=== PATIENT | male | born 1960 | race Caucasian/White ===

== ENCOUNTER 2020-02-11 10:36 | Emergency (ER) | payer OTHER, SELFPAY ==
[2020-02-11 10:47] VITALS: BP 133/82; PULSE 111; RESP 18; TEMP 37.3; O2SAT 99
--- NOTE | 2020-02-11 11:00 | PC.NURSE ---
report called to [facility] by Gabriela CAMPBELL Appropriate transfer paperwork signed and prperty sheet completed
--- NOTE | 2020-02-11 11:02 | ED.MALEGU ---
HPI - Male Genitourinary General Chief complaint: Urogenital-Male Stated complaint: pos uti Source: patient Mode of arrival: ambulatory Limitations: no limitations History of Present Illness HPI Narrative: 59-year-old male presents to urgent care with complaints of dysuria, hematuria, urinary frequency, chills and fevers up to 102.6 since midnight today. Patient has been taking [id number] ibuprofen with minimal relief. Patient reports that he had perforated bowel and had colon surgery completed on January 06 at [facility]. Patient denies cough, shortness of breath, wheezing, chest pain, headache, dizziness or blurred vision Onset (ago): hour(s) (11) Duration: constant Severity: moderate Exacerbating factors: urination Related Data Home Medications Medication Instructions Recorded Confirmed amitriptyline 25 mg DAILY 02/11/20 02/11/20 atorvastatin 40 mg DAILY 02/11/20 02/11/20 metformin 500 mg BID 02/11/20 02/11/20 omeprazole 40 mg DAILY 02/11/20 02/11/20 pregabalin 150 mg DAILY 02/11/20 02/11/20 Allergies Allergy/AdvReac Type Severity Reaction Status Date / Time atropine AdvReac Unknown UNKNOWN- Verified 11/17/18 11:02 A TEENAGER belladonna alkaloids AdvReac Unknown UNKNOWN- Verified 11/17/18 11:02 A TEENAGER Review of Systems Review of Systems: All systems reviewed & are unremarkable except as noted in HPI and below Constitutional: Constitutional: Reports chills, Denies fatigue, Reports fever(s) and Denies weakness Cardiovascular: Cardiovascular: Denies chest pain, Denies rapid heart rate and Denies radiating jaw, neck or arm pain Respiratory: Respiratory: Denies cough, Denies dyspnea and Denies wheezing Gastrointestinal: Gastrointestinal: Denies abdominal pain, Denies diarrhea, Denies nausea and Denies vomiting Genitourinary: Genitourinary: Reports as per HPI, Reports hematuria, Denies oliguria, Denies genital lesions, Reports dysuria, Denies penile discharge, Reports urinary frequency and Denies urinary incontinence Musculoskeletal: Musculoskeletal: Denies back pain and Denies muscle cramps Neurologic: Denies dizziness and Denies syncope [facility] Family History Family History Mother Family history of lung cancer Father Family history of primary malignant neoplasm of liver Other Hypertension Social History Social History Smoking status: Former smoker Smoking end date: 06/28/12 Alcohol intake: current Gender identity (if verbalized by the patient): Male Exam Const: General: alert and ill appearing; No diaphoretic Orientation/consciousness: patient oriented x3 Neck: Neck: normal visual inspection Resp: Effort & Inspection: normal respiratory effort, not labored and not tachypneic Auscultation: clear to auscultation bilaterally and no wheezes Cardio: Rate: not bradycardic and tachycardic Rhythm: regular rhythm Heart sounds: no murmurs GI: GI Palp: Yes Soft to palpation Auscultation: normal bowel sounds Other: colostomy bag in place to LLQ : General: Yes bladder normal to palpation and Yes no CVA tenderness Back/Spine/Pelvis: Back: no CVA tenderness Skin: Rashes: no rashes Wounds: no wounds Neuro: General: patient oriented x3 and moves all extremities Psych: Appearance: grossly normal Mental Status: mental status grossly normal Affect: normal affect Attitude: cooperative Thought content: Yes Normal thought content present Course Vital Signs Vital signs: Vital Signs Temperature 37.3 C 02/11/20 10:47 Pulse Rate 111 H 02/11/20 10:47 Respiratory Rate 18 02/11/20 10:47 Blood Pressure 133/82 02/11/20 10:47 Pulse Oximetry 99 02/11/20 10:47 Temperature 37.3 C 02/11/20 10:47 Pulse Rate 111 H 02/11/20 10:47 Respiratory Rate 18 02/11/20 10:47 Blood Pressure 133/82 02/11/20 10:47 Pulse Oximetry 99
== END 2020-02-11 11:12 | disposition short-term general hospital (02) ==
PROVIDERS: Emergency Provider Nurse Practitioner Family
DX: N30.01 Acute cystitis with hematuria (principal); R00.0 Tachycardia, unspecified; Z87.891 Personal history of nicotine dependence
CPT/HCPCS: 81003; 87077; 87086; 87088; 87186; 99213; G0463

== ENCOUNTER 2024-11-01 15:16 | Emergency (ER) | payer OTHER, SELFPAY ==
--- NOTE | ~2024-11-01 | XR_ITS ---
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 Joint spaces are preserved and alignment is maintained. Air within the superficial soft tissues along the palmar surface of the left third digit. Age-appropriate mineralization. IMPRESSION: Air within the soft tissues, without acute fracture. Reviewed, dictated and finalized at location A.
--- OUTSIDE RECORDS SUMMARY | 2024-11-01 15:22 | XMS_ITS | Encounter Summary ---
Author Organization [facility] Address [address] [place] [address] Care Team Providers Care Faculty Administrator Name Role Phone Tamara Delacruz MD Unavailable [phone] Alejandrina Rabago DO Primary Care Provider [phone] Dell Zhang DO Primary Care Provid er Lei Blount DO Primary Care Provider [phone] Encounter Details Date Type Department Care Team (Late st Contact Info) Description 12/30/2021 [facility], [address] [address] [place] Preston [place] Social History Tobacco Use Types Packs/Day Years Used Date Smoking Tobacco: Former Cigarettes 0.5 39 0 11/16/1974 - 11/16/2013 Smokeless Tobacco: Never Alcohol Use Standard Drinks/Week Comments No 0 (1 standard drink = 0.6 oz pur e alcohol) Humiliation, Afraid, Rape, and Kick questionnair e Answer Date Recorded Within the last year, have y ou been afraid of your partner or ex-partner? No 02/11/2020 Within the last year, have y ou been humiliated or emotionally abused in other ways by your partner or ex-partner? No Within the last year, have y ou been kicked, hit, slapped, or otherwise physically hurt by your partner or ex-partner? No 02/11/2020 Within the last year, have y ou been raped or forced to have any kind of sexual activity by your partner or ex-partner? No 02/11/2020 Social Connection and Isolat ion Panel [NHANES] Answer Date Recorded In a typical week, how many times do you talk on the phone with family, friends, or neighbors? More than three times a week 02/11/2020 How often do you get togethe r with friends or relatives? More than three times a week 02/11/2020 How often do you attend chur ch or mormon services? More than 4 times per year 02/11/2020 Do you belong to any clubs o r organizations such as christianity groups, unions, fraternal or athletic groups, or school groups? Yes 02/11/2020 How often do you attend meet ings of the clubs or organizations you belong to? More than 4 times per year 02/11/2020 Are you , , di vorced, , never , or living with a partner? 02/11/2020 Overall Financial Resource Strain (CARDIA) Answe r Date Recorded How hard is it for you to pa y for the very basics like food, housing, medical care, and heating? Not hard at all 02/11/2020 PHQ-2 Answer Date Recorded PHQ-2 Score - If the patient scores above 3, please move on to questions 3-9 0 01/07/2021 [facility] - Occupational Stress Questionnaire Answer Date Recorded Do you feel stress - tense, restless, nervous, or anxious, or unable to sleep at night because your mind is troubled all the time - these days? Not at all 02/11/2020 Exercise Vital Sign Answer Date Recorde d On average, how many days pe r week do you engage in moderate to strenuous exercise (like a brisk walk)? 0 days 02/11/2020 On average, how many minutes do you engage in exercise at this level? 0 min 02/11/2020 Hunger Vital Sign Answer Date Recorded Within the past 12 months, y ou worried that your food would run out before you got the money to buy more. Never true 02/11/20 20 Within the past 12 months, t he food you bought just didn't last and you didn't have money to get more. Never true 02/11/2020 PRAPARE - Transportation Answer Date Re corded In the past 12 months, has l ack of transportation kept you from medical appointments or from getting medications? No 01/26 In the past 12 months, has l ack of transportation kept you from meetings, work, or from getting things needed for daily living? 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 No / Unsure 01/01/2022 9:03 AM CDT documented as of this encounter Functional Status * RETIRED Are you deaf or do you have serious difficulty hearing Answer Date of Assessment Author Status No 09/02/2020 5:09 PM SENIOR CIVIL ENGINEER Activ e * RETIRED Are you blind or do you have serious difficulty seeing, even when wearing glasses? Answer Date of Assessment Author Status No 09/02/2020 5:09 PM SENIOR CIVIL ENGINEER Activ e * Do you have serious difficulty walking or climbing stairs? Answer Date of Assessment Author Status No 09/02/2020 5:09 PM Jen Rubi RN Active * Do you have difficulty dressing or bathing? Answer Date of Assessment Author Status No 09/02/2020 5:09 PM Jen Rubi RN Active * Because of a physical, mental, or emotional condition, do you have difficulty doing errands alone such as visiting a doctor's office or shopping? Answer Date of Assessment Author Status No 09/02/2020 5:09 PM Jen Rubi RN Active documented as of this encounter Mental Status * Because of a physical, mental, or emotional condition, do you have serious difficulty concentrating, remembering, or making decisions? Answer Entry Date Author Status No 09/02/2020 5:09 PM SENIOR CIVIL ENGINEER Pacheco, Jen K , RN Active documented in this encounter Plan of Treatment Upcoming Encounters Date Type Department Care Team (Late st Contact Info) Description 01/18/2025 10:00 AM CDT Office Visit [facility] [address] [facility] [address], [address] [place] [address] MalenafideMarkoMarjorie Del, BUTCHER HELPER [address] [place] [address] documented as of this encounter Goals Goal Patient Goal Type Associated Problems Recent Progress Patient-Stated? Author Health - patient able to perform ADLs independently General Leonor Trujillo, RN documented as of this encounter Procedures Procedure Name Priority Date/Time Associated Diagnosis Comments HEMOGLOBIN, GLYCOSYLATED Routine 10/28/2023 LIPID PANEL Routine 06/01/2023 CBC, MANUAL DIFF Routine 06/01/2023 CBC, MANUAL DIFF Routine 06/01/2023 MAGNESIUM Routine 06/01/2023 COMPREHENSIVE METABOLIC PANEL Routine 04/21/2023 LIPID PANEL Routine 04/23/2021 COMPREHENSIVE METABOLIC PANEL Routine 12/22/2020 CBC, MANUAL DIFF Routine 12/22/2020 documented in this encounter Results * HEMOGLOBIN, GLYCOSYLATED (10/28/2023) HGB A1C 6.8 % us Default History Genericprovider LABORATORY Final Result * LIPID PANEL (06/01/2023) CHOLESTEROL 155 TRIGLYCERIDES 152 HDL 32 LDL (CALCULATED) 109 us Default History Genericprovider LABORATORY Final Result * CBC, MANUAL DIFF (06/01/2023) WBC 3.8 HGB 16.2 HCT 48 PLT 180 us Default History Genericprovider LABORATORY Final Result * MAGNESIUM (06/01/2023) Pathologist [facility] MAGNESIUM 1.9 Default History Genericprovider LABORATORY Final Result * CBC, MANUAL DIFF (06/01/2023) Pathologist [facility] WBC 3.8 HGB 16.2 HCT 48 PLT 180 Default History Genericprovider LABORATORY Final Result * COMPREHENSIVE METABOLIC PANEL (04/21/2023) Pathologist [facility] SODIUM S/P/B 142 GLUCOSE 109 mg/dL AST 24 BUN 8 CREATININE S/P/B 0.80 0.7 - 1.3 CALCIUM S/P/B 9.2 POTASSIUM S/P/B 4.1 CHLORIDE S/P/B 107 ALT 55 GFR ESTIMATE 99 Default History Genericprovider LABORATORY Final Result * LIPID PANEL (04/23/2021) Pathologist [facility] CHOLESTEROL 159 HDL 36 TRIGLYCERIDES 140 LDL (CALCULATED) 109 04/23/2021 [facility] LABORATORY Final Result * COMPREHENSIVE METABOLIC PANEL (12/22/2020) Pathologist [facility] SODIUM S/P/B Comment:error,deleted Default History Genericprovider LABORATORY Edited Result - Final * CBC, MANUAL DIFF (12/22/2020) Pathologist [facility] WBC Comment:error,deleted us Default History Genericprovider LABORATORY Edited Result - Final documented in this encounter Visit Diagnoses Not on filedocumented in this encounter Additional Health Concerns Infection Onset Date Last Indicated Resolved Time COVID-19 Rule Out 08/23/2022 08/23/2022 08/23/2022 3:07 PM SENIOR CIVIL ENGINEER Assessment Noted Time PHQ-9 Depression Total Score: 0 01/08/20 21 8:51 AM CDT documented as of this encounter Care Teams Faculty Administrator Relationship Specialty Start Date End Date GemAlejandrina Narciso DO [address] [id number] PCP - General INTERNAL MEDICINE 10/18/19 06/27/22 Dell Zhang, DO 3 [facility] [address] [place], [place] [id number] PCP - General INTERNAL MEDICINE 06/28/22 12/25/22 Lei Blount DO 3 [facility] [address] [place] [phone] PCP - General INTERNAL MEDICINE 12/26/22 Tamara Delacruz MD Three [facility]. [address] [place], [place] [address] [facility] CARDIOVASCULAR DISEASE 11/27/15 documented as of this encounter
--- OUTSIDE RECORDS SUMMARY | 2024-11-01 15:22 | XMS_ITS | Clinical Summary ---
Author Organization [facility] Address [address] [place] [address] Care Team Providers Care Flatlock Sewing Machine Operator Name Role Phone Tamara Delacruz MD Unavailable [phone] Lei Blount DO Primary Care Provider [phone] Allergies Active Allergy Reactions Criticality Noted Date Comments Atropine Nausea and Vomiting 02/16/2016 Belladonna Nausea and Vomiting 02/16/2016 Medications amitriptyline 10 MG tabletIndicatio ns:Sleep Take 10 mg by mouth nightly at bedtime. Indications: Sleep 6 Active Lutein 20 MG CapIndications: Eye health Take 1 capsule by mouth nightly at bedtime. Indications: Eye health 6 Active pregabalin (LYRICA) 150 MG capsuleIndicati ons:Worsening of Restless Leg Syndrome (Inactive) Take 150 mg by mouth 3 (three) times daily. Indications: Worsening of Restless Leg Syndrome 6 Active vitamin D3, cholecalciferol , 25 MCG (1000 UT) capsuleIndicati ons:Vitamin D deficiency Take 1,000 Units by mouth daily. Indications: Vitamin D deficiency 6 Active Melatonin 10 MG CapIndications: Sleep Take 10 mg by mouth nightly at bedtime. Indications: Sleep 0 Active multi vitamin/mineral s (THERA-M ENHANCED) tabletIndicatio ns:Nutritional Support Take 1 tablet by mouth daily. Indications: Nutritional Support 0 Active omeprazole 40 MG capsule Take 40 mg by mouth daily. Active Cranberry, Vacc oxycoccus, (CRANBERRY EXTRACT) 200 MG Cap Take 500 mg by mouth daily. Active aspirin EC 81 MG tablet Take 1 tablet (81 mg total) by mouth daily. 90 tablet 1 0 Active traMADol 50 MG tablet Take 50 mg by mouth every 6 (six) hours as needed for Pain. Active lidocaine 5 % Place 1 patch onto the skin as needed. 1 Active Lancets (FREESTYLE) lancets 1 Active FREESTYLE LITE test strip 1 Active acetaminophen 325 MG tabletIndicatio ns:Incisional hernia Take 2 tablets (650 mg total) by mouth every 4 (four) hours as needed for Pain. For Mild Pain or Fever 1 Active atorvastatin 40 MG tablet Take 1 tablet by mouth daily. 2 Active metFORMIN 1000 MG tablet Take 1 tablet by mouth 2 (two) times a day. 2 Active tiZANidine HCl 4 MG Cap Take 1 tablet by mouth as needed. Active ferrous sulfate EC 325 (65 Fe) MG tablet Take 1 tablet (325 mg total) by mouth daily. 30 tablet 3 2 Active fluticasone propionate (FLONASE) 50 MCG/ACT nasal spray 1 spray by Nasal route daily. 11 mL 3 Active Active Problems Problem Noted Date Diagnosed Date Lower urinary tract symptoms (LUTS) 02/10/2022 Precordial pain 01/01/2022 S/P colostomy takedown 09/07/2020 Pancreatitis, acute ([facility]) 05/17/2020 Pancreatitis ([facility]) 05/16/2020 Fever 03/12/2020 Sepsis ([facility]) 02/11/2020 Acute diverticulitis 01/03/2020 Diverticulitis 01/03/2020 Knee pain, right 03/21/2015 Swelling of lower extremity 03/21/2015 GERD (gastroesophageal reflux disease) 0 Nonrheumatic mitral (valve) insufficiency Essential hypertension Hyperlipidemia, mixed Resolved Problems Problem Noted Date Diagnosed Date Resolved Date History of diverticulitis 09/02/[address] ([facility]) 09/02/2020 09/07/2020 Encounter for preventive health examination 04/09/2014 12/09/2020 Immunizations Immunization Administration Dates Next Due Fluzone 6 Months+ Quad (0.5 mL Prefilled Syringe ) 03/18/2020 MODERNA COVID-19 (12+) MRNA, LNP-S, PF, 100 MCG/ 0.5 ML DOSE 09/23/2020,08/27/2020 Family History Medical History Relation Comments Diabetes Brother Cancer Father liver cancer Cirrhosis of the liver Father Hyperlipidemia Father Hypertension Father Liver Disease Father Liver cancer Father CABG Maternal Grandfather Heart Attack Maternal Grandfather LA Maternal Grandmother Cause of de ath Cancer Mother lung, lymph node cancer Cardiomyopathy Mother Coronary artery disease Mother Heart Disease Mother Ischemic heart disease Mother Lung Cancer Mother Emphysema Paternal Grandfather Diabetes Sister Relation Status Comments Brother Alive Father (Age 72) of liver cancer Maternal Grandfather (Age 59) Maternal Grandmother (Age 81) Mother (Age 57) of heart disease and cancer of lymph nodes, lung Paternal Grandfather (Age 83) Paternal Grandmother (Age 82) Sister Alive Son 1 Alive Son 2 Alive Social History Tobacco Use Types Packs/Day Years Used Date Smoking Tobacco: Former Cigarettes 0.5 39 0 11/16/1974 - 11/16/2013 Smokeless Tobacco: Never Tobacco Cessation:Counseling Given: Not Answered Alcohol Use Standard Drinks/Week Comments Yes 0 (1 standard drink = 0.6 oz pur e alcohol) rarely Humiliation, Afraid, Rape, and Kick questionnair e [...] often do you attend chur ch or sabianist services? 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 Not on file Not on file Last Filed Vital Signs Vital Sign Reading Time Taken Comments Blood Pressure 128/72 01/13/2024 11:07 AM CDT Pulse 75 01/13/2024 10:37 AM CDT Temperature 37.2 C (98.9 F) 08/23/2022 1:08 PM TWIST PACKER Respiratory Rate 18 08/23/2022 4:10 PM TWIST PACKER Oxygen Saturation 98% 01/13/2024 10:37 AM CDT Inhaled Oxygen Concentration - - Weight 88 kg (194 lb) 01/13/2024 10:37 AM CDT Height 172.7 cm (5' 8 ) 01/13/2024 10:37 AM CDT Body Mass Index 29.5 01/13/2024 10:37 AM CDT Plan of Treatment Upcoming Encounters Date Type Department Care Team (Late st Contact Info) Description 01/18/2025 10:00 AM CDT [facility], [address] [place] [address] Marjorie Bird APRN Three [facility]. [address] [place], [place] [id number] Health Maintenance Due Date Last Done Comments Kidney Health Evaluation 1960 Annual Physical 1963 Diabetes: Retinopathy Eye Exam 1978 Hepatitis C 1978 Pneumococcal Vaccine: 50+ Years (2 of 2 - PCV) 01/29/2022 01/29/2021 COVID-19 Vaccine ( season) 2024 05/13/2021, 09/23/2020, 08/27/2020 Hemoglobin A1C 04/29/2024 10/28/2023, 12/09/2016 Lipid Panel 06/01/2024 06/01/2023, 03/29, 05/16/2020, Additional history exists Colorectal Cancer Screening Colonoscopy (10 Years) 07/19/2030 07/19/2020 DTaP, Tdap and Td Vaccines (3 - Td or Tdap) 01/29/2031 01/29/2021, 11/26/2005, 01/07/1995, Additional history exists Meningococcal Vaccine Aged Out 04/22/1998 No marcos ya eligible based on patient's age to complete this topic Zoster Vaccines Completed 05/13/2021, 01/29/2021 RSV Immunization or 60+ Years Completed 06/08/2023 Meningococcal B Vaccine Aged Out No l onger eligible based on patient's age to complete this topic RSV Immunizations Under 20 Months Aged Out No longer eligible based on patient's age to complete this topic Goals Goal Patient Goal Type Associated Problems Recent Progress Patient-Stated? Author Health - patient able to perform ADLs independently General No Leonor West RN Medical Devices Implanted Type Area Weatherization Crew Leader Device Identifier Shelf Expiration Date Model / Serial / Lot Mesh Ventralight St Echo [place] 4.5 - [id number] Implanted:Qty: 1 on 03/28/2021 by Andrew Johnson MD at [facility] Mesh Left: Abdomen [employer] - [employer] [id number] 09/22/2022 [id number] / / [id number] Hardware=Cervi zita Description:Titanium plate a nd screws Urolift - [id number] Implanted:Qty: 4 on 11/28/2020 by Alex Cartwright MD at [facility] N/A: Prostate [employer] [id number] 09/16/2022 [id number] / / [id number] Procedures Procedure Name Priority Date/Time Associated Diagnosis Comments HEMOGLOBIN, GLYCOSYLATED Routine 10/28/2023 LIPID PANEL Routine 06/01/2023 from Last 3 Months or Most Recently Relevant to Health Maintenance Results * HEMOGLOBIN, GLYCOSYLATED (10/28/2023) HGB A1C 6.8 % us Default History Genericprovider LABORATORY Final Result * LIPID PANEL (06/01/2023) CHOLESTEROL 155 TRIGLYCERIDES 152 HDL 32 LDL (CALCULATED) 109 us Default History Genericprovider LABORATORY Final Result from Last 3 Months or Most Recently Relevant to Health Maintenance Insurance Advance Directives Documents on File Type Date Recorded Patient Bioinformatics Computer Scientist Expl anation Advance Directives and Living Will 09/03/2020 2:35 PM 09/02/2020 POA FOR [facility] * Full Code (Latest Code Status on File) Date Activated Date Inactivated Comments 09/02/2020 5:07 PM 09/07/2020 4:19 PM * Full Code Date Activated Date Inactivated Comments 05/16/2020 5:00 PM 05/19/2020 4:17 PM * Full Code Date Activated Date Inactivated Comments 03/21/2020 10:00 AM 04/26/2020 6:38 PM * Full Code Date Activated Date Inactivated Comments 03/14/2020 7:06 PM 03/18/2020 5:03 PM * Full Code Date Activated Date Inactivated Comments 03/12/2020 7:49 PM 03/14/2020 7:06 PM Care Teams Flatlock Sewing Machine Operator Relationship Specialty Start Date End Date Lei Blount DO 3 [facility] [address] [place] [phone] PCP - General INTERNAL MEDICINE 12/26/22 Tamara Delacruz MD Three [facility]. [address] [place] [address] Corning Bacon Slicer CARDIOVASCULAR DISEASE 11/27/15
--- OUTSIDE RECORDS SUMMARY | 2024-11-01 15:22 | XMS_ITS | Patient Health Record ---
Author Organization [facility] Address [address] [place], [place] [id number] Care Team Providers Care Angle Dozer Operator Name Role Phone Medical Group, [facility] Prima Care Provider Unavailable RUDOLPH CAMERON Unavailable [phone] Allergies Allergen (clinical drug ingredient) Drug/Non Drug Allergy documented on EMR Reaction Allergy Type Onset Date Status atropine Atropine Unknown Drug Allergy Active belladonna alkaloids Belladonna Unknown Drug Allergy Active Reason For Referral Reason [facility] ([place] Pat[place] t) Diagnosis 1 Other nail disorders (L60.8) Diagnosis 2 Type 2 diabetes cortney itus with unspecified complications (E11.8) Referred Organization [facility] Referred Provider RUDOLPH CAMERON Referred Address [address], [id number], Referred Provider Specialty Podiatry Referral Priority Routine Reason [facility] (Establishe d Patient) Diagnosis 1 Other nail disorders (L60.8) Diagnosis 2 Type 2 diabetes cortney itus with unspecified complications (E11.8) Referred Organization [facility] Referred Provider RUDOLPH CAMERON Referred Address [address],[place], [id number], Referred Provider Specialty Podiatry Referral Priority Routine Medications Medication SIG (Take, Route, Fr equency, Duration) Notes Start Date End Date Status metFORMIN HCl Active Melatonin Active Lyrica Active Lutein Active Lidoderm Active Lisinopril Active Ferrous Sulfate Acti ve Duloxicaine Active Vitamin D3 Active Vitamin B-12 Active Omeprazole Active Centrum Silver Activ e Baclofen Active Atorvastatin Calcium Active Aspirin Active Encounters Encounter Location Date Provider Diagnosis [facility] [address] [place], [place] [id number] 05/16/2024 RUDOLPH MANNYRAMÓN Contusion of left great toe without damage to nail, initial encounter S90.112A and Pain in left toe(s) M79.675 Assessments Encounter Date Diagnosis (ICD Code) Assessment Notes Treatment Notes Treatment Clinical Notes Section Notes 05/16/2024 Pain in left toe(s) (ICD-10 - M79.675) 05/16/2024 Contusion of left great toe without damage to nail, initial encounter (ICD-10 - S90.112A) 05/16/2024 Other Advised him that the hematoma would take about a year to grow out. I told him to be absolutely sure we would need to remove the nail. He opted to not pursue that course of treatment. Plan Of Treatment No Information Insurance Providers Payer Name Payer Address Payer Phone Subscriber Number Group Number Insured Name Patient Relationship to Insured Coverage Start Date Coverage End Date [facility] [address] [place] [phone] [id number] Luis Yee Self - patient is the insured Medical (General) History Medical History History ICD Code acid reflux Kidney disease neuropathy anemia GERD Leg/Feet cramps Bladder infections Sleep apnea Back Trouble Diabetic restless leg syndrome
--- OUTSIDE RECORDS SUMMARY | 2024-11-01 15:22 | XMS_ITS | Clinical Summary ---
Author Organization [facility] Address [address], [facility] [address] [place] [address] Phone Care Team Providers Care Recreation Activities Coordinator Name Role Phone Provider, Unknown Primary Care Provider Unavaila ble Allergies Active Allergy Reactions Criticality Noted Date Comments Atropine Unknown 08/25/2018 Belladonna Unknown 08/25/2018 Medications amitriptyline (ELAVIL) 25 MG Tablet 07/19/2018 Active aspirin EC 81 MG Tablet Delayed Response 07/19/2018 Active LYRICA 150 MG Capsule 06/13/2018 Active raNITIdine (ZANTAC) 150 MG Tablet 07/19/2018 Active Multiple Vitamins-Mineral s (CENTRUM SILVER PO) Take by mouth. Active Delta-3 Fatty Acids (FISH OIL PO) Take by mouth. Active LUTEIN PO Take by mouth. Active Niacin, Antihyperlipidem ic, (NIASPAN PO) Take by mouth. Active Cyanocobalamin (VITAMIN B12 PO) Take by mouth. Active Cholecalciferol (VITAMIN D3) 1000 UNIT Tablet Take by mouth. 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 Gender Identity Not on file Sexual Orientation Not on file Last Filed Vital Signs Vital Sign Reading Time Taken Comments Blood Pressure 110/70 08/25/2018 1:31 PM CLOTHES SHAKER Pulse 92 08/25/2018 1:31 PM CLOTHES SHAKER Temperature - - Respiratory Rate - - Oxygen Saturation 97% 08/25/2018 1:31 PM CLOTHES SHAKER Inhaled Oxygen Concentration - - Weight 84.5 kg (186 lb 3.2 oz) 08/25/2018 1:31 P M CLOTHES SHAKER Height 172.7 cm (5' 8 ) 08/25/2018 1:31 PM CLOTHES SHAKER Body Mass Index 28.31 08/25/2018 1:31 PM CLOTHES SHAKER Plan of Treatment Health Maintenance Due Date Last Done Comments Hepatitis C Virus (HCV) Screening 1960 TdaP Immunization 1960 Cologuard 2010 Immunochemical Fecal Occult Blood 2010 Pneumococcal Immunization (5 0+ years) (1 of 1 - PCV) 2010 Zoster Immunization (1 of 2) 2010 Colonoscopy 11/17/2021 11/17/2018 Colorectal Cancer Screening 11/17/2021 Influenza Immunization (#1) 2024 SARS-COV-2 Immunization ( - 2023- season) 2024 Respiratory Syncytial Virus (RSV) Immunization (Adult) (1 - 1-dose 75+ series) 2035 11/17/2018 Hepatitis B Immunization Aged Out No longer eligible based on patient's age to complete this topic Meningococcal Immunization (ACWY) Aged Out No longer eligible based on patient's age to complete this topic Rotavirus Immunization Aged Out No lo nger eligible based on patient's age to complete this topic Procedures Procedure Name Priority Date/Time Associated Diagnosis Comments COLONOSCOPY Routine 11/17/2018 from Last 3 Months or Most Recently Relevant to Health Maintenance Results * COLONOSCOPY (11/17/2018) Crow Huang DO PROCEDURE/MINOR SURGICAL ORDERA BLES Final Result from Last 3 Months or Most Recently Relevant to Health Maintenance Insurance [facility] Care Teams Recreation Activities Coordinator Relationship Specialty Start Date End Date Provider, Unknown UNKNOWN PCP - General 07/05/18
--- OUTSIDE RECORDS SUMMARY | 2024-11-01 15:22 | XMS_ITS | Data Portability ---
Author Organization [facility] Address [address] [facility] [address] [place] [address] Care Team Providers Care Adjuster Electrical Contacts Name Role Phone Unavailable Referring Provider Unavailable Assessment No assessment recorded. Plan of Treatment Reminders Order Date Submit Date Provider Last Modified By Organization Details Last Modified Time Details Appointments None record ed. Lab None record ed. Referral None record ed. Procedures None record ed. Surgeries None record ed. Imaging None record ed. Medication Orders None record ed. Patient TargetsNo targets recorded. Patient InstructionsNo instructions recorded. Reason for Referral None Reported. Procedures Surgical History Date Name Laterality Status Provider Name and Address Organization Details Recorded Time 01/19/2021 Sleep Study completed Crow Shaun [facility] 01/21/20 21 11:10:31 Imaging Results None recorded. Procedure Notes None recorded. Medical Equipment None Reported. Medications Name Sig Start Date Stop Date Status Note LastModified by Organization Details LastModified Time atorvastatin 40 mg tablet active Not Available Not Available No t Available metformin 500 mg tablet active Not Available Not Available No t Available tizanidine 2 mg tablet active Not Available Not Available Not Available oxybutynin chloride ER 10 mg tablet,extended release 24 hr active Not Available Not Availabl e Not Available hydrocodone 5 mg-acetaminophe n 325 mg tablet TK 1 T PO Q 6 H PRN P active Not Available Not Available No t Available FreeStyle Lancets 28 gauge active Not Available Not Available Not Available metronidazole 500 mg tablet active Not Available Not Availabl e Not Available omeprazole 40 mg capsule,delayed release active Not Available Not Available Not Available aspirin 81 mg tablet,delayed release active Not Available Not Available Not Available tramadol 50 mg tablet active Not Available Not Available Not Available amitriptyline 25 mg tablet active Not Available Not Available Not Available tamsulosin 0.4 mg capsule active Not Available Not Available N ot Available amitriptyline 10 mg tablet active Not Available Not Available Not Available benzonatate 100 mg capsule active Not Available Not Available N ot Available lidocaine 5 % topical patch active Not Available Not Availabl e Not Available neomycin 500 mg tablet active Not Available Not Available Not Available cefdinir 300 mg capsule TK 1 C PO BID TAT active Not Available Not Available No t Available amoxicillin 875 mg-potassium clavulanate 125 mg tablet TK 1 T PO BID active Not Available Not Available No t Available amoxicillin 500 mg-potassium clavulanate 125 mg tablet TK 1 T PO TID TAT active Not Available Not Available No t Available oxycodone 5 mg tablet TAKE 1 TABLET BY MOUTH EVERY 4 HOURS NEEDED active Not Available Not Available No t Available Vitamin D3 25 mcg (1,000 unit) tablet active Not Available Not Available Not Available pregabalin 150 mg capsule active Not Available Not Available N ot Available FreeStyle Lite Strips active Not Available Not Available Not Available FreeStyle [place] Lite kit active Not Available Not Available Not Available Vitals Date Recorded Body height Body mass index (BMI) Body weight Provider Name and Address Organization Details Last Updated DateTime 01/19/2021 172.72 cm 24.9 kg/m2 98118.15 g Crow Dunn [place] [facility] 01/20/2021 10:41:01 Social History None recorded. Functional Status None recorded. Mental Status None recorded. Family History Nothing Reported. Medical History No medical history recorded. Past Encounters Encounter ID Performer Location Encounter Start Date Encounter Closed Date Diagnosis/Indication Diagnosis SNOMED-CT Code Diagnosis ICD10 Code Diagnosis Note [id number] [facility], [facility] [phone] [place] [address] 01/19/2021 21:15:14 01/20/2021 10:40:27 Obstructive sleep apnea of adult 6325350528 103 G47.33 Health Concerns Section Related Observation LastModified by Organization Detai ls LastModified Time None Recorded Concern Status LastModified by Organization Details LastModified Time None Recorded Advance Directives Directive None Recorded Payers Insurance Date Sequence Insurance Name Policy Number Policy Pacheco Covered Member ID Pacheco Member ID Guarantor Name 01/23/2021 1 [facility] [place] () [place] [id number] [place]
--- OUTSIDE RECORDS SUMMARY | 2024-11-01 15:23 | XMS_ITS ---
Author Organization [facility] Address [address] [place], [place] [id number] Care Team Providers Care Field Service Tech Name Role Phone Medical [facility], [facility] Fifth Prima ry Care Provider Unavailable RUDOLPH HILL Unavailable [phone] Allergies Allergen (clinical drug ingredient) Drug/Non Drug Allergy documented on EMR Reaction Allergy Type Onset Date Status atropine Atropine Unknown Drug Allergy Active belladonna alkaloids Belladonna Unknown Drug Allergy Active REASON FOR VISIT Black lesion left toenail Medications Medication SIG (Take, Route, Fr equency, Duration) Notes Start Date End Date Status metFORMIN HCl Active Melatonin Active Lyrica Active Lutein Active Lidoderm Active Atorvastatin Calcium Active Aspirin Active Vitamin D3 Active Vitamin B-12 Active Omeprazole Active Lisinopril Active Ferrous Sulfate Acti ve Duloxicaine Active Centrum Silver Activ e Baclofen Active Encounters Encounter Location Date Provider Diagnosis [facility] [address] [place], [place] [id number] 05/16/2024 RUDOLPH HILL Contusion of left great toe without damage to nail, initial encounter S90.112A and Pain in left toe(s) M79.675 Assessments Encounter Date Diagnosis (ICD Code) Assessment Notes Treatment Notes Treatment Clinical Notes Section Notes 05/16/2024 Contusion of left great toe without damage to nail, initial encounter (ICD-10 - S90.112A) 05/16/2024 Pain in left toe(s) (ICD-10 - M79.675) 05/16/2024 Other Advised him that the hematoma would take about a year to grow out. I told him to be absolutely sure we would need to remove the nail. He opted to not pursue that course of treatment. Plan Of Treatment Treatment Notes Assessment Notes Other Advised him that the hematoma would take about a year to grow out. I told him to be absolutely sure we would need to remove the nail. He opted to not pursue that course of treatment. Progress Notes * Luis ODONNELL FDOB: 0 (64 yo M)Acc No.[id number]:05/16/2024 Progress Notes Patient: Luis HERRON Provider: Abram Hill DPM :1960 A ge:64 Y S ex:Male Date:05/16/2024 Address:[facility] [address] [id number] Pcp:[facility] Subjective: * Chief Complaints: * B lack lesion left toenail * HPI: H PI: New Complaint P atient presents for a new patient consultation., Patient complains of an issue to black spot on big toenail., Duration of problem is 3 months. Started as a small blood spot. Is painful off and on., Patient denies any injury., MA: carmela. * Medical History: * Surgical History: * Hospitalization/Major Diagno stic Procedure: * Medications: T akingVitamin D3 Vitamin B-12 Omeprazole metFORMIN HCl Melatonin Lyrica Lutein Lidoderm Lisinopril Ferrous Sulfate Duloxicaine Centrum Silver Baclofen Atorvastatin Calcium Aspirin Medication List reviewed and reconciled with the patientTaking Vitamin D3 Taking Vitamin B-12 Taking Omeprazole Taking metFORMIN HCl Taking Melatonin Taking Lyrica Taking Lutein Taking Lidoderm Taking Lisinopril Taking Ferrous Sulfate Taking Duloxicaine Taking Centrum Silver Taking Baclofen Taking Atorvastatin Calcium Taking Aspirin Medication List reviewed and reconciled with the patient * Allergies: A tropineBelladonna Objective: * Vitals: * Examination: C onstitutional: Constitutional T he patient is awake, alert, well developed, well groomed and well nourished. . D ermatologic: Skin findings: S kin is warm, dry, supple with no breaks in the skin. . Nail pathology: N ails 1-5 bilateral are normal in appearance and thickness. No discoloration. left digit 1 with subungual hematoma . Ulcer: T here is no evidence of ulceration noted at this time . Hyperkeratotic Skin Lesion T here is no evidence of hyperkeratosis . M usculoskeletal: Muscle Strength M uscle strength is 5/5 in regards to dorsiflexion, plantarflexion, inversion, and eversion in bilateral lower extremities. . Foot Structure T he foot structure is noted to be normal bilaterally . Pain on palpation T here is no pain on palpation . Gait T here is normal gait noted . N eurologic: Muscle power: 5 /5 bilaterally . Gross sensation G ross sensation is intact to light touch. . V ascular: Dorsalis pedis pulse: 2 /4 bilateral . Posterior tibial pulse: 2 /4 bilaterally . Capillary refill: l ess than 3 seconds bilaterally . Temperature gradient: w ithin normal limits . ? Assessment: * Assessment: 1. C ontusion of left great toe without damage to nail, initial encounter - S90.112A (Primary)? 2. P ain in left toe(s) - M79.675 Plan: * Treatment: * Procedure Codes: * Billing Information: * Visit Code: 64169 Office Visit, New Pt., Level 3. * Procedure Codes: * Sign off status: Completed true * Provider: Abram Hill DPM Date: 07/16/2023 Generated for Leroy mascorro/Jose Raul/Talitting on: 0 11/01/2024 03:23 PM CDT History and Physical Notes * HPI (History of Present Illness) Category Sub-Category Detail Notes Category Not es HPI New Complaint Patient presents for a new patient consultation., Patient complains of an issue to black spot on big toenail., Duration of problem is 3 months. Started as a small blood spot. Is painful off and on., Patient denies any injury., MA: mf Examination Category Sub-Category Detail Notes Category Not es Constitutional Constitutional The patient is a wake, alert, well developed, well groomed and well nourished. Dermatologic Skin findings: Skin is warm, dr y, supple with no breaks in the skin. Nail pathology: Nails 1-5 bilateral are normal in appearance and thickness. No discoloration. left digit 1 with subungual hematoma Ulcer: There is no evidence of ulceration noted at this time Hyperkeratotic Skin Lesion There is no e vidence of hyperkeratosis Musculoskeletal Muscle Strength Muscle strength is 5/5 in regards to dorsiflexion, plantarflexion, inversion, and eversion in bilateral lower extremities. Pain on palpation There is no pain on palpation Foot Structure The foot structure i s noted to be normal bilaterally Gait There is normal gait noted Neurologic Muscle power: 5/5 bilaterally Gross sensation Gross sensation is i ntact to light touch. Vascular Dorsalis pedis pulse: 2/4 bilateral Posterior tibial pulse: 2/4 bilaterally Capillary refill: less than 3 seconds bilaterally Temperature gradient: within normal limi ts
--- OUTSIDE RECORDS SUMMARY | 2024-11-01 15:23 | XMS_ITS | Referral Summary ---
Author Organization [facility] Address [address] [place] [address] Care Team Providers Care Senior Database Administrator Name Role Phone Unknown, Notinfile Primary Care Provider Unavail able Allergies Active Allergy Reactions Criticality Noted Date Comments Atropine Unknown 10/03/2018 Belladonna Alkal.-Simethicone Unknown 2018 Medications amitriptyline (ELAVIL) 25 mg tablet 07/19/2018 Active CHOLECALCIFEROL 1,000 unit tablet 07/19/2018 Active LYRICA 150 mg capsule 10/04/2018 Active multivitamin tabletIndicatio ns:Vitamin Deficiency Prevention Take 1 tablet by mouth Active polyethylene glycol (MIRALAX) 17 gram packetIndicatio ns:constipation Take 17 g by mouth every other day Active oxyCODONE-aceta minophen (PERCOCET) 5-325 mg per tablet TAKE 1 TO 2 TABLETS BY MOUTH EVERY 6 HOURS NEEDED FOR PAIN 03/31/2021 Active omeprazole (PriLOSEC) 40 mg capsule 02/11/2021 Active metFORMIN (GLUCOPHAGE) 500 mg tablet 03/17/2021 Activ e freestyle 28 gauge lancets 04/11/2021 Activ e lidocaine (LIDODERM) 5 % 02/21/2021 Acti ve atorvastatin (LIPITOR) 40 mg tablet 03/17/2021 Active aspirin 81 mg enteric coated tablet 03/17/2021 Active Active Problems No known active problems Social History Tobacco Use Types Packs/Day Years Used Date Smoking Tobacco: Former Cigarettes Q uit: 2013 Smokeless Tobacco: Never Alcohol Use Standard Drinks/Week Comments Yes 0 (1 standard drink = 0.6 oz pur e alcohol) rarely Personal Safety Answer Date Recorded Getting School Help Needed Not on file 09/10 Sex and Gender Information Value Date Recorded Sex Assigned at Not on file 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 Gender Identity Not on file Sexual Orientation Not on file Last Filed Vital Signs Vital Sign Reading Time Taken Comments Blood Pressure 117/83 10/07/2018 11:35 AM CDT Pulse 83 10/07/2018 11:35 AM CDT Temperature 36.4 C (97.6 F) 10/07/2018 9:36 AM CDT Respiratory Rate 15 10/07/2018 11:35 AM CDT Oxygen Saturation 99% 10/07/2018 11:35 AM CDT Inhaled Oxygen Concentration - - Weight 73.5 kg (162 lb) 04/15/2021 12:38 PM CDT Height 172.7 cm (5' 8 ) 04/15/2021 12:38 PM CDT Body Mass Index 24.63 04/15/2021 12:38 PM CDT Plan of Treatment Not on file Procedures Procedure Name Priority Date/Time Associated Diagnosis Comments DIABETES EYE EXAM Routine 09/28/2024 from Last 3 Months Results * DIABETES EYE EXAM (09/28/2024) SCRIBED DIABETIC DILATED EYE EXAM Normal Historical Provider HEALTH MAINTENANCE Final Result from Last 3 Months Insurance [facility] CLAIMS [facility] Advance Directives For more information, please contact: [phone] * Full Code (Latest Code Status on File) Date Activated Date Inactivated Comments 10/07/2018 9:22 AM 10/07/2018 4:01 PM Care Teams Senior Database Administrator Relationship Specialty Start Date End Date Unknown, Notinfile PCP - General 04/15/21
--- OUTSIDE RECORDS SUMMARY | 2024-11-01 15:23 | XMS_ITS | Clinical Summary ---
Author Organization [facility] Address [address] [place] [address] Care Team Providers Care Portable Grinding Machine Operator Name Role Phone Unknown, Notinfile Primary Care [...] Active Active Problems No known active problems Surgical History Surgery Date Site/Laterality Comments AK VASECTOMY UNI/BI SPX W/PO STOP SEMEN EXAMS Surgery Vas Deferens Vasectomy - (Added by TW Conv) UMBILICAL HERNIA REPAIR x2 CERVICAL DISCECTOMY c4,5 c5,6, CHOLECYSTECTOMY COLONOSCOPY Medical History Medical History Date Comments GERD (gastroesophageal reflux disease) Hyperlipidemia Chronic constipation Diverticulosis Colon polyp Pancreatitis Family History Medical History Relation Name Comments Cancer Other Cancer - (Added by TW Conv) Relation Name Status Comments Other Social History Tobacco Use Types Packs/Day Years [...] on file 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 Gender Identity Not on file Sexual Orientation Not on file Obstetrics History Last Filed Vital Signs Vital Sign Reading [...] (09/28/2024) SCRIBED DIABETIC DILATED EYE EXAM Normal us Historical Provider HEALTH MAINTENANCE Final Result from Last 3 Months Insurance [facility] CLAIMS [facility] Advance Directives For more information, please contact: [phone] * Full Code (Latest Code Status on File) Date Activated Date Inactivated Comments 10/07/2018 9:22 AM 10/07/2018 4:01 PM Care Teams Portable Grinding Machine Operator Relationship Specialty Start Date End Date Unknown, Benfcynthia PCP - General 04/15/21
--- OUTSIDE RECORDS SUMMARY | 2024-11-01 15:23 | XMS_ITS | Encounter Summary ---
Author Organization [facility] Address [address] [place] [address] Care Team Providers Care Beer Coil Cleaner Name Role Phone Tamara Delacruz MD Unavailable [phone] Ute Donaldson ANP- Unavailable [phone] Goldie Hartley MD Primary Care Provider Unavailable Louisa Allison MD Primary Care Provider + [phone] Heaven Slaughter MD Primary Care Provider [phone] Alejandirna Rabago DO Primary Care Provider [phone] Dell Zhang DO Primary Care Provid er Lei Blount DO Primary Care Provider [phone] Encounter Details Date Type Department Care Team (Late st Contact Info) Description 03/04/2016 Abstract [facility] [address] [place] [phone] Scanned, Documents Social History Tobacco Use Types Packs/Day Years Used Date Smoking Tobacco: Former Cigarettes Q uit: 11/16/2013 Alcohol Use Standard Drinks/Week Comments No 0 (1 standard drink = 0.6 oz pur e alcohol) Sex and Gender Information Value Date Recorded Sex Assigned at Male 01/03/2020 1:33 AM CDT Legal Sex Male 1:36 AM CDT Gender Identity Male 01/03/2020 1:33 AM CDT Sexual Orientation Straight 01/03/2020 1: 33 AM CDT 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 [place], [place] [id number] documented as of this encounter Visit Diagnoses Not on filedocumented in this encounter Additional Health Concerns Infection Onset Date Last Indicated Resolved Time COVID-19 Rule Out 05/16/2020 05/16/2020 05/17/2020 11:59 AM CHILD CARE LEAD TEACHER COVID-19 Confirmed 05/16/2020 05/16/2020 12:34 AM CHILD CARE LEAD TEACHER COVID-19 Rule Out 08/30/2020 08/30/2020 08/30/2020 10:15 AM CHILD CARE LEAD TEACHER COVID-19 Rule Out 11/26/2020 11/26/2020 11/27/2020 7:35 AM CDT COVID-19 Rule Out 08/23/2022 08/23/2022 08/23/2022 3:07 PM CHILD CARE LEAD TEACHER documented as of this encounter Care Teams Beer Coil Cleaner Relationship Specialty Start Date End Date Goldie Hartley MD PCP - General 12/12/15 02/08/17 Louisa Allison MD PCP - General 02/09/17 07/20/18 Heaven Slaughter MD PCP - General INTERNAL MEDICINE 07/21/18 10/17/19 Alejandrina Rabago DO [address] [address] PCP - General INTERNAL MEDICINE 10/18/19 06/27/22 Dell Zhang, DO 3 [facility] [address] [place] [address] PCP - General INTERNAL MEDICINE 06/28/22 12/25/22 Lei Blount DO 3 [facility] [address] [place] [id number] PCP - General INTERNAL MEDICINE 12/26/22 Tamara Delacruz MD Three [facility]. [facility] [address] [place] [address] Anderson Infant Toddler Lead Teacher CARDIOVASCULAR DISEASE 11/27/15 Ute Donaldson [facility]- 3 [facility], [facility] [address] [place], [place] [id number] Nurse Practitioner NURSE PRACTITIONER 02/27/16 02/21/17 documented as of this encounter
--- OUTSIDE RECORDS SUMMARY | 2024-11-01 15:23 | XMS_ITS | Encounter Summary ---
Author Organization [facility] Address [address] [place] [address] Care Team Providers Care Gsa Coordinator Name Role Phone Tamara Delacruz MD Unavailable [phone] Louisa Allison MD Primary Care Provider [phone] Heaven Slaughter MD Primary Care Provider [phone] Alejandrina Rabago DO Primary Care Provider [phone] Dell Zhang DO Primary Care Provid er Lei Blount DO Primary Care Provider + [phone] Encounter Details Date Type Department Care Team (Late st Contact Info) Description 03/09/2017 Abstract [facility] [address] [id number] Jefferson Preston MA Social History Tobacco Use [...] 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 [place], [place] [phone] documented as of this encounter Procedures Procedure Name Priority Date/Time Associated Diagnosis Comments LIPID PANEL Routine 12/11/2016 COMPREHENSIVE METABOLIC PANEL Routine 12/09/2016 LIPID PANEL Routine 12/09/2016 HEMOGLOBIN, GLYCOSYLATED Routine 12/09/2016 VITAMIN D, 25 OH Routine 12/09/2016 CBC (OUTSIDE LAB) Routine 09/02/2016 COMPREHENSIVE METABOLIC PANEL Routine 09/02/2016 documented in this encounter Results * LIPID PANEL (12/11/2016) CHOLESTEROL 179 HDL 33 TRIGLYCERIDES 147 LDL (CALCULATED) 127 12/11/2016 us Doc [facility] Final Result * VITAMIN D, 25 OH (12/09/2016) VITAMIN D 25 HYDROXY S/P/B 47.7 12/09/2016 us Doc [facility] Final Result * (ABNORMAL) COMPREHENSIVE METABOLIC PANEL (12/09/2016) SODIUM S/P/B 141 POTASSIUM S/P/B 4.5 CO2 22 CHLORIDE S/P/B 109 GLUCOSE 115 mg/dL CALCIUM S/P/B 8.9 BUN 15 CREATININE S/P/B 0.89 0.7 - 1.3 EGFR AFR. AMER. 110 EGFR NON-AFR. AMER. 96(A) <=90 ALKALINE PHOSPHATASE S/P/B 97 ALT 32 AST 21 BILIRUBIN TOTAL S/P/B 0.4 ALBUMIN S/P/B 3.4(A) 3.5 - 5.0 TOTAL PROTEIN S/P/B 6.2 12/09/2016 us Doc [facility] Final Result * LIPID PANEL (12/09/2016) CHOLESTEROL 167 HDL 29 TRIGLYCERIDES 147 LDL (CALCULATED) 116 12/09/2016 us Doc [facility] Final Result * HEMOGLOBIN, GLYCOSYLATED (12/09/2016) Pathologist [facility] HGB A1C 6.1 12/09/2016 us Doc [facility] Final Result * COMPREHENSIVE METABOLIC PANEL (09/02/2016) SODIUM S/P/B 140 POTASSIUM S/P/B 3.9 CO2 25 CHLORIDE S/P/B 106 GLUCOSE 120 mg/dL CALCIUM S/P/B 8.6 BUN 11 CREATININE S/P/B 0.94 0.7 - 1.3 EGFR NON-AFR. AMER. >60 <=90 ALKALINE PHOSPHATASE S/P/B 113 ALT 68 AST 39 BILIRUBIN TOTAL S/P/B 0.3 ALBUMIN S/P/B 3.9 3.5 - 5.0 TOTAL PROTEIN S/P/B 6.7 09/02/2016 us Doc [facility] Final Result * CBC (OUTSIDE LAB) (09/02/2016) WBC 4.6 HGB 14.6 HCT 43.8 PLT 202 09/02/2016 us Doc [facility] Abstract LAB-OUTSIDE/ABSTRACTED Final Result documented in this encounter Visit Diagnoses Not on filedocumented in this encounter Additional Health Concerns Infection Onset Date Last Indicated Resolved Time COVID-19 Rule Out 05/16/2020 05/16/2020 05/17/2020 11:59 AM PEDORTHIST COVID-19 Confirmed 05/16/2020 05/16/2020 12:34 AM PEDORTHIST COVID-19 Rule Out 08/30/2020 08/30/2020 08/30/2020 10:15 AM PEDORTHIST COVID-19 Rule Out 11/26/2020 11/26/2020 11/27/2020 7:35 AM CDT COVID-19 Rule Out 08/23/2022 08/23/2022 08/23/2022 3:07 PM PEDORTHIST documented as of this encounter Care Teams Gsa Coordinator Relationship Specialty Start Date End Date Louisa Allison MD [facility] [address] [place] [address] PCP - General 02/09/17 07/20/18 Heaven Slaughter MD [facility] [address] [place] [address] PCP - General INTERNAL MEDICINE 07/21/18 10/17/19 Alejandrina Rabago DO [address] [address] PCP - General INTERNAL MEDICINE 10/18/19 06/27/22 Dell Zhang DO [address] [place] [address] [place] [address] [place], [place] [address] PCP - General INTERNAL MEDICINE 06/28/22 12/25/22 Lei Blount DO 3 [facility] [place] [address] [place] [phone] PCP - General INTERNAL MEDICINE 12/26/22 Tamara Delacruz MD Three [facility]. [place] [address] [place] [address] [place] Dust Control Engineer CARDIOVASCULAR DISEASE 11/27/15 documented as of this encounter
--- OUTSIDE RECORDS SUMMARY | 2024-11-01 15:24 | XMS_ITS | Encounter Summary ---
Author Organization [facility] Address [facility] [place] [address] Care Team Providers Care Drug Coordinator Name Role Phone Tamara Delacruz MD Unavailable [phone] Alejandrina Rabago DO Primary Care Provider Dell Zhang DO Primary Care Provid er Lei Blount DO Primary Care Provider [phone] Encounter Details Date Type Department Care Team (Late st Contact Info) Description 11/19/2020 Prep for Procedure [facility] Pre-Admission Testing [address] [place] [address] Alex Cartwright MD Social History Tobacco Use Types Packs/Day Years [...] often do you attend chur ch or islam services? 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 No / Unsure 11/21/2020 3:37 PM CDT documented as of this encounter Functional Status * RETIRED Are you deaf or do you have serious difficulty hearing Answer Date of Assessment Author Status No 09/02/2020 5:09 PM CASH REGISTER SERVICER Activ e * RETIRED Are you blind or do you have serious difficulty seeing, even when wearing glasses? Answer Date of Assessment Author Status No 09/02/2020 5:09 PM CASH REGISTER SERVICER Activ e * Do you have serious [...] Date Author Status No 09/02/2020 5:09 PM CASH REGISTER SERVICER Pacheco, Jen K , RN Active documented in this encounter Plan of Treatment Upcoming Encounters Date Type Department Care Team (Late st Contact Info) Description 01/18/2025 10:00 AM CDT Office Visit [facility] THREE [facility], [place] [address] [place] [address] Marjorie Bird, CONTRACTS SPECIALIST Three [facility] [address] [place], [place] [address] documented as of this encounter Goals Goal Patient Goal Type Associated Problems Recent Progress Patient-Stated? Author Health - patient able to perform ADLs independently General Leonor Trujillo RN documented as of this encounter Visit Diagnoses Diagnosis Pre-op exam- Primary Preoperative examination, unspecified documented in this encounter Additional Health Concerns Infection Onset Date Last Indicated Resolved Time COVID-19 Rule Out 11/26/2020 11/26/2020 11/27/2020 7:35 AM CDT COVID-19 Rule Out 08/23/2022 08/23/2022 08/23/2022 3:07 PM CASH REGISTER SERVICER documented as of this encounter Care Teams Drug Coordinator Relationship Specialty Start Date End Date Alejandrina Rabago DO [address] Medical [place], [place] [address] PCP - General INTERNAL MEDICINE 10/18/19 06/27/22 Dell Zhang, 3 [facility] [address] [place] [address] PCP - General INTERNAL MEDICINE 06/28/22 12/25/22 Lei Blount, DO 3 [facility] [address] [place] [phone] PCP - General INTERNAL MEDICINE 12/26/22 Tamara Delacruz MD [facility]. [facility] [address] [place] [address] [place] Loss Prevention Manager CARDIOVASCULAR DISEASE 11/27/15 documented as of this encounter
--- OUTSIDE RECORDS SUMMARY | 2024-11-01 15:24 | XMS_ITS | Encounter Summary ---
Author Organization [facility] Address [address] [place] [address] Care Team Providers Care Laboratory Asst Name Role Phone Tamara Delacruz MD Unavailable [phone] Alejandrina Rabago DO Primary Care Provider [phone] Dell Zhang DO Primary Care Provid er Lie Blount DO Primary Care Provider [phone] Encounter Details Date Type Department Care Team (Late st Contact Info) Description 08/29/2020 Prep for Procedure [facility] Pre-Admission Testing [address] [place] [address] Halley Orr MD [facility] [address] [place] [address] Social History Tobacco Use Types Packs/Day Years [...] often do you attend chur ch or cheondoism services? More than 4 times per year 02/11/2020 Do you belong to any clubs o r organizations such as rastafarian groups, unions, fraternal or athletic groups, or [...] and heating? 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 No / Unsure 08/30/2020 8:43 AM ANESTHESIOLOGIST ATTENDING documented as of this encounter Functional Status * RETIRED Are you deaf or do you have serious difficulty hearing Answer Date of Assessment Author Status No 05/16/2020 8:55 PM ANESTHESIOLOGIST ATTENDING Activ e * RETIRED Are you blind or do you have serious difficulty seeing, even when wearing glasses? Answer Date of Assessment Author Status No 05/16/2020 8:55 PM ANESTHESIOLOGIST ATTENDING Activ e * Do you have serious difficulty walking or climbing stairs? Answer Date of Assessment Author Status No 05/16/2020 8:55 PM ANESTHESIOLOGIST ATTENDING Earnest Allen se, RN Active * Do you have difficulty dressing or bathing? Answer Date of Assessment Author Status No 05/16/2020 8:55 PM Earnest Gill se, RN Active * Because of a physical, mental, or emotional condition, do you have difficulty doing errands alone such as visiting a doctor's office or shopping? Answer Date of Assessment Author Status No 05/16/2020 8:55 PM Earnest Gill se, RN Active documented as of this encounter Mental Status * Because of a physical, mental, or emotional condition, do you have serious difficulty concentrating, remembering, or making decisions? Answer Entry Date Author Status No 05/16/2020 8:55 PM Earnest Gill se J, RN Active documented in this encounter Plan of Treatment Upcoming Encounters Date Type Department Care Team (Late st Contact Info) Description 01/18/2025 10:00 AM CDT Office Visit [facility], [place] [address] [place] [address] Marjorie Bird APRN Three [facility] [address] [place] [address] documented as of this encounter Visit Diagnoses Diagnosis Pre-op exam- Primary Preoperative examination, unspecified documented in this encounter Additional Health Concerns Infection Onset Date Last Indicated Resolved Time COVID-19 Rule Out 08/30/2020 08/30/2020 08/30/2020 10:15 AM ANESTHESIOLOGIST ATTENDING COVID-19 Rule Out 11/26/2020 11/26/2020 11/27/2020 7:35 AM CDT COVID-19 Rule Out 08/23/2022 08/23/2022 08/23/2022 3:07 PM ANESTHESIOLOGIST ATTENDING documented as of this encounter Care Teams Laboratory Asst Relationship Specialty Start Date End Date Alejandrina Rabago DO [address] Medical [place], [place] [address] PCP - General INTERNAL MEDICINE 10/18/19 06/27/22 Dell Zhang, 3 [facility] [address] [place] [address] PCP - General INTERNAL MEDICINE 06/28/22 12/25/22 Lei Blount, DO 3 [facility] [address] [place] [phone] PCP - General INTERNAL MEDICINE 12/26/22 Tamara Delacruz MD Three [facility]. [facility] [address] [place] [address] [place] Food Sanitarian CARDIOVASCULAR DISEASE 11/27/15 documented as of this encounter
--- OUTSIDE RECORDS SUMMARY | 2024-11-01 15:24 | XMS_ITS | Continuity of Care Document ---
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 It does not include entries that were removed or entered in error. Problem Status Onset Date Problem Type Date of Resolution Comments Source Headache Active 09/09/19 25 Diagnosis - 5th [facility] Blurred vision Active 09/09/19 25 Diagnosis [facility]th [facility] Dizziness Active 09/07/19 25 Diagnosis [facility]th [facility] ACUTE PANCREATITIS DUE TO GALLSTONES Inactive 08/07/19 12 Condition DoD PANCREATITIS Inactive 04/24/20 11 Condition DoD Allergic rhinitis Active Condition 54 [facility] Astigmatism Active Condition [facility] Cervical radiculopathy Active Condition [facility] Type 2 diabetes mellitus with unspecified complications Active Condition [facility] Cyst of kidney Active Condition -3 7 [facility] Degenerative disc disease Active Condition [facility] Degenerative disorder of macula Active Condition [facility] Diplopia Active Condition [facility] Diverticulitis Active Condition 3 7 [facility] Encounter for therapeutic drug level monitoring Active Condition [facility] Edema, unspecified Active Condition [facility] Emphysema of lung Active Condition 54 [facility] Enlarged prostate Active Condition 54 [facility] Essential (primary) hypertension Active Condition [facility] GERD - Gastro-esophageal reflux disease Active Condition [facility] H/O: colostomy Active Condition -3 7 [facility] Heart murmur Active Condition [facility] History of asbestos exposure Active Condition [facility] History of kidney stone Active Condition [facility] Personal history of COVID-19 [facility] Hyperlipidemia, unspecified Active Condition [facility] Hypermetropia Active Condition [facility] Insomnia Active Condition [facility] Iron deficiency anemia, unspecified Active Condition [facility] 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 Active Condition [facility] Low back pain, unspecified Active Condition [facility] Lumbar radiculopathy Active Condition 0 [facility] Mitral valve regurgitation Active Condition [facility] Nerve root disorder Active Condition [facility] Neuropathy Active Condition [facility] Nicotine dependence in remission Active Condition [facility] Nodule of lung Active Condition 7 [facility] Onychomycosis Active Condition [facility] Overweight Active Condition DoD Pain in right hip joint Active Condition [facility] Presbyopia Active Condition [facility] Prolapsed cervical intervertebral disc1 Active Condition Outside Source Comment: s/p ACDF for cervical HNP [facility] Right shoulder pain Active Condition [facility] Sleep apnea Active Condition [facility] Spinal stenosis in cervical region Active Condition [facility] Steatosis of liver Active Condition [facility] Tinea corporis Active Condition 3 7 [facility]th [facility] Vitamin D deficiency, unspecified Active Condition [facility] Type 2 diabetes mellitus with unspecified complications Active Condition DoD PREDIABETES (IMPAIRED GLUCOSE TOLERANCE) Active Condition DoD FIBROMYALGIA Active Condition DoD RHINOSINUSITIS Inactive Condition DoD cough Active Condition DoD FATIGUE Active Condition DoD VIRAL SYNDROME Inactive Condition DoD DERMATOPHYTOSIS TINEA CORPORIS Active Condition DoD SPINAL STENOSIS CERVICAL Active Condition DoD Preventive Medicine Estab Patient Checkup Adult 40-64 Inactive Condition DoD joint pain, localized in the right shoulder Active Condition DoD CHEST PAIN Active Condition DoD TENDONITIS ROTATOR CUFF LEFT Active Condition DoD joint pain, localized in the left shoulder Active Condition DoD Outpatient Physician Consultation Active Condition DoD NORMAL ROUTINE HISTORY AND PHYSICAL ADULT (18-65) Inactive Condition DoD VITAMIN D DEFICIENCY Active Condition D oD DERMATOPHYTOSIS NAILS ONYCHOMYCOSIS Active Condition DoD Other Physical Therapy Active Condition DoD MUSCLE SPASM Inactive Condition DoD ESSENTIAL HYPERTRIGLYCERIDEMIA Active Condition DoD Aftercare Following Surgery Of Digestive System Inactive Condition DoD NICOTINE DEPENDENCE Active Condition Do D BRONCHITIS Inactive Condition DoD CONDITIONS INFLUENCING HEALTH STATUS Active Condition DoD Inquiry And Counseling: Medication Admin And Compliance Active Condition DoD visit for: follow-up exam Inactive Condition DoD Edema Active Condition DoD CERVICAL RADICULOPATHY Active Condition DoD ESSENTIAL HYPERTENSION Active Condition DoD SINUSITIS ACUTE MAXILLARY Inactive Condition DoD pain in the leg (below the knee) Active Condition DoD neck pain Active Condition DoD Physical Examination Active Condition D oD PRESBYOPIA Active Condition DoD ASTIGMATISM Active Condition DoD REFRACTIVE ERROR - HYPERMETROPIA Active Condition DoD MACULAR DEGENERATION - RIGHT EYE Active Condition DoD seeing double (diplopia) Active Condition DoD NICOTINE DEPENDENCE - IN REMISSION Active Condition DoD LUMBAR RADICULOPATHY Active Condition D oD SACROILIAC REGION SPRAIN Inactive Condition DoD RADICULOPATHY Active Condition DoD DYSLIPIDEMIA Inactive Condition DoD Patient Education - Dietary Inactive Condition DoD X-Ray Inactive Condition DoD IMPAIRED FASTING GLUCOSE Active Condition DoD HYPERTENSION (SYSTEMIC) Active Condition DoD lump in / on the skin Inactive Condition DoD LUMBAGO Active Condition DoD PROTEINURIA Inactive Condition DoD tobacco use Active Condition DoD Right Carotid Bruit Inactive Condition D oD Back Muscle Spasm Inactive Condition DoD eye pain Inactive Condition DoD SINUSITIS ACUTE Inactive Condition DoD OSTEOARTHRITIS Inactive Condition DoD ESOPHAGITIS CHRONIC REFLUX Inactive Condition DoD visit for: daycare exam Inactive Condition DoD BACK STRAIN LUMBAR Inactive Condition C ontinue Naprosyn, apply heat and gentle stretching, discussed proper body mechanics DoD ESOPHAGEAL REFLUX Active Condition Di scussed diet DoD ARTHRALGIAS IN MULTIPLE SITES Active Condition DoD NORMAL ROUTINE HISTORY AND PHYSICAL Active Condition Cleared for scouting trip but no lifting greater than 40 pounds or competative sports. DoD visit for: administrative purpose Inactive Condition Do D PHARYNGITIS STREPTOCOCCUS, GROUP A: BETA HEMOLYTIC Inactive Condition DoD CERVICALGIA Active Condition DoD visit for: issue repeat prescription for medication Inactive Condition DoD HERNIATED INTERVERTEBRAL DISC CERVICAL Active Condition s/p ACDF for cervical HNP DoD Patient Education - Medication Inactive Condition DoD SPRAIN Inactive Condition left trap DoD HYPERLIPIDEMIA Active Condition Discu ssed diet and exercise DoD UPPER RESPIRATORY INFECTION Inactive Condition pt to take medication as Rx with plenty of fluids, to wash hands regularly, and to follow-up if not getting better in 10 days. DoD Laboratory Studies Inactive Condition Do D visit for: camp physical Inactive Condition DoD visit for: issue repeat prescription Inactive Condition Refill placed for Naproxen, pt takes for back pain. Follow-up appt on Mar 04. [facility] current smoker Inactive Condition given civilian script for Nicotrol Inhalers DoD CELLULITIS OF THE FINGERS Inactive Condition DoD CELLULITIS OF THE LEFT RING FINGER Inactive Condition DoD visit for: screening exam respiratory disorders Inactive Condition DoD ASSESSMENT OF PATIENT CONDITION WORK STATUS Inactive Condition Sent p t to [employer] for program enrollment. PFTs and chest xray ordered. DoD SUPERFICIAL INJURY - ABRASION OF [place]NEA Inactive Condition meds as below, rtc if eye pain, visual changes or discharge occurs. DoD Medications Combined list of outpatient medications from Department of Defense and Veterans Affairs facilities.Medications provided include 1) outpatient medications from the last 15 months, and 2) patient-reported medications. Medication Details Route Status Patient Instructions Prescription Expires Prescription Number Last Dispense Date Ordering Provider Order Date Order Qty Source Alcohol Antiseptic (Alcohol Swabs Eq.) Pads 70% Topical For external use. Active 11/02/2024 [id number] 4 [address] [place] [address] Shaka [facility] ([facility] ASPIRIN EC (U/D) 81 MG ORAL TBEC Take with food/mil k.Swallo w whole. 05/10/2024 [id number] 3 [address] [place] [address] Shaka [facility] Diclofenac Sodium 0.01mg/mg, Gel/Jelly, Topical Avoid exposure to sun.For external use.Do not take if . Active 11/02/2024 [id number] 4 [address] [place] [address] Shaka [facility]) ferrous sulf (U/D) 65MG (325MG) ORAL TAB May discolor urine/fe kathrin.Chec k with your doctor before becoming .Do not chew or crush. 09/27/2024 [id number] 4 [address] [place] [address]) FLONASE-OTC (BRAND) 50 MCG ANNITA SPSN [9.9] Take or use exactly as directed .For the nose. 05/10/2024 [id number] 3 [address] [place] [address]) GLUCOPHAGE (BRAND) 500 MG ORAL TAB Do not drink alcohol. Take with food/mil k.Take or use exactly as directed .Obtain advice for OTCs.Bertha ck with your doctor before becoming . Active 11/02/2024 [id number] 4 [address] [place] [address]) GLUCOPHAGE (BRAND) 500 MG ORAL TAB Do not drink alcohol. Take with food/mil k.Take or use exactly as directed .Obtain advice for OTCs.Bertha ck with your doctor before becoming . 05/10/2024 [id number] 3 [address] [place] [address]) Omeprazole (Prilosec Eq.) Capsule Conventiona l 40 mg Oral Take or use exactly as directed .Obtain advice for OTCs.Swa llow whole. 05/10/2024 [id number] 3 [address] [place] [address]) PREGABALIN (U/D) 150 MG ORAL CAP Do not drink alcohol. May cause drowsine ss/dizzi ness.May impair driving. Check with your doctor before becoming . 05/01/2024 [id number] 4 [address] [place] [address]) PREGABALIN (U/D) 150 MG ORAL CAP Do not drink alcohol. May cause drowsine ss/dizzi ness.May impair driving. Check with your doctor before becoming . 11/07/2023 [id number] 3 [address] [place] [address]) Allergies, Adverse Reactions, Alerts Combined list of allergies from Department of Defense and Veterans Affairs facilities. It does not include entries that were removed or entered in error. Substance Category Reaction Severity Reaction type Status Date Reported Comments Source ATROPINE Drug allergy (disorder) Unknown active 9 [place] [address] atropine Drug allergy Unknown Unknown Active Reaction( s): Unknown<b r/>was 16 y/o at time of reaction - cannot remember reaction 0055C-375t h [facility] BELLADONNA Drug allergy (disorder) Unknown active 9 [place] [address] BELLADONNA ALKALOIDS Drug allergy (disorder) active [address] [place] [address] Shaka SUN ([facility]) belladonna alkaloids Drug allergy Unknown Mild Active was 16 y/o at time of reaction - cannot remember reaction [id number]-375t h [facility] Immunizations Combined list of available immunizations from the Department of Defense and Veterans Affairs facilities. 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 complet ed RSV vaccine, preF A-preF B, recombina nt 06/08/23 Given 0055C-3 [facility] influenza virus vaccine, inactivated 2022 ETHSUMEETJPOCKLIN GTMARTY Wang jadiel, right (delt oid) [id number] [employer], A [employer] complet ed influenza virus vaccine, inactivat ed 06/08/23 Given 0055C-3 [facility] [place] COVID Vaccine Moderna 2020 zShirleyef t Arm [id number] complet ed COVID Vaccine Moderna 05/13/21 Given Ambulat ory Pharmac y zoster vaccine, inactivated 2020 zzRig ht Arm [id number] GlaxoSmithK[employer] ne complet ed zoster vaccine, inactivat ed 05/13/21 Given Ambulat ory Pharmac y influenza, injectable, quadrivalent- pf 2020 zzRig ht Arm [id number] 150 GlaxoSmithKli ne complet ed influenza , injectabl e, quadrival ent-pf 05/13/21 Given Ambulat ory Pharmac y Influenza, injectable, quadrivalent, preservative free 10 2020 Unknown, Provider [id number] 150 [facility] ([facility]B) complet ed Influenza , injectabl e, quadrival ent, preservat sara free DoD zoster vaccine recombinant 1 2020 Unknown, Provider [id number] [facility] ([facility]) complet ed zoster vaccine recombina nt DoD SARS-COV-2 (COVID-19) vaccine, mRNA, spike protein, LNP, preservative free, 100 mcg or 50 mcg dose 3 2020 Unknown, Provider [id number] 207 Moderna [employer] (MOD) complet ed SARS-COV- 2 (COVID-19 ) vaccine, mRNA, spike protein, LNP, preservat sara free, 100 mcg or 50 mcg dose DoD zoster vaccine, inactivated 2020 zzLef t Arm [id number] [employer] mi complet ed zoster vaccine, inactivat ed 01/29/21 Given Ambulat ory Pharmac y pneumococcal polysaccharid e, 23 valent 2020 zzLef t Arm [id number] [employer] complet ed pneumococ zita polysacch aride, 23 valent 01/29/21 Given Ambulat ory Pharmac y tetanus-dipht h toxoids (Td) adult/adol 2020 zzRig ht Arm [id number] 09 sanofi pasteur complet ed tetanus-d iphth toxoids (Td) adult/ado l 01/29/21 Given Ambulat ory Pharmac y tetanus and diphtheria toxoids, adsorbed, preservative free, for adult use (2 Lf of tetanus toxoid and 2 Lf of diphtheria toxoid) 4 2020 Unknown, Provider [id number] Sanofi Pasteur ([facility]) complet ed tetanus and diphtheri a toxoids, adsorbed, preservat sara free, for adult use (2 Lf of tetanus toxoid and 2 Lf of diphtheri a toxoid) DoD pneumococcal polysaccharid e vaccine, 23 valent 1 2020 Unknown, Provider [id number] Merck (MSD) complet ed pneumococ zita polysacch aride vaccine, 23 valent DoD zoster vaccine recombinant 1 2020 Unknown, Provider [id number] 187 [facility] ([place]) complet ed zoster vaccine recombina nt DoD COVID Vaccine Moderna 2020 zzLef t Arm [id number] complet ed COVID Vaccine Moderna 09/23/20 Given Ambulat ory Pharmac y SARS-COV-2 (COVID-19) vaccine, mRNA, spike protein, LNP, preservative free, 100 mcg or 50 mcg dose 2 2020 Unknown, Provider [id number] 207 Moderna [employer] (MOD) complet ed SARS-COV- 2 (COVID-19 ) vaccine, mRNA, spike protein, LNP, preservat sara free, 100 mcg or 50 mcg dose DoD COVID Vaccine Moderna 2020 zzLef t Arm [id number] complet ed COVID Vaccine Moderna 08/26/20 Given Ambulat ory Pharmac y SARS-COV-2 (COVID-19) vaccine, mRNA, spike protein, LNP, preservative free, 100 mcg or 50 mcg dose 1 2020 Unknown, Provider [id number] 207 Moderna [employer] (MOD) complet ed SARS-COV- 2 (COVID-19 ) vaccine, mRNA, spike protein, LNP, preservat sara free, 100 mcg or 50 mcg dose DoD influenza, injectable, quadrivalent- pf 2015 zzLef t Arm [id number] 150 GlaxoSmithKli ne complet ed influenza , injectabl e, quadrival ent-pf 04/22/16 Given Ambulat ory Pharmac y Influenza, injectable, quadrivalent, preservative free 1 2015 Unknown, Provider [id number] 150 [employer] ([place]) complet ed Influenza , injectabl e, quadrival ent, preservat sara free DoD influenza, injectable, quadrivalent- pf 2014 zzLef t Arm [id number] 150 GlaxoSmithKli ne complet ed influenza , injectabl e, quadrival ent-pf 04/22/15 Given Ambulat ory Pharmac y Influenza, injectable, quadrivalent, preservative free 2014 Unknown, Provider [id number] 150 [employer] ([place]) complet ed Influenza , injectabl e, quadrival ent, preservat sara free DoD influenza, seasonal, injectable [facility] [id number] sanofi pasteur complet ed influenza , seasonal, injectabl e 07/25/13 Given Ambulat ory Pharmac y Influenza, seasonal, injectable 10 2013 Unknown, Provider [id number] 141 Sanofi Pasteur ([facility]) complet ed Influenza , seasonal, injectabl e DoD influenza, seasonal, injectable 2011 [facility] Arm [id number] sanofi pasteur complet ed influenza , seasonal, injectabl e 03/28/12 Given Ambulat ory Pharmac y Influenza, seasonal, injectable 9 2011 Unknown, Provider [id number] 141 Sanofi Pasteur ([facility]) complet ed Influenza , seasonal, injectabl e DoD influenza virus vaccine,split 2009 [facility] [id number] 15 [employer] [facility] complet ed influenza virus vaccine,s plit 05/15/10 Given Ambulat ory Pharmac y influenza virus vaccine, split virus (incl. purified surface antigen)-reti red CODE 1 2009 Unknown, Provider [id number] CS [employer] (CS) complet ed influenza virus vaccine, split virus (incl. purified surface antigen)- retired CODE DoD influenza virus vaccine,split 2006 [facility] Arm [id number] 15 GlaxoSmithKli ne complet ed influenza virus vaccine,s plit 05/27/07 Given Ambulat ory Pharmac y tuberculin purified protein derivative [facility] [id number] 96 sanofi pasteur complet ed Patient Tolerance : Negative Ambulat ory Pharmac y influenza virus vaccine, split virus (incl. purified surface antigen)-reti red CODE 1 2006 Unknown, Provider [id number] 15 [facility] (SKB) complet ed influenza virus vaccine, split virus (incl. purified surface antigen)- retired CODE [facility] tuberculin skin test; purified protein derivative solution, intradermal 1 2006 Unknown, Provider [id number] 96 Sanofi Pasteur ([facility]) complet ed tuberculi n skin test; purified protein derivativ e solution, intraderm al DoD tetanus, diphtheria, acellular pertu is 2005 [facility] Arm [id number] 115 sanofi pasteur complet ed tetanus, diphtheri a, acellular pertussis 11/26/05 Given Ambulat ory Pharmac y tetanus toxoid, reduced diphtheria toxoid, and acellular pertu is vaccine, adsorbed 1 2005 Unknown, Provider [id number] 115 Sanofi Pasteur ([facility]) complet ed tetanus toxoid, reduced diphtheri a toxoid, and acellular pertussis vaccine, adsorbed DoD tuberculin purified protein derivative 2004 [id number] sanofi pasteur complet ed tuberculi n purified protein derivativ e 07/02/04 Given Ambulat ory Pharmac y influenza virus vaccine, whole virus 2002 zzLef t Arm [id number] 16 [employer] complet ed influenza virus vaccine, whole virus 04/20/03 Given Ambulat ory Pharmac y influenza virus vaccine, whole virus 1 2002 Unknown, Provider [id number] 16 [employer] (PWJ) complet ed influenza virus vaccine, whole virus DoD hepatitis B adult vaccine 2001 zzLef t Arm [id number] [employer] complet ed hepatitis B adult vaccine 08/16/01 Given Ambulat ory Pharmac y hepatitis B vaccine, adult dosage 3 2001 Unknown, Provider [id number] Merck (MSD) complet ed hepatitis B vaccine, adult dosage DoD influenza virus vaccine, whole virus 2000 zzLef t Arm [id number] 16 sanofi pasteur complet ed influenza virus vaccine, whole virus 04/18/01 Given Ambulat ory Pharmac y influenza virus vaccine, whole virus 5 2000 Unknown, Provider [id number] 16 Sanofi Pasteur ([facility]) complet ed influenza virus vaccine, whole virus DoD typhoid vaccine, inactivated [facility] [id number] sanofi pasteur complet ed typhoid vaccine, inactivat ed 09/06/00 Given Ambulat ory Pharmac y typhoid vaccine, parenteral, other than acetone-kille d, dried 2 2000 Unknown, Provider [id number] 41 Sanofi Pasteur ([facility]) complet ed typhoid vaccine, parentera l, other than acetone-k illed, dried DoD [facility] vaccine, [facility] virus [facility] [id number] sanofi pasteur complet ed influenza virus vaccine, whole virus 06/29/00 Given Ambulat ory Pharmac y anthrax vaccine 2000 zzLef t Arm [id number] 24 [employer] complet ed anthrax vaccine 06/29/00 Given Ambulat ory Pharmac y tuberculin purified protein derivative 2000 zzLef t Arm [id number] 96 Unknown complet ed Patient Tolerance : Negative Ambulat ory Pharmac y influenza virus vaccine, whole virus 4 2000 Unknown, Provider [id number] Sanofi Pasteur ([facility]) complet ed influenza virus vaccine, whole virus DoD anthrax vaccine 3 2000 Unknown, Provider [id number] [facility] complet ed anthrax vaccine DoD tuberculin skin test; purified protein derivative solution, intradermal 5 2000 Unknown, Provider [id number] Other (OT) complet ed tuberculi n skin test; purified protein derivativ e solution, intraderm al DoD anthrax vaccine 1999 zzLef t Arm 24 [employer] complet ed anthrax vaccine 02/17/00 Given Ambulat ory Pharmac y anthrax vaccine 2 1999 Unknown, Provider 24 [facility] complet ed anthrax vaccine DoD anthrax vaccine 1999 zzLef t Arm [id number] [employer] complet ed anthrax vaccine 01/13/00 Given Ambulat ory Pharmac y anthrax vaccine 1 1999 Unknown, Provider [id number] [facility] complet ed anthrax vaccine DoD tuberculin purified protein derivative 1999 [id number] [employer] complet ed Patient Tolerance : Negative Ambulat ory Pharmac y tuberculin skin test; purified protein derivative solution, intradermal 4 1999 Unknown, Provider [id number] [employer] (CON) complet ed tuberculi n skin test; purified protein derivativ e solution, intraderm al DoD influenza virus vaccine, whole virus 1998 [id number] [employer] complet ed influenza virus vaccine, whole virus 05/02/99 Given Ambulat ory Pharmac y influenza virus vaccine, whole virus 3 1998 Unknown, Provider [id number] 16 [employer] (CON) complet ed influenza virus vaccine, whole virus DoD tuberculin purified protein derivative 1998 [id number] [employer] complet ed Patient Tolerance : Negative Ambulat ory Pharmac y tuberculin skin test; purified protein derivative solution, intradermal 3 1998 Unknown, Provider [id number] [employer] (CON) complet ed tuberculi n skin test; purified protein derivativ e solution, intraderm al DoD typhoid vaccine, inactivated 1998 [id number] [facility] complet ed typhoid vaccine, inactivat ed 10/21/98 Given Ambulat ory Pharmac y tuberculin purified protein derivative 1998 [id number] 96 [facility] complet ed tuberculi n purified protein derivativ e 10/21/98 Given Ambulat ory Pharmac y hepatitis B adult vaccine 1998 [id number] [employer] complet ed hepatitis B adult vaccine 10/21/98 Given Ambulat ory Pharmac y typhoid vaccine, parenteral, other than acetone-kille d, dried 1 1998 Unknown, [facility] [id number] vaccine, parentera l, other than acetone-k illed, dried DoD hepatitis B vaccine, adult dosage 2 1998 Unknown, [id number] complet ed hepatitis B vaccine, adult dosage DoD hepatitis B adult vaccine 1997 [id number] [employer] complet ed hepatitis B adult vaccine 04/22/98 Given Ambulat ory Pharmac y influenza virus vaccine, whole virus 1997 16 complet ed influenza virus vaccine, whole virus 04/22/98 Given Ambulat ory Pharmac y meningococcal polysaccharid e (MPSV4) [id number] [facility] complet ed meningoco ccal polysacch aride (MPSV4) 04/22/98 Given Ambulat ory Pharmac y influenza virus vaccine, whole virus 2 1997 Unknown, Provider 16 () complet ed influenza virus vaccine, whole virus DoD meningococcal polysaccharid e vaccine (MPSV4) 1 1997 Unknown, [id number] meningoco ccal polysacch aride vaccine (MPSV4) DoD hepatitis B vaccine, adult dosage 1 1997 Unknown, Provider [id number] [employer] (SKB) complet ed hepatitis B vaccine, adult dosage DoD tuberculin purified protein derivative 1997 96 complet ed Patient Tolerance : Negative Ambulat ory Pharmac y tuberculin skin test; purified protein derivative solution, intradermal 1 1997 Unknown, Provider 96 () complet ed tuberculi n skin test; purified protein derivativ e solution, intraderm al DoD influenza virus vaccine, whole virus 1996 16 complet ed influenza virus vaccine, whole virus 04/25/97 Given Ambulat ory Pharmac y influenza virus vaccine, whole virus 1 1996 Unknown, Provider 16 () complet ed influenza virus vaccine, whole virus DoD hepatitis A adult vaccine 1996 52 complet ed hepatitis A adult vaccine 07/21/96 Given Ambulat ory Pharmac y hepatitis A vaccine, adult dosage 2 1996 Unknown, Provider 52 () complet ed hepatitis A vaccine, adult dosage DoD typhoid, parenteral, AKD 1995 [id number] [employer] complet ed typhoid, parentera l, AKD 01/07/96 Given Ambulat ory Pharmac y hepatitis A adult vaccine 1995 52 complet ed hepatitis A adult vaccine 01/07/96 Given Ambulat ory Pharmac y hepatitis A vaccine, adult dosage 1 1995 Unknown, Provider 52 () complet ed hepatitis A vaccine, adult dosage DoD typhoid vaccine, parenteral, acetone-kille d, dried ([place] ) 1 1995 Unknown, Provider [id number] [employer] (SKB) complet ed typhoid vaccine, parentera l, acetone-k illed, dried ([place] ) [facility] tetanus-dipht h toxoids (Td) adult/adol 1994 09 complet ed tetanus-d iphth toxoids (Td) adult/ado l 01/07/95 Given Ambulat ory Pharmac y tetanus and diphtheria toxoids, adsorbed, preservative free, for adult use (2 Lf of tetanus toxoid and 2 Lf of diphtheria toxoid) 2 1994 Unknown, Provider 09 () complet ed tetanus and diphtheri a toxoids, adsorbed, preservat sara free, for adult use (2 Lf of tetanus toxoid and 2 Lf of diphtheri a toxoid) [facility] tetanus-dipht h toxoids (Td) adult/adol 1994 09 complet ed tetanus-d iphth toxoids (Td) adult/ado l 12/26/94 Given Ambulat ory Pharmac y tetanus and diphtheria toxoids, adsorbed, preservative free, for adult use (2 Lf of tetanus toxoid and 2 Lf of diphtheria toxoid) 1 1994 Unknown, Provider 09 () complet ed tetanus and diphtheri a toxoids, adsorbed, preservat sara free, for adult use (2 Lf of tetanus toxoid and 2 Lf of diphtheri a toxoid) DoD yellow fever vaccine [id number] [facility] complet ed yellow fever vaccine 06/26/94 Given Ambulat ory Pharmac y yellow fever vaccine 2 1993 Unknown, Provider [id number] [employer] (CON) complet ed yellow fever vaccine DoD yellow fever vaccine 1993 37 complet ed yellow fever vaccine 05/28/94 Given Ambulat ory Pharmac y yellow fever vaccine 1 1993 Unknown, Provider 37 () complet ed yellow fever vaccine DoD poliovirus vaccine, live, oral 1982 02 complet ed polioviru s vaccine, live, oral 10/06/82 Given Ambulat ory Pharmac y trivalent poliovirus vaccine, live, oral 1 1982 Unknown, Provider 02 () complet ed trivalent polioviru s vaccine, live, oral DoD Results Combined list of recent chemistry, hematology and other laboratory results from [facility], ranging from 15 months to all on record, depending upon the facility. Order Name Results Value Reference Range Date Interpretation Specimen Comments Source Chemistry Cholesterol Total 142 mg/dL 09/06 N Interpretiv e Data: According to the [place] [employer] : AGES 0-19: Desirable: < 170 mg/dL Borderline High: 170-199 mg/dL High Blood Cholesterol : >/= 200 mg/dL ADULTS: Desirable < 200 mg/dL Borderline High: 200-239 mg/dL High Blood Cholesterol : >/= 240 mg/dL -3 [facility] Chemistry Chol/HDL 4 mg/dL 09/065A-3 [facility] Chemistry LDL 99 mg/dL 100 - 130 09/06 L Interpretiv e Data: AGES 0-19: Desirable: < 110 mg/dL Borderline High: 110-129 mg/dL High: >/= 130 mg/dL ADULTS: Desirable: <100 mg/dL Near/above optimal: 100-130 mg/dL Borderline High: 131-159 mg/dL High: 160-189 mg/dL Very High: 190 mg/dL [address] [place] [address] Chemistry HDL Cholesterol 36 mg/dL 40 - 59 09/06 L Interpretiv e Data: HDL (HIGH DENSITY LIPOPROTEIN ): ADULTS: Low: < 40 mg/dL High: >/= 60 mg/dL AGES 0 -19: Low: < 40 mg/dL Borderline Low: 40 - 45 mg/dL Acceptable: > 45 mg/dL [address] [place] [address] Chemistry LDL/HDL 3 09/[address] [place] [address] Chemistry Triglycerid es 137 mg/dL 7 - 149 09/06 N Interpretiv e Data: AGES 0-9: Desirable: < 75 mg/dL Borderline High: 75-99 mg/dL High: >/= 100 mg/dL AGES 10-19: Desirable: < 90 mg/dL Borderline High: 90-129 mg/dL High: >/= 130 mg/dL ADULTS: Desirable: < 150 mg/dL Borderline High: 150-199 mg/dL High: >/= 240 mg/dL Very High: >/= 500 mg/dL [address] [place] [address] Chemistry AGAP 9.00 0.00 - 15.00 09/06 N -[address] [place] [address] Chemistry Alk Phos 82 U/L 40 - 150 09/[address] [place] [address] Chemistry Albumin 3.80 g/dL 3.50 - 5.20 09/06 N -[address] [place] [address] Chemistry ALT 105 U/L 5 - 55 09/06 H -[address] [place] [address] Chemistry AST 48 U/L 5 - 34 09/06 H -[address] [place] [address] Chemistry Bilirubin Total 0.5 mg/dL 0.2 - 1.2 09/06 N -[address] [place] [address] Chemistry BUN 9 mg/dL 8 - 26 09/06 N -[address] [place] [address] Chemistry BUN/Creat Ratio 13 mg/dL 12 - 20 09/06 N -[address] [place] [address] Chemistry Chloride 109 mmol/L 98 - 107 09/06 H [address] [place] [address] Chemistry Calcium 9.3 mg/dL 8.4 - 10.2 09/06 N 0055A-[address] [place] [address] Chemistry Creatinine Level 0.70 mg/dL 0.72 - 1.25 09/06 L 0055A-[address] [place] [address] Chemistry CO2 23 mmol/L 22 - 29 09/06 N 0055A-[address] [place] [address] Chemistry Glucose Lvl 148 mg/dL 74 - 99 09/06 H 0055A-[address] [place] [address] Chemistry Sodium 141 mmol/L 136 - 145 09/06 N 0055A-[address] [place] [address] Chemistry Potassium Lvl 3.9 mmol/L 3.5 - 5.1 09/06 N 0055A-[address] [place] [address] Chemistry Protein Total 6.9 g/dL 6.4 - 8.3 09/06 N 0055A-[address] [place] [address] Hematolog y Platelets 207.0 x10^3/mc L 150.0 - 450.0103 09/06 N 0055A-[address] [place] [address] Hematolog y MPV 10.3 fL 7.4 - 10.4 09/06 N 0055A-[address] [place] [address] Hematolog y RBC 5.2 x10^6/mc L 4.0 - 5.6106 09/06 N 0055A-[address] [place] [address] Hematolog y Hematocrit 47 % 40 - 49 09/06 N 0055A-[address] [place] [address] Hematolog y WBC 4.4 x10^3/mc L 4.0 - 11.0103 09/06 N 0055A-[address] [place] [address] Hematolog y Hemoglobin 16.1 g/dL 13.0 - 16.3 09/06 N 0055A-[address] [place] [address] Hematolog y RDW 12.4 % 11.0 - 14.9 09/06 N 0055A-[address] [place] [address] Hematolog y MCV 90 fL 80 - 97 09/06 N 0055A-[address] [place] [address] Hematolog y MCH 31 pg 28 - 33 09/06 N 0055A-[address] [place] [address] Hematolog y MCHC 34.1 g/dL 33.0 - 36.5 09/06 N 5A-[address] [place] [address] Chemistry Hemoglobin A1c 6.4 % 4.0 - 5.6 09/06 H Interpretiv e Data: Normal: 4.0 - 5.6% Increased Risk: 5.7 - 6.4% Diabetic Range: 6.5% For patients without diabetes, the normal range for the hemoglobin A1c test is between 4% and 5.6%. Hemoglobin A1c levels between 5.7% and 6.4% indicate increased risk of diabetes, and levels of 6.5% or higher indicate diabetes. Because studies have repeatedly shown that out-of-cont rol diabetes results in complicatio ns from the disease, the goal for people with diabetes is a hemoglobin A1c less than 7%. The higher the hemoglobin A1c, the higher the risks of developing complicatio ns related to diabetes. If confirmatio n is needed, consider recalling the patient and ordering Hemoglobin Electrophor esis. -[address] [place] [address] Chemistry eAvg Glucose 137 mg/dL 09/06-[address] [place] [address] Chemistry eGFR CKD EPI 103 mL/min/1 .73_m2 09/06 Interpretiv e Data: Estimated Glomerular Filtration Rate (eGFR) calculated using the 2020 Chronic Kidney Disease-Epi demiology (CKD-EPI) Collaborati on creatinine equation; units of measure are mL/min/1.73 m2. Results are only valid for adults (>=18 years) whose serum creatinine is in steady state. eGFR calculation s are not valid for patients with acute kidney injury and for patients on dialysis. Creatinine- based estimates of kidney function may also be inaccurate in patients with reduced creatinine generation due to decreased muscle mass (e.g., malnutritio n, severe hypoalbumin emia, sarcopenia, chronic neuromuscul ar disease, amputations , severe heart failure or liver disease) and in patients with increased creatinine generation due to increased muscle mass (e.g., muscle builders, anabolic steroids) or increased dietary intake. CKD is diagnosed based on abnormaliti es of kidney structure or function, present for >3 months, with implication s for health and disease. CKD is classified and staged based on cause, eGFR and albuminuria (quantified as urine albumin to creatinine ratio). An eGFR >60 mL/min/1.73 m2 in the absence of increased urine albumin excretion or structural abnormaliti es does not CKD. eGFR provides only an estimate of measured GFR within +/- 30% for most patients. As mentioned, nutritional status and muscle mass, among many factors, may lead to inaccuracy in the estimate. Consider ordering the creatinine- cystatin C panel if better accuracy is needed for clinical decision-devendra saeed. eGFR (mL/min/1.7 3 m2) CKD stage Interpretat ion Normal 60-89 Mild decrease 45-59 Mild to moderate decrease 30-44 Moderate to severe decrease 15-29 Severe decrease <15 Kidney failure 0055A-[address] [place] [address]- [facility] Eosinophil % Auto 1 % 0 - 5 09/06 N 0055A-[address] [place], [place] [address]GRP[facility] Lymph Absolute 1.6 x10^3/mc L 1.2 - 4.0103 09/06 N 0055A-[address] [place] [address]- [facility] Lymphocyte % Auto 35.7 % 20.0 - 40.0 09/06 N 0055A-[address] [place] [address] Hematolog y Monocyte % Auto 10 % 1 - 12 09/06 N 0055A-[address] [place] [address] [facility] Sully Absolute 0.5 x10^3/mc L 0.2 - 0.8103 09/06 N 0055A-[address] [place], [place] [address]GRP- [facility] Neutrophil % Auto 52.7 % 46.0 - 77.0 09/06 N 0055A-[address] [place] [address]- [facility] Neutro Absolute 2.3 x10^3/mc L 2.0 - 7.0103 09/06 N 0055A-[address] [place], [place] [address]GRP- [facility] Baso Absolute 0.0 x10^3/mc L 0.0 - 0.1103 09/06 N 0055A-[address] [facility] Eos Absolute 0.0 x10^3/mc L 0.0 - 0.7103 09/06 N 0055A-[address] [place] [address]- [facility] Basophil % Auto 0.4 % 0.0 - 2.5 09/06 N 0055A-[address] [place] [address] Chemistry eGFR CKD EPI 99 mL/min/1 .73_m2 04/26 Interpretiv e Data: Estimated Glomerular Filtration Rate (eGFR) calculated using the 2020 Chronic Kidney Disease-Epi demiology (CKD-EPI) Collaborati on creatinine equation; units of measure are mL/min/1.73 m2. Results are only valid for adults (>=18 years) whose serum creatinine is in steady state. eGFR calculation s are not valid for patients with acute kidney injury and for patients on dialysis. Creatinine- based estimates of kidney function may also be inaccurate in patients with reduced creatinine generation due to decreased muscle mass (e.g., malnutritio n, severe hypoalbumin emia, sarcopenia, chronic neuromuscul ar disease, amputations , severe heart failure or liver disease) and in patients with increased creatinine generation due to increased muscle mass (e.g., muscle builders, anabolic steroids) or increased dietary intake. CKD is diagnosed based on abnormaliti es of kidney structure or function, present for >3 months, with implication s for health and disease. CKD is classified and staged based on cause, eGFR and albuminuria (quantified as urine albumin to creatinine ratio). An eGFR >60 mL/min/1.73 m2 in the absence of increased urine albumin excretion or structural abnormaliti es does not CKD. eGFR provides only an estimate of measured GFR within +/- 30% for most patients. As mentioned, nutritional status and muscle mass, among many factors, may lead to inaccuracy in the estimate. Consider ordering the creatinine- cystatin C panel if better accuracy is needed for clinical decision-devendra saeed. eGFR (mL/min/1.7 3 m2) CKD stage Interpretat ion Normal 60-89 Mild decrease 45-59 Mild to moderate decrease 30-44 Moderate to severe decrease 15-29 Severe decrease <15 Kidney failure 0055A-3 [facility] PLT Estimate Not Performe d ( 4 9:05 AM) 150.0 - 450.0 04/26 N 0055A-3 [facility] PLT Morph Adequate ( 4 9:05 AM) 04/26 N 0055A-3 [facility] RBC Morph Normochr omic 10 ( 4 9:05 AM) 04/26 N Result Comment: Normocytic 0055A-3 [facility] Neutrophil % Auto 84.6 % 46.0 - 77.0 04/26 H Result Comment: Automated differentia l verified by slide screen. -[address] [place] [address] Hematolog y Neutro Absolute 6.0 x10^3/mc L 2.0 - 7.0103 04/26 N 0055A-[address] [place] [address] Hematolog y Monocyte % Auto 5 % 1 - 12 04/26 N 0055A-[address] [place] [address] Hematolog y Sully Absolute 0.4 x10^3/mc L 0.2 - 0.8103 04/26 N 0055A-[address] [place] [address] Hematolog y Lymph Absolute 0.7 x10^3/mc L 1.2 - 4.0103 04/26 L 5A-[address] [place] [address] Hematolog y Lymphocyte % Auto 9.8 % 20.0 - 40.0 04/26 L 5A-[address] [place] [address] Hematolog y Eosinophil % Auto 0 % 0 - 5 04/26 N 5A-[address] [place] [address] Hematolog y Eos Absolute 0.0 x10^3/mc L 0.0 - 0.7103 04/26 N 0055A-[address] [place] [address] Hematolog y Basophil % Auto 0.1 % 0.0 - 2.5 04/26 N 5A-[address] [place] [address] Hematolog y Baso Absolute 0.0 x10^3/mc L 0.0 - 0.1103 04/26 N 0055A-[address] [place] [address] Chemistry Transferrin Sat 25 % 14 - 50 04/26 N [id number] [facility] Chemistry UIBC, 170.0 ug/dL 112.0 - 347.0 04/26 N [id number] Chemistry Iron 56 ug/dL 59 - 158 04/26 L Interpretiv e Data: METHODOLOGY : Testing performed by colorimetri c assay. [id number] Chemistry TIBC 226 ug/dL 250 - 400 04/26 L [id number] Hematolog y MCV 88 fL 80 - 97 04/26 N 0055A-[address] [place] [address] Hematolog y MCHC 34.5 g/dL 33.0 - 36.5 04/26 N 0055A-[address] [place] [address] Hematolog y MCH 30 pg 28 - 33 04/26 N 0055A-[address] [place] [address]- [facility] WBC 7.2 x10^3/mc L 4.0 - 11.0103 04/26 N 0055A-[address] [place] [address] Hematolog y RDW 12.3 % 11.0 - 14.9 04/26 N 0055A-[address] [place] [address] Hematolog y RBC 5.3 x10^6/mc L 4.0 - 5.6106 04/26 N 0055A-[address] [place] [address] Hematolog y Platelets 237.0 x10^3/mc L 150.0 - 450.0103 04/26 N 0055A-[address] [place] [address] Hematolog y MPV 10.0 fL 7.4 - 10.4 04/26 N 005-[address] [place] [address] Hematolog y Hemoglobin 16.2 g/dL 13.0 - 16.3 04/26 N 0055A-[address] [place] [address] Hematolog y Hematocrit 47 % 40 - 49 04/26 N 0055A-[address] [place] [address] Hematolog y Differentia l? Auto+Mor ph *ABN* ( 4 9:05 AM) 04/26 A -[address] [place] [address] Chemistry eAvg Glucose 128 mg/dL 04/26 005-[address] [place] [address] Chemistry Hemoglobin A1c 6.1 % 4.0 - 5.6 04/26 H Interpretiv e Data: Normal: 4.0 - 5.6% Increased Risk: 5.7 - 6.4% Diabetic Range: 6.5% For patients without diabetes, the normal range for the hemoglobin A1c test is between 4% and 5.6%. Hemoglobin A1c levels between 5.7% and 6.4% indicate increased risk of diabetes, and levels of 6.5% or higher indicate diabetes. Because studies have repeatedly shown that out-of-cont rol diabetes results in complicatio ns from the disease, the goal for people with diabetes is a hemoglobin A1c less than 7%. The higher the hemoglobin A1c, the higher the risks of developing complicatio ns related to diabetes. If confirmatio n is needed, consider recalling the patient and ordering Hemoglobin Electrophor esis. [address] [place] [address] [facility] Chol/HDL 5 mg/dL 04/[address] [place] [address] [facility] Cholesterol Total 200 mg/dL 04/26 N Interpretiv e Data: According to the [place] [employer] : AGES 0-19: Desirable: < 170 mg/dL Borderline High: 170-199 mg/dL High Blood Cholesterol : >/= 200 mg/dL ADULTS: Desirable < 200 mg/dL Borderline High: 200-239 mg/dL High Blood Cholesterol : >/= 240 mg/dL [address] [place] [address] [facility] LDL 168 mg/dL 100 - 130 04/26 H Interpretiv e Data: AGES 0-19: Desirable: < 110 mg/dL Borderline High: 110-129 mg/dL High: >/= 130 mg/dL ADULTS: Desirable: <100 mg/dL Near/above optimal: 100-130 mg/dL Borderline High: 131-159 mg/dL High: 160-189 mg/dL Very High: 190 mg/dL [address] [place], [place] [address] Chemistry HDL Cholesterol 39 mg/dL 40 - 59 04/26 L Interpretiv e Data: HDL (HIGH DENSITY LIPOPROTEIN ): ADULTS: Low: < 40 mg/dL High: >/= 60 mg/dL AGES 0 -19: Low: < 40 mg/dL Borderline Low: 40 - 45 mg/dL Acceptable: > 45 mg/dL [address] [place] [address] [facility] LDL/HDL 4 04/[address] [place] [address] [facility] Triglycerid es 110 mg/dL 7 - 149 04/26 N Interpretiv e Data: AGES 0-9: Desirable: < 75 mg/dL Borderline High: 75-99 mg/dL High: >/= 100 mg/dL AGES 10-19: Desirable: < 90 mg/dL Borderline High: 90-129 mg/dL High: >/= 130 mg/dL ADULTS: Desirable: < 150 mg/dL Borderline High: 150-199 mg/dL High: >/= 240 mg/dL Very High: >/= 500 mg/dL - [address] [place] [address] Chemistry Magnesium Lvl 2.0 mg/dL 1.6 - 2.6 04/26 N -[address] [place] [address] Hematolog y Reticulocyt e % 1.54 % 0.50 - 1.81 04/26 N -[address] [place] [address] Hematolog y Retic, Abs 0.082 x10^6/mc L 0.026 - 0.204416 04/26 N -[address] [place] [address] Hematolog y Retic Hemoglobin Equivalent 31.3 pg 28.2 - 36.6 04/26 N - [address] [place] [address] Chemistry Vit B12 Lvl.LC 706 pg/mL 232 - 1245 04/26 Result Comment: Performed At: [address] [id number] Mei Leigh PhD Ph:[phone] [place] [address] Chemistry Ur Creat 122 mg/dL 04/26-[address] [place] [address] Chemistry Ur Microalb/Ur Creat Ratio 5 mg/gCr 04/26 N - [address] [place] [address] Chemistry Ur Microalbumi n 6 mg/L 04/26 N Interpretiv e Data: To minimize intra-indiv idual variation, analysis of three random urine samples collected over the course of a week has also been recommended . [address] [place] [address] Chemistry Ferritin Lvl 33.50 ng/mL 30.00 - 400.00 04/26 N Interpretiv e Data: METHODOLOGY : Testing performed by electrochem iluminescen t immunoassay (ECLIA). [id number] [facility] Chemistry PSA Total 0.62 ng/mL 0.05 - 5.40 04/26 N Interpretiv e Data: This assay shows no biotin interferenc e in samples with biotin concentrati ons up to 1200 ng/mL. [id number] [facility] Chemistry Potassium Lvl 4.0 mmol/L 3.5 - 5.1 04/26 N 0055A-[address] [place] [address] Chemistry Glucose Lvl 115 mg/dL 74 - 99 04/26 H 5A-[address] [place] [address] Chemistry Sodium 140 mmol/L 136 - 145 04/26 N 0055A-[address] [place] [address] Chemistry Protein Total 6.7 g/dL 6.4 - 8.3 04/26 N 0055A-[address] [place] [address] Chemistry BUN 11 mg/dL 8 - 26 04/26 N 5A-[address] [place] [address] Chemistry Bilirubin Total 0.6 mg/dL 0.2 - 1.2 04/26 N 5A-[address] [place] [address] Chemistry BUN/Creat Ratio 14 mg/dL 12 - 20 04/26 N -[address] [place] [address] Chemistry Chloride 110 mmol/L 98 - 107 04/26 H -[address] [place] [address] Chemistry Calcium 9.4 mg/dL 8.4 - 10.2 04/26 N -[address] [place] [address] Chemistry CO2 19 mmol/L 22 - 29 04/26 L 5A-[address] [place] [address] Chemistry Creatinine Level 0.80 mg/dL 0.72 - 1.25 04/26 N -[address] [place] [address] Chemistry AGAP 11.00 0.00 - 15.00 04/26 N 5A-[address] [place] [address] Chemistry Albumin 3.60 g/dL 3.50 - 5.20 04/26 N -[address] [place] [address] Chemistry ALT 72 U/L 5 - 55 04/26 H -[address] [place] [address] Chemistry Alk Phos 89 U/L 40 - 150 04/26 N 5A-[address] [place] [address] Chemistry AST 21 U/L 5 - 34 04/26 N 5A-[address] [place] [address] Chemistry Vitamin D 25 OH 28.1 ng/mL 30.0 - 100.0 04/26 L Interpretiv e Data: Classificat ion of Vitamin D Status: Deficient: <20 ng/mL Insufficien t: 20-29 ng/mL Sufficient: 30-100 ng/mL Possible Toxicity: >100 ng/mL This assay is for the quantitativ e determinati on of total 25 (OH) vitamin D. It is intended as an aid in the determinati on of vitamin D sufficiency . Results should always be interpreted in conjunction with the patient's medical history, clinical presentatio n, and other findings. Testing performed by [facility] [place]. [id number] Urinalysi s UA WBC TNP 11/02- [address] [place] [address] Urinalysi s UA Spec [place] 1.015 1.001 - 1.035 11/02 N -[address] [place] [address] Urinalysi s UA Urobilinoge n 1.0 E.U./dL 0.2 - 1.0.. 11/02 N -[address] [place] [address]- [facility] UA Clarity Clear *NA* (11/03/23 8:47 AM) 11/02-[address] [place] [address] Urinalysi s UA Glucose 500 mg/dL 11/02 A -[address] [place] [address]- [facility]A Leuk Esterase Negative (11/03/23 8:47 AM) 11/02 N 5A-[address] [place] [address] Urinalysi s UA Color Yellow *NA* (11/03/23 8:47 AM) 11/025A-[address] [place] [address] Urinalysi s UA Ketones Negative mg/dL 11/02 N 0055A-[address] [place] [address] Urinalysi s UA pH 6.0 *NA* (11/03/23 8:47 AM) 5 - 8 11/025A-[address] [place] [address]- [facility]A Nitrite Negative (11/03/23 8:47 AM) 11/02 N 0055A-[address] [place] [address] Urinalysi s UA RBC TNP 11/025A-[address] [place] [address] Urinalysi s UA Blood Negative (11/03/23 8:47 AM) 11/02 N 0055A-[address] [place] [address] Urinalysi s UA Protein Negative mg/dL 11/02 N 0055A- [address] [place] [address] Urinalysi s UA Bili Negative (11/03/23 8:47 AM) 11/02 N - [address] [place] [address] Chemistry eAvg Glucose 148 mg/dL 10/[address] [place] [address] Chemistry Hemoglobin A1c 6.8 % 4.0 - 5.6 10/27 H Interpretiv e Data: Normal: 4.0 - 5.6% Increased Risk: 5.7 - 6.4% Diabetic Range: 6.5% For patients without diabetes, the normal range for the hemoglobin A1c test is between 4% and 5.6%. Hemoglobin A1c levels between 5.7% and 6.4% indicate increased risk of diabetes, and levels of 6.5% or higher indicate diabetes. Because studies have repeatedly shown that out-of-cont rol diabetes results in complicatio ns from the disease, the goal for people with diabetes is a hemoglobin A1c less than 7%. The higher the hemoglobin A1c, the higher the risks of developing complicatio ns related to diabetes. If confirmatio n is needed, consider recalling the patient and ordering Hemoglobin Electrophor esis. [address] [place] [address] Chemistry UIBC LC 178 ug/dL 06/[address] [place] [address] Chemistry TIBC LC 337 ug/dL 06/[address] [place] [address] Chemistry Iron Sat LC 47 % 06/01 Result Comment: Performed At: [address] [id number] Mei Leigh PhD Ph:[phone] 00 - [address] [place] [address] Chemistry Iron Lvl.LC 159 ug/dL 06/[address] [place] [address] Chemistry PSA Total 0.30 ng/mL 0.05 - 5.40 06/01 N Interpretiv e Data: This assay shows no biotin interferenc e in samples with biotin concentrati ons up to 1200 ng/mL. [id number] 9th [facility] land Hematolog y RBC 5.3 x10^6/mc L 4.0 - 5.6106 06/01 N 0055A-[address] [facility]- [place] Hematolog y Retic Hemoglobin Equivalent 33.0 pg 28.2 - 36.6 06/01 N 0055A-[address] [facility]- [place] Hematolog y Reticulocyt e % 1.88 % 0.50 - 1.81 06/01 H 0055A-[address] [facility]- [place] Hematolog y Retic, Abs 0.099 x10^6/mc L 0.026 - 0.003555 06/01 H 0055A-[address] [facility] [place] Hematolog y Hematocrit 48 % 40 - 49 06/01 N 0055A-[address] [facility] [place] Hematolog y Differentia l? Auto (06/01/23 8:52 AM) 06/01 N 0055A-[address] [facility]- [place] Hematolog y MCH 31 pg 28 - 33 06/01 N 0055A-[address] [facility] [place] Hematolog y Hemoglobin 16.2 g/dL 13.0 - 16.3 06/01 N 0055A-[address] [facility]- [place] Hematolog y MCHC 33.8 g/dL 33.0 - 36.5 06/01 N 0055A-[address] [facility]- [place] Hematolog y MPV 10.4 fL 7.4 - 10.4 06/01 N 0055A-[address] [facility]- [place] Hematolog y MCV 90 fL 80 - 97 06/01 N 0055A-[address] [facility] [place] Hematolog y Platelets 180.0 x10^3/mc L 150.0 - 450.0103 06/01 N 0055A-[address] [facility] [place] Hematolog y RBC 5.3 x10^6/mc L 4.0 - 5.6106 06/01 N 0055A-3 [facility] [place] Hematolog y WBC 3.8 x10^3/mc L 4.0 - 11.0103 06/01 L 0055A-[address] [facility]- [place] Hematolog y RDW 12.3 % 11.0 - 14.9 06/01 N 0055A-[address] [facility] [place] Chemistry Ferritin Lvl 49.90 ng/mL 30.00 - 400.00 06/01 N Interpretiv e Data: METHODOLOGY : Testing performed by electrochem iluminescen t immunoassay (ECLIA). 5600A-U [email or web address] Chemistry Magnesium Lvl 1.9 mg/dL 1.6 - 2.6 06/[address] [place] [address] Chemistry Triglycerid es 152 mg/dL 7 - 149 06/01 H Interpretiv e Data: AGES 0-9: Desirable: < 75 mg/dL Borderline High: 75-99 mg/dL High: >/= 100 mg/dL AGES 10-19: Desirable: < 90 mg/dL Borderline High: 90-129 mg/dL High: >/= 130 mg/dL ADULTS: Desirable: < 150 mg/dL Borderline High: 150-199 mg/dL High: >/= 240 mg/dL Very High: >/= 500 mg/dL [address] [place] [address] Chemistry LDL/HDL 3 06/[address] [place] [address] Chemistry Chol/HDL 5 mg/dL 06/[address] [place] [address] Chemistry Cholesterol Total 155 mg/dL 06/01 N Interpretiv e Data: According to the [place] [employer] : AGES 0-19: Desirable: < 170 mg/dL Borderline High: 170-199 mg/dL High Blood Cholesterol : >/= 200 mg/dL ADULTS: Desirable < 200 mg/dL Borderline High: 200-239 mg/dL High Blood Cholesterol : >/= 240 mg/dL [address] [place] [address] Chemistry HDL Cholesterol 32 mg/dL 40 - 59 06/01 L Interpretiv e Data: HDL (HIGH DENSITY LIPOPROTEIN ): ADULTS: Low: < 40 mg/dL High: >/= 60 mg/dL AGES 0 -19: Low: < 40 mg/dL Borderline Low: 40 - 45 mg/dL Acceptable: > 45 mg/dL [address] [place] [address] Chemistry LDL 109 mg/dL 100 - 130 06/01 N Interpretiv e Data: AGES 0-19: Desirable: < 110 mg/dL Borderline High: 110-129 mg/dL High: >/= 130 mg/dL ADULTS: Desirable: <100 mg/dL Near/above optimal: 100-130 mg/dL Borderline High: 131-159 mg/dL High: 160-189 mg/dL Very High: 190 mg/dL -[address] [place] [address] Chemistry Vit B12 Lvl.LC 573 pg/mL 06/01 Result Comment: Performed At: [address] [id number] Mei Leigh PhD Ph:[phone] 00 -[address] [place] [address]- [facility] Lymphocyte % Auto 37.3 % 20.0 - 40.0 06/01 N 005-[address] [facility] [place] [facility] Eosinophil % Auto 1 % 0 - 5 06/01 N -[address] [facility] [place] [facility] Eos Absolute 0.0 x10^3/mc L 0.0 - 0.7103 06/01 N -[address] [facility] [place] [facility] Basophil % Auto 0.8 % 0.0 - 2.5 06/01 N -[address] [place] [address]- [facility] Baso Absolute 0.0 x10^3/mc L 0.0 - 0.1103 06/01 N -[address] [place] [address]- [facility] Neutrophil % Auto 49.2 % 46.0 - 77.0 06/01 N -[address] [facility] [place] Hematolog y Neutro Absolute 1.9 x10^3/mc L 2.0 - 7.0103 06/01 L 5A-[address] [place] [address]- [facility] Monocyte % Auto 11 % 1 - 12 06/01 N 005-[address] [place] [address] Hematolog y Sully Absolute 0.4 x10^3/mc L 0.2 - 0.8103 06/01 N 0055A-[address] [place] [address] Hematolog y Lymph Absolute 1.4 x10^3/mc L 1.2 - 4.0103 06/01 N 005-[address] [place] [address] Chemistry Hemoglobin A1c 6.1 % 4.0 - 5.6 04/21 H Interpretiv e Data: Normal: 4.0 - 5.6% Increased Risk: 5.7 - 6.4% Diabetic Range: 6.5% For patients without diabetes, the normal range for the hemoglobin A1c test is between 4% and 5.6%. Hemoglobin A1c levels between 5.7% and 6.4% indicate increased risk of diabetes, and levels of 6.5% or higher indicate diabetes. Because studies have repeatedly shown that out-of-cont rol diabetes results in complicatio ns from the disease, the goal for people with diabetes is a hemoglobin A1c less than 7%. The higher the hemoglobin A1c, the higher the risks of developing complicatio ns related to diabetes. If confirmatio n is needed, consider recalling the patient and ordering Hemoglobin Electrophor esis. -[address] [place] [address] Chemistry eAvg Glucose 128 mg/dL 04/[address] [place] [address] Chemistry Albumin 3.90 g/dL 3.50 - 5.20 04/21 N 0055A-[address] [place] [address] Chemistry Alk Phos 75 U/L 40 - 150 04/21 N 0055A-[address] [place] [address] Chemistry ALT 55 U/L 5 - 55 04/21 N 0055A-[address] [place] [address] Chemistry Sodium 142 mmol/L 136 - 145 04/21 N 0055A-[address] [place] [address] Chemistry Protein Total 6.8 g/dL 6.4 - 8.3 04/21 N 0055A-[address] [place] [address] Chemistry AST 24 U/L 5 - 34 04/21 N 0055A-[address] [place] [address] Chemistry Bilirubin Total 0.5 mg/dL 0.2 - 1.2 04/21 N 0055A-[address] [place] [address] Chemistry BUN 8 mg/dL 8 - 26 04/21 N 0055A-[address] [place] [address] Chemistry Chloride 107 mmol/L 98 - 107 04/21 N 0055A-[address] [place] [address] Chemistry BUN/Creat Ratio 10 mg/dL 12 - 20 04/21 L 0055A-[address] [place] [address] Chemistry Calcium 9.2 mg/dL 8.4 - 10.2 04/21 N 0055A-[address] [place] [address] Chemistry Potassium Lvl 4.1 mmol/L 3.5 - 5.1 04/21 N 0055A-[address] [place] [address] Chemistry CO2 27 mmol/L 22 - 29 04/[address] [place] [address] Chemistry AGAP 8.00 0.00 - 15.00 04/[address] [place] [address] Chemistry Creatinine Level 0.80 mg/dL 0.72 - 1.25 04/[address] [place] [address] Chemistry Glucose Lvl 109 mg/dL 74 - 99 04/[address] [place] [address] Chemistry Ur Microalb/Ur Creat Ratio 5 mg/gCr 04/[address] [place] [address] Chemistry Ur Creat 105 mg/dL 04/[address] [place] [address] Chemistry Ur Microalbumi n 5 mg/L 04/21 N Interpretiv e Data: To minimize intra-indiv idual variation, analysis of three random urine samples collected over the course of a week has also been recommended . [address] [place] [address] Chemistry Vitamin D 25 OH 48.0 ng/mL 30.0 - 100.0 04/21 N Interpretiv e Data: Classificat ion of Vitamin D Status: Deficient: <20 ng/mL Insufficien t: 20-29 ng/mL Sufficient: 30-100 ng/mL Possible Toxicity: >100 ng/mL This assay is for the quantitativ e determinati on of total 25 (OH) vitamin D. It is intended as an aid in the determinati on of vitamin D sufficiency . Results should always be interpreted in conjunction with the patient's medical history, clinical presentatio n, and other findings. Testing performed by [employer] huy ce. 5600A-U [facility] [email or web address] Chemistry eGFR CKD EPI 99 mL/min/1 .73_m2 04/21 Interpretiv e Data: Estimated Glomerular Filtration Rate (eGFR) calculated using the 2020 Chronic Kidney Disease-Epi demiology (CKD-EPI) Collaborati on creatinine equation; units of measure are mL/min/1.73 m2. Results are only valid for adults (>=18 years) whose serum creatinine is in steady state. eGFR calculation s are not valid for patients with acute kidney injury and for patients on dialysis. Creatinine- based estimates of kidney function may also be inaccurate in patients with reduced creatinine generation due to decreased muscle mass (e.g., malnutritio n, severe hypoalbumin emia, sarcopenia, chronic neuromuscul ar disease, amputations , severe heart failure or liver disease) and in patients with increased creatinine generation due to increased muscle mass (e.g., muscle builders, anabolic steroids) or increased dietary intake. CKD is diagnosed based on abnormaliti es of kidney structure or function, present for >3 months, with implication s for health and disease. CKD is classified and staged based on cause, eGFR and albuminuria (quantified as urine albumin to creatinine ratio). An eGFR >60 mL/min/1.73 m2 in the absence of increased urine albumin excretion or structural abnormaliti es does not CKD. eGFR provides only an estimate of measured GFR within +/- 30% for most patients. As mentioned, nutritional status and muscle mass, among many factors, may lead to inaccuracy in the estimate. Consider ordering the creatinine- cystatin C panel if better accuracy is needed for clinical decision-devendra saeed. eGFR (mL/min/1.7 3 m2) CKD stage Interpretat ion Normal 60-89 Mild decrease 45-59 Mild to moderate decrease 30-44 Moderate to severe decrease 15-29 Severe decrease <15 Kidney failure 0055A-3 [facility] [place] Vital Signs Combined list of inpatient and outpatient Vital Signs from Department of Defense and Veterans Affairs, ranging from 12 months to all on record, depending upon the facility. Vital Sign Value Date Comments Source Mean Arterial Pressure, Calc 92 mm[Hg] 06/07/2023 14:23:00 [facility] Peripheral Pulse Rate 76 bpm 06/07/2023 14:23:00 [facility] Systolic Blood Pressure 121 mm[Hg] 06/07/2023 14:23:00 [facility] Diastolic Blood Pressure 77 mm[Hg] 06/07/2023 14:23:00 [facility] BP Site Left arm 06/07/2023 14:23:00 0055C -[facility] Temperature Oral 36.8 Ariana 06/07/2023 14:23:00 [facility] Blood Pressure Manual Automatic 06/07/2023 14:23:00 [facility] Respiratory Rate 16 br/min 06/07/2023 14:23:00 [facility] Systolic Blood Pressure 123 mm[Hg] 09/06/2024 16:36:00 [facility] Diastolic Blood Pressure 78 mm[Hg] 09/06/2024 16:36:00 [facility] Mean Arterial Pressure, Calc 93 mm[Hg] 09/06/2024 16:36:00 [facility] Blood Pressure Manual Automatic 09/06/2024 16:36:00 [facility] Peripheral Pulse Rate 71 bpm 09/06/2024 16:36:00 [facility] Respiratory Rate 17 br/min 09/06/2024 16:36:00 [facility] BP Site Left arm 09/06/2024 16:36:00 0055C -[facility] Temperature Oral 37.0 Ariana 09/06/2024 16:36:00 [facility] Peripheral Pulse Rate 92 bpm 11/15/2023 12:53:00 [facility] Mean Arterial Pressure, Calc 98 mm[Hg] 11/15/2023 12:53:00 [facility] Systolic Blood Pressure 137 mm[Hg] 11/15/2023 12:53:00 [facility] Diastolic Blood Pressure 78 mm[Hg] 11/15/2023 12:53:00 [facility] Temperature Oral 37.3 Ariana 06/09/2024 20:39:00 3606S-Yz-M[facility] Peripheral Pulse Rate 84 bpm 06/09/2024 20:39:00 4894O-Ke-S-[facility] Mean Arterial Pressure, Calc 94 mm[Hg] 06/09/2024 20:39:00 6576N-Pj-N-3 [facility] Systolic Blood Pressure 133 mm[Hg] 06/09/2024 20:39:00 5857I-Gr-G-[facility] Diastolic Blood Pressure 75 mm[Hg] 06/09/2024 20:39:00 3349P-Gr-W-[facility] Respiratory Rate 18 br/min 06/09/2024 20:39:00 8589D-Np-P-[facility] Mean Arterial Pressure, Calc 89 mm[Hg] 03/22/2024 14:09:00 [facility] Systolic Blood Pressure 121 mm[Hg] 03/22/2024 14:09:00 [facility] Diastolic Blood Pressure 73 mm[Hg] 03/22/2024 14:09:00 [facility] Peripheral Pulse Rate 81 bpm 03/22/2024 14:09:00 [facility] Systolic Blood Pressure 105 mm[Hg] 05/12/2023 15:05:00 [facility] Diastolic Blood Pressure 61 mm[Hg] 05/12/2023 15:05:00 [facility] Mean Arterial Pressure, Calc 76 mm[Hg] 05/12/2023 15:05:00 00[facility] Peripheral Pulse Rate 69 bpm 05/12/2023 15:05:00 [facility] Respiratory Rate 16 br/min 05/12/2023 15:05:00 00[facility] BP Site Left arm 05/12/2023 15:05:00 0055C -[facility] Blood Pressure Manual Automatic 05/12/2023 15:05:00 0055C[facility] BP Site Left arm 11/03/2023 13:42:00 0055C -[facility] Blood Pressure Manual Automatic 11/03/2023 13:42:00 00[facility] Mean Arterial Pressure, Calc 89 mm[Hg] 11/03/2023 13:42:00 00[facility] Peripheral Pulse Rate 73 bpm 11/03/2023 13:42:00 00[facility] Respiratory Rate 16 br/min 11/03/2023 13:42:00 00[facility] Systolic Blood Pressure 122 mm[Hg] 11/03/2023 13:42:00 00[facility] Diastolic Blood Pressure 73 mm[Hg] 11/03/2023 13:42:00 00[facility] Blood Pressure Manual Automatic 05/04/2024 21:55:00 00[facility] BP Site Left arm 05/04/2024 21:55:00 0055C -[facility] Systolic Blood Pressure 173 mm[Hg] 05/04/2024 21:55:00 00[facility] Diastolic Blood Pressure 69 mm[Hg] 05/04/2024 21:55:00 00[facility] Temperature Oral 37.1 Ariana 05/04/2024 21:55:00 00[facility] Respiratory Rate 14 br/min 05/04/2024 21:55:00 00[facility] Peripheral Pulse Rate 77 bpm 05/04/2024 21:55:00 00[facility] Mean Arterial Pressure, Calc 104 mm[Hg] 05/04/2024 21:55:00 00[facility] Encounters Combined list of: 1) Encounters from Department of Veterans Affairs facilities going backup to the last 18 months, not all [place] inpatient encounters are included; 2) Encounters from the Department of Defense facilities going backup to 280 months. Location Location Details Encounter Type Encounter Number Reason For Visit Attending Provider ADM Date DC Date Status Disposition Source [address] [place] [address] [facility]) DIRECT TO [facility] FROM OTHER THAN ER OR [facility] [id number] 01/12 DISCHARGED HOME [address] [place] [address] [place] ([facility] [address] [place] [address] [facility] Non-GME FHI1) TELE CONSULT [id number] MED REFILL JENNIE HALL 11/[address] [place] [address] [place] [facility]F amily Practic e Non-GME FHI1) [address] [place] [address] [facility] [facility]Pul monary Functions ) OUTPATIENT [id number] ASSESSM ENT OF PATIENT CONDITI ON 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 STOREY 01/26 Released w/o Limitations [address] [place] [address] [place] [facility] ([facility])(P ulmonar y Functio ns) [address] [place] [address] [facility] Non-GME FHI1) TELE CONSULT [id number] med refill JENNIE HALL 01/[address] [place] [address])(F amily Practic e Non-GME FHI1) [address] [place] [address])([facility] Non-GME FHI1) TELE CONSULT [id number] off tcon line/pt states he needs lipid panel ordered MARISELA MANUEL 03/[address] [place] [address])(F amily Practic e Non-GME FHI1) [address] [place] [address])([facility] Non-GME FHI1) OUTPATIENT [id number] left ring finger infecte d;swoll en,ladan ened,pu s ADIA PETERS 06/18 Released w/o Limitations [address] [place] [address])(F amily Practic e Non-GME FHI1) [address] [place] [address])([facility] Non-GME FHI1) OUTPATIENT [id number] FINGER DRAINAG E--PER ADIA ROMO 06/19 Released w/o Limitations [address] [place] [address])(F amily Practic e Non-GME FHI1) [address] [place] [address])([facility] Non-GME FHI1) OUTPATIENT [id number] wants to quit smoking ADIA PETERS 07/16 Released w/o Limitations [address] [place] [address])(F amily Practic e Non-GME FHI1) [address] [place] [address])([facility] Non-GME FHI1) OUTPATIENT [id number] Civ 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 LUPE Serrano 11/26 Released w/o Limitations [address] [place] [address])(F amily Practic e Non-GME FHI1) [address] [place] [address])([facility] Non-GME FHI1) TELE CONSULT [id number] Med refill [facility] DELVIS Islas 01/[address] [place] [address])(F amily Practic e Non-GME FHI1) [address] [place] [address])([facility] criss Practice Non-GME FHI2) TELE CONSULT [id number] Provide r: THIAGO Mahajan 02/[address] [place] [address] [facility])(F amily Practic e Non-GME FHI2) [address] [place] [address])([facility] Non-GME FHI2) OUTPATIENT [id number] f/u on lab and HLP SUBHASH DOMINGO 02/18 Released w/o Limitations [address] [place] [address])(F amily Practic e Non-GME FHI2) [address] [place], [place] [address]B [facility] Non-GME FHI1) OUTPATIENT [id number] pain both shoulde rs ARNOLDO MCKEON 04/06 Released w/o Limitations [address] [place], [place] [address]B [facility]F amily Practic e Non-GME FHI1) [address] [place] [address])([facility] Non-GME FHI1) OUTPATIENT [id number] C/O Pain, Numbnes s Neck, Shoulde r and Arm lt side ADIA PETERS 07/22 Released w/o Limitations [address] [place] [address])(F amily Practic e Non-GME FHI1) [address] [place] [address] [facility])([facility] Non-GME FHI1) TELE CONSULT [id number] Med quest ns - PATRICK Dalton 07/[address] [place] [address])(F amily Practic e Non-GME FHI1) [address] [place] [address])([facility] Non-GME FHI1) TELE CONSULT [id number] med PATRICK Tinajero 07/[address] [place] [address])(F amily Practic e Non-GME FHI1) [address] [place], [place] [address]B [facility] Non-GME FHI1) OUTPATIENT [id number] neck pain, herniat ed disc in neck ADIA PETERS 08/13 Released w/o Limitations [address] [place], [place] [address]B [facility])(F amily Practic e Non-GME FHI1) [address] [place], [place] [address]B [facility]Fam criss Practice Non-GME FHI1) TELE CONSULT [id number] req rx refill #[id number] and mri results - ADELINA Hull 08/[address] [place] [address])(F amily Practic e Non-GME FHI1) [address] [place] [address])([facility] criss Practice Non-GME FHI1) TELE CONSULT [id number] meds refill- ADELINA Hull 09/[address] [place] [address])(F amily Practic e Non-GME FHI1) [address] [place], [place] [address]B [facility] criss Practice Non-GME FHI1) OUTPATIENT [id number] neck pain ROSAURA MATTHEWS 09/10 Released w/o Limitations [address] [place] [address])(F amily Practic e Non-GME FHI1) [address] [place] [address])([facility] criss Practice Non-GME FHI1) OUTPATIENT [id number] Strep test - SUBHASH DOMINGO 09/17 Released w/o Limitations [address] [place] [address])(F amily Practic e Non-GME FHI1) [address] [place] [address])([facility] criss Practice Non-GME FHI1) TELE CONSULT [id number] meds refill- DELVIS Islas 09/[address] [place] [address])(F amily Practic e Non-GME FHI1) [address] [place] [address])([facility] criss Practice Non-GME FHI1) OUTPATIENT [id number] vicodin refROSAURA Jj 09/29 Released w/o Limitations [address] [place], [place] [address]B [facility])(F amily Practic e Non-GME FHI1) [address] [place] [address])([facility] criss Practice Non-GME FHI1) TELE CONSULT [id number] PATRICK Mobley 11/[address] [place], [place] [address]B [facility])(F amily Practic e Non-GME FHI1) [address] [place] [address])([facility] criss Practice Non-GME FHI1) 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 ROSAURA MATTHEWS 12/07 Released w/o Limitations [facility])(F amily Practic e Non-GME FHI1) [address] [place] [address] [facility])([facility] Non-GME FHI1) TELE CONSULT [id number] med refill- pcm salvador CHANELL AGUILAR 03/[address] [place] [address])(F amily Practic e Non-GME FHI1) [address] [place] [address])([facility] Non-GME FHI1) OUTPATIENT [id number] F.U ON CHOLEST JEFF AND MEDS. PH:[phone] ROSAURA MATTHEWS 03/18 Released w/o Limitations [address] [place] [address] [place] REBECAKirstin [facility]F amily Practic e Non-GME FHI1) [address] [place] [address] [facility])([facility] Non-GME FHI1) OUTPATIENT [id number] ; back pain ROSAURA MATTHEWS 06/13 Released w/o Limitations [address] [place] [address] [place] REBECAKirstin [facility])(F amily Practic e Non-GME FHI1) [address] [place] [address])([facility] Non-GME FHI1) OUTPATIENT [id number] wk; physica l for [facility] A 08/01 Released w/o Limitations [address] [place] [address] [place])(F amily Practic e Non-GME FHI1) [address] [place] [address] [facility])([facility] Non-GME FHI1) OUTPATIENT [id number] lower back in nots/lo sts of pain RICHARDSON SALVADOR 11/03 Released w/o Limitations [address] [place] [address] [place])(F amily Practic e Non-GME FHI1) [address] [place] [address])([facility] criss Practice Non-GME FHI1) OUTPATIENT [id number] physica l [id number] GUILLE SANTIAGO 12/15 Released w/o Limitations [address] [place] [address])(F amily Practic e Non-GME FHI1) [address] [place] [address] [employer] [facility] criss Practice Non-GME FHI2) TELE CONSULT [id number] req labs/no ble VY HERRERA Victor M 02/[address] [place] [address] [employer] [employer] ([facility])(F amily Practic e Non-GME FHI2) [address] [place] [address] [employer] ([facility] criss Practice Non-GME FHI1) OUTPATIENT [id number] med refills , f/u chol [facility] A 03/16 Released w/o Limitations [address] [place] [address] [employer] ([facility])(F amily Practic e Non-GME FHI1) [address] [place] [address] [employer] ([facility] criss Practice Non-GME FHI1) OUTPATIENT [id number] head cold [id number] [facility] A 05/01 Released w/o Limitations [address] [place] [address] [employer] [place] [facility]F amily Practic e Non-GME FHI1) [address] [place] [address] [employer] ([facility])(Fam criss Practice Non-GME FHI1) OUTPATIENT [id number] [facility] ed eye SALVADOR, RICHARDSON E 05/29 Released w/o Limitations [address] [place] [address] [employer] ([facility])(F amily Practic e Non-GME FHI1) [address] [place] [address] [employer] [facility]Opt ometry) OUTPATIENT [id number] RT. eye possibl e FB sensati on ALEX EDGE D 05/29 Released w/o Limitations [address] [place] [address] [employer] ([facility])(O ptometr y) [address] [place] [address] [employer] [facility])([facility] tt [facility] Team 3) TELE CONSULT [id number] Salvador-B igham/n eeds rx PATRICK PAVON A 09/[address] [place] [address] [employer] [facility])(S [facility] Team 3) [address] [place] [address] [employer] [facility])([facility] Team 3) OUTPATIENT [id number] Muscle pain/sp asms [phone] [facility] A 11/09 Released w/o Limitations [address] [place] [address] [employer] [facility])(S [facility] Team 3) [address] [place] [address] [employer] [facility])([facility] Team 3) OUTPATIENT [id number] physica l BIJAN Shabazz 12/10 Released w/o Limitations [employer] [facility])([facility] Team 3) [address] [place] [address] [employer] [facility])([facility] Team 3) TELE CONSULT [id number] refill med, req labs/no ble VY HERRERA M 03/[address] [place] [address] [employer] [facility])([facility] Team 3) [address] [place] [address] [employer] [facility] Team 3) OUTPATIENT [id number] f/u meds - SALVADOR RICHARDSON E 04/12 Released w/o Limitations [address] [place] [address] [employer] [facility])([facility] Team 3) [address] [place] [address] [employer] [facility] Team 3) OUTPATIENT [id number] back spasms [id number] CLAUDIA SANTOS 06/10 Released w/o Limitations [address] [place] [address] [employer] [facility])([facility] Team 3) [facility] [employer] [facility])([facility] Team 3) OUTPATIENT [id number] Negativ e to meds and mass on upper left chest area above nipple [phone] SALVADOR, RICHARDSON E 07/26 Released w/o Limitations [address] [place] [address] [employer] ([facility])([facility] Team 3) [address] [place] [address] [employer] [facility] Team 3) TELE CONSULT [id number] Lab results SALVADOR RICHARDSON E 08/[address] [place] [address] Group [employer] [facility])([facility] Team 3) [address] [place] [address] [employer] [facility])([facility]) OUTPATIENT [id number] IMPAIRE D FASTING GLUCOSE JANNETH MADRIGAL 08/21 Released w/o Limitations [address] [place] [address] [employer] ([facility])(N utritio nal Medicin e) [address] [place] [address] [employer] [facility] Team 3) OUTPATIENT [id number] muscle pain(po ss. side effect from meds.) [phone] SALVADOR, RICHARDSON E 09/06 Released w/o Limitations [address] [place] [address] [employer] [facility])([facility] Team 3) [address] [place] [address] [employer] [facility] Team 3) TELE CONSULT [id number] Audiono sharon - Laborat ory Studies . SALVADOR, RICHARDSON E 09/[address] [place] [address] [employer] [facility])([facility] Team 3) [address] [place] [address] [employer] [facility] Team 3) TELE CONSULT [id number] Audiono sharon - Laborat ory review SALVADOR, RICHARDSON E 09/[address] [place] [address] [employer] [facility])([facility] Team 3) [address] [place] [address] [employer] [facility])([facility] Team 3) TELE CONSULT [id number] Discuss schedul ing MRI - PABLO Sow 10/[address] [place] [address] [employer] [facility])([facility] Team 3) [address] [place] [address] [employer] [facility])([facility] Team 3) OUTPATIENT [id number] lower back pain, neck pain SALVADOR, RICHARDSON E 10/21 Released w/o Limitations [address] [place] [address] [employer] [facility])([facility] Team 3) [address] [place] [address] [employer] [facility] Team 3) TELE CONSULT [id number] MRI results SUSANNA BLUM 11/[address] [place] [address] [employer] [facility] Team 3) [address] [place] [address] [employer] [facility] Team 3) TELE CONSULT [id number] Change in Referra l - JAVIER Johnson 11/[address] [place] [address] [employer] [facility] Team 3) [address] [place] [address] [employer] [facility] Team 3[facility] OUTPATIENT [id number] physica l [phone] SALVADOR, RICHARDSON E 12/13 Released w/o Limitations [address] [place] [address] [employer] [facility] Team 3) [address] [place] [address] [employer] [facility]Opt ometry) OUTPATIENT [id number] Eye exam [phone] JACQUES EDGE 01/07 Released w/o Limitations [employer] ([facility])(O ptometr y) [address] [place] [address] [employer] [facility] Team 3) TELE CONSULT [id number] Lab request - VY Maya 03/13 [facility] [employer] [facility])([facility] Team 3) [address] [place] [address] [employer] [facility] Team 3) OUTPATIENT [id number] complet e physica l - [id number] KATELIN EDGE 03/27 Released w/o Limitations [facility] [employer] [facility] Team 3) [address] [place] [address] [employer] [facility] Team 3) OUTPATIENT [id number] Leg and back pain KATELIN EDGE 03/31 Released w/o Limitations [address] [place] [address] Group [employer] [facility])([facility] Team 3) [address] [place] [address] [employer] [facility] Team 3) TELE CONSULT [id number] Referra l needed. PCM AMAURI Montiel 04/14 Referred for Appointment [employer] [facility])([facility] Team 3) [facility] [employer] [facility] Team 3) TELE CONSULT [id number] Jeyson /[phone] 53/need s referra l placed in system AMAURI BOATENG 04/24 Referred for Appointment [employer] [facility])([facility] Team 3) [facility] [employer] [facility] Team 3) TELE CONSULT [id number] Jeyson [id number] 3/refil l AMAURI BRISCOE 06/30 Referred for Appointment [employer] [facility] Team 3) [address] [place] [address] [employer] [facility] Team 3) OUTPATIENT [id number] cold congest ion fever [phone] CHER FRANCIS 09/03 Released w/o Limitations [employer] [facility])(S [facility] Team 3) [employer] ([facility] Team 3) OUTPATIENT [id number] F/U BP and HLP, test results CHER FRANCIS 09/17 Released w/o Limitations [employer] ([facility] Team 3) [employer] ([facility])([facility] Team 3) TELE CONSULT [id number] Med refill/ med not in pharmac y Francis cad tlt [phone] JAVIER ESPINOZA A 09/25 [employer] ([facility])(S [facility] Team 3) [employer] ([facility])([facility] Team 3) TELE CONSULT [id number] needs new script [phone] NOE KEARNS 12/09 [employer] ([facility] Team 3) [employer] ([facility])([facility] Team 3) OUTPATIENT [id number] f/u coleste rol [phone] KATELIN EDGE 12/23 Released w/o Limitations [employer] ([facility])(S [facility] Team 3) [facility] [employer] ([facility] Team 3) TELE CONSULT [id number] Naproxe n refill Jeyson cad tlt NOE KEARNS 12/30 [employer] ([facility] Team 3) [facility] [employer] ([facility])([facility] Team 3) TELE CONSULT [id number] after hours call LCAUDIA SANTOS 01/12 [employer] ([facility])(S [facility] Team 3) [employer] ([facility])([facility] Team 3) OUTPATIENT [id number] Swellin g in feet area [phone] CLAUDIA SANTOS 01/13 Released w/o Limitations [employer] ([facility])([facility] Team 3) [facility] [employer] ([facility])(War rior Op Med Cln Tm A Ad) TELE CONSULT [id number] T con for referra l for optomet ry Dr Edge ph [phone] SANTOSH CHRISTIAN LEANDRO 02/02 Referred for Appointment [facility])(W arrior Op Med Cln Tm A Ad) [address] [place] [address] [employer] [facility])([facility] Team 3) TELE CONSULT [id number] referra l samara Edge cad NOE Lyon 02/[address] [place] [address] [employer] [facility])([facility] Team 3) [address] [place] [address])(War rior Op Med Cln Tm A Ad) TELE CONSULT [id number] Optomet ry referNOE Lu 02/[address] [place] [address])(W arrior Op Med Cln Tm A Ad) [address] [place] [address])([facility] Team 3) TELE CONSULT [id number] refill on all medicat ions CAD C NOE Garcia 03/[address] [place] [address] [employer] [facility])([facility] Team 3) [address] [place] [address] [employer] [facility])([facility] Team 3) OUTPATIENT [id number] Fever [phone] MASHA PROCTOR 04/24 Released w/o Limitations [address] [place] [address] [employer] [facility])([facility] Team 3) [address] [place] [address])([facility] Team 3) OUTPATIENT [id number] f/u pancrea MASHA Leroy 04/29 Released w/o Limitations [address] [place] [address] [employer] [facility])([facility] Team 3) [address] [place] [address] [employer] [facility])(Fam criss Med Tm B Non-AD BCC) TELE CONSULT [id number] After hours service RENETTA BANEGAS 04/[address] [place] [address] [employer] [facility])(F amily Med Tm B Non-AD BCC) [address] [place] [address] [employer] [facility])([facility] Team 3) TELE CONSULT [id number] Medicat ion Refill- Jeyson /[phone] 45/NOE Graham 05/[address] [place] [address] Group [employer] [facility])(S [facility] Team 3) [address] [place] [address] [employer] [facility])(Sco tt [facility] Team 3) TELE CONSULT [id number] med renewal only 3 pills left McCarth y cad tlt NOE KEARNS 07/[address] [place] [address] [employer] [facility])(S [facility] Team 3) [address] [place] [address] [employer] [facility])(Sco tt [facility] Team 3) TELE CONSULT [id number] Tcon for to conties seeing referre d doctor Tobias [facility] ph [phone] cad dmNOE Conrad 08/[address] [place] [address] [employer] [facility])(S [facility] Team 3) [address] [place] [address] [employer] [facility])(Andreas e Managemen t) OUTPATIENT [id number] Notes Entered by: ALEX BERRIOS 04 Aug 2011 0827 ------- ------- ------- ------- -- CC-Hosp notific ation ALEX BERRIOS 08/04 [address] [place] [address] [employer] [facility]C ase Managem ent) [address] [place] [address] [employer] [facility])(War rior Op Med Cln Tm A Ad) OUTPATIENT [id number] Sinus congest ion cough and ear ache [phone] LUC JOLLEY 08/30 Released w/o Limitations [address] [place] [address] [employer] [facility])(W arrior Op Med Cln Tm A Ad) [address] [place] [address] [employer] [facility])(Fam criss Med Tm B Non-AD BCC) OUTPATIENT [id number] F/U med refill [phone] RAISA KHAN 09/07 Released w/o Limitations [address] [place] [address] [employer] [facility])(F amily Med Tm B Non-AD BCC) [address] [place] [address] [employer] [facility])(War rior Op Med Cln Tm A Ad) OUTPATIENT [id number] lower back pain [id number] LUC JOLLEY 09/27 Released w/o Limitations [address] [place] [address] [employer] [facility])(W arrior Op Med Cln Tm A Ad) [facility])(Phy sical Therapy) OUTPATIENT [id number] issue-i nstruct in use of MASHA Moreno 09/27 Released w/o Limitations [address] [place] [address])(P hysical Therapy ) [address] [place] [address])([facility] Team 3) OUTPATIENT [id number] Engrown Toenail rt,lt big toes W#[phone] JAYCE ORELLANA 10/27 Released w/o Limitations [address] [place] [address])([facility] Team 3) [address] [place] [address])([facility] Team 3) TELE CONSULT [id number] Notes Entered by: MASHA BARRIOS 07 Dec 2011 1032 ------- ------- ------- ------- -- Tcon for med refill Dr Migdalia duvall ph [phone] cad CHRISTIAN Bonilla 12/06 Referred for Appointment [address] [place] [address] [employer] [facility])([facility] Team 3) [address] [place] [address])([facility] Team 3) OUTPATIENT [id number] physica l [id number] JAYCE ORELLANA 12/14 Released w/o Limitations [address] [place] [address])([facility] Team 3) [address] [place] [address])([facility] Team 3) TELE CONSULT [id number] Notes Entered by: John GRIMM 29 Dec 2011 0659 ------- ------- ------- ------- -- Charlotte kumar problem Migdalia duvall/cad /NOE Angel 12/[address] [place] [address])([facility] Team 3) [address] [place] [address])([facility] [place] [facility]) OUTPATIENT [id number] Notes Entered by: MATILDE HOLLIS 19 Jan 2012 1603 ------- ------- ------- ------- -- Tobacco Cessati on MATILDE TAVERAS Milena 01/18 Released w/o Limitations [address] [place] [address] [employer] ([facility]) [address] [place] [address] [employer] B [facility])([facility] Team 3) TELE CONSULT [id number] Notes Entered by: WARD BARONE 25 Jan 2012 1121 ------- ------- ------- ------- -- Med refNOE Smith 01/[address] [place] [address] [employer] ([facility])([facility] Team 3) [address] [place] [address] [employer] [facility])([facility] [place] [place] [facility]) OUTPATIENT [id number] Notes Entered by: MATILDE HOLLIS 10 Feb 2012 1520 ------- ------- ------- ------- -- Tobacco Cessati on NITINMATILDE 02/09 Released w/o Limitations [address] [place] [address] [facility] [address] [place] [address] [employer] [facility])([facility] [place] [place] [facility]) OUTPATIENT [id number] Notes Entered by: MATILDE HOLLIS 11 Mar 2012 1353 ------- ------- ------- ------- -- Tobacco Cessati on NITINMATILDE 03/11 Released w/o Limitations [address] [place] [address] [employer] [facility])([facility]) [address] [place] [address] [employer] [facility])([facility] Team 3) OUTPATIENT [id number] Possibl e reactio n to med [phone] JAYCE ORELLANA 03/15 Released w/o Limitations [address] [place] [address] [employer] [facility] [facility])([facility] Team 3) [address] [place] [address] [employer] [facility])([facility] Team 3) OUTPATIENT [id number] Pain in lower back 8- 10 when walking [phone] CLAUDIA SANTOS 06/17 Released w/o Limitations [address] [place] [address] [employer] [facility])([facility] Team 3) [address] [place] [address])(War rior Op Med Cln Tm A Ad) TELE CONSULT [id number] Notes Entered by: RUMA HEARN 08 Aug 2012 1248 ------- ------- ------- ------- -- Network results - Physica l Therapy 3 CLAUDIA SANTOS 08/[address] [place] [address])(W arrior Op Med Cln Tm A Ad) [address] [place] [address])(War rior Op Med Cln Tm A Ad) OUTPATIENT [id number] left shoulde r pain [id number] SUSANNA BLUM 08/29 Released w/o Limitations [address] [place] [address])(W arrior Op Med Cln Tm A Ad) [address] [place] [address])(War rior Op Med Cln Tm A Ad) TELE CONSULT [id number] Notes Entered by: BRUNO WYATT CIA 02 Sep 2012 1419 ------- ------- ------- ------- -- Dull ache/sh mamta pain rt and left arm about 12 times this week/PATRICIA Cartwright 09/[address] [place] [address])(W arrior Op Med Cln Tm A Ad) [address] [place] [address])(War rior Op Med Cln Tm A Ad) OUTPATIENT [id number] cardiac issues [id number] SUSANNA BLUM 09/05 Released w/o Limitations [address] [place] [address])(W arrior Op Med Cln Tm A Ad) [address] [place] [address])(War rior Op Med Cln Tm A Ad) TELE CONSULT [id number] Notes Entered by: RENEE KABA 12 Sep 2012 0728 ------- ------- ------- ------- -- Med Refill- Jcarlos/ [phone] PATRICIA ANGELES 09/[address] [place] [address])(W arrior Op Med Cln Tm A Ad) [address] [place] [address])(War rior Op Med Cln Tm A Ad) TELE CONSULT [id number] Notes Entered by: LANDY CR 20 Sep 2012 0929 ------- ------- ------- ------- -- Lab request - Jcarlos - [id number] PATRICIA ANGELES 09/[address] [place] [address])(W arrior Op Med Cln Tm A Ad) [address] [place] [address])(War rior Op Med Cln Tm A Ad) OUTPATIENT [id number] f/u medicat ion renewal ; blood pressur e, [facility] jeff SUSANNA BLUM 09/21 Released w/o Limitations [address] [place] [address])(W arrior Op Med Cln Tm A Ad) [address] [place] [address])(War rior Op Med Cln Tm A Ad) TELE CONSULT [id number] Notes Entered by: RADHA DAVE 22 Sep 2012 1008 ------- ------- ------- ------- -- Network Results - CARDIOL OGY - 09/19/12 SUSANNA BLUM 09/[address] [place] [address])(W arrior Op Med Cln Tm A Ad) [address] [place] [address])(War rior Op Med Cln Tm A Ad) TELE CONSULT [id number] Notes Entered by: DIANE BLUM 05 Oct 2012 1514 ------- ------- ------- ------- -- MRI of neck PATRICIA ANGELES 10/[address] [place] [address])(W arrior Op Med Cln Tm A Ad) [address] [place] [address])(War rior Op Med Cln Tm A Ad) TELE CONSULT [id number] Notes Entered by: RADHA DAVE 11 Oct 2012 0840 ------- ------- ------- ------- -- Network Results - CARDIOL OGY 10/06/12 SUSANNA BLUM 10/[address] [place] [address] [facility])(W arrior Op Med Cln Tm A Ad) [facility])(War rior Op Med Cln Tm A Ad) OUTPATIENT [id number] F/u MRI neck SUSANNA BLUM 10/11 Released w/o Limitations [address] [place] [address] [facility])(W arrior Op Med Cln Tm A Ad) [address] [place] [address] [facility])(War rior Op Med Cln Tm A Ad) TELE CONSULT [id number] Notes Entered by: Fito GRIMM 07 Dec 2012 1418 ------- ------- ------- ------- -- Med refill/ /Dr. Blum/ // PATRICIA ANGELES 12/[address] [place] [address] [facility])(W arrior Op Med Cln Tm A Ad) [address] [place] [address] [facility])(War rior Op Med Cln Tm A Ad) TELE CONSULT [id number] Notes Entered by: CHRISTIAN ESCALERA 12 Jan 2013 1458 ------- ------- ------- ------- -- Med refill/ Dr. Blum/ [phone] KIRBY WARD 01/12 Referred for Appointment [facility])(W arrior Op Med Cln Tm A Ad) [address] [place] [address])(Fam criss Med Tm B Non-AD BCC) TELE CONSULT [id number] Notes Entered by: CHRISTIN BURROUGHS 13 Jan 2013 0825 ------- ------- ------- ------- -- Med refill WARDKIRBY MANLEY 01/13 Referred for Appointment [facility])(F amily Med Tm B Non-AD BCC) [address] [place] [address])(War rior Op Med Cln Tm A Ad) TELE CONSULT [id number] Notes Entered by: WARD BARONE 22 Feb 2013 1414 ------- ------- ------- ------- -- Rash on face Jcarlos NOE KEARNS 02/22 Referred for Appointment [address] [place] [address])(W arrior Op Med Cln Tm A Ad) [address] [place] [address])(War rior Op Med Cln Tm A Ad) OUTPATIENT [id number] Rash to underne ath chin for 36 hours SUSANNA BLUM 02/23 Released w/o Limitations [address] [place] [address])(W arrior Op Med Cln Tm A Ad) [address] [place] [address])(War rior Op Med Cln Tm A Ad) TELE CONSULT [id number] Notes Entered by: RENEE KABA 04 Apr 2013 1424 ------- ------- ------- ------- -- Med Refill- Jcarlos/ SUSANNA BLUM 04/[address] [place] [address])(W arrior Op Med Cln Tm A Ad) [address] [place] [address])(War rior Op Med Cln Tm A Ad) OUTPATIENT [id number] cough, nasal congest ion, headach e [phone] SUSANNA BLUM 04/21 Released w/o Limitations [address] [place] [address])(W arrior Op Med Cln Tm A Ad) [address] [place] [address])(War rior Op Med Cln Tm A Ad) OUTPATIENT [id number] sinus congest ion ear pain cough SUSANNA BLUM 05/22 Released w/o Limitations [address] [place] [address])(W arrior Op Med Cln Tm A Ad) [address] [place] [address])(Opt ometry) OUTPATIENT [id number] annual eye exam - [id number] KRYS LUNA 05/23 Released w/o Limitations [address] [place] [address] [facility])(O ptometr y) [address] [place] [address])(War rior Op Med Cln Tm A Ad) TELE CONSULT [id number] Notes Entered by: CHRISTIAN ESCALERA 31 May 2013 0715 ------- ------- ------- ------- -- Med refill/ blum/ AMY WORKMAN 05/[address] [place] [address])(W arrior Op Med Cln Tm A Ad) [address] [place] [address])(War rior Op Med Cln Tm A Ad) TELE CONSULT [id number] Notes Entered by: CHRISTIAN ESCALERA 09 Jun 2013 0703 ------- ------- ------- ------- -- Med refill/ blum/ LEVON HARGROVE 06/[address] [place] [address] [facility])(W arrior Op Med Cln Tm A Ad) [address] [place] [address])(War rior Op Med Cln Tm A Ad) TELE CONSULT [id number] Notes Entered by: DIANE BLUM 13 Jun 2013 1204 ------- ------- ------- ------- -- Medicat ions request SUSANNA BLUM 06/[address] [place] [address])(W arrior Op Med Cln Tm A Ad) [address] [place] [address])(War rior Op Med Cln Tm A Ad) TELE CONSULT [id number] Notes Entered by: ESTER DAIGLE 09 Oct 2013 1029 ------- ------- ------- ------- -- Order labs - Jcarlos - SANDHYA PALMER 10/[address] [place] [address] Group [facility])(W arrior Op Med Cln Tm A Ad) [address] [place] [address] [facility])(War rior Op Med Cln Tm A Ad) OUTPATIENT [id number] HTN/Hyp erlipid emia annual f/u SUSANNA BLUM 10/25 Released w/o Limitations [address] [place] [address] Group [facility])(W arrior Op Med Cln Tm A Ad) [address] [place] [address] [facility])(War rior Op Med Cln Tm A Ad) TELE CONSULT [id number] Notes Entered by: DIANE BLUM 26 Oct 2013 1148 ------- ------- ------- ------- -- BERT Resendiz 10/26 Referred for Appointment [address] [place] [address] Group [facility])(W arrior Op Med Cln Tm A Ad) [address] [place] [address] [facility])([facility] [place] [place] [facility]) OUTPATIENT [id number] NAYANA GARNER 11/07 Released w/o Limitations [address] [place] [address] [facility])([facility]) [address] [place] [address] [facility])([facility] [place] [place] [facility]) OUTPATIENT [id number] NAYANA GARNER 12/06 Released w/o Limitations [address] [place] [address] [facility])(I Pharm [facility]) [address] [place] [address])(War rior Op Med Cln Tm A Ad) TELE CONSULT [id number] Notes Entered by: JOSÉ MANUEL SADLER 12 Dec 2013 1132 ------- ------- ------- ------- -- Med refill/ questio tanisha/ Jcarlos/ BERT JOAQUIN 12/[address] [place] [address] [facility])(W arrior Op Med Cln Tm A Ad) [address] [place] [address] [facility])(War rior Op Med Cln Tm A Ad) OUTPATIENT [id number] lower left quadren t pain [phone] 6 SUSANNA BLUM 12/18 Released w/o Limitations [address] [place] [address] Group [facility])(W arrior Op Med Cln Tm A Ad) [address] [place] [address] [facility])([facility] Op Med Cln Tm A Ad) OUTPATIENT [id number] follow up [id number] SUSANNA BLUM 01/18 Released w/o Limitations [address] [place] [address] [facility])(W ar[facility] Op Med Cln Tm A Ad) [address] [place] [address] [facility])(War rior Op Med Cln Tm A Ad) TELE CONSULT [id number] Notes Entered by: ESTER DAIGLE 31 Jan 2014 0729 ------- ------- ------- ------- -- Sx: Rash on face - Blum - * AIME AKHTAR 01/[address] [place] [address] [facility])(W arrior Op Med Cln Tm A Ad) [address] [place] [address])(Fam criss Med Tm B Non-AD BCC) OUTPATIENT [id number] itchy rash on face [phone] .[phone] ENOC ESPINOZA 02/08 Released w/o Limitations [address] [place] [address])(F amily Med Tm B Non-AD BCC) [address] [place] [address] [facility])([facility] [place] [place] Pharm D [facility]) OUTPATIENT [id number] Notes Entered by: MATILDE HOLLIS 08 Feb 2014 0900 ------- ------- ------- ------- -- Tobacco Cessati on MATILDE TAVERAS 02/08 Released w/o Limitations [address] [place] [address] [facility]) [address] [place] [address] [facility])(War rior Op Med Cln Tm A Ad) OUTPATIENT [id number] protrus ion near navel; painful when pressin g on the area [phone] SUSANNA BLUM 03/16 Released w/o Limitations [address] [place] [address] [facility])([facility] Op Med Cln Tm A Ad) [address] [place] [address])(War ri[facility] Op Med Cln Tm A Ad) OUTPATIENT [id number] lump in lower right quadran t of abdomen [id number] SUSANNA BLUM 03/22 Released w/o Limitations [address] [place] [address])([facility] ar[facility] Op Med Cln Tm A Ad) [address] [place] [address])(War rior Op Med Cln Tm A Ad) OUTPATIENT [id number] Notes Entered by: LESLIE CULVER 10 Apr 2014 0737 ------- ------- ------- ------- -- walk in strep SUSANNA BLUM 04/10 Released w/o Limitations [address] [place] [address])(W arrior Op Med Cln Tm A Ad) [address] [place] [address])(War ri[facility] Op Med Cln Tm A Ad) OUTPATIENT [id number] low rt side stomach pain x6 weeks/6 18.660. [phone] SUSANNA BLUM 05/28 Released w/o Limitations [address] [place] [address])(W arrior Op Med Cln Tm A Ad) [address] [place] [address])(War rior Op Med Cln Tm A Ad) TELE CONSULT [id number] Notes Entered by: DIANE BLUM 30 May 2014 1532 ------- ------- ------- ------- -- Laborat ory abnorma SUSANNA Mesa 05/[address] [place] [address] [facility])(W arrior Op Med Cln Tm A Ad) [address] [place] [address])(Med ication Refill Clinic) TELE CONSULT [id number] Notes Entered by: WARD BARONE 25 Jun 2014 1051 ------- ------- ------- ------- -- Med refill Jcarlos CLAUDIA STEPHENS 06/[address] [place] [address])([facility]) [address] [place] [address])(War rior Op Med Cln Tm A Ad) OUTPATIENT [id number] medicat ion/lab renewal SUSANNA BLUM 07/03 Released w/o Limitations [address] [place] [address] [facility])(W arrior Op Med Cln Tm A Ad) [address] [place] [address])(War rior Op Med Cln Tm A Ad) TELE CONSULT [id number] Notes Entered by: DIANE BLUM 03 Jul 2014 1650 ------- ------- ------- ------- -- Neutrop SUSANNA Garzon 07/[address] [place] [address])(W arrior Op Med Cln Tm A Ad) [address] [place] [address])(War rior Op Med Cln Tm A Ad) TELE CONSULT [id number] Notes Entered by: KAMARI LIZ 06 Sep 2014 1120 ------- ------- ------- ------- -- Network Results -SURGER Y 4 JAMIE BERRIOS 09/[address] [place] [address])(W arrior Op Med Cln Tm A Ad) [address] [place] [address])(War rior Op Med Cln Tm A Ad) TELE CONSULT [id number] Notes Entered by: EUSEBIO CUADRA 26 Oct 2014 1515 ------- ------- ------- ------- -- Network Results -GASTRO ENTEROL OGY 4 JAMIE BERRIOS 10/[address] [place] [address])(W arrior Op Med Cln Tm A Ad) [address] [place] [address])(War rior Op Med Cln Tm A Ad) TELE CONSULT [id number] Notes Entered by: CHRISTIAN ESCALERA 07 Nov 2014 1216 ------- ------- ------- ------- -- NAL [facility]/joelle ybarra/6 [phone]. [phone] CHRISTIAN FROST 11/07 Referred for Appointment [address] [place] [address])(W arrior Op Med Cln Tm A Ad) [address] [place] [address])(War rior Op Med Cln Tm A Ad) OUTPATIENT [id number] rash in groin/ burning /660.67 56 YASH JAMIE F 11/09 Released w/o Limitations [address] [place] [address])(W arrior Op Med Cln Tm A Ad) [address] [place] [address])(War rior Op Med Cln Tm A Ad) TELE CONSULT [id number] Notes Entered by: MASHA BARRIOS 13 Nov 2014 1219 ------- ------- ------- ------- -- Network results - Urgent Care 015 JAMIE BERRIOS 11/[address] [place] [address])(W arrior Op Med Cln Tm A Ad) [address] [place] [address])(War rior Op Med Cln Tm A Ad) OUTPATIENT [id number] lab results and med renewal YASHGREGORIOJAMIE F 12/12 Released w/o Limitations [address] [place] [address])(W arrior Op Med Cln Tm A Ad) [address] [place] [address])(Med ication Refill Clinic) TELE CONSULT [id number] Notes Entered by: John GRIMM 18 Dec 2014 1149 ------- ------- ------- ------- -- Med refill/ Livermo [id number]/[phone] LETITIA FERRARO 12/[address] [place] [address])([facility]) [address] [place] [address])(War rior Op Med Cln Tm A Ad) OUTPATIENT [id number] rash on face [id number] s [phone] JAMIE BERRIOS 01/07 Released w/o Limitations [facility])(W arrior Op Med Cln Tm A Ad) [address] [place] [address] Group [facility])(War rior Op Med Cln Tm A Ad) TELE CONSULT [id number] Notes Entered by: TIMOTHY RENE 08 Jan 2015 1704 ------- ------- ------- ------- -- Laborat orHOLLIS Mancera 01/08 Referred for Appointment [facility])(W arrior Op Med Cln Tm A Ad) [address] [place] [address] [facility])(War rior Op Med Cln Tm A Ad) TELE CONSULT [id number] Notes Entered by: Rick PALOMO 14 Mar 2015 0847 ------- ------- ------- ------- -- NAL/JOELLE ERMON/6 [phone] MARIAN HOLM 03/14 Referred for Appointment [facility])(W arrior Op Med Cln Tm A Ad) [address] [place] [address])(War rior Op Med Cln Tm A Ad) TELE CONSULT [id number] Notes Entered by: ANAID CROOK 14 Mar 2015 1126 ------- ------- ------- ------- -- F/U after ER Visit / Jaime mckeon / HOLLIS MCMILLAN 03/14 Referred for Appointment [facility])(W arrior Op Med Cln Tm A Ad) [address] [place] [address])(War rior Op Med Cln Tm A Ad) TELE CONSULT [id number] Notes Entered by: Rick PALOMO 18 Mar 2015 1001 ------- ------- ------- ------- -- NAL/JOELLE ERMON/6 [phone] MARIAN HOLM Del 03/18 Referred for Appointment [address] [place] [address] [facility])(W arrior Op Med Cln Tm A Ad) [address] [place] [address] [facility])(War rior Op Med Cln Tm A Ad) OUTPATIENT [id number] follow up ER visit for at knee pain YASH JAMIE F 03/19 Released with Work/Duty Limitations [address] [place] [address] [facility])(W arrior Op Med Cln Tm A Ad) [address] [place] [address] [facility])(War rior Op Med Cln Tm A Ad) TELE CONSULT [id number] Notes Entered by: MARLIN WHEELER 20 Mar 2015 1553 ------- ------- ------- ------- -- Orthope dic ReferMARLIN Bello 03/20 Referred for Appointment [address] [place] [address])(W arrior Op Med Cln Tm A Ad) [address] [place] [address])(War rior Op Med Cln Tm A Ad) TELE CONSULT [id number] Notes Entered by: TIMOTHY RENE 22 Mar 2015 1202 ------- ------- ------- ------- -- Colonos copy consult JAMIE BERRIOS 03/[address] [place] [address] [facility])(W arrior Op Med Cln Tm A Ad) [address] [place] [address] [facility])(Min or Procedure Clinic) OUTPATIENT [id number] 3RD FLOOR SAFB PRER OP SCREENI NG PRIOR TPO COLONOS COPY MICAH POLO 04/22 Released w/o Limitations [address] [place] [address] [facility])(M inor Procedu re Clinic) [address] [place] [address] [facility])(Fam criss Med Tm B Non-AD BCC) TELE CONSULT [id number] Notes Entered by: ESTER DAIGLE 27 May 2015 1237 ------- ------- ------- ------- -- Order labs - Colanes e - [phone] -[phone] after 1600 HOLLIS MCMILLAN 05/27 Referred for Appointment [address] [place] [address] Group [facility])(F amily Med Tm B Non-AD BCC) [address] [place] [address] [facility])(Fam criss Med Tm B Non-AD BCC) TELE CONSULT [id number] Notes Entered by: DEREK IBARRA 03 Jun 2015 0948 ------- ------- ------- ------- -- NAL ER F/U/Col oanese/ MARIAN HOLM 06/03 Referred for Appointment [address] [place] [address] Group [facility])(F amily Med Tm B Non-AD BCC) [address] [place] [address] [facility])(Fam criss Med Tm B Non-AD BCC) TELE CONSULT [id number] Notes Entered by: John GRIMM 05 Jun 2015 0631 ------- ------- ------- ------- -- Sx ER FU symptom s persist /Colane se/[phone] HOLLIS MCMILLAN 06/05 Referred for Appointment [address] [place] [address] Group [facility])(F amily Med Tm B Non-AD BCC) [address] [place] [address] [facility])(Fam criss Med Tm B Non-AD BCC) OUTPATIENT [id number] back pain/sp asms KAREN WELLINGTON 06/05 Released w/o Limitations [address] [place] [address] [facility])(F amily Med Tm B Non-AD BCC) [address] [place] [address] [facility])(Fam criss Med Tm B Non-AD BCC) OUTPATIENT [id number] semi-an nual check up KAREN WELLINGTON 06/11 Released w/o Limitations [address] [place] [address] [facility])(F amily Med Tm B Non-AD BCC) [address] [place] [address] [facility])(Med ication Refill Clinic) TELE CONSULT [id number] Notes Entered by: ESTER DAIGLE 27 Jun 2015 0633 ------- ------- ------- ------- -- Rx renewal - Sondra fernández - HOLLIS MCMILLAN 06/27 Referred for Appointment [address] [place] [address] [facility])([facility]) [address] [place] [address])([facility] criss Med Tm B Non-AD BCC) OUTPATIENT [id number] Notes Entered by: RENEE DÍAZ 26 Aug 2015 0936 ------- ------- ------- ------- -- walk in throat culture KAREN WELLINGTON Released w/o Limitations [address] [place] [address])(F amily Med Tm B Non-AD BCC) [address] [place] [address])([facility] criss Med Tm B Non-AD BCC) OUTPATIENT [id number] [facility] [id number] KAREN WELLINGTON Released w/o Limitations [address] [place] [address])(F amily Med Tm B Non-AD BCC) [address] [place] [address])([facility] criss Med Tm B Non-AD BCC) TELE CONSULT [id number] Notes Entered by: FISH CARY 28 Aug 2015 0801 ------- ------- ------- ------- -- Results HOLLIS MCMILLAN 08/27 Referred for Appointment [address] [place] [address] Group [facility])(F amily Med Tm B Non-AD BCC) [address] [place] [address])(Fam criss Med Tm B Non-AD BCC) TELE CONSULT [id number] Notes Entered by: Rosita VILLEDA 12 Nov 2015 1356 ------- ------- ------- ------- -- Cardiol man Wyman l Request Inquiry / Sondra fernández / AIME AKHTAR 11/[address] [place] [address] [facility])(F amily Med Tm B Non-AD BCC) [address] [place] [address] [facility])(Min or Procedure Clinic) TELE CONSULT [id number] Notes Entered by: PATRICK ROWELL 03 Dec 2015 0934 ------- ------- ------- ------- -- Colonos copy Results /Colane /[phone] MICAH POLO 12/[address] [place] [address] [facility]M inor Procedu re Clinic) [address] [place] [address] [facility])(Fam criss Med Tm B Non-AD BCC) TELE CONSULT [id number] Notes Entered by: ESTER DAIGLE 06 Dec 2015 0935 ------- ------- ------- ------- -- Order labs - [facility] HOLLIS MCMILLAN 12/05 Referred for Appointment [address] [place] [address] [facility])(F amily Med Tm B Non-AD BCC) [address] [place] [address])(War rior Op Med Cln Tm A Ad) TELE CONSULT [id number] Notes Entered by: KAMARI LIZ 20 Dec 2015 1407 ------- ------- ------- ------- -- Network Results CARDIOL OGY 12/04/15 EULALIA KAREN WELLINGTON 12/[address] [place] [address] Group [facility])(W arrior Op Med Cln Tm A Ad) [address] [place] [address] [facility])(Fam criss Med Tm B Non-AD BCC) OUTPATIENT [id number] medicat ion review/ renewal KAREN WELLINGTON 12/25 Released w/o Limitations [address] [place] [address] [facility])(F amily Med Tm B Non-AD BCC) [address] [place] [address] [facility])(Fam criss Med Tm B Non-AD BCC) TELE CONSULT [id number] Notes Entered by: MASHA BARRIOS 07 Jan 2016 0931 ------- ------- ------- ------- -- Network results Cardiol ogy 016 TIFFANY WELLINGTON KAREN S 01/[address] [place] [address])(F amily Med Tm B Non-AD BCC) [address] [place] [address])([facility] criss Med Tm B Non-AD BCC) TELE CONSULT [id number] Notes Entered by: SARBJIT ALEJANDRO 28 Jan 2016 1438 ------- ------- ------- ------- -- Lisa [facility] Team 2: Office Message SARBJIT ALEJANDRO 01/27 Referred for Appointment [address] [place] [address])(F amily Med Tm B Non-AD BCC) [address] [place] [address])([facility] criss Med Tm B Non-AD BCC) TELE CONSULT [id number] Notes Entered by: SHIREEN NARVAEZ 14 Feb 2016 0955 ------- ------- ------- ------- -- NEW PATIENT RESULTS FOR KAREN SHRESTHA 02/[address] [place] [address])(F amily Med Tm B Non-AD BCC) [address] [place] [address])(Med ication Refill Clinic) TELE CONSULT [id number] Notes Entered by: GALI MUÑIZ 26 Mar 2016 0643 ------- ------- ------- ------- -- Med refill/ Colanes e/ /JOE Valenzuela 03/[address] [place] [address])([facility]) [address] [place] [address])([facility] criss Med Tm B Non-AD BCC) TELE CONSULT [id number] Notes Entered by: TYLER NUÑEZ 31 Mar 2016 1114 ------- ------- ------- ------- -- sondra e/refer FAUSTO Lucia 03/31 Referred for Appointment [address] [place] [address] [facility])(F amily Med Tm B Non-AD BCC) [address] [place] [address] [facility])(Fam criss Med Tm B Non-AD BCC) OUTPATIENT [id number] Lower Back Pain x 3 days [phone] 6 KAREN WELLINGTON 04/15 Released w/o Limitations [address] [place] [address] [facility])(F amily Med Tm B Non-AD BCC) [address] [place] [address] [facility])(Fam criss Med Tm B Non-AD BCC) OUTPATIENT [id number] Lower Back Pain x 4 days JYOTHI ONTIVEROS 05/25 Released w/o Limitations [address] [place] [address] [facility])(F amily Med Tm B Non-AD BCC) [address] [place] [address] [facility])(Fam criss Med Tm B Non-AD BCC) TELE CONSULT [id number] Notes Entered by: MASHA BARRIOS 27 May 2016 1013 ------- ------- ------- ------- -- Network results Optomet ry 016 KAREN GIL 05/[address] [place] [address] [facility])(F amily Med Tm B Non-AD BCC) [address] [place] [address] [facility])(Fam criss Med Tm B Non-AD BCC) TELE CONSULT [id number] Notes Entered by: MASHA BARRIOS 03 Jun 2016 1235 ------- ------- ------- ------- -- Network results Physica l Therapy 016 KRISTIN ROOT 06/[address] [place] [address] [facility])(F amily Med Tm B Non-AD BCC) [address] [place] [address] [facility])(Fam criss Med Tm B Non-AD BCC) TELE CONSULT [id number] Notes Entered by: Rosita ONTIVEROS 08 Jun 2016 1306 ------- ------- ------- ------- -- MRI result HIPOLITOHOLLIS Del 06/08 Referred for Appointment [address] [place] [address])( amily Med Tm B Non-AD BCC) [address] [place] [address])([facility] criss Med Tm B Non-AD BCC) OUTPATIENT [id number] f/u after MRI low back / JYOTHI ONTIVEROS 06/15 Released w/o Limitations [address] [place] [address])(F amily Med Tm B Non-AD BCC) [address] [place] [address])([facility] Med Tm B Non-AD BCC) TELE CONSULT [id number] Notes Entered by: BEV WILLSON 31 Jul 2016 1608 ------- ------- ------- ------- -- Network results Cardiol ogy 7 SR LORETA CARRERA 07/[address] [place] [address])(F amily Med Tm B Non-AD BCC) [address] [place] [address])([facility] criss Med Tm B Non-AD BCC) OUTPATIENT [id number] sinus congest ion, sore throat, product sara cough x3 days/66 [id number] MICAH CAMEJO 08/03 Released w/o Limitations [address] [place] [address])(F amily Med Tm B Non-AD BCC) [address] [place] [address])([facility] Med Tm B Non-AD BCC) TELE CONSULT [id number] Notes Entered by: RUMA HEARN 10 Aug 2016 1314 ------- ------- ------- ------- -- Network results Physica l Therapy 7 JYOTHI ONTIVEROS 08/[address] [place] [address] [facility]F amily Med Tm B Non-AD BCC) [address] [place] [address] [facility])(Fam criss Med Tm B Non-AD BCC) TELE CONSULT [id number] Notes Entered by: MORGAN CAT 02 Sep 2016 0631 ------- ------- ------- ------- -- Sx - R side pain/Co lanese/ 660.675 6 CIELOPOP FELDER 09/02 Referred- Emergency Department [address] [place] [address] [facility])(F amily Med Tm B Non-AD BCC) [address] [place] [address] [facility])(Med ication Refill Clinic) TELE CONSULT [id number] Notes Entered by: ANAID CROOK 20 Oct 2016 1254 ------- ------- ------- ------- -- Med Renewal / Colanes e / [phone] - sgj POP BUCK 10/20 Medication Refill Forwarded [address] [place] [address] [facility])([facility]) [address] [place] [address] [facility])(Fam criss Med Tm B Non-AD BCC) TELE CONSULT [id number] Notes Entered by: MORGAN CAT 26 Oct 2016 1302 ------- ------- ------- ------- -- Med Not in Pharmac y (requfide jacome call back today)/ Colanes prdaeep/660.6 756 POP BUCK 10/26 Other Not Elsewhere Classified [address] [place] [address] [facility])(F amily Med Tm B Non-AD BCC) [address] [place] [address] [facility])(Fam criss Med Tm B Non-AD BCC) OUTPATIENT [id number] left thigh occassi onal numbnes s on and off x 2 wks JYOTHI ONTIVEROS 11/17 Released w/o Limitations [address] [place] [address] [facility])(F amily Med Tm B Non-AD BCC) [address] [place] [address] Group [facility])([facility] criss Med Tm B Non-AD BCC) TELE CONSULT [id number] Notes Entered by: ANAID CROOK 27 Nov 2016 1024 ------- ------- ------- ------- -- Request for Lab Order - Appt 15 December / Sondra e / [phone] / [phone] - POP George 11/27 Other Not Elsewhere Classified [address] [place] [address] Group [facility])(F amily Med Tm B Non-AD BCC) [address] [place] [address] Group [facility])([facility] criss Med Tm B Non-AD BCC) OUTPATIENT [id number] Annual liver functio n katerina mascorro and perscri ption renewal s MICAH CAMEJO 12/14 Released w/o Limitations [address] [place] [address] Group [facility])(F amily Med Tm B Non-AD BCC) [address] [place] [address] [facility])([facility] criss Med Tm B Non-AD BCC) TELE CONSULT [id number] Notes Entered by: TYLER NUÑEZ 23 Feb 2017 1152 ------- ------- ------- ------- -- Referra l renewal /Appt Mar 14/DEREK Bridges 02/23 Other Not Elsewhere Classified [address] [place] [address] Group [facility])(F amily Med Tm B Non-AD BCC) [address] [place] [address] [facility])([facility] criss Med Tm B Non-AD BCC) TELE CONSULT [id number] Notes Entered by: Ja REID 03 Mar 2017 1426 ------- ------- ------- ------- -- [facility]/ Referra mckenzie/ DEREK Colbert 03/03 Other Not Elsewhere Classified [address] [place] [address] Group [facility] [facility])(F amily Med Tm B Non-AD BCC) [address] [place] [address] [place] [facility])([facility] criss Med Tm B Non-AD BCC) TELE CONSULT [id number] Notes Entered by: INÉS ARIZA 19 Mar 2017 0823 ------- ------- ------- ------- -- Network results Cardiol ogy 7 BG KAREN WELLINGTON 03/[address] [place] [address])(F amily Med Tm B Non-AD BCC) [address] [place] [address])(Fam criss Med Tm B Non-AD BCC) TELE CONSULT [id number] Notes Entered by: Ja SCHNEIDER 02 Apr 2017 0839 ------- ------- ------- ------- -- Network Results - Optomet ry 03/22/17 TSB MICAH CAMEJO 04/[address] [place] [address])(F amily Med Tm B Non-AD BCC) [address] [place] [address])(Fam criss Med Tm B Non-AD BCC) TELE CONSULT [id number] Notes Entered by: JAMES SHEPARD 14 Apr 2017 1424 ------- ------- ------- ------- -- Network Results - Optomet ry 7 TDC KAREN WELLINGTON 04/[address] [place] [address])(F amily Med Tm B Non-AD BCC) [address] [place] [address])(Fam criss Med Tm B Non-AD BCC) OUTPATIENT [id number] F/U Low Iron count per [place] fingers tick 12.7 - 11.7 [id number] KAREN WELLINGTON 05/04 Released w/o Limitations [address] [place] [address] [place] [facility])(F amily Med Tm B Non-AD BCC) [address] [place] [address])(Fam criss Med Tm B Non-AD BCC) TELE CONSULT [id number] Notes Entered by: FISH CARY 05 May 2017 1527 ------- ------- ------- ------- -- Lab results RAÚL MANE 05/[address] [place] [address] [place] [facility])(F amily Med Tm B Non-AD BCC) [address] [place] [address] [place] [facility])(War rior Op Med Cln Tm A Ad) OUTPATIENT [id number] cough, sinus congest ion, headach e, body aches, sore throat ZAHIDA ROD 06/03 Released w/o Limitations [address] [place] [address] [place] [facility])(W arrior Op Med Cln Tm A Ad) [address] [place] [address] [place] [facility])(Fam criss Med Tm B Non-AD BCC) OUTPATIENT [id number] lower back pain on and off - progres sively getting worse [id number] KAREN WELLINGTON 07/07 Released w/o Limitations [address] [place] [address])(F amily Med Tm B Non-AD BCC) [address] [place] [address])(Fam criss Med Tm B Non-AD BCC) OUTPATIENT [id number] Notes Entered by: FISH CARY 30 Jul 2017 1510 ------- ------- ------- ------- -- KAREN Burris 07/30 Released w/o Limitations [address] [place] [address])(F amily Med Tm B Non-AD BCC) [address] [place] [address])(Med ication Refill Clinic) TELE CONSULT [id number] Notes Entered by: GALI MUÑIZ 18 Aug 2017 1000 ------- ------- ------- ------- -- Med Renewal /Remigio se/660. 6756/cl RAÚL Rivera 08/[address] [place] [address] [place] [facility])([facility] [address] [place] [address])(Fam criss Med Tm B Non-AD BCC) TELE CONSULT [id number] Notes Entered by: Ja SCHNEIDER 02 Sep 2017 0807 ------- ------- ------- ------- -- Network Results General Surgery 07/29/17 KAREN EMERY 09/[address] [place] [address] Group [place] [facility])(F amily Med Tm B Non-AD BCC) [address] [place] [address] [place] [facility])(Fam criss Med Tm B Non-AD BCC) TELE CONSULT [id number] Notes Entered by: Ja SCHNEIDER 03 Sep 2017 1520 ------- ------- ------- ------- -- Network Results Optomet ry 08/09/17 KAREN EMERY 09/[address] [place] [address] [place] [facility])(F amily Med Tm B Non-AD BCC) [address] [place] [address] [place] [facility])(Fam criss Med Tm B Non-AD BCC) TELE CONSULT [id number] Notes Entered by: JULIETTE العراقي 29 Nov 2017 1013 ------- ------- ------- ------- -- Lab Test Request / Sondra fernández/ [phone] [place] [address] RAÚL MANE 11/[address] [place] [address] [place] [facility])(F amily Med Tm B Non-AD BCC) [address] [place] [address] [place] [facility])(Fam criss Med Tm B Non-AD BCC) OUTPATIENT [id number] Annual Check Up, Med Renewal s and F/U Lab results [id number] KAREN WELLINGTON 11/29 Released w/o Limitations [address] [place] [address] Group [place] [facility])(F amily Med Tm B Non-AD BCC) [address] [place] [address] [place] [facility])(Sco tt CAF OP) TELE CONSULT [id number] Notes Entered by: GRUPO JUNE RET 30 Nov 2017 1351 ------- ------- ------- ------- -- RX Bridge Appt 06 December/ jorge/ RAÚL Cooper 11/[address] [place] [address] Group [place] [facility])(S cott MTF BHOP) [address] [place] [address] [place] [facility])(War rior Op Med Cln Tm A Ad) TELE CONSULT [id number] Notes Entered by: Ja LUNA 03 Mar 2018 1551 ------- ------- ------- ------- -- Referra l Request RAÚL MANE 03/03 Referred for Appointment [address] [place] [address] [place] [facility])(W arrior Op Med Cln Tm A Ad) [address] [place] [address])([facility] tt Internal Medicine ) OUTPATIENT [id number] lower back pain x 2 CLAUDE LONGORIA 04/26 Released w/o Limitations [address] [place] [address])(S cott Interna l Medicin e Tm) [address] [place] [address])([facility] Internal Medicine ) OUTPATIENT [id number] low back pain/di scuss MRI for Pain Managem ent Referra l/256.4 853 LEISA ABDULLAHI 05/02 Released w/o Limitations [address] [place] [address])(S cott Interna l Medicin e Tm) [address] [place] [address])([facility] Internal Medicine ) TELE CONSULT [id number] 2 Notes Entered by: CLAUDIA STEPHENS 30 May 2018 1010 ------- ------- ------- ------- -- MRI report request from Nina yvon Scott at [facility] [place]: CLAUDIA STEPHENS 05/30 Referred for Appointment [address] [place] [address])(S cott Interna l Medicin e Tm) [address] [place] [address])([facility] Internal Medicine ) TELE CONSULT [id number] Notes Entered by: MORGAN CAT 31 May 2018 1454 ------- ------- ------- ------- -- Paperwo [facility]/ Sukhjinder/ RACHEL SCHWARZ 05/31 Other Not Elsewhere Classified [facility] [place] [facility])(S cott Interna l Medicin e Tm) [facility])([facility] Internal Medicine ) TELE CONSULT [id number] Notes Entered by: ANAID CROOK 10 Jun 2018 1330 ------- ------- ------- ------- -- Med [facility] / Sukhjinder / [phone] 3 - sgj RACHEL SCHWARZ 06/10 Medication Refill Forwarded [address] [place] [address] [place] [facility])(S cott Interna l Medicin e Tm) [address] [place] [address])([facility] Internal Medicine ) TELE CONSULT [id number] Notes Entered by: JULIETTE العراقي 30 Jun 2018 1244 ------- ------- ------- ------- -- STAT Jun-Sugey e Infusio n Maryra l Req-Hos F/U/ Sukhjinder/ ALONDRA-Joselin calles -ajh RACHEL SCHWARZ 06/30 Other Not Elsewhere Classified [facility] [place] [facility])(S cott Interna l Medicin e Tm) [address] [place] [address])([facility] Internal Medicine ) TELE CONSULT [id number] Notes Entered by: GALI MUÑIZ 01 Jul 2018 1155 ------- ------- ------- ------- -- Appt Req/F/U [facility]osp[facility]/Eric t/ CLAUDIA STEPHENS 07/01 Referred for Appointment [address] [place] [address])(S cott Interna l Medicin e Tm) [address] [place] [address])([facility] Internal Medicine ) TELE CONSULT [id number] Notes Entered by: MORGAN CAT 21 Jul 2018 1411 ------- ------- ------- ------- -- Sx - R side abdomin al Pain (appt refusal )/Eric peres/ RACHEL SCHWARZ 07/21 Released w/o Limitations [address] [place] [address] [facility])(S cott Interna l Medicin e Tm) [address] [place] [address])([facility] Internal Medicine ) TELE CONSULT [id number] Notes Entered by: GALI MUÑIZ 22 Jul 2018 1159 ------- ------- ------- ------- -- ER F/U/Peter ja/618 -[id number] 56/clm ROGERIO ESCALERA 07/22 Released to [facility] [address] [place] [address])(S cott Interna l Medicin e Tm) [address] [place] [address])([facility] Internal Medicine ) OUTPATIENT [id number] f/u hospita LEISA Romano 08/23 Released w/o Limitations [address] [place] [address])(S cott Interna l Medicin e Tm) [address] [place] [address])([facility] Internal Medicine ) TELE CONSULT [id number] Notes Entered by: CHRISTIAN DON 02 Sep 2018 0906 ------- ------- ------- ------- -- Garo charlton /sukhjinder / RACHEL Jose 09/02 Other Not Elsewhere Classified [address] [place] [address] [facility])(S cott Interna l Medicin e Tm) [address] [place] [address])([facility] Internal Medicine ) TELE CONSULT [id number] Notes Entered by: CHRISTIAN DON 13 Sep 2018 1415 ------- ------- ------- ------- -- Referra l request /sukhjinder / RACHEL Jose 09/13 Other Not Elsewhere Classified [address] [place] [address])(S cott Interna l Medicin e Tm) [address] [place] [address])([facility] Internal Medicine ) OUTPATIENT [id number] Low back pain [id number] LEISA ABDULLAHI 10/25 Released w/o Limitations [address] [place] [address])(S cott Interna l Medicin e Tm) [address] [place] [address])([facility] Internal Medicine ) TELE CONSULT [id number] 7 Notes Entered by: Ja SCHNEIDER 23 Nov 2018 0943 ------- ------- ------- ------- -- Network results PT 11/15/19 19 TSB LEISA ABDULLAHI 11/[address] [place] [address])(S cott Interna l Medicin e Tm) [address] [place] [address])([facility] Internal Medicine ) TELE CONSULT [id number] Notes Entered by: ESTER DAIGLE 03 Jan 2019 0742 ------- ------- ------- ------- -- Rx renewal - Sukhjinder - - [facility] RACHEL SCHWARZ 01/03 Medication Refill Forwarded [address] [place] [address])(S cott Interna l Medicin e Tm) [address] [place] [address])([facility] Internal Medicine ) TELE CONSULT [id number] Notes Entered by: JULIETTE العراقي 23 Jan 2019 0714 ------- ------- ------- ------- -- Med Renewal Request / Sukhjinder/ - ajh CLAUDIA STEPHENS 01/23 Medication Refill Forwarded [address] [place] [address])(S cott Interna l Medicin e Tm) [facility])([facility] Internal Medicine Tm) TELE CONSULT [id number] Notes Entered by: ANAID CROOK 08 Mar 2019 0742 ------- ------- ------- ------- -- STAT Referra l Request - Appt Feb / Sukhjinder / [phone] - sg YAMIL WINSTON 03/08 Referred for Appointment [address] [place] [address] [facility])(S cott Interna l Medicin e Tm) [address] [place] [address] [facility])([facility] Internal Medicine Tm) TELE CONSULT [id number] Notes Entered by: MARKUS TAVAREZ 17 Mar 2019 1157 ------- ------- ------- ------- -- Network results Optomet ry 019 CLAUDE GILLESPIE 03/[address] [place] [address] [facility])(S cott Interna l Medicin e Tm) [facility])([facility] Internal Medicine Tm) TELE CONSULT [id number] Notes Entered by: Ja SCHNEIDER 27 Mar 2019 1101 ------- ------- ------- ------- -- Network results Optomet ry 03/16/20 19 CLAUDE SIU 03/[address] [place] [address] [facility])(S cott Interna l Medicin e Tm) [address] [place] [address])([facility] Internal Medicine Tm) TELE CONSULT [id number] Notes Entered by: ANAID CROOK 12 Apr 2019 0957 ------- ------- ------- ------- -- Med Renewal / Malu gutierrez / [phone] - CHANELL Daly 04/12 Other Not Elsewhere Classified [facility])(S cott Interna l Medicin e Tm) [facility])([facility] Internal Medicine ) TELE CONSULT [id number] 8 Notes Entered by: MARKUS TAVAREZ 18 Apr 2019 1538 ------- ------- ------- ------- -- Network results Optomet ry 019 CLAUDE GILLESPIE 04/[address] [place] [address])(S cott Interna l Medicin e Tm) [address] [place] [address])([facility] Internal Medicine ) TELE CONSULT [id number] Notes Entered by: CHRISTIAN DON 15 May 2019 0947 ------- ------- ------- ------- -- labs request /juve /618- [phone] RACHEL Jose 05/15 Referred for Appointment [facility])(S cott Interna l Medicin e Tm) [address] [place] [address])([facility] Internal Medicine ) OUTPATIENT [id number] Bilat foot pain NOE KEARNS 05/16 Released w/o Limitations [address] [place] [address])(S cott Interna l Medicin e Tm) [address] [place] [address])([facility] Internal Medicine ) TELE CONSULT [id number] 0 Notes Entered by: NOE KEARNS 26 Jun 2019 0739 ------- ------- ------- ------- -- Lab results CLAUDIA STEPHENS 06/26 Referred for Appointment [facility])(S cott Interna l Medicin e Tm) [address] [place] [address])([facility] Internal Medicine ) OUTPATIENT [id number] feet pain , YANG BERG 07/04 Released w/o Limitations [address] [place] [address])(S cott Interna l Medicin e Tm) [address] [place] [address])([facility] Internal Medicine ) TELE CONSULT [id number] Notes Entered by: ANAID CROOK 10 Jul 2019 1028 ------- ------- ------- ------- -- Med Renewal / Chamber s / [id number] 3 - sgj ASHELYDESTINEY RACHEL Rosita 07/10 Medication Refill Forwarded [address] [place] [address])(S cott Interna l Medicin e Tm) [address] [place] [address])([facility] Internal Medicine ) OUTPATIENT [id number] cough,s orethro at, fever congest ion x one week YANG BERG 07/25 Released w/o Limitations [address] [place] [address] [facility])(S cott Interna l Medicin e Tm) [address] [place] [address])([facility] Internal Medicine ) TELE CONSULT [id number] Notes Entered by: Darion GODWIN 01 Aug 2019 0909 ------- ------- ------- ------- -- Network results Podiatr y 020 JEEVAND YANG BERG 08/[address] [place] [address])(S cott Interna l Medicin e Tm) [address] [place] [address])([facility] Internal Medicine ) TELE CONSULT [id number] 6 Notes Entered by: ESTER DAIGLE 06 Oct 2019 0948 ------- ------- ------- ------- -- F/U Spec - Referra l request - [facility] - - tsg JUAN LUIS WARD 10/05 Other Not Elsewhere Classified [address] [place] [address] [facility])(S cott Interna l Medicin e Tm) [address] [place] [address])([facility] Internal Medicine ) TELE CONSULT [id number] Notes Entered by: ELIDA CURTIS 20 Oct 2019 1102 ------- ------- ------- ------- -- Rx Renewal /Juve rs/618. 667.224 5 NINA WARDYVON Gutierrez 10/19 Other Not Elsewhere Classified [address] [place] [address] Group [place] [facility])(S cott Interna l Medicin e Tm) [address] [place] [address] [place] [facility])([facility] Internal Medicine ) TELE CONSULT [id number] Notes Entered by: ARANZA HINOJOSA 23 Oct 2019 1029 ------- ------- ------- ------- -- Network Results Gastroe nterolo gy 10/18/19 20 CLAUDE WALTER 10/[address] [place] [address] [facility])(S cott Interna l Medicin e Tm) [address] [place] [address])([facility] Internal Medicine ) TELE CONSULT [id number] 7 Notes Entered by: CHRISTIAN DON 29 Nov 2019 0712 ------- ------- ------- ------- -- SX-lowe r back pain/ch ambers/ [phone] YANG Almanza 11/[address] [place] [address] [place] [facility])(S cott Interna l Medicin e Tm) [address] [place] [address] [place] [facility])([facility] Internal Medicine ) TELE CONSULT [id number] 7 Notes Entered by: MORGAN CAT 12 Dec 2019 0926 ------- ------- ------- ------- -- Sx - sx persist - Back Pain/Ch ambers/ RACHEL SCHWARZ 12/11 Referred for Appointment [address] [place] [address] Group [place] [facility])(S cott Interna l Medicin e Tm) [address] [place] [address] [place] [facility])([facility] Internal Medicine ) OUTPATIENT [id number] F2F, low back pain THEA MAHMOOD NBA 12/11 Released w/o Limitations [address] [place] [address] [place] [facility])(S cott Interna l Medicin e Tm) [address] [place] [address])([facility] Internal Medicine ) TELE CONSULT [id number] 7 Notes Entered by: THEA MAHMOODLALIT 19 Dec 2019 1557 ------- ------- ------- ------- -- F/U back conklin and MRI THEA MAHMOOD BNA 12/[address] [place] [address])(S cott Interna l Medicin e Tm) [address] [place] [address])([facility] Internal Medicine ) TELE CONSULT [id number] Notes Entered by: John VALDOVINOS 03 Jan 2020 0906 ------- ------- ------- ------- -- ED to Injenny nt Admissi on YANG BERG 01/[address] [place] [address])(S cott Interna l Medicin e Tm) [address] [place] [address])([facility] Internal Medicine ) TELE CONSULT [id number] Notes Entered by: Ja SCHNEIDER 11 Jan 2020 1434 ------- ------- ------- ------- -- Network results Gastro 07/26/19 20 TSB THEA MAHMOOD NBA 01/[address] [place] [address])(S cott Interna l Medicin e Tm) [address] [place] [address])([facility] Internal Medicine ) OUTPATIENT [id number] Virtual p/o leprosy , ending with colosto my d/c 01.12.20 St e YANG BERG 01/11 Released w/o Limitations [address] [place] [address])(S cott Interna l Medicin e Tm) [address] [place] [address])([facility] Internal Medicine ) TELE CONSULT [id number] 8 Notes Entered by: ELIDA CURTIS 15 Jan 2020 0844 ------- ------- ------- ------- -- Home Care Consult /Juve rs/618. 660.675 6 RACHEL SCHWARZ 01/14 Other Not Elsewhere Classified [facility])(S cott Interna l Medicin e Tm) [address] [place] [address])([facility] Internal Medicine ) TELE CONSULT [id number] Notes Entered by: John VALDOVINOS 15 Jan 2020 1041 ------- ------- ------- ------- -- Inpatie nt chetanar YANG Saldana 01/14 [facility])(S cott Interna l Medicin e Tm) [address] [place] [address] [facility])([facility] Internal Medicine ) TELE CONSULT [id number] Notes Entered by: RACHEL SCHWARZ 16 Jan 2020 1423 ------- ------- ------- ------- -- Request s pain meds RACHEL SCHWARZ 01/15 Medication Refill Forwarded [facility])(S cott Interna l Medicin e Tm) [facility])([facility] Internal Medicine ) TELE CONSULT [id number] 6 Notes Entered by: JULIETTE العراقي 23 Jan 2020 0942 ------- ------- ------- ------- -- Med Renewal Request / Malu gutierrez/ [phone] - RACHEL Davis 01/22 Medication Refill Forwarded [address] [place] [address])(S cott Interna l Medicin e Tm) [address] [place] [address])([facility] Internal Medicine ) TELE CONSULT [id number] Notes Entered by: YAQUELIN NASH 31 Jan 2020 0849 ------- ------- ------- ------- -- Phone Call Request / Malu s/ RACHEL SCHWARZ 01/30 Other Not Elsewhere Classified [address] [place] [address])(S cott Interna l Medicin e Tm) [address] [place] [address])([facility] Internal Medicine ) TELE CONSULT [id number] Notes Entered by: Rick WINSTON 31 Jan 2020 1422 ------- ------- ------- ------- -- Referra l Request /YAMIL Stewart 01/30 Referred for Appointment [address] [place] [address])(S cott Interna l Medicin e Tm) [address] [place] [address])([facility] Internal Medicine ) TELE CONSULT [id number] Notes Entered by: John VALDOVINOS 13 Feb 2020 1127 ------- ------- ------- ------- -- [facility] [place] [address])(S cott Interna l Medicin e Tm) [address] [place] [address])([facility] Internal Medicine ) OUTPATIENT [id number] F2F; Follow up sepsis/ UTI (record s request ed) YANG BERG 02/14 Released w/o Limitations [address] [place] [address])(S cott Interna l Medicin e Tm) [address] [place] [address])([facility] Internal Medicine ) TELE CONSULT [id number] RACHEL SCHWARZ 03/11 Other Not Elsewhere Classified [address] [place] [address])(S cott Interna l Medicin e Tm) [address] [place] [address])([facility] Internal Medicine ) OUTPATIENT [id number] 5 virtual , fevers/ chills, cold-li ke Sx's, please call YANG BERG 03/11 Released w/o Limitations [address] [place] [address])(S cott Interna l Medicin e Tm) [address] [place] [address])(Conklin demic Virus) OUTPATIENT [id number] Covid test Sx's RENETTA RAMON 03/12 Released w/o Limitations [address] [place] [address])(P andemic Virus) [address] [place] [address])([facility] Internal Medicine ) TELE CONSULT [id number] 9 Notes Entered by: John VALDOVINOS 13 Mar 2020 1120 ------- ------- ------- ------- -- [facility] [place] [facility] [place] [address])(S cott Interna l Medicin e Tm) [address] [place] [address])(Car e Coordinat ion Clinic) TELE CONSULT [id number] Notes Entered by: Fito DOMINGO 14 Mar 2020 1235 ------- ------- ------- ------- -- Current ly inpatie nt at [facility], contact w/pt PATRICK DOMINGO 03/14 Other Not Elsewhere Classified [address] [place] [address])([facility] [address] [place] [address])([facility] Internal Medicine ) TELE CONSULT [id number] Notes Entered by: John VALDOVINOS 19 Mar 2020 1220 ------- ------- ------- ------- -- Inpatie nt Dischar ge [facility] Narciso 03/[address] [place] [address])(S cott Interna l Medicin e Tm) [address] [place] [address])(Car e Coordinat ion Clinic) TELE CONSULT [id number] Notes Entered by: Fito DOMINGO 20 Mar 2020 1034 ------- ------- ------- ------- -- Pt contact PATRICK DOMINGO 03/20 Other Not Elsewhere Classified [address] [place] [address])([facility] [address] [place] [address])([facility] Internal Medicine Tm) OUTPATIENT [id number] [facility] d/c 03.18.2 020 admissi on abd YANG Brown Narciso 03/20 Released w/o Limitations [address] [place] [address])(S cott Interna l Medicin e Tm) [address] [place] [address])([facility] tt Disease Managemen t) TELE CONSULT [id number] 1 Notes Entered by: ADRIANO BREAUX 22 Mar 2020 1623 ------- ------- ------- ------- -- f/u metform in use ERAN ESQUIVEL 03/22 Released to [facility] [address] [place] [address])(S cott Disease Managem ent) [address] [place] [address])([facility]) OUTPATIENT [id number] Type II Diabete s SANKET MIRZA 04/01 Released w/o Limitations [address] [place] [address])(N utritio nal Medicin e) [address] [place] [address])([facility] Internal Medicine Tm) TELE CONSULT [id number] Notes Entered by: ELIDA CURTIS 10 Apr 2020 1234 ------- ------- ------- ------- -- Garo Deras /Juve rs/618. [id number] 6 CHANELL OSEI 04/10 Other Not Elsewhere Classified [address] [place] [address])([facility] Intern[facility] l [facility] e Tm) [address] [place] [address])([facility] Internal Medicine Tm) TELE CONSULT [id number] Notes Entered by: Milena NAVARRO 17 Apr 2020 1530 ------- ------- ------- ------- -- TITA- maru malik from home health / RACHEL Reyes 04/17 Other Not Elsewhere Classified [address] [place] [address])([facility] Interna l Medicin e Tm) [address] [place] [address])([facility] Internal Medicine ) TELE CONSULT [id number] 4 Notes Entered by: ANAID CROKO 06 May 2020 0857 ------- ------- ------- ------- -- Med Renewal / Lab Order Request / Chamber s / - sgj YANG BERG 05/[address] [place] [address])([facility] Intern[facility] Tm) [address] [place] [address])([facility] Internal Medicine ) OUTPATIENT [id number] stomach issues [phone] YANG BERG 05/16 Released w/o Limitations [address] [place] [address])([facility] Tm) [address] [place] [address])([facility] Internal Medicine ) TELE CONSULT [id number] Notes Entered by: ANAID CROOK 17 May 2020 1324 ------- ------- ------- ------- -- Info of Hosp Adm - Positiv e COVID Test / Chamber s / - sgj RACHEL SCHWARZ 05/17 Other Not Elsewhere Classified [address] [place] [address])([facility]m) [address] [place] [address])([facility] Internal Medicine Tm) TELE CONSULT [id number] Notes Entered by: ELIDA CURTIS 10 Jun 202015 ------- ------- ------- ------- -- Referra l Request /Juve rs/618. [id number] 3 or RACHEL SCHWARZ 06/10 Other Not Elsewhere Classified [address] [place] [address])([facility] Tm) [address] [place] [address])([facility] Internal Medicine Tm) TELE CONSULT [id number] 9 Notes Entered by: THEA MAHMOOD 19 Jul 2020 1019 ------- ------- ------- ------- -- Anemia RACHEL SCHWARZ 07/19 Medication Refill Forwarded [address] [place] [address])([facility] Tm) [address] [place] [address])([facility] Internal Medicine ) OUTPATIENT [id number] Annual, med refills , lab results , call [phone] THEA MAHMOOD 07/25 Released w/o Limitations [address] [place] [address])([facility] Tm) [address] [place] [address])([facility] Internal Medicine ) TELE CONSULT [id number] Notes Entered by: Rosita WETZEL 22 Aug 2020741 ------- ------- ------- ------- -- Network results Cardiol ogy 020 YANG BUENO 08/[address] [place] [address])([facility] Tm) [address] [place] [address])([facility] Internal Medicine ) TELE CONSULT [id number] 3 Notes Entered by: SIMI DÍAZ 06 Sep 20201103 ------- ------- ------- ------- -- Inpatie nt admit authori bobbi rodas per [employer] portal/ YANG OG 09/[address] [place] [address])([facility]) [address] [place] [address])([facility] Internal Medicine ) TELE CONSULT [id number] Notes Entered by: MP SHULTZ 09 Sep 2020703 ------- ------- ------- ------- -- [employer] M[employer] y Daily Inpatie nt Roster- Admissi on/Disc harge YANG Saldana 09/[address] [place] [address])([facility] Tm) [address] [place] [address])([facility] Internal Medicine ) TELE CONSULT [id number] 1 Notes Entered by: CHRISTIAN DON 12 Sep 2020 0933 ------- ------- ------- ------- -- referra l request /juve rs/[id number] RACHEL Jose 09/12 Other Not Elsewhere Classified [address] [place] [address])([facility] Tm) [address] [place] [address])([facility] Internal Medicine ) TELE CONSULT [id number] 3 Notes Entered by: MORGAN CAT 09 Oct 2020 1033 ------- ------- ------- ------- -- Med Request - Feet Pain (off/on ) - Appt Refusal /Juve rs/618. [phone] 5 RACHEL SCHWARZ 10/09 Referred for Appointment [address] [place] [address])([facility]) [address] [place] [address])([facility] Internal Medicine ) OUTPATIENT [id number] Diabeti c bilat foot pain, discuss alterna te med, call THEA MAHMOOD 10/10 Released w/o Limitations [address] [place] [address])([facility]) [address] [place] [address])([facility] Internal Medicine ) TELE CONSULT [id number] Notes Entered by: CHRISTIAN DON 11 Oct 2020 1033 ------- ------- ------- ------- -- phone number change/ chamber s/488 [id number] RACHEL Jose 10/11 Other Not Elsewhere Classified [address] [place] [address])([facility]) [address] [place] [address])([facility] Internal Medicine ) OUTPATIENT [id number] F2F - lower back pain YANG BERG 11/18 Released w/o Limitations [address] [place] [address])([facility]) [address] [place] [address])([facility] Internal Medicine ) TELE CONSULT [id number] 0 Notes Entered by: MARYLU MITCHELL 19 Nov 2020 1103 ------- ------- ------- ------- -- Network results Surgery 020 - 021 YANG BRYANT 11/[address] [place] [address])([facility]) [address] [place] [address])([facility] Internal Medicine ) TELE CONSULT [id number] Notes Entered by: ESTER DAIGLE 18 Dec 2020 0953 ------- ------- ------- ------- -- Garo [place] - Malu [facility] - RACHEL Razo 12/18 Other Not Elsewhere Classified [address] [place] [address])([facility] Tm) [address] [place] [address])([facility] Internal Medicine ) TELE CONSULT [id number] 5 Notes Entered by: CHRISTIAN DON 23 Dec 2020 1042 ------- ------- ------- ------- -- refills /juve /333 [id number] RACHEL Jose 12/23 Medication Refill Forwarded [address] [place] [address])([facility]) [address] [place] [address])([facility] Internal Medicine ) TELE CONSULT [id number] Notes Entered by: CHRISTIAN DON 07 Jan 2021 0746 ------- ------- ------- ------- -- med refill/ malu s/000 [id number] RACHEL Jose 01/07 Medication Refill Forwarded [address] [place] [address])([facility]m) [address] [place] [address])([facility] Internal Medicine ) TELE CONSULT [id number] 2 Notes Entered by: ELIDA CURTIS 21 Jan 2021 0900 ------- ------- ------- ------- -- Lab Order Request and Sleep Study Follow- Up/Alison bers/61 8.660.6 756 RACHEL SCHWARZ 01/21 Other Not Elsewhere Classified [address] [place] [address])([facility] Tm) [address] [place] [address])([facility] Internal Medicine ) TELE CONSULT [id number] Notes Entered by: Ja SCHNEIDER 21 Jan 2021 0908 ------- ------- ------- ------- -- Network results Pulm 01/20/20 21 TSB TIMOTEO THEA NBA 01/[address] [place] [address])([facility]m) [address] [place] [address])([facility] Internal Medicine ) TELE CONSULT [id number] 0 Notes Entered by: Ja SCHNEIDER 21 Jan 2021 1512 ------- ------- ------- ------- -- Network results Optomet ry 01/22/20 21 TSB YANG BERG 01/[address] [place] [address])([facility] Tm) [address] [place] [address])([facility] Internal Medicine ) OUTPATIENT [id number] FTF-lef t wrist pain x 2 weeks-6 18.660. 6756 YANG BERG 01/24 Released w/o Limitations [address] [place] [address])([facility] Tm) [address] [place] [address] [facility])([facility] Internal Medicine ) OUTPATIENT [id number] side and back pain in person [phone] YANG BERG 01/29 Released w/o Limitations [address] [place] [address])([facility]in [facility] Tm) [address] [place] [address])([facility] Internal Medicine ) OUTPATIENT [id number] [place] [phone] lower right side pain going down leg and in to groin YANG BERG 01/30 Released w/o Limitations [address] [place] [address])([facility] Tm) [address] [place] [address])([facility] Internal Medicine ) TELE CONSULT [id number] 0 Notes Entered by: CHRISTIAN DON 30 Jan 2021 1123 ------- ------- ------- ------- -- MRI order/ malu [id number] RACHEL Jose 01/30 Other Not Elsewhere Classified [address] [place] [address])([facility] Tm) [address] [place] [address])([facility] Internal Medicine ) TELE CONSULT [id number] 3 Notes Entered by: DORENE POLLOCK 07 Feb 2021 1524 ------- ------- ------- ------- -- Network results Radiolo gy 021 BF YANG BERG 02/[address] [place] [address])([facility]m) [address] [place] [address])([facility] Internal Medicine ) TELE CONSULT [id number] 0 Notes Entered by: JULIETTE العراقي 11 Feb 2021 0936 ------- ------- ------- ------- -- Med Renewal Request / Malu - RACHEL Martinez 02/11 Other Not Elsewhere Classified [facility])([facility] Interna l Medicin e Tm) [address] [place] [address])([facility] Internal Medicine ) TELE CONSULT [id number] 1 Notes Entered by: MORGAN CAT 18 Feb 2021 0758 ------- ------- ------- ------- -- Med [place] /Juve /618. [id number] 6 RACHEL SCHWARZ 02/18 Medication Refill Forwarded [address] [place] [address] [facility])([facility] Intern[facility] l Medicin e Tm) [address] [place] [address])([facility] Internal Medicine ) TELE CONSULT [id number] Notes Entered by: JULIETTE العراقي 18 Feb 2021 1332 ------- ------- ------- ------- -- Pain Managem ent Referra l Request / Malu / - [facility] CHANELL OSEI 02/18 Other Not Elsewhere Classified [address] [place] [address] [facility])([facility] Intern[facility] l Medicin e Tm) [address] [place] [address])([facility] Internal Medicine ) TELE CONSULT [id number] 5 Notes Entered by: Rosita WETZEL 27 Feb 2021 1402 ------- ------- ------- ------- -- Network results Pulmona ry/Slee p Medicin e 021 THEA LAMB 02/[address] [place] [address])([facility] Tm) [address] [place] [address])([facility] Internal Medicine ) TELE CONSULT [id number] 3 Notes Entered by: DORENE POLLOCK 04 Mar 2021 0908 ------- ------- ------- ------- -- Network results Anes/Pa in Managem ent 021 BF YANG BERG 03/[address] [place] [address])([facility]) [address] [place] [address])([facility] Internal Medicine ) TELE CONSULT [id number] Notes Entered by: DANAE STILES 12 Mar 2021 1049 ------- ------- ------- ------- -- Rx Refill/ Malu s/ RACHEL SCHWARZ 03/12 Other Not Elsewhere Classified [address] [place] [address])([facility] Tm) [address] [place] [address])([facility] Internal Medicine ) TELE CONSULT [id number] 7 Notes Entered by: Ja SCHNEIDER 31 Mar 2021 1440 ------- ------- ------- ------- -- Network results Surgery 02/28/21- 09/02/20 B YANG BERG 03/[address] [place] [address])([facility]m) [address] [place] [address])([facility] Internal Medicine ) TELE CONSULT [id number] 3 Notes Entered by: JULIETTE العراقي 09 Apr 2021 1557 ------- ------- ------- ------- -- SX- Diarrhe a-Heada bertha-Con gestion / Malu s/ - ajh RACHEL SCHWARZ 04/09 Referred for Appointment [address] [place] [address])([facility] Tm) [address] [place] [address])([facility] Virus) OUTPATIENT [id number] symtoma tic PAOLO NAVARRETE 04/10 Released w/o Limitations [address] [place] [address])(P andemic Virus) [address] [place] [address])([facility] Internal Medicine ) OUTPATIENT [id number] HC - Diarrhe a persist -[facility]ac [facility] W[facility] 04/14 Released w/o Limitations [address] [place] [address])([facility] Medic[facility] Tm) [address] [place] [address])([facility] Internal Medicine ) TELE CONSULT [id number] Notes Entered by: ESTER DAIGLE 16 Apr 2021 0807 ------- ------- ------- ------- -- Sx; Sx persist - Appt [facility] - tsg* RACHEL SCHWARZ 04/16 Referred for Appointment [address] [place] [address])([facility] Medic[facility] e ) [address] [place] [address])([facility] Internal Medicine ) TELE CONSULT [id number] Notes Entered by: AIDEN PARRA 17 Apr 2021 0811 ------- ------- ------- ------- -- Network results Physica l Therapy 021 YANG MOON 04/[address] [place] [address])([facility] Tm) [address] [place] [address])([facility] Internal Medicine ) TELE CONSULT [id number] Notes Entered by: GRUPO JUNE RET 21 Apr 2021 1313 ------- ------- ------- ------- -- No Lab Order in Lab yet/Jenise roberts/6 [id number]. 6756*CHANELL Conley 04/21 Other Not Elsewhere Classified [address] [place] [address])([facility] Intern[facility] Medic[facility] Tm) [address] [place] [address])([facility] Internal Medicine ) OUTPATIENT [id number] Virtual [id number] annual and lab YANG BERG 04/25 Released w/o Limitations [address] [place] [address])([facility] Intern[facility] Medicin e Tm) [address] [place] [address])([facility] Internal Medicine ) TELE CONSULT [id number] 7 Notes Entered by: DORENE POLLOCK 05 Jun 2021 1409 ------- ------- ------- ------- -- Network results Orthope dics 021 BF YANG BERG 06/[address] [place] [address])([facility] Intern[facility] Medic[facility] Tm) [address] [place] [address])([facility] Internal Medicine ) OUTPATIENT [id number] VIRTUAL - Sinus Congest ion, Cough, Headach e, (COVID Neg), YANG BERG 08/26 Released w/o Limitations [address] [place] [address])([facility] Intern[facility] Medicin [facility] Tm) [address] [place] [address])([facility] Internal Medicine ) TELE CONSULT [id number] 6 Notes Entered by: CHRISTIAN DON 16 Sep 2021 0856 ------- ------- ------- ------- -- med renewal s/lorena ers/[phone] RACHEL Jose 09/16 Advice Assessment [address] [place] [address])([facility] Tm) [address] [place] [address])([facility] Internal Medicine ) TELE CONSULT [id number] 9 Notes Entered by: MARLIN MILLER 14 Oct 2021 1438 ------- ------- ------- ------- -- Network results Optomet ry 022 LSJ YANG BERG 10/[address] [place] [address])([facility] Intern[facility] Medicin [facility] Tm) [address] [place] [address])([facility]) OUTPATIENT [id number] VIRTUAL 6 MONTH DM F/U REHAN WELDON Linda 10/27 Released w/o Limitations [address] [place] [address] [facility]) [address] [place] [address])([facility] Internal Medicine ) TELE CONSULT [id number] 9 Notes Entered by: MICHAEL NICHOLE,ANIT A 27 Oct 2021 1534 ------- ------- ------- ------- -- SX-Abdo austin Pain increas ing / [facility] s/ RACHEL SCHWARZ 10/27 Referred- Emergency Department [address] [place] [address] [facility])([facility] Intern[facility] Medic[facility] Tm) [address] [place] [address])([facility] Internal Medicine ) TELE CONSULT [id number] 7 Notes Entered by: MICHAEL NICHOLE,ANIT A 27 Oct 2021 1540 ------- ------- ------- ------- -- med Renewal Request / [facility] s/ [phone] RACHEL SCHWARZ 10/27 Medication Refill Forwarded [address] [place] [address] [facility])([facility] Intern[facility] Medicin [facility] Tm) [address] [place] [address])([facility] Internal Medicine ) TELE CONSULT [id number] 5 Notes Entered by: ELIDA CURTIS 28 Oct 2021 1101 ------- ------- ------- ------- -- Referra l Request -Surger y/LORENA ERS/618 .[phone] 56 RACHEL SCHWARZ 10/28 Other Not Elsewhere Classified [address] [place] [address])([facility] Tm) [address] [place] [address])([facility] Internal Medicine ) TELE CONSULT [id number] Notes Entered by: FELECIA CHEEK 29 Oct 2021 1358 ------- ------- ------- ------- -- Please review provide rick results /HAIMS- ER YANG BERG 10/[address] [place] [address])([facility] Tm) [address] [place] [address])([facility] Internal Medicine ) OUTPATIENT [id number] FTF-Er Follow up for Abdomin al pain-Re ferral Request -618.66 0.6756 YANG BERG 10/30 Released w/o Limitations [address] [place] [address])([facility] Tm) [address] [place] [address])([facility] Internal Medicine ) TELE CONSULT [id number] 5 Notes Entered by: FELECIA CHEEK 06 Jan 2022 1256 ------- ------- ------- ------- -- Provide r results /HAIMS- referra l request appt Jan 16 ANDRIA WREN 01/06 Referred for Appointment [address] [place] [address])([facility] Tm) [address] [place] [address])([facility] [place] [place] [facility]) OUTPATIENT [id number] F2F 3 MONTH DM F/U REHAN WELDON 02/18 Released w/o Limitations [address] [place] [address])([facility] Pharm [facility]) [address] [place] [address])([facility] Internal Medicine ) TELE CONSULT [id number] Notes Entered by: Milena NAVARRO 18 Feb 2022 1430 ------- ------- ------- ------- -- retro referra l [facility] SARBJIT Horton 02/18 Released to Self [facility] [address] [place] [address])([facility] Tm) [address] [place] [address])([facility] Internal Medicine ) TELE CONSULT [id number] 5 Notes Entered by: ENOC JACKSON 21 Apr 2022 1500 ------- ------- ------- ------- -- Network results Surgery 022 ALLYSON SAUNDERS 04/[address] [place] [address] [facility])([facility] Medic[facility] Tm) [address] [place] [address])([facility] Internal Medicine ) TELE CONSULT [id number] 5 Notes Entered by: ESTER DAIGLE 04 May 2022 0729 ------- ------- ------- ------- -- Rx renewal - Jose Alejandro - - [facility] JOSEPH GONZALEZ 05/04 Medication Refill Forwarded [address] [place] [address] [facility])([facility] Medic[facility] Tm) [address] [place] [address])([facility] Internal Medicine ) TELE CONSULT [id number] Notes Entered by: Darion GODWIN 04 May 2022 1345 ------- ------- ------- ------- -- Network results Urology 022 ALLYSON FOSTER 05/[address] [place] [address] [facility])([facility] Medic[facility] Tm) [address] [place] [address])([facility] Internal Medicine ) TELE CONSULT [id number] Notes Entered by: MORGAN CAT 13 May 2022 0838 ------- ------- ------- ------- -- Referra l Request (appt Apr)/Manuel martinez/618 .[phone] 56 SARBJIT ALEJANDRO 05/13 Released to Self Care [address] [place] [address] [facility])([facility] Intern[facility] Medicin [facility] Tm) [address] [place] [address])([facility] Internal Medicine ) TELE CONSULT [id number] Notes Entered by: JULIETTE العراقي 25 May 2022 1304 ------- ------- ------- ------- -- Med Bridge Request / Jose Alejandro/ RAYMOND BLOUNT 05/[address] [place] [address])([facility] Intern[facility] Medicin e Tm) [address] [place] [address])([facility] [place] [place] [facility]) OUTPATIENT [id number] F2F 3 MONTH DM F/U REHAN WELDON 05/27 Released w/o Limitations [address] [place] [address] [facility])([facility] Pharm [facility]) [address] [place] [address] [facility])([facility] Internal Medicine ) OUTPATIENT [id number] annual exam RAYMOND BLOUNT 05/27 Released w/o Limitations [address] [place] [address])([facility] Intern[facility] Medicin [facility] Tm) [address] [place] [address])([facility] Internal Medicine ) TELE CONSULT [id number] Notes Entered by: Darion GODWIN 28 May 2022 1204 ------- ------- ------- ------- -- Network results OPTOMET RY 022 JEEVAND RAYMOND BLOUNT 05/[address] [place] [address])([facility] Intern[facility] Tm) [address] [place] [address])([facility] Internal Medicine ) OUTPATIENT [id number] back pain,61 8.660.6 756 f2f appt RAYMOND BLOUNT 07/28 Released w/o Limitations [address] [place] [address])([facility] Intern[facility] Medicin e Tm) [address] [place] [address])([facility] Internal Medicine Tm) TELE CONSULT [id number] 9 Notes Entered by: Rosita WETZEL 22 Sep 2022 1319 ------- ------- ------- ------- -- Network results Anes/Pa in Managem ent 023 ALD RAYMOND BLOUNT 09/[address] [place] [address])([facility] Intern[facility] Medicin [facility] Tm) [address] [place] [address] [facility])([facility] Internal Medicine ) TELE CONSULT [id number] Notes Entered by: KARMA ENG 09 Nov 2022 0925 ------- ------- ------- ------- -- Sx- Back Pain/ JOSE ALEJANDRO / HOLLIS MCMILLAN 11/09 Other Not Elsewhere Classified [address] [place] [address] [facility])([facility] Tm) [address] [place] [address] [facility])([facility] [place] [place] [facility]) OUTPATIENT [id number] F2F 6 MONTH DM F/U REHAN WELDON 11/10 Released w/o Limitations [address] [place] [address] [facility])([facility] Pharm [facility]) [address] [place] [address] [facility])([facility] Internal Medicine ) TELE CONSULT [id number] 6 Notes Entered by: RAIMUNDO WELDON 11 Nov 2022 0940 ------- ------- ------- ------- -- Elevate d iron, low ferriti CHANELL Tai 11/11 Other Not Elsewhere Classified [address] [place] [address] [facility] Intern[facility] l Medicin e Tm) [address] [place] [address] [facility])([facility] Internal Medicine ) OUTPATIENT [id number] ACTION FOR IRON DEFICIE RAYMOND ORTIZ 11/19 Released w/o Limitations [address] [place] [address] [facility]S cott Interna l Medicin e Tm) 5C-375 [facility] Between Visit [id number] 08/23 Discharge Disposition: Home or Self Care [id number] [facility] 5C-[facility] Clinic [id number] Dizzine ss and giddine ss RAYMOND ESQUIVEL 09/06 Discharge Disposition: Home or Self Care 0055C-3 [facility] Outpatient [id number] RAYMOND CKRUSE 09/06 Discharge Disposition: Home or Self Care - [facility] 5A- [facility] Outpatient [id number] Headach e, unspeci fied,Ot her visual disturb ances RAYMOND CKRUSE 09/08 Discharge Disposition: Home or Self Care - [facility]- [place] - th MED[facility] jefe Between Visit [id number] 09/15 Discharge Disposition: Home or Self Care - [address] [place] [address] Procedures Combined list of: 1) Procedures from [facility] facilities going back up to thelast 18 months, not all [place] non-surgical procedures are included; 2) All procedures 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 Procedure Procedure Type Code Date Perfomer Comments Sourc e UroLift 021 [id number] [facility] MED[facility]-S [facility] Colostomy reversal 021 [id number] [facility] Hernia repair 021 [id number]-[id number] [place] [address]-[facility] Surgery of perforated colon/placed colostomy 020 [id number] [facility] ERCP with stone extraction 020 [id number] [facility] Hernia repair 017 [id number] [facility] Hernia repair 013 [id number]-[id number] [place] [address]-S [facility] Cholecystectomy; Cholecystectomy; 42041 011 [id number]-37 [facility] Anterior cervical discectomy 007 [id number] [facility] Vasectomy 996 [id number]-[address] [place] [address]-S [facility] SELF-CARE EDUCATION PROVIDED TO PATIENT (HF) 023 [facility] MEDICATION THERAPY MGT SERVICE(S) PROVIDED,A PHARMACIST,INDIV,FA CE-TO-FACE W PATIENT,WITH ASSESS & INTERVENE IF PROVIDED;EA ADDITION 15 MINUTES (LIST SEPARATELY IN ADDITION TO CODE FOR PRIM SERVICE) 023 [facility] TELE ASSESS & MGT SRV PROV QUAL NONPHYS HLTH CARE PRO TO EST PAT,PARENT,GUARD NOT ORIG REL ASSESS & MGT SRV PROV W/IN PREV 7 DAYS NOR LEAD ASSESS & MGT SRV/PX W/IN NXT 24H/SOON APT; 11-20 MIN MED DIS DoD SELF-CARE EDUCATION PROVIDED TO PATIENT (HF) DoD MEDICATION THERAPY MGT SERVICE(S) PROVIDED,A PHARMACIST,HUMA,FA CE-TO-FACE W PATIENT,WITH ASSESS & INTERVENE IF PROVIDED;EA ADDITION 15 MINUTES (LIST SEPARATELY IN ADDITION TO CODE FOR PRIM SERVICE) DoD TELE ASSESS & MGT SRV PROV QUAL NONPHYS HLTH CARE PRO TO EST PAT,PARENT,GUARD NOT ORIG REL ASSESS & MGT SRV PROV W/IN PREV 7 DAYS NOR LEAD ASSESS & MGT SRV/PX W/IN NXT 24H/SOON APT; 11-20 MIN MED DIS DoD TELE ASSESS & MGT SRV PROV QUAL NONPHYS HLTH CARE PRO TO EST PAT,PARENT,GUARD NOT ORIG REL ASSESS & MGT SRV PROV W/IN PREV 7 DAYS NOR LEAD ASSESS & MGT SRV/PX W/IN NXT 24 HR/SOON APT;5-10 MIN MED DIS DoD TELE ASSESS & MGT SRV PROV QUAL NONPHYS HLTH CARE PRO TO EST PAT,PARENT,GUARD NOT ORIG REL ASSESS & MGT SRV PROV W/IN PREV 7 DAYS NOR LEAD ASSESS & MGT SRV/PX W/IN NXT 24H/SOON APT; 11-20 MIN MED DIS DoD TELE ASSESS & MGT SRV PROV QUAL NONPHYS HLTH CARE PRO TO EST PAT,PARENT,GUARD NOT ORIG REL ASSESS & MGT SRV PROV W/IN PREV 7 DAYS NOR LEAD ASSESS & MGT SRV/PX W/IN NXT 24 HR/SOON APT;5-10 MIN MED DIS DoD MEDICATION THERAPY MGT SERVICE(S) PROVIDED,A PHARMACIST,HUMA,FA CE-TO-FACE W PATIENT,WITH ASSESS & INTERVENE IF PROVIDED;EA ADDITION 15 MINUTES (LIST SEPARATELY IN ADDITION TO CODE FOR PRIM SERVICE) DoD TELE ASSESS & MGT SRV PROV QUAL NONPHYS HLTH CARE PRO TO EST PAT,PARENT,GUARD NOT ORIG REL ASSESS & MGT SRV PROV W/IN PREV 7 DAYS NOR LEAD ASSESS & MGT SRV/PX W/IN NXT 24H/SOON APT; 11-20 MIN MED DIS DoD WAIVER SERVICES; NOT OTHERWISE SPECIFIED (NOS) DoD WAIVER SERVICES; NOT OTHERWISE SPECIFIED (NOS) DoD WAIVER SERVICES; NOT OTHERWISE SPECIFIED (NOS) DoD WAIVER SERVICES; NOT OTHERWISE SPECIFIED (NOS) DoD WAIVER SERVICES; NOT OTHERWISE SPECIFIED (NOS) DoD WAIVER SERVICES; NOT OTHERWISE SPECIFIED (NOS) DoD MEDICAL NUTRITION THERAPY; INITIAL ASSESSMENT AND INTERVENTION, INDIVIDUAL, [id number] WITH THE PATIENT, EACH 15 MINUTES DoD WAIVER SERVICES; NOT OTHERWISE SPECIFIED (NOS) [facility] DISEASE MANAGEMENT PROGRAM; INITIAL ASSESSMENT AND INITIATION OF THE PROGRAM [facility] CASE MANAGEMENT, EACH 15 MINUTES [facility] CASE MANAGEMENT, EACH 15 MINUTES [facility] FUNDUS PHOTOGRAPHY WITH INTERPRETATION AND REPORT DoD TELE ASSESS & MGT SRV PROV QUAL NONPHYS HLTH CARE PRO TO EST PAT,PARENT,GUARD NOT ORIG REL ASSESS & MGT SRV PROV W/IN PREV 7 DAYS NOR LEAD ASSESS & MGT SRV/PX W/IN NXT 24 HR/SOON APT;5-10 MIN MED DIS 018 DoD TELE ASSESS & MGT SRV PROV QUAL NONPHYS HLTH CARE PRO TO EST PAT,PARENT,GUARD NOT ORIG REL ASSESS & MGT SRV PROV W/IN PREV 7 DAYS NOR LEAD ASSESS & MGT SRV/PX W/IN NXT 24 HR/SOON APT;5-10 MIN MED DIS 018 DoD TELE ASSESS & MGT SRV PROV QUAL NONPHYS HLTH CARE PRO TO EST PAT,PARENT,GUARD NOT ORIG REL ASSESS & MGT SRV PROV W/IN PREV 7 DAYS NOR LEAD ASSESS & MGT SRV/PX W/IN NXT 24 HR/SOON APT;5-10 MIN MED DIS 018 DoD TELE ASSESS & MGT SRV PROV QUAL NONPHYS HLTH CARE PRO TO EST PAT,PARENT,GUARD NOT ORIG REL ASSESS & MGT SRV PROV W/IN PREV 7 DAYS NOR LEAD ASSESS & MGT SRV/PX W/IN NXT 24 HR/SOON APT;5-10 MIN MED DIS 018 DoD TELE ASSESS & MGT SRV PROV QUAL NONPHYS HLTH CARE PRO TO EST PAT,PARENT,GUARD NOT ORIG REL ASSESS & MGT SRV PROV W/IN PREV 7 DAYS NOR LEAD ASSESS & MGT SRV/PX W/IN NXT 24 HR/SOON APT;5-10 MIN MED DIS 018 DoD ONLINE ASSESS &MANAG SERV PROVIDE,A QUAL NONPHYS HCP TO AN ESTABLISHED PAT/GUARDIAN,NOT ORIGINAT FRM RELAT ASSESS &MANAG SERV PROVIDE W/IN THE PREV 7 DAYS,USE THE INTERNET/SIMILAR [employer] 018 DoD TELE ASSESS & MGT SRV PROV QUAL NONPHYS HLTH CARE PRO TO EST PAT,PARENT,GUARD NOT ORIG REL ASSESS & MGT SRV PROV W/IN PREV 7 DAYS NOR LEAD ASSESS & MGT SRV/PX W/IN NXT 24 HR/SOON APT;5-10 MIN MED DIS 017 DoD TELE ASSESS & MGT SRV PROV QUAL NONPHYS HLTH CARE PRO TO EST PAT,PARENT,GUARD NOT ORIG REL ASSESS & MGT SRV PROV W/IN PREV 7 DAYS NOR LEAD ASSESS & MGT SRV/PX W/IN NXT 24 HR/SOON APT;5-10 MIN MED DIS 017 DoD TELE ASSESS & MGT SRV PROV QUAL NONPHYS HLTH CARE PRO TO EST PAT,PARENT,GUARD NOT ORIG REL ASSESS & MGT SRV PROV W/IN PREV 7 DAYS NOR LEAD ASSESS & MGT SRV/PX W/IN NXT 24 HR/SOON APT;5-10 MIN MED DIS 017 DoD TELE ASSESS & MGT SRV PROV QUAL NONPHYS HLTH CARE PRO TO EST PAT,PARENT,GUARD NOT ORIG REL ASSESS & MGT SRV PROV W/IN PREV 7 DAYS NOR LEAD ASSESS & MGT SRV/PX W/IN NXT 24 HR/SOON APT;5-10 MIN MED DIS 017 DoD TELE ASSESS & MGT SRV PROV QUAL NONPHYS HLTH CARE PRO TO EST PAT,PARENT,GUARD NOT ORIG REL ASSESS & MGT SRV PROV W/IN PREV 7 DAYS NOR LEAD ASSESS & MGT SRV/PX W/IN NXT 24 HR/SOON APT;5-10 MIN MED DIS 017 DoD TELE ASSESS & MGT SRV PROV QUAL NONPHYS HLTH CARE PRO TO EST PAT,PARENT,GUARD NOT ORIG REL ASSESS & MGT SRV PROV W/IN PREV 7 DAYS NOR LEAD ASSESS & MGT SRV/PX W/IN NXT 24 HR/SOON APT;5-10 MIN MED DIS 016 DoD INJECTION, KETOROLAC TROMETHAMINE, PER 15 MG 016 DoD TELE ASSESS & MGT SRV PROV QUAL NONPHYS HLTH CARE PRO TO EST PAT,PARENT,GUARD NOT ORIG REL ASSESS & MGT SRV PROV W/IN PREV 7 DAYS NOR LEAD ASSESS & MGT SRV/PX W/IN NXT 24 HR/SOON APT;5-10 MIN MED DIS 016 DoD TELE ASSESS & MGT SRV PROV QUAL NONPHYS HLTH CARE PRO TO EST PAT,PARENT,GUARD NOT ORIG REL ASSESS & MGT SRV PROV W/IN PREV 7 DAYS NOR LEAD ASSESS & MGT SRV/PX W/IN NXT 24 HR/SOON APT;5-10 MIN MED DIS 016 DoD ONLINE ASSESS &MANAG SERV PROVIDE,A QUAL NONPHYS HCP TO AN ESTABLISHED PAT/GUARDIAN,NOT ORIGINAT FRM RELAT ASSESS &MANAG SERV PROVIDE W/IN THE PREV 7 DAYS,USE THE INTERNET/SIMILAR [employer] 016 DoD TELE ASSESS & MGT SRV PROV QUAL NONPHYS HLTH CARE PRO TO EST PAT,PARENT,GUARD NOT ORIG REL ASSESS & MGT SRV PROV W/IN PREV 7 DAYS NOR LEAD ASSESS & MGT SRV/PX W/IN NXT 24 HR/SOON APT;5-10 MIN MED DIS 016 DoD TELE ASSESS & MGT SRV PROV QUAL NONPHYS HLTH CARE PRO TO EST PAT,PARENT,GUARD NOT ORIG REL ASSESS & MGT SRV PROV W/IN PREV 7 DAYS NOR LEAD ASSESS & MGT SRV/PX W/IN NXT 24 HR/SOON APT;5-10 MIN MED DIS 016 DoD TELE ASSESS & MGT SRV PROV QUAL NONPHYS HLTH CARE PRO TO EST PAT,PARENT,GUARD NOT ORIG REL ASSESS & MGT SRV PROV W/IN PREV 7 DAYS NOR LEAD ASSESS & MGT SRV/PX W/IN NXT 24 HR/SOON APT;5-10 MIN MED DIS 015 DoD TELE ASSESS & MGT SRV PROV QUAL NONPHYS HLTH CARE PRO TO EST PAT,PARENT,GUARD NOT ORIG REL ASSESS & MGT SRV PROV W/IN PREV 7 DAYS NOR LEAD ASSESS & MGT SRV/PX W/IN NXT 24 HR/SOON APT;5-10 MIN MED DIS 015 DoD TELE ASSESS & MGT SRV PROV QUAL NONPHYS HLTH CARE PRO TO EST PAT,PARENT,GUARD NOT ORIG REL ASSESS & MGT SRV PROV W/IN PREV 7 DAYS NOR LEAD ASSESS & MGT SRV/PX W/IN NXT 24 HR/SOON APT;5-10 MIN MED DIS 015 DoD TELE ASSESS & MGT SRV PROV QUAL NONPHYS HLTH CARE PRO TO EST PAT,PARENT,GUARD NOT ORIG REL ASSESS & MGT SRV PROV W/IN PREV 7 DAYS NOR LEAD ASSESS & MGT SRV/PX W/IN NXT 24 HR/SOON APT;5-10 MIN MED DIS 015 DoD TELE ASSESS & MGT SRV PROV QUAL NONPHYS HLTH CARE PRO TO EST PAT,PARENT,GUARD NOT ORIG REL ASSESS & MGT SRV PROV W/IN PREV 7 DAYS NOR LEAD ASSESS & MGT SRV/PX W/IN NXT 24 HR/SOON APT;5-10 MIN MED DIS 015 DoD TELE ASSESS & MGT SRV PROV QUAL NONPHYS HLTH CARE PRO TO EST PAT,PARENT,GUARD NOT ORIG REL ASSESS & MGT SRV PROV W/IN PREV 7 DAYS NOR LEAD ASSESS & MGT SRV/PX W/IN NXT 24 HR/SOON APT;5-10 MIN MED DIS 015 DoD TELE ASSESS & MGT SRV PROV QUAL NONPHYS HLTH CARE PRO TO EST PAT,PARENT,GUARD NOT ORIG REL ASSESS & MGT SRV PROV W/IN PREV 7 DAYS NOR LEAD ASSESS & MGT SRV/PX W/IN NXT 24 HR/SOON APT;5-10 MIN MED DIS 015 DoD TELE ASSESS & MGT SRV PROV QUAL NONPHYS HLTH CARE PRO TO EST PAT,PARENT,GUARD NOT ORIG REL ASSESS & MGT SRV PROV W/IN PREV 7 DAYS NOR LEAD ASSESS & MGT SRV/PX W/IN NXT 24 HR/SOON APT;5-10 MIN MED DIS [facility] INFECTIOUS AGENT ANTIGEN DETECTION BY IMMUNOASSAY WITH DIRECT OPTICAL (IE, VISUAL) OBSERVATION; STREPTOCOCCUS, GROUP A [facility] MEDICATION THERAPY MANAGEMENT SERVICE(S) PROVIDED BY A PHARMACIST, INDIVIDUAL, [id number] WITH PATIENT, WITH ASSESSMENT AND INTERVENTION IF PROVIDED; INITIAL 15 MINUTES, ESTABLISHED PATIENT DoD TELE ASSESS & MGT SRV PROV QUAL NONPHYS HLTH CARE PRO TO EST PAT,PARENT,GUARD NOT ORIG REL ASSESS & MGT SRV PROV W/IN PREV 7 DAYS NOR LEAD ASSESS & MGT SRV/PX W/IN NXT 24 HR/SOON APT;5-10 MIN MED DIS DoD TELE ASSESS & MGT SRV PROV QUAL NONPHYS HLTH CARE PRO TO EST PAT,PARENT,GUARD NOT ORIG REL ASSESS & MGT SRV PROV W/IN PREV 7 DAYS NOR LEAD ASSESS & MGT SRV/PX W/IN NXT 24H/SOON APT; 11-20 MIN MED DIS [facility] MEDICATION THERAPY MANAGEMENT SERVICE(S) PROVIDED BY A PHARMACIST, INDIVIDUAL, [id number] WITH PATIENT, WITH ASSESSMENT AND INTERVENTION IF PROVIDED; INITIAL 15 MINUTES, ESTABLISHED PATIENT [facility] MEDICATION THERAPY MGT SERVICE(S) PROVIDED,A PHARMACIST,HUMA,FA CE-TO-FACE W PATIENT,WITH ASSESS & INTERVENE IF PROVIDED;EA ADDITION 15 MINUTES (LIST SEPARATELY IN ADDITION TO CODE FOR PRIM SERVICE) DoD TELE ASSESS & MGT SRV PROV QUAL NONPHYS HLTH CARE PRO TO EST PAT,PARENT,GUARD NOT ORIG REL ASSESS & MGT SRV PROV W/IN PREV 7 DAYS NOR LEAD ASSESS & MGT SRV/PX W/IN NXT 24H/SOON APT; 21-30 MIN MED DIS DoD TELE ASSESS & MGT SRV PROV QUAL NONPHYS HLTH CARE PRO TO EST PAT,PARENT,GUARD NOT ORIG REL ASSESS & MGT SRV PROV W/IN PREV 7 DAYS NOR LEAD ASSESS & MGT SRV/PX W/IN NXT 24 HR/SOON APT;5-10 MIN MED DIS [facility] OPHTHALMOLOGICAL SERVICES: MEDICAL EXAMINATION AND EVALUATION WITH INITIATION OF DIAGNOSTIC AND TREATMENT PROGRAM; COMPREHENSIVE, NEW PATIENT, 1 OR MORE VISITS [facility] VITAL CAPACITY, TOTAL (SEPARATE PROCEDURE) DoD TELE ASSESS & MGT SRV PROV QUAL NONPHYS HLTH CARE PRO TO EST PAT,PARENT,GUARD NOT ORIG REL ASSESS & MGT SRV PROV W/IN PREV 7 DAYS NOR LEAD ASSESS & MGT SRV/PX W/IN NXT 24 HR/SOON APT;5-10 MIN MED DIS DoD TELE ASSESS & MGT SRV PROV QUAL NONPHYS HLTH CARE PRO TO EST PAT,PARENT,GUARD NOT ORIG REL ASSESS & MGT SRV PROV W/IN PREV 7 DAYS NOR LEAD ASSESS & MGT SRV/PX W/IN NXT 24 HR/SOON APT;5-10 MIN MED DIS DoD TELE ASSESS & MGT SRV PROV QUAL NONPHYS HLTH CARE PRO TO EST PAT,PARENT,GUARD NOT ORIG REL ASSESS & MGT SRV PROV W/IN PREV 7 DAYS NOR LEAD ASSESS & MGT SRV/PX W/IN NXT 24 HR/SOON APT;5-10 MIN MED DIS [facility] ARTHROCENTESIS, ASPIRATION AND/OR INJECTION, MAJOR JOINT OR BURSA (EG, SHOULDER, HIP, KNEE, SUBACROMIAL BURSA); WITHOUT ULTRASOUND GUIDANCE [facility] MEDICATION THERAPY MANAGEMENT SERVICE(S) PROVIDED BY A PHARMACIST, INDIVIDUAL, [id number] WITH PATIENT, WITH ASSESSMENT AND INTERVENTION IF PROVIDED; INITIAL 15 MINUTES, ESTABLISHED PATIENT [facility] MEDICATION THERAPY MANAGEMENT SERVICE(S) PROVIDED BY A PHARMACIST, INDIVIDUAL, [id number] WITH PATIENT, WITH ASSESSMENT AND INTERVENTION IF PROVIDED; INITIAL 15 MINUTES, ESTABLISHED PATIENT [facility] TELE ASSESS & MGT SRV PROV QUAL NONPHYS HLTH CARE PRO TO EST PAT,PARENT,GUARD NOT ORIG REL ASSESS & MGT SRV PROV W/IN PREV 7 DAYS NOR LEAD ASSESS & MGT SRV/PX W/IN NXT 24 HR/SOON APT;5-10 MIN MED DIS [facility] SMOKING CESSATION CLASSES, NON-PHYSICIAN PROVIDER, PER SESSION 07/24/2 012 DoD TELE ASSESS & MGT SRV PROV QUAL NONPHYS HLTH CARE PRO TO EST PAT,PARENT,GUARD NOT ORIG REL ASSESS & MGT SRV PROV W/IN PREV 7 DAYS NOR LEAD ASSESS & MGT SRV/PX W/IN NXT 24 HR/SOON APT;5-10 MIN MED DIS 012 DoD CANE, INCLUDES CANES OF ALL MATERIALS, ADJUSTABLE OR FIXED, WITH TIP DoD CASE MANAGEMENT, EACH 15 MINUTES 012 DoD TELE ASSESS & MGT SRV PROV QUAL NONPHYS HLTH CARE PRO TO EST PAT,PARENT,GUARD NOT ORIG REL ASSESS & MGT SRV PROV W/IN PREV 7 DAYS NOR LEAD ASSESS & MGT SRV/PX W/IN NXT 24 HR/SOON APT;5-10 MIN MED DIS 012 DoD TELE ASSESS & MGT SRV PROV QUAL NONPHYS HLTH CARE PRO TO EST PAT,PARENT,GUARD NOT ORIG REL ASSESS & MGT SRV PROV W/IN PREV 7 DAYS NOR LEAD ASSESS & MGT SRV/PX W/IN NXT 24 HR/SOON APT;5-10 MIN MED DIS 012 DoD TELE ASSESS & MGT SRV PROV QUAL NONPHYS HLTH CARE PRO TO EST PAT,PARENT,GUARD NOT ORIG REL ASSESS & MGT SRV PROV W/IN PREV 7 DAYS NOR LEAD ASSESS & MGT SRV/PX W/IN NXT 24 HR/SOON APT;5-10 MIN MED DIS 011 DoD TELE ASSESS & MGT SRV PROV QUAL NONPHYS HLTH CARE PRO TO EST PAT,PARENT,GUARD NOT ORIG REL ASSESS & MGT SRV PROV W/IN PREV 7 DAYS NOR LEAD ASSESS & MGT SRV/PX W/IN NXT 24 HR/SOON APT;5-10 MIN MED DIS 011 DoD TELE ASSESS & MGT SRV PROV QUAL NONPHYS HLTH CARE PRO TO EST PAT,PARENT,GUARD NOT ORIG REL ASSESS & MGT SRV PROV W/IN PREV 7 DAYS NOR LEAD ASSESS & MGT SRV/PX W/IN NXT 24 HR/SOON APT;5-10 MIN MED DIS 011 DoD TELE ASSESS & MGT SRV PROV QUAL NONPHYS HLTH CARE PRO TO EST PAT,PARENT,GUARD NOT ORIG REL ASSESS & MGT SRV PROV W/IN PREV 7 DAYS NOR LEAD ASSESS & MGT SRV/PX W/IN NXT 24 HR/SOON APT;5-10 MIN MED DIS 011 DoD TELE ASSESS & MGT SRV PROV QUAL NONPHYS HLTH CARE PRO TO EST PAT,PARENT,GUARD NOT ORIG REL ASSESS & MGT SRV PROV W/IN PREV 7 DAYS NOR LEAD ASSESS & MGT SRV/PX W/IN NXT 24 HR/SOON APT;5-10 MIN MED DIS 011 DoD VITAL CAPACITY, TOTAL (SEPARATE PROCEDURE) 011 DoD TELE ASSESS & MGT SRV PROV QUAL NONPHYS HLTH CARE PRO TO EST PAT,PARENT,GUARD NOT ORIG REL ASSESS & MGT SRV PROV W/IN PREV 7 DAYS NOR LEAD ASSESS & MGT SRV/PX W/IN NXT 24 HR/SOON APT;5-10 MIN MED DIS 011 DoD SCANNING COMPUTERIZED OPHTHALMIC DIAGNOSTIC IMAGING, POSTERIOR SEGMENT, (EG, SCANNING LASER) WITH INTERPRETATION AND REPORT, UNILATERAL 010 [facility] MEDICAL NUTRITION THERAPY; INITIAL ASSESSMENT AND INTERVENTION, INDIVIDUAL, [id number] WITH THE PATIENT, EACH 15 MINUTES 010 [facility] OPHTHALMOLOGICAL SERVICES: MEDICAL EXAMINATION AND EVALUATION WITH INITIATION OF DIAGNOSTIC AND TREATMENT PROGRAM; INTERMEDIATE, NEW PATIENT 008 [facility] UNLISTED THERAPEUTIC, PROPHYLACTIC OR DIAGNOSTIC INTRAVENOUS OR INTRA-ARTERIAL INJECTION OR INFUSION 008 [facility] INFECTIOUS AGENT ANTIGEN DETECTION BY IMMUNOASSAY WITH DIRECT OPTICAL (IE, VISUAL) OBSERVATION; STREPTOCOCCUS, GROUP A 007 DoD THERAPEUTIC, PROPHYLACTIC OR DIAGNOSTIC INJECTION (SPECIFY SUBSTANCE OR DRUG); SUBCUTANEOUS OR INTRAMUSCULAR 005 [facility] BRONCHODILATION RESPONSIVENESS, [place] [id number], PRE- AND POST-BRONCHODILATOR ADMINISTRATION 005 DoD CARDIOVASCULAR STRESS TEST USING TREADMILL 004 DoD INFECTIOUS AGENT ANTIGEN DETECTION BY IMMUNOASSAY WITH DIRECT OPTICAL (IE, VISUAL) OBSERVATION; STREPTOCOCCUS, GROUP A 004 [facility] BRONCHODILATION RESPONSIVENESS, [place] [id number], PRE- AND POST-BRONCHODILATOR ADMINISTRATION 003 DoD BRONCHODILATION RESPONSIVENESS, [place] [address], PRE- AND POST-BRONCHODILATOR ADMINISTRATION 002 DoD CARDIOVASCULAR STRESS TEST USING TREADMILL 001 DoD Injection, ketorolac tromethamine, per 15 mg 008 RICHARDSON SALVADOR [facility] Rapid Antigen Identification Streptococcus Group A Beta Hemolytic Rapid Antigen Identification Streptococcus Group A Beta Hemolytic [id number] Supervised Injection Intramuscular Supervised Injection Intramuscular 89047 006 ADIA PETERS [facility] Injection, ceftriaxone sodium, per 250 mg 006 ADIA PETERS Spirometry Spirometry 55081 005 AMEE STOREY Pulmonary Function Tests Flow Volume Loop Pulmonary Function Tests Flow Volume Loop 62512 005 AMEE STOREY Spirometry Post-bronchodilator Spirometry Post-bronchodilator 68476 005 AMEE STOREY Fundus Photography Fundus Photography [id number] 05/29 019 CLAUDIA STEPHENS Non-Physician Phone Call To Patient/Provider Brief (5-10min) Non-Physician Phone Call To Patient/Provider Brief (5-10min) [id number] CLAUDIA STEPHENS Non-Physician Phone Call To Patient/Provider Brief (5-10min) Non-Physician Phone Call To Patient/Provider Brief (5-10min) [id number] [phone] RAÚL MANE Non-Physician Phone Call To Patient/Provider Brief (5-10min) Non-Physician Phone Call To Patient/Provider Brief (5-10min) [id number] [phone] RAÚL MANE Non-Physician Phone Call To Patient/Provider Brief (5-10min) Non-Physician Phone Call To Patient/Provider Brief (5-10min) [phone] RAÚL MANE Non-Physician Phone Call To Patient/Provider Brief (5-10min) Non-Physician Phone Call To Patient/Provider Brief (5-10min) [phone] RAÚL MANE Internet Med Svc Qual Nonphys Healthcare Prof Estab Patient Internet Med Svc Qual Nonphys Healthcare Prof Estab Patient [phone] KAREN WELLINGTON [facility] Non-Physician Phone Call To Patient/Provider Brief (5-10min) Non-Physician Phone Call To Patient/Provider Brief (5-10min) [phone] RAÚL MANE [facility] Non-Physician Phone Call To Patient/Provider Brief (5-10min) Non-Physician Phone Call To Patient/Provider Brief (5-10min) [phone] DEREK OCONNELL [facility] Non-Physician Phone Call To Patient/Provider Brief (5-10min) Non-Physician Phone Call To Patient/Provider Brief (5-10min) [phone] POP BUCK [facility] Non-Physician Phone Call To Patient/Provider Brief (5-10min) Non-Physician Phone Call To Patient/Provider Brief (5-10min) [phone] POP BUCK [facility] Non-Physician Phone Call To Patient/Provider Brief (5-10min) Non-Physician Phone Call To Patient/Provider Brief (5-10min) [phone] POP BUCK [facility] Non-Physician Phone Call To Patient/Provider Brief (5-10min) Non-Physician Phone Call To Patient/Provider Brief (5-10min) [phone] POP BUCK [facility] Non-Physician Phone Call To Patient/Provider Brief (5-10min) Non-Physician Phone Call To Patient/Provider Brief (5-10min) [phone] HOLLIS MCMILLAN [facility] Injection, ketorolac tromethamine, per 15 mg 016 KAREN WELLINGTON [facility] Non-Physician Phone Call To Patient/Provider Brief (5-10min) Non-Physician Phone Call To Patient/Provider Brief (5-10min) [phone] FAUSTO JORDAN [facility] Non-Physician Phone Call To Patient/Provider Brief (5-10min) Non-Physician Phone Call To Patient/Provider Brief (5-10min) [phone] JOE CORTES [facility] Internet Med Svc Qual Nonphys Healthcare Prof Estab Patient Internet Med Svc Qual Nonphys Healthcare Prof Estab Patient [phone] SARBJIT ALEJANDRO [facility] Non-Physician Phone Call To Patient/Provider Brief (5-10min) Non-Physician Phone Call To Patient/Provider Brief (5-10min) [phone] HOLLIS MCMILLAN Non-Physician Phone Call To Patient/Provider Brief (5-10min) Non-Physician Phone Call To Patient/Provider Brief (5-10min) [phone] HOLLIS MCMILLAN Non-Physician Phone Call To Patient/Provider Brief (5-10min) Non-Physician Phone Call To Patient/Provider Brief (5-10min) [phone] KAREN WELLINGTON DoD Non-Physician Phone Call To Patient/Provider Brief (5-10min) Non-Physician Phone Call To Patient/Provider Brief (5-10min) [phone] HOLLIS MCMILLAN Non-Physician Phone Call To Patient/Provider Brief (5-10min) Non-Physician Phone Call To Patient/Provider Brief (5-10min) [phone] MARIAN HOLM Non-Physician Phone Call To Patient/Provider Brief (5-10min) Non-Physician Phone Call To Patient/Provider Brief (5-10min) [phone] HOLLIS MCMILLAN Non-Physician Phone Call To Patient/Provider Brief (5-10min) Non-Physician Phone Call To Patient/Provider Brief (5-10min) [phone] MARIAN HOLM Non-Physician Phone Call To Patient/Provider Brief (5-10min) Non-Physician Phone Call To Patient/Provider Brief (5-10min) [phone] HOLLIS MCMILLAN Non-Physician Phone Call To Patient/Provider Brief (5-10min) Non-Physician Phone Call To Patient/Provider Brief (5-10min) [phone] MARIAN HOLM Non-Physician Phone Call To Patient/Provider Brief (5-10min) Non-Physician Phone Call To Patient/Provider Brief (5-10min) [phone] HOLLIS MCMILLAN Non-Physician Phone Call To Patient/Provider Brief (5-10min) Non-Physician Phone Call To Patient/Provider Brief (5-10min) [phone] CLAUDIA STEPHENS [facility] Streptococcus Direct Screen Streptococcus Direct Screen [id number] SUSANNA BLUM [facility] Med Management By Pharmacist Initial 15 Min Estab Patient Med Management By Pharmacist Initial 15 Min Estab Patient [phone] MATILDE TAVERAS [facility] Non-Physician Phone Call To Patient/Provider Brief (5-10min) Non-Physician Phone Call To Patient/Provider Brief (5-10min) [id number] AIME AKHTAR [facility] Non-Physician Phone Call To Pt/Provider Intermed (11-20 min) Non-Physician Phone Call To Pt/Provider Intermed (11-20 min) [id number] BERT JOAQUIN [facility] Med Management By Pharmacist Initial 15 Min Estab Patient Med Management By Pharmacist Initial 15 Min Estab Patient [id number] NAYANA GARNER [facility] Medication Management By Pharmacist Each Additional 15 Min Medication Management By Pharmacist Each Additional 15 Min [phone] NAYANA GARNER Med Management By Pharmacist Initial 15 Min New Patient Med Management By Pharmacist Initial 15 Min New Patient [phone] NAYANA GARNER [facility] Non-Physician Phone Call To Pt/Provider Lengthy (21-30 min) Non-Physician Phone Call To Pt/Provider Lengthy (21-30 min) [phone] LEVON HARGROVE [facility] Non-Physician Phone Call To Patient/Provider Brief (5-10min) Non-Physician Phone Call To Patient/Provider Brief (5-10min) [id number] AMY WORKMAN [facility] Ophthalmological New Patient Start Comprehensive Care Ophthalmological New Patient Start Comprehensive Care [id number] KRYS LUNA [facility] Determination Of Refractive State Determination Of Refractive State [id number] KRYS LUNA [facility] Pulmonary Function VC (% Predicted Normal) Pulmonary Function VC (% Predicted Normal) [id number] SUSANNA BLUM [facility] Non-Physician Phone Call To Patient/Provider Brief (5-10min) Non-Physician Phone Call To Patient/Provider Brief (5-10min) [id number] NOE KEARNS Non-Physician Phone Call To Patient/Provider Brief (5-10min) Non-Physician Phone Call To Patient/Provider Brief (5-10min) [id number] KIRBY WARD Non-Physician Phone Call To Patient/Provider Brief (5-10min) Non-Physician Phone Call To Patient/Provider Brief (5-10min) [id number] KIRBY WARD Arthrocentesis Injection Of Shoulder Joint Arthrocentesis Injection Of Shoulder Joint 013 SUSANNA BLUM Med Management By Pharmacist Initial 15 Min Estab Patient Med Management By Pharmacist Initial 15 Min Estab Patient [id number] MATILDE TAVERAS Med Management By Pharmacist Initial 15 Min Estab Patient Med Management By Pharmacist Initial 15 Min Estab Patient [id number] MATILDE TAVERAS Non-Physician Phone Call To Patient/Provider Brief (5-10min) Non-Physician Phone Call To Patient/Provider Brief (5-10min) [id number] NOE KEARNS Smoking ce ation cla es, non-physician provider, per se ion 012 MATILDE TAVERAS Medication Management By Pharmacist Each Additional 15 Min Medication Management By Pharmacist Each Additional 15 Min [id number] MATILDE TAVERAS Med Management By Pharmacist Initial 15 Min New Patient Med Management By Pharmacist Initial 15 Min New Patient [id number] MATILDE TAVERAS Non-Physician Phone Call To Patient/Provider Brief (5-10min) Non-Physician Phone Call To Patient/Provider Brief (5-10min) [id number] NOE KEARNS Cane, includes canes of all materials, adjustable or fixed, with tip 012 MASHA WHALEN [facility] Physical Therapy Gait Training Physical Therapy Gait Training [id number] MASHA WHALEN [facility] Non-Physician Phone Call To Patient/Provider Brief (5-10min) Non-Physician Phone Call To Patient/Provider Brief (5-10min) [id number] NOE KEARNS Non-Physician Phone Call To Patient/Provider Brief (5-10min) Non-Physician Phone Call To Patient/Provider Brief (5-10min) [id number] NOE KEARNS Case Management, each 15 minutes 012 ALEX BERRIOS [facility] Non-Physician Phone Call To Patient/Provider Brief (5-10min) Non-Physician Phone Call To Patient/Provider Brief (5-10min) [id number] NOE KEARNS Non-Physician Phone Call To Patient/Provider Brief (5-10min) Non-Physician Phone Call To Patient/Provider Brief (5-10min) [id number] NOE KEARNS Non-Physician Phone Call To Patient/Provider Brief (5-10min) Non-Physician Phone Call To Patient/Provider Brief (5-10min) [id number] NOE KEARNS Non-Physician Phone Call To Patient/Provider Brief (5-10min) Non-Physician Phone Call To Patient/Provider Brief (5-10min) [id number] NOE KEARNS Non-Physician Phone Call To Patient/Provider Brief (5-10min) Non-Physician Phone Call To Patient/Provider Brief (5-10min) [id number] NOE KEARNS Non-Physician Phone Call To Patient/Provider Brief (5-10min) Non-Physician Phone Call To Patient/Provider Brief (5-10min) [id number] CHRISTIAN FROST [facility] Pulmonary Function Tests Peak Expiratory Flow Pulmonary Function Tests Peak Expiratory Flow [id number] PATRICIA CHESTER Created by entry in Vitals Module [facility] Non-Physician Phone Call To Patient/Provider Brief (5-10min) Non-Physician Phone Call To Patient/Provider Brief (5-10min) [phone] NOE KEARNS Determination Of Refractive State Determination Of Refractive State [id number] JACQUES EDGE [facility] Scanning Computerized Ophthalmic Diagnostic Imaging 010 JACQUES EDGE Ophthalmological Prior Patient Start Comprehensive Care Ophthalmological Prior Patient Start Comprehensive Care [id number] JACQUES EDGE [facility] Medical Nutrition Therapy Initial A e ment, Intervention Medical Nutrition Therapy Initial Assessment, Intervention [id number] JENNIFERMARYAM Cabrera JANNETH [facility] Ophthalmological New Patient Start Intermediate Level Care Ophthalmological New Patient Start Intermediate Level Care [id number] ALEX EDGE [facility] Supervised Injection Supervised Injection [id number] RICHARDSON SALVADOR [facility] Case Management, each 15 minutes PATRICK DOMINGO [facility] Fingerstick Blood Glucose Random Fingerstick Blood Glucose Random [id number] ERAN ESQUIVEL Patient presented to the DME clinic with Freestyle glucometer and supplies. Verified full name and date of Reviewed reasons why glucose is monitored, hypoglycemia and hyperglycemia signs and symptoms and management, ER protocols, glucometer functions(set up and set alarms X3 to check BS, glucometer strips storage, logging blood sugars, and keeping a dietary log. Verbalized how to take and log BS with Freestyle Glucometer. Patient returned demonstration both verbal and hands on with out any errors. Patient reports he is confident he will be able to check his blood sugars as recommended. Patient will check BS three times a day before meals for 1 week then twice a day for week and f/u with DM either via phone or SM with BS data. Patient scheduled appt with nutritional medicine 01 Apr 2020 and Diabetes education 10 Apr 2020 @ 1330. Patient advised to f/u with PCM as recommended. Patient v/u and is comfortable with the plan of care. 60 mins spent face to face. [facility] Disease management program; initial a e ment and initiation of the program ERAN ESQUIVEL [facility] Medical Nutrition Therapy Initial A e ment, Intervention Medical Nutrition Therapy Initial Assessment, Intervention [id number] SANKET MIRZA [facility] Waiver services; not otherwise specified (NOS) YANG BERG [facility] Med Management By Pharmacist Initial 15 Min New Patient Med Management By Pharmacist Initial 15 Min New Patient [id number] REHAN WELDON [facility] Medication Management By Pharmacist Each Additional 15 Min Medication Management By Pharmacist Each Additional 15 Min [id number] REHAN WELDON [facility] Non-Physician Phone Call To Pt/Provider Intermed (11-20 min) Non-Physician Phone Call To Pt/Provider Intermed (11-20 min) [id number] ANDRIA WREN [facility] Med Management By Pharmacist Initial 15 Min Estab Patient Med Management By Pharmacist Initial 15 Min Estab Patient [id number] REHAN WELDON [facility] Non-Physician Phone Call To Patient/Provider Brief (5-10min) Non-Physician Phone Call To Patient/Provider Brief (5-10min) [id number] SARBJIT ALEJANDRO [facility] Social History Combined list of available smoking, tobacco, and other social history from Department of Defense and Veterans Affairs facilities. Social History Type Response Date Comment [facility] e Tobacco Former-cigarette user Cigarette use:. 0.5 Average PACKS per day: (10 cigarettes = 0.5 packs). Never-other tobacco user (not cigarettes) Other Tobacco use:. Quit 10/2013 (started smoking in 1994, mostly 1/ ppd, there were times in between those years where he stopped
smoking for years) Ambulatory Pharmacy Sexual Orientation Ambula tory Pharmacy Gender identity Ambulator y Pharmacy Sex Representation Male (finding) Un known Organization This section is an empty social history section. [facility] Assessment and Plan Combined list of future care activities from Department of Defense and Veterans Affairs facilities (e.g., assessment and plan notes, appointments, orders, and referrals). Additional future care activities may be listed in the Plan of Care section. Result Assessment and Plan Date Source Assessment and Plan Extracted from:Title : 0055 [facility] dizziness and blurred vision Author: RAYMOND BLOUNT, Date: 09/06/24 Dizziness Patient presenting with only 2 episodes of dizziness and blurred vision. One episode associated with PENDLETON. Denies any other focal neurological deficits. No chest pains, SOB, MAYEN, or other acute concerns. Exam today is unremarkable and patient is asymptomatic. EKG obtained demonstrating NSR without interval change or ST changes concerning for arrhythmia or ischemia. Etiology of symptoms not especially clear. At this time, will assess CT Head w/wo contrast to further investigate as well as basic lab work. Patient encouraged to return to clinic, present to [facility] or ER for persistent worsening or development of other concerning symptoms. Patient cites understanding and agrees with plan of care. A total of 40 minutes was spent on this visit reviewing previous notes, counseling the patient on the listed diagnoses, reviewing/ordering tests, adjusting medications, and documenting the findings in this note. UPDATE 09/13: Called patient to discuss results. Name and verified. Patient continues to be asymptomatic. No further episodes. Results unrevealing for any acute pathology. Advised patient to reach out to established epic analyst for any evaluation they may pursue for blurry vision, patient cites he has appointment. Also reiterated that with recurrence of any symptoms, would advise prompt presentation to the emergency room. Patient cites understanding and agrees. Orders: ferrous sulfate (iron sulfate)(ferrous sulfate 325 mg (65 mg elemental iron) oral delayed release tablet), 1 tab(s), Oral, every other day, # 45 tab(s), 3 total refill(s), Maintenance, Pharmacy: [email or web address] #[id number] [External Rx] pregabalin(Lyrica 150 mg oral capsule), 1 cap(s), Oral, TID, # 270 cap(s), 3 total refill(s), Maintenance, Pharmacy: [email or web address] #[id number] [External Rx] Alphonse Blount DO [facility] , [facility] Internal Medicine, [place] Extracted from:Title: [facility] [place]- sinusitis Author: RADHA FRANCO MD Date: 06/09/24 1. A cute bacterial sinusitis [age]y/o M with bacterial sinusitis. TTP sinuses, longer than 10 days. Plan: - Augmentin BID x 7 days - call Wednesday morning, if not improved - advise nettypot rinse - f/u prn Orders: amoxicillin-clavulanate(Augmentin 875 mg-125 mg oral tablet), amoxicillin 1 tab(s), Oral, every 12 hr, X 7 days, # 14 tab(s), 0 total refill(s), Acute, 06/16/2024, 1 tab(s) Oral every 12 hr,x7 days, Pharmacy: [email or web address] #[id number], Respiratory, sinusitis [External Rx] Capt Tori Mclain), [facility] Technical Adjuster PGY-[address] [place] [address] [facility] [place] Addendum by HEIDI SHANKAR DO on June 13, 2024 11:57:53 [employer]CHER STRIPPER I certify that I was present for case discussion in the Family Medicine preceptor room at the time of this encounter. I have reviewed the note and agree with the findings, assessment, and plan except as I have documented below. Follow up as listed. All labs/imaging/consults to be followed by the ordering provider. DO Bowen Menjivar [facility] [place] [facility]-Obstetrics Physician [id number] UBALDO Gentile Extracted from:Title: 0055[facility] Clinic - Annual/elevated LFTs/chronic back pain Author: EDU LEIGH MD Date: 05/04/24 1. A nnual wellness exam Reviewed most recent labs, imaging, history, and prev med. ROS and physical exam unremarkable. Discussed diet and exercise recommendations (Low carb diet, Mediterranean diet, whole food plant based as options). 150 min/wk vigorous exercise per ACC/AHA. Preventative Medicine: # General Wellness. -Colon CA Screenin 06/2020, repeat in 5 years -Lung CA: M eets criteria. Last CT chest: d one in october -Prostate Cancer: 0.62 -Osteoporosis Screening: N ot indicated -AAA Screening: D UE AT 65 Y/O -Diabetes Screening: Patient is K nown diabetic (discussed in assessment/plan) -Lipid Screening: O n statin -ASCVD: Recheck labs in 6 months when back on statin -Hepatitis C (lifetime): 28 Jul 2011 1133 # Vaccinations: Tetanus (Td/Tdap) - 01/29/2021 Influenza Vaccine - 06/08/2023, advised to obtain new vaccine Zoster Vaccine - 1st dose 01/29/2021, 2nd dose 05/13/2021 Pneumococcal Vaccine - PPSV23: 01/29/2021 PCV20: DUE AT 65 Y/O COVID-19 Vaccine - Moderna 1st dose 08/26/2020, 2nd dose 09/23/2020; Moderna booster 05/13/2021; 08/07/2023, advised to obtain updated vaccine RSV Vaccine - 06/08/2023 2. T ype 2 diabetes mellitus with unspecified complications Last hgba1c H gb A1c Last 6 Months Event Name Event Result Date/Time Hemoglobin A1c 6.1 % H igh 04/26/24 09:05:00 eAvg Glucose 128 mg/dL 04/26/24 09:05:00 G oal A1c < 7.0%. At goal. - Continue metformin 500 mg twice daily with meals. - Repeat hgba1c q6 months - Repeat microalbumin annually; A CR < 30 (Apr 2024) - Encourage dietary and exercise compliance - Annual eye evaluation: Advised to schedule annually - Annual foot exam: Venous stasis changes present venous changes. Normal cap refill and pulses. Left big toe with black lesion. - Statin therapy: Yes Ordered: metFORMIN(metFORMIN 500 mg oral tablet), 1 tab(s), Oral, BID w/Meals, # 180 tab(s), 3 total refill(s), Maintenance, 1 tab(s) Oral BID w/Meals, Pharmacy: [facility] [Not filled] CBC w/ Diff Comprehensive Metabolic Panel Hemoglobin A1c Lipid Panel Referral Request 2.0 - [facility] 3. E ssential (primary) hypertension F/b cardiology Dr Sims every year. He had a treadmill stress test in Jan 2022 and it was normal. He had a carotid Doppler in Jan 2022 that showed a little plaque build up. - Continue Lipitor 40 mg daily. - On aspirin 81 mg daily f or primary cardiac p revention. Cardiology wants him to continue it. He is low risk for bleeding. Denies any sx of bleeding (except for noted below) o r excessive bruising at this time. Ordered: lisinopril(lisinopril 2.5 mg oral tablet), 1 tab(s), Oral, Daily, # 90 tab(s), 3 total refill(s), Maintenance, 1 tab(s) Oral Daily, Pharmacy: [facility] [Not filled] 4. H yperlipidemia, unspecified LDL 168. Primary prevention. Elevated level due to being off of the medication and poor diet. - Restart statin - Work on diet/exercise - Recheck lipid panel in 6 months Ordered: atorvastatin(atorvastatin 40 mg oral tablet), 1 tab(s), Oral, Daily, # 90 tab(s), 3 total refill(s), Maintenance, 1 tab(s) Oral Daily, Pharmacy: [facility] [Not filled] 5. E levated liver enzymes level ALT 72. ALT 21. Fatty infiltrate of the liver and pancreas seen on CT in October. Ferritin WNL. Hepatitis panel normal in 2011. Likely underlying MASLD. FIB4 0.67; advanced fibrosis excluded. - Check RUQUS for further eval - Repeat LFTs/CBC with next lab draw to calculate FIB4 Ordered: CBC w/ Diff Comprehensive Metabolic Panel Hemoglobin A1c Lipid Panel US Abdomen Right Upper Quadrant 6. T oenail abnormality He reports that the lateral side of his left big toe started to turn black about 3-4 months ago. There was no trauma and it seems to be getting bigger. On exam, it has the appearance of a bruise, but the lack of resolution and increase in size is unexpected. - Refer to podiatry for further eval - May need derm evaluation Ordered: Referral Request 2.0 - [facility] 7. I leroy deficiency Resolved. He was taking the iron supplement every 3rd day. - Requests to continue so that he can continue to give blood. 8. L ow back pain, unspecified Chronic low back pain. Follows with pain management and PT. Last L4-L5 epidural steroid injection was in March. Due to worsening pain and development of new bilateral thigh numbness, they obtained an updated MRI, which showed no significant change since 2019. His back pain is complicated by bilateral neuropathic foot pain. At the last appt, we discussed several different treatment options including trying a higher dose of tramadol, increasing amitriptyline for treatment of neuropathic pain, increasing Lyrica at night, and switching to duloxetine for chronic pain/neuropathic pain control. Duloxetine was started and amitriptyline was stopped. A higher dose of tramadol was also tried. He reports that the duloxetine has worked very well and he no longer needs the tramadol. - C ontinue d uloxetine 60mg daily - Continue Lyrica 150mg TID; can consider increasing PM dose in the future though he is close to the max dose - Continue intermittent baclofen 10mg daily - Continue with PT and pain management - Follow-up in April for diabetes and pain f/u Orders: baclofen(baclofen 10 mg oral tablet), 1 tab(s), Oral, TID, PRN pain (moderate), Do not take with alcohol or other sedating medications., # 30 tab(s), 0 total refill(s), Maintenance, 1 tab(s) Oral TID,PRN:pain (moderate),Instr:Do not take with alcohol or other sedating medications., Pharma... DULoxetine(DULoxetine 60 mg oral delayed release capsule), 1 cap(s), Oral, Daily, do not crush or chew, # 90 cap(s), 3 total refill(s), Maintenance, 1 cap(s) Oral Daily,Instr:do not crush or chew, Pharmacy: [facility] [Not filled] omeprazole(omeprazole 40 mg oral delayed release capsule), 1 cap(s), Oral, Daily, # 90 cap(s), 3 total refill(s), Maintenance, 1 cap(s) Oral Daily, Pharmacy: [facility] [Not filled] Patient encouraged to return to clinic, present to UCC or ER for persistent worsening or development of other concerning symptoms. Patient cites understanding and agrees with plan of care. A total of 50 minutes was spent on this visit reviewing previous notes, counseling the patient on the listed diagnoses, reviewing/ordering tests, adjusting medications, and documenting the findings in this note. Edu Leigh MD Capt, [facility], [facility] Internal Medicine Staff Physician Extracted from:Title: 0055C IM Clinic - Acute on chronic low back pain/neuropathy Author: EDU LEIGH MD Date: 03/22/24 1. L ow back pain Acute on chronic low back pain. Follows with pain management and PT. He has a L 4-L5 epidural steroid injection scheduled for March. Due to worsening pain and development of new bilateral thigh numbness, they obtained an updated MRI, which showed no significant change since 2019. Current pain medications do not seem to be effective. His back pain is complicated by bilateral neuropathic foot pain. We discussed several different treatment options including trying a higher dose of tramadol, increasing amitriptyline for treatment of neuropathic pain, increasing Lyrica at night, and switching to duloxetine for chronic pain/neuropathic pain control. - Trial higher dose of tramadol, 100mg BID PRN, two week supply given; if he needs continued opioid therapy, will need to consider a pain contract - Given lack of benefit with amitriptyline, will switch to duloxetine -- Start taking amitriptyline 10mg every other day for 1 week then stop -- Start duloxetine 30mg daily for 1 week, then increase to two capsules (60mg) daily - Continue Lyrica 150mg TID; can consider increasing PM dose in the future though he is close to the max dose - Continue intermittent baclofen 10mg daily - Continue with PT and pain management - Follow-up in April for diabetes and pain f/u 2. D egenerative disc disease 3. N europathy Patient encouraged to return to clinic, present to UCC or ER for persistent worsening or development of other concerning symptoms. Patient cites understanding and agrees with plan of care. A total of 45 minutes was spent on this visit reviewing previous notes, counseling the patient on the listed diagnoses, reviewing/ordering tests, adjusting medications, and documenting the findings in this note. Edu Leigh MD Capt, [facility], [facility] Internal Medicine Staff Physician Extracted from:Title: 0055 IM[facility] f/u Imaging results Author: RAYMOND BLOUNT DO Date: 11/15/23 1. A bnormal imaging Patient is a 63 year old male presenting today to discuss imaging findings on CT, which demonstrated micronodules (12 mo f/u recommended), fatty infiltration of pancreas a nd emphysema findings (Patient with history of smoking). No complaints or symptoms. Exam largely unremarkable. Answered all questions. No further action at this time. Plan for 12 mo follow up. 2. A nxiety Patient notes anxiety on ROS, no SI/HI. Denies any desire to pursue BHOP or Rx for treatment at this time. Patient encouraged to return to clinic, present to UCC or ER for persistent worsening or development of other concerning symptoms. Patient cites understanding and agrees with plan of care. A total of 40 minutes was spent on this visit reviewing previous notes, counseling the patient on the listed diagnoses, reviewing/ordering tests, adjusting medications, and documenting the findings in this note. 3. N ight sweats Patient does note 3-4 weeks of intermittent/occasional night sweats and inquires about etiology. Discussed range of possibilities to include weather, infection, malignancy, etc. Patient without any other localizing symptoms. Screenings UTD Advised to monitor and if symptoms persist over next 2-3 months, will plan for further evaluation. Patient cites understanding and would like to pursue that plan. 4. E ssential (primary) hypertension Patient s blood pressure has been w ell-controlled w ith current medications and within patient s goal of: < 130/80mmHg. Patient d oes c heck blood pressures at home. Previous measures with good control, cites control at home. M ost recent renal panel demonstrates intact/stable renal function. Will CCM. Alphonse Blount DO, Raciel Moss, , [facility] Internal Medicine, [facility] Extracted from:Title: [id number] F2F 6 MONTH DM F/U Author: REHAN WELDON, PharmD Date: 11/03/23 1. E ncounter for therapeutic drug level monitoring Patient presenting to PharmD Clinic for medication therapy management and disease state management. Advised to contact with any questions or concerns. Pt v/u. Total time with patient - 40 min Rehan Weldon, PharmD Clinical Pharmacist [facility] [place] Ordered: CBC w/ Diff Comprehensive Metabolic Panel Ferritin Hemoglobin A1c Iron Studies Lipid Panel Magnesium Level Microalbumin Panel, Urine Prostate Specific Antigen Retic Count Urinalysis with Microscopic and Culture if Indicated Vitamin B12 [id number] Vitamin D 25 Hydroxy Level 2. T ype 2 diabetes mellitus with unspecified complications A1c at goal of less than 7% at 6.8%. Previous A1c in Mar 2023 was 6.1%, M 2022 was 5.8%,?and Apr 2022 was 5.8%. Monitoring fasting BG every morning and rarely after dinner. No log/meter brought in today - instructed to bring to all appts. States AM running 120-140, highest recently was 167. PM running 110-118.?Denies any sugars below 70. Average BG for A1c of 6.8% = 148. SCr stable at 0.8, no extensive proteinuria, and liver enzymes WNL in Mar 2023. Educated about complications from uncontrolled DM/HTN/HLD. Educated about BG goals and when to monitor. Fasting and post prandial. Discussed diet/lifestyle modifications. Denies any n egative changes. Sometimes he is taking metformin after dinner, so he takes it with a snack like crackers. I nstructed to change snack prior to bedtime to protein only - not sugars/carbs. Has had a nnual diabetic eye exam. H as had a nnual diabetic foot exam with PCM team. Suffers from neuropathy - should check feet daily. States compliant with medications. Up to date on all other p reventative health screenings. Denies sx of hyperglycemia or hypoglycemia at this time. Tolerating medication. Discussed therapy options. Continue metformin 500 mg twice daily with meals. Follow-up in 6 months or sooner with any sugars below 70 or consistently above 150. Ordered: isopropyl alcohol topical(isopropyl alcohol 70% topical pad), See Instructions, Use as directed to check blood sugar daily, # 100 EA, 3 total refill(s), Maintenance, Supply, Use as directed to check blood sugar daily, Pharmacy: [facility] [Not filled] metFORMIN(metFORMIN 500 mg oral tablet), 1 tab(s), Oral, BID w/Meals, # 180 tab(s), 1 total refill(s), Maintenance, 1 tab(s) Oral BID w/Meals, Pharmacy: [facility] [Not filled] 3. E ssential (primary) hypertension BP at goal at 1 in clinic today. Educated about BP goal of less than 130/80. Monitoring 1-2x/week. No log/meter brought in today - instructed to bring to all appts. States running 120s/70s to low 80s. F/b cardiology Dr Sims every year. He had a treadmill stress test in Jan 2022 and it was normal. He had a carotid doppler in Jan 2022 that showed a little plaque build up. Denies CP/SOB/MAYEN/PENDLETON/BV/dizziness at this time. Sometimes u nsteady upon standing and gets tripped up on his feet. Educated to rise/bend slowly. Educated about possible orthostatic hypotension. C hecked in clinic today. Upon standing was 135/77. Suggested monitoring at home. Tolerating medication. Renal function intact. On appropriate NIKOLE-I in setting of DM. Continue lisinopril 2.5 mg daily. Monitor BP at least weekly, more often if running too low/too high. Educated how to properly monitor. Keep a log. Bring BP meter to clinic for comparison. Contact PharmD if BP is consistently above goal or running too low (<100/50s). Ordered: lisinopril(lisinopril 2.5 mg oral tablet), 1 tab(s), Oral, Daily, # 90 tab(s), 1 total refill(s), Maintenance, 1 tab(s) Oral Daily, Pharmacy: [facility] [Not filled] 4. H yperlipidemia, unspecified Repeat lipid panel in 2022 showed HDL below 40 and LDL at 109. All other values WNL. Estimated 10-year ASCVD risk is 23.1%. On appropriate high intensity statin. Tolerating medication. Denies myalgias. For now, continue Lipitor 40 mg daily. Will repeat fasting lipid panel in 6 months. If LDL still above 100, will discuss increasing to max dose. On aspirin 81 mg daily f or primary cardiac p revention. Cardiology wants him to continue it. He is low risk for bleeding. Denies any sx of bleeding (except for noted below) o r excessive bruising at this time. Ordered: atorvastatin(atorvastatin 40 mg oral tablet), 1 tab(s), Oral, Daily, # 90 tab(s), 1 total refill(s), Maintenance, 1 tab(s) Oral Daily, Pharmacy: [facility] [Not filled] 5. D ysuria This past Wednesday he had slight pink tinge to urine. In the mornings, sometimes having some burning upon urination. Drinking lots of water throughout the day, so increase in urination but this has been stable. Denies feeling the need to urinate despite having an empty bladder. H as had a UTI and kidney pain in the past. Denies any severe pain when he had the pink tinge. Denies flank pain, fever/chills, nausea, or vomiting. Instructed to go to lab for urinalysis. Will contact with results. 6. N icotine dependence in remission Quit smoking in 2013. [place] Ordered. Instructed to schedule with radiology. Ordered: CT Low Dose Lung Screening 7. G ERD - Gastro-esophageal reflux disease Sx controlled on medication. Medication refilled. Ordered: omeprazole(omeprazole 40 mg oral delayed release capsule), 1 cap(s), Oral, Daily, # 90 cap(s), 1 total refill(s), Maintenance, 1 cap(s) Oral Daily, Pharmacy: [facility] [Not filled] 8. P ain in right hip joint Using medication as needed - refilled. Instructed to contact PCM if pain worsens. Ordered: diclofenac topical(Voltaren 1% topical gel), See instructions, PRN pain, Apply 2 grams (upper extremities) or 4 grams (lower extremities) to affected area topically four times daily as needed for pain. Max total body dose of 32 grams per day, # 100 g, 3 total refill(s), Maintenance, Apply 2 gram... 9. L brenna term (current) use of oral hypoglycemic drugs Scheduled Date/Time MAY 03, 2024 at 08:00 Appointment Type PHARM FTR Location [id number] Reason for visit F2F 6 MONTH DM F/U [phone] Extracted from:Title: 0055 [facility] Annual/Low Back Pain Author: RAYMOND BLOUNT, DO Date: 06/07/23 1. E fely for general adult medical examination without abnormal findings Patient is a [age] w ith history of D MII, HTN and Low back pain p resenting today for annual exam. Discussed most recent labwork, medications and prev med as documented. Patient currently feels well, denies any acute complaints. Does note o ccasional flares of low back pain and lateral thigh numbness. (Discussed below). Otherwise, ROS unremarkable. Physical exam is unremarkable. Patient is due for the following Preventative Medicine services, for which, patient has been ordered or referred as noted: - Immunizations (Flu, COVID, RSV) - Diabetes-Specific Services (Ophthalmology) Otherwise, patient's screenings and vaccinations are UTD as documented. Patient with elevated ASCVD Risk 2/2 DMII. Based on ACC/AHA guidelines, would recommend that patient C ontinue [id number] intensity statin. P atient may follow up in 6-12 months for continued PCM care. A total of 40 minutes was spent on this visit reviewing previous notes, counseling the patient on the listed diagnoses, reviewing/ordering tests, adjusting medications, and documenting the findings in this note. 2. D egenerative disc disease 3. L ow back pain, unspecified History of DJD and occasional flares of LBP. Currently without pain or complaints. Exam unremarkable today. Requests refill of PRN baclofen and tramadol. Discussed risks and benefits of medications and refilled. Offered PT in addition, patient cites that he does not need it, has exercises and stretches at home. Also utilizing Lidoderm as needed. Patient encouraged to return to clinic, present to UCC or ER for persistent worsening or development of other concerning symptoms. Patient cites understanding and agrees with plan of care. 4. M eralgia paresthetica Notes months of bilateral lateral thigh numbness. Denies any progression, changes to symptoms or acute concerns. Notes onset after most recent Lumbar steroid injection. Etiology may be 2/2 injection complication vs belt tightness. Discussed recommended PT and wearing looser fitting belt. Cites understanding and agrees. 5. E ssential (primary) hypertension Patient s blood pressure has been w ell-controlled w ith current medications and within patient s goal of: < 130/80mmHg. Patient d oes c heck blood pressures at home. Previous measures with good control, cites control at home. M ost recent renal panel demonstrates intact/stable renal function. Will CCM. 6. L brenna term (current) use of oral hypoglycemic drugs 7. T ype 2 diabetes mellitus with unspecified complications Last A1c of 6.1, A t goal. Well controlled on current medications; patient is up-to-date on preventative medicine services (foot exam performed today, with minimal s igns of neuropathy). Appropriately on RAAS Inhibition. G oal A1c is: < 7.0% . To assist with glycemic control and cardiovascular risk, patient should exercise at least 150 min/week. P atient counseled extensively on reducing processed sugar and carbohydrates, to include information regarding healthy choices, opting for complex carbohydrates over simple carbohydrates. Patient will be due for A1c i n 6-12 M onths. Due to increased ASCVD risk, t o continue A SA 81 mg. Will CCM at this time. Patient encouraged to return to clinic, present to UCC or ER for d evelopment of other concerning symptoms. Patient cites understanding and agrees with plan of care. 8. H yperlipidemia, unspecified ASCVD as above, Patient to continue statin. Orders: baclofen(baclofen 10 mg oral tablet), 1 tab(s), Oral, TID, PRN muscle spasm, # 30 tab(s), 0 total refill(s), Maintenance, 1 tab(s) Oral TID,PRN:muscle spasm, Pharmacy: [facility] [Not filled] ferrous sulfate (iron sulfate)(ferrous sulfate 325 mg (65 mg elemental iron) oral tablet), 1 tab(s), Oral, every other day, # 30 tab(s), 0 total refill(s), Maintenance, 1 tab(s) Oral every other day, Pharmacy: [facility] [Not filled] RSV vaccine preF3, recombinant(RSV vaccine preF3, recombinant (Arexvy) preservative-free intramuscular injection), 0.5 mL, IntraMuscular, Injection, Vaccine, First Dose: 06/07/2023 08:43:00 [employer], 06/07/2023 08:43:00 [employer] traMADol(traMADol 50 mg oral tablet), 1 tab(s), Oral, Daily, PRN pain (severe), # 30 tab(s), 0 total refill(s), Acute, 06/07/2024, 1 tab(s) Oral Daily,PRN:pain (severe), Pharmacy: [facility] [Not filled] Alphonse Blount DO, MEd [facility], [facility] Internal Medicine, [place] Extracted from:Title: [id number] F2F 6 MONTH DM F/U Author: REHAN WELDON, PharmD Date: 05/13/23 1. E ncounter for therapeutic drug level monitoring Saw patient in clinic on 05/11/2023. A1c at goal of less than 7% at 6.1%. Previous A1c in October 2022 was 5.8%, N ov 2021 was 5.8%, and Jan 2022 was 5.7%. Monitoring fasting BG every morning. No log/meter brought in today - instructed to bring to all appts. States running around 120s, did have one high at 176. Denies any sugars below 70. Average BG for A1c of 6.1% = 128. SCr stable at 0.8, no extensive proteinuria, and liver enzymes WNL at this time. Educated about complications from uncontrolled DM/HTN/HLD. Educated about BG goals and when to monitor. Fasting and post prandial. Discussed diet/lifestyle modifications. Instructed to change snack prior to bedtime to protein only - not sugars/carbs. Due for a nnual diabetic eye exam (Apr 2022) - will place referral. D ue soon for a nnual diabetic foot exam with PCM team (May 2022) - scheduled. Suffers from neuropathy, worse at night especially with burning. F/b main mgt. States compliant with medications. Referred to A&I/community f or influenza and COVID. Up to date on preventative health screenings. Denies sx of hyperglycemia or hypoglycemia at this time. Tolerating medication. Discussed therapy options. Continue metformin 500 mg twice daily with meals. Follow-up in 6 months or sooner with any sugars below 70 or consistently above 150. Due for annual - scheduled for him. Advised to contact with any questions or concerns. Pt v/u. Total time with patient - 40 min Rehan Weldon, PharmD Clinical Pharmacist [facility] [place] Ordered: CBC w/ Diff Ferritin Hemoglobin A1c Iron and TIBC [id number] Lipid Panel Magnesium Level Prostate Specific Antigen Retic Count Vitamin B12 [id number] 2. T ype 2 diabetes mellitus with unspecified complications Ordered: Referral Request 2.0 3. E ssential (primary) hypertension BP at goal at 1 in clinic today. Educated about BP goal of less than 130/80. Monitoring 1x/week. No log/meter brought in today - instructed to bring to all appts. States SBP never above 130. DBP running 72-76 usually, rare up to 82. F/b cardiology Dr Sims every year. He had a treadmill stress test in Jan 2022 and it was normal. He had a carotid doppler in Jan 2022 that showed a little plaque build up. Denies CP/SOB/MAYEN/PENDLETON/BV/dizziness at this time. Sometimes experiences orthostatic hypotension if he gets up too quickly. Educated to rise/bend slowly. Tolerating medication. Renal function intact. On appropriate NIKOLE-I in setting of DM. Continue lisinopril 2.5 mg daily. Monitor BP at least weekly, more often if running too low/too high. Educated how to properly monitor. Keep a log. Bring BP meter to clinic for comparison. Contact PharmD if BP is consistently above goal or running too low (<100/50s). 4. H yperlipidemia, unspecified Repeat fasting lipid panel in October 2022 showed all values WNL, but HDL below 40. Estimated 10-year ASCVD risk is 17.4%. On appropriate high intensity statin. On aspirin for primary prevention therapy. Cardiology wants him to continue it. He is low risk for bleeding. Denies any sx of bleeding or excessive bruising at this time. Tolerating medications. Denies myalgias. Continue aspirin 81 mg daily and Lipitor 40 mg daily. 5. V itamin D deficiency, unspecified Vitamin D level WNL at 48 at this time. Continue vitamin D3 1,000 units daily. 6. I leroy deficiency anemia, unspecified Previously in October 2022, repeat CBC showed no anemia, but ferritin level was low and iron level was high. Discussed with PCM at that time. PCM changed ferrous sulfate from 325 mg daily to 325 mg every other day. Patient was suppose to repeat blood work, but it wasn't completed. Instructed to complete fasting labs prior to annual appt with PCM. Of note, is on PPI. May need to add OTC vitamin C 500 mg with iron supplement to aid in absorption. 7. E eduardo, unspecified Sometimes having bilateral edema from shins down. PCM assessed at last annual appt and pulses were good. Discussed reaching out to PCM and/or cardiology if this worsens to ensure no cardiac/pulmonary issues. Discussed may be referred to vascular surgeon/specialist to ensure no PVD etc. Suggested wearing compression socks. Instructed to discuss at upcoming annual appt. 8. L brenna term (current) use of oral hypoglycemic drugs Raymond Blount DO Scheduled Date/Time JUN 07, 2023 at 08:00 Appointment Type IM FTR Location [facility] [place] Reason for visit F2F ANNUAL APPT + DIABETIC FOOT EXAM [phone] Future Scheduled TestsLaboratoryCreatinine Level 06/13/24 11/01/2024 [id number] [facility] Assessment and Plan Extracted from:Title : 0055 [facility] dizziness and blurred vision Author: RAYMOND BLOUNT DO Date: 09/06/24 Dizziness Patient presenting with only 2 episodes of dizziness and blurred vision. One episode associated with PENDLETON. Denies any other focal neurological deficits. No chest pains, SOB, MAYEN, or other acute concerns. Exam today is unremarkable and patient is asymptomatic. EKG obtained demonstrating NSR without interval change or ST changes concerning for arrhythmia or ischemia. Etiology of symptoms not especially clear. At this time, will assess CT Head w/wo contrast to further investigate as well as basic lab work. Patient encouraged to return to clinic, present to [facility] or ER for persistent worsening or development of other concerning symptoms. Patient cites understanding and agrees with plan of care. A total of 40 minutes was spent on this visit reviewing previous notes, counseling the patient on the listed diagnoses, reviewing/ordering tests, adjusting medications, and documenting the findings in this note. UPDATE 09/13: Called patient to discuss results. Name and verified. Patient continues to be asymptomatic. No further episodes. Results unrevealing for any acute pathology. Advised patient to reach out to established epic analyst for any evaluation they may pursue for blurry vision, patient cites he has appointment. Also reiterated that with recurrence of any symptoms, would advise prompt presentation to the emergency room. Patient cites understanding and agrees. Orders: ferrous sulfate (iron sulfate)(ferrous sulfate 325 mg (65 mg elemental iron) oral delayed release tablet), 1 tab(s), Oral, every other day, # 45 tab(s), 3 total refill(s), Maintenance, Pharmacy: [facility] #[id number] [External Rx] pregabalin(Lyrica 150 mg oral capsule), 1 cap(s), Oral, TID, # 270 cap(s), 3 total refill(s), Maintenance, Pharmacy: [facility] #[id number] [External Rx] Alphonse Blount DO, MEd Capt, [facility] Internal Medicine, [place] Extracted from:Title: [facility] [place]- sinusitis Author: RADHA FRANCO MD Date: 06/09/24 1. A cute bacterial sinusitis [age]y/o M with bacterial sinusitis. TTP sinuses, longer than 10 days. Plan: - Augmentin BID x 7 days - call Wednesday morning, if not improved - advise nettypot rinse - f/u prn Orders: amoxicillin-clavulanate(Augmentin 875 mg-125 mg oral tablet), amoxicillin 1 tab(s), Oral, every 12 hr, X 7 days, # 14 tab(s), 0 total refill(s), Acute, 06/16/2024, 1 tab(s) Oral every 12 hr,x7 days, Pharmacy: [email or web address] #[id number], Respiratory, sinusitis [External Rx] Capt Rayne (), [facility] Technical Adjuster PGY-[address] [place] [address] Operations [facility] UBALDO Gentile Addendum by HEIDI SHANKAR DO on June 13, 2024 11:57:53 [employer] I certify that I was present for case discussion in the Family Medicine preceptor room at the time of this encounter. I have reviewed the note and agree with the findings, assessment, and plan except as I have documented below. Follow up as listed. All labs/imaging/consults to be followed by the ordering provider. DO Bowen Menjivar [facility] Family Medicine-Obstetrics Physician [id number] UBALDO Gentile Extracted from:Title: 0055C Clinic - Annual/elevated LFTs/chronic back pain Author: EDU LEIGH MD Date: 05/04/24 1. A nnual wellness exam Reviewed most recent labs, imaging, history, and prev med. ROS and physical exam unremarkable. Discussed diet and exercise recommendations (Low carb diet, Mediterranean diet, whole food plant based as options). 150 min/wk vigorous exercise per ACC/AHA. Preventative Medicine: # General Wellness. -Colon CA Screenin 06/2020, repeat in 5 years -Lung CA: M eets criteria. Last CT chest: d one in october -Prostate Cancer: 0.62 -Osteoporosis Screening: N ot indicated -AAA Screening: D UE AT 65 Y/O -Diabetes Screening: Patient is K nown diabetic (discussed in assessment/plan) -Lipid Screening: O n statin -ASCVD: Recheck labs in 6 months when back on statin -Hepatitis C (lifetime): 28 Jul 2011 1133 # Vaccinations: Tetanus (Td/Tdap) - 01/29/2021 Influenza Vaccine - 06/08/2023, advised to obtain new vaccine Zoster Vaccine - 1st dose 01/29/2021, 2nd dose 05/13/2021 Pneumococcal Vaccine - PPSV23: 01/29/2021 PCV20: DUE AT 65 Y/O COVID-19 Vaccine - Moderna 1st dose 08/26/2020, 2nd dose 09/23/2020; Moderna booster 05/13/2021; 08/07/2023, advised to obtain updated vaccine RSV Vaccine - 06/08/2023 2. T ype 2 diabetes mellitus with unspecified complications Last hgba1c H gb A1c Last 6 Months Event Name Event Result Date/Time Hemoglobin A1c 6.1 % H igh 04/26/24 09:05:00 eAvg Glucose 128 mg/dL 04/26/24 09:05:00 G oal A1c < 7.0%. At goal. - Continue metformin 500 mg twice daily with meals. - Repeat hgba1c q6 months - Repeat microalbumin annually; A CR < 30 (Apr 2024) - Encourage dietary and exercise compliance - Annual eye evaluation: Advised to schedule annually - Annual foot exam: Venous stasis changes present venous changes. Normal cap refill and pulses. Left big toe with black lesion. - Statin therapy: Yes Ordered: metFORMIN(metFORMIN 500 mg oral tablet), 1 tab(s), Oral, BID w/Meals, # 180 tab(s), 3 total refill(s), Maintenance, 1 tab(s) Oral BID w/Meals, Pharmacy: [facility] [Not filled] CBC w/ Diff Comprehensive Metabolic Panel Hemoglobin A1c Lipid Panel Referral Request 2.0 - DoD 3. E ssential (primary) hypertension F/b cardiology Dr Sims every year. He had a treadmill stress test in Jan 2022 and it was normal. He had a carotid Doppler in Jan 2022 that showed a little plaque build up. - Continue Lipitor 40 mg daily. - On aspirin 81 mg daily f or primary cardiac p revention. Cardiology wants him to continue it. He is low risk for bleeding. Denies any sx of bleeding (except for noted below) o r excessive bruising at this time. Ordered: lisinopril(lisinopril 2.5 mg oral tablet), 1 tab(s), Oral, Daily, # 90 tab(s), 3 total refill(s), Maintenance, 1 tab(s) Oral Daily, Pharmacy: [facility] [Not filled] 4. H yperlipidemia, unspecified LDL 168. Primary prevention. Elevated level due to being off of the medication and poor diet. - Restart statin - Work on diet/exercise - Recheck lipid panel in 6 months Ordered: atorvastatin(atorvastatin 40 mg oral tablet), 1 tab(s), Oral, Daily, # 90 tab(s), 3 total refill(s), Maintenance, 1 tab(s) Oral Daily, Pharmacy: [facility] [Not filled] 5. E levated liver enzymes level ALT 72. ALT 21. Fatty infiltrate of the liver and pancreas seen on CT in October. Ferritin WNL. Hepatitis panel normal in 2011. Likely underlying MASLD. FIB4 0.67; advanced fibrosis excluded. - Check RUQUS for further eval - Repeat LFTs/CBC with next lab draw to calculate FIB4 Ordered: CBC w/ Diff Comprehensive Metabolic Panel Hemoglobin A1c Lipid Panel US Abdomen Right Upper Quadrant 6. T oenail abnormality He reports that the lateral side of his left big toe started to turn black about 3-4 months ago. There was no trauma and it seems to be getting bigger. On exam, it has the appearance of a bruise, but the lack of resolution and increase in size is unexpected. - Refer to podiatry for further eval - May need derm evaluation Ordered: Referral Request 2.0 - DoD 7. I leroy deficiency Resolved. He was taking the iron supplement every 3rd day. - Requests to continue so that he can continue to give blood. 8. L ow back pain, unspecified Chronic low back pain. Follows with pain management and PT. Last L4-L5 epidural steroid injection was in March. Due to worsening pain and development of new bilateral thigh numbness, they obtained an updated MRI, which showed no significant change since 2019. His back pain is complicated by bilateral neuropathic foot pain. At the last appt, we discussed several different treatment options including trying a higher dose of tramadol, increasing amitriptyline for treatment of neuropathic pain, increasing Lyrica at night, and switching to duloxetine for chronic pain/neuropathic pain control. Duloxetine was started and amitriptyline was stopped. A higher dose of tramadol was also tried. He reports that the duloxetine has worked very well and he no longer needs the tramadol. - C ontinue d uloxetine 60mg daily - Continue Lyrica 150mg TID; can consider increasing PM dose in the future though he is close to the max dose - Continue intermittent baclofen 10mg daily - Continue with PT and pain management - Follow-up in April for diabetes and pain f/u Orders: baclofen(baclofen 10 mg oral tablet), 1 tab(s), Oral, TID, PRN pain (moderate), Do not take with alcohol or other sedating medications., # 30 tab(s), 0 total refill(s), Maintenance, 1 tab(s) Oral TID,PRN:pain (moderate),Instr:Do not take with alcohol or other sedating medications., Pharma... DULoxetine(DULoxetine 60 mg oral delayed release capsule), 1 cap(s), Oral, Daily, do not crush or chew, # 90 cap(s), 3 total refill(s), Maintenance, 1 cap(s) Oral Daily,Instr:do not crush or chew, Pharmacy: [facility] [Not filled] omeprazole(omeprazole 40 mg oral delayed release capsule), 1 cap(s), Oral, Daily, # 90 cap(s), 3 total refill(s), Maintenance, 1 cap(s) Oral Daily, Pharmacy: [facility] [Not filled] Patient encouraged to return to clinic, present to UCC or ER for persistent worsening or development of other concerning symptoms. Patient cites understanding and agrees with plan of care. A total of 50 minutes was spent on this visit reviewing previous notes, counseling the patient on the listed diagnoses, reviewing/ordering tests, adjusting medications, and documenting the findings in this note. MD Isa Powell, [address], [facility] Internal Medicine Staff Physician Extracted from:Title: 0055C Clinic - Acute on chronic low back pain/neuropathy Author: EDU LEIGH MD Date: 03/22/24 1. L ow back pain Acute on chronic low back pain. Follows with pain management and PT. He has a L 4-L5 epidural steroid injection scheduled for March. Due to worsening pain and development of new bilateral thigh numbness, they obtained an updated MRI, which showed no significant change since 2019. Current pain medications do not seem to be effective. His back pain is complicated by bilateral neuropathic foot pain. We discussed several different treatment options including trying a higher dose of tramadol, increasing amitriptyline for treatment of neuropathic pain, increasing Lyrica at night, and switching to duloxetine for chronic pain/neuropathic pain control. - Trial higher dose of tramadol, 100mg BID PRN, two week supply given; if he needs continued opioid therapy, will need to consider a pain contract - Given lack of benefit with amitriptyline, will switch to duloxetine -- Start taking amitriptyline 10mg every other day for 1 week then stop -- Start duloxetine 30mg daily for 1 week, then increase to two capsules (60mg) daily - Continue Lyrica 150mg TID; can consider increasing PM dose in the future though he is close to the max dose - Continue intermittent baclofen 10mg daily - Continue with PT and pain management - Follow-up in April for diabetes and pain f/u 2. D egenerative disc disease 3. N europathy Patient encouraged to return to clinic, present to [facility] or ER for persistent worsening or development of other concerning symptoms. Patient cites understanding and agrees with plan of care. A total of 45 minutes was spent on this visit reviewing previous notes, counseling the patient on the listed diagnoses, reviewing/ordering tests, adjusting medications, and documenting the findings in this note. MD Isa Powell, [address] [facility], [facility] Internal Medicine Staff Physician Extracted from:Title: 0055 [facility] f/u Imaging results Author: RAYMOND BLOUNT DO Date: 11/15/23 1. A bnormal imaging Patient is a 63 year old male presenting today to discuss imaging findings on CT, which demonstrated micronodules (12 mo f/u recommended), fatty infiltration of pancreas a nd emphysema findings (Patient with history of smoking). No complaints or symptoms. Exam largely unremarkable. Answered all questions. No further action at this time. Plan for 12 mo follow up. 2. A nxiety Patient notes anxiety on ROS, no SI/HI. Denies any desire to pursue BHOP or Rx for treatment at this time. Patient encouraged to return to clinic, present to UCC or ER for persistent worsening or development of other concerning symptoms. Patient cites understanding and agrees with plan of care. A total of 40 minutes was spent on this visit reviewing previous notes, counseling the patient on the listed diagnoses, reviewing/ordering tests, adjusting medications, and documenting the findings in this note. 3. N ight sweats Patient does note 3-4 weeks of intermittent/occasional night sweats and inquires about etiology. Discussed range of possibilities to include weather, infection, malignancy, etc. Patient without any other localizing symptoms. Screenings UTD Advised to monitor and if symptoms persist over next 2-3 months, will plan for further evaluation. Patient cites understanding and would like to pursue that plan. 4. E ssential (primary) hypertension Patient s blood pressure has been w ell-controlled w ith current medications and within patient s goal of: < 130/80mmHg. Patient d oes c heck blood pressures at home. Previous measures with good control, cites control at home. M ost recent renal panel demonstrates intact/stable renal function. Will CCM. Alphonse Blount DO, Raciel Moss, , [facility] Internal Medicine, [place] Extracted from:Title: [id number] F2F 6 MONTH DM F/U Author: REHAN WELDON, Cinthia Date: 11/03/23 1. E ncounter for therapeutic drug level monitoring Patient presenting to PharmD Clinic for medication therapy management and disease state management. Advised to contact with any questions or concerns. Pt v/u. Total time with patient - 40 min Rehan Weldon, Cinthia Clinical Pharmacist [address] [place] [address] [employer] [place] Ordered: CBC w/ Diff Comprehensive Metabolic Panel Ferritin Hemoglobin A1c Iron Studies Lipid Panel Magnesium Level Microalbumin Panel, Urine Prostate Specific Antigen Retic Count Urinalysis with Microscopic and Culture if Indicated Vitamin B12 [id number] Vitamin D 25 Hydroxy Level 2. T ype 2 diabetes mellitus with unspecified complications A1c at goal of less than 7% at 6.8%. Previous A1c in Mar 2023 was 6.1%, M 2022 was 5.8%,?and Apr 2022 was 5.8%. Monitoring fasting BG every morning and rarely after dinner. No log/meter brought in today - instructed to bring to all appts. States AM running 120-140, highest recently was 167. PM running 110-118.?Denies any sugars below 70. Average BG for A1c of 6.8% = 148. SCr stable at 0.8, no extensive proteinuria, and liver enzymes WNL in Mar 2023. Educated about complications from uncontrolled DM/HTN/HLD. Educated about BG goals and when to monitor. Fasting and post prandial. Discussed diet/lifestyle modifications. Denies any n egative changes. Sometimes he is taking metformin after dinner, so he takes it with a snack like crackers. I nstructed to change snack prior to bedtime to protein only - not sugars/carbs. Has had a nnual diabetic eye exam. H as had a nnual diabetic foot exam with PCM team. Suffers from neuropathy - should check feet daily. States compliant with medications. Up to date on all other p reventative health screenings. Denies sx of hyperglycemia or hypoglycemia at this time. Tolerating medication. Discussed therapy options. Continue metformin 500 mg twice daily with meals. Follow-up in 6 months or sooner with any sugars below 70 or consistently above 150. Ordered: isopropyl alcohol topical(isopropyl alcohol 70% topical pad), See Instructions, Use as directed to check blood sugar daily, # 100 EA, 3 total refill(s), Maintenance, Supply, Use as directed to check blood sugar daily, Pharmacy: [facility] [Not filled] metFORMIN(metFORMIN 500 mg oral tablet), 1 tab(s), Oral, BID w/Meals, # 180 tab(s), 1 total refill(s), Maintenance, 1 tab(s) Oral BID w/Meals, Pharmacy: [facility] [Not filled] 3. E ssential (primary) hypertension BP at goal at 1 22/73 in clinic today. Educated about BP goal of less than 130/80. Monitoring 1-2x/week. No log/meter brought in today - instructed to bring to all appts. States running 120s/70s to low 80s. F/b cardiology Dr Sims every year. He had a treadmill stress test in Jan 2022 and it was normal. He had a carotid doppler in Jan 2022 that showed a little plaque build up. Denies CP/SOB/MAYEN/PENDLETON/BV/dizziness at this time. Sometimes u nsteady upon standing and gets tripped up on his feet. Educated to rise/bend slowly. Educated about possible orthostatic hypotension. C hecked in clinic today. Upon standing was 135/77. Suggested monitoring at home. Tolerating medication. Renal function intact. On appropriate NIKOLE-I in setting of DM. Continue lisinopril 2.5 mg daily. Monitor BP at least weekly, more often if running too low/too high. Educated how to properly monitor. Keep a log. Bring BP meter to clinic for comparison. Contact PharmD if BP is consistently above goal or running too low (<100/50s). Ordered: lisinopril(lisinopril 2.5 mg oral tablet), 1 tab(s), Oral, Daily, # 90 tab(s), 1 total refill(s), Maintenance, 1 tab(s) Oral Daily, Pharmacy: [facility] [Not filled] 4. H yperlipidemia, unspecified Repeat lipid panel in 2022 showed HDL below 40 and LDL at 109. All other values WNL. Estimated 10-year ASCVD risk is 23.1%. On appropriate high intensity statin. Tolerating medication. Denies myalgias. For now, continue Lipitor 40 mg daily. Will repeat fasting lipid panel in 6 months. If LDL still above 100, will discuss increasing to max dose. On aspirin 81 mg daily f or primary cardiac p revention. Cardiology wants him to continue it. He is low risk for bleeding. Denies any sx of bleeding (except for noted below) o r excessive bruising at this time. Ordered: atorvastatin(atorvastatin 40 mg oral tablet), 1 tab(s), Oral, Daily, # 90 tab(s), 1 total refill(s), Maintenance, 1 tab(s) Oral Daily, Pharmacy: [facility] [Not filled] 5. D ysuria This past Wednesday he had slight pink tinge to urine. In the mornings, sometimes having some burning upon urination. Drinking lots of water throughout the day, so increase in urination but this has been stable. Denies feeling the need to urinate despite having an empty bladder. H as had a UTI and kidney pain in the past. Denies any severe pain when he had the pink tinge. Denies flank pain, fever/chills, nausea, or vomiting. Instructed to go to lab for urinalysis. Will contact with results. 6. N icotine dependence in remission Quit smoking in 2013. [place] Ordered. Instructed to schedule with radiology. Ordered: CT Low Dose Lung Screening 7. G ERD - Gastro-esophageal reflux disease Sx controlled on medication. Medication refilled. Ordered: omeprazole(omeprazole 40 mg oral delayed release capsule), 1 cap(s), Oral, Daily, # 90 cap(s), 1 total refill(s), Maintenance, 1 cap(s) Oral Daily, Pharmacy: [facility] [Not filled] 8. P ain in right hip joint Using medication as needed - refilled. Instructed to contact PCM if pain worsens. Ordered: diclofenac topical(Voltaren 1% topical gel), See instructions, PRN pain, Apply 2 grams (upper extremities) or 4 grams (lower extremities) to affected area topically four times daily as needed for pain. Max total body dose of 32 grams per day, # 100 g, 3 total refill(s), Maintenance, Apply 2 gram... 9. L brenna term (current) use of oral hypoglycemic drugs Scheduled Date/Time MAY 03, 2024 at 08:00 Appointment Type PHARM FTR Location [id number] Reason for visit F2F 6 MONTH DM F/U [phone] Extracted from:Title: 0055 [facility] Annual/Low Back Pain Author: RAYMOND BLOUNT DO Date: 06/07/23 1. E ncounter for general adult medical examination without abnormal findings Patient is a [age] YearsMale w ith history of D MII, HTN and Low back pain p resenting today for annual exam. Discussed most recent labwork, medications and prev med as documented. Patient currently feels well, denies any acute complaints. Does note o ccasional flares of low back pain and lateral thigh numbness. (Discussed below). Otherwise, ROS unremarkable. Physical exam is unremarkable. Patient is due for the following Preventative Medicine services, for which, patient has been ordered or referred as noted: - Immunizations (Flu, COVID, RSV) - Diabetes-Specific Services (Ophthalmology) Otherwise, patient's screenings and vaccinations are UTD as documented. Patient with elevated ASCVD Risk 2/2 DMII. Based on ACC/AHA guidelines, would recommend that patient C ontinue [id number]-fs-[id number] intensity statin. P atient may follow up in 6-12 months for continued PCM care. A total of 40 minutes was spent on this visit reviewing previous notes, counseling the patient on the listed diagnoses, reviewing/ordering tests, adjusting medications, and documenting the findings in this note. 2. D egenerative disc disease 3. L ow back pain, unspecified History of DJD and occasional flares of LBP. Currently without pain or complaints. Exam unremarkable today. Requests refill of PRN baclofen and tramadol. Discussed risks and benefits of medications and refilled. Offered PT in addition, patient cites that he does not need it, has exercises and stretches at home. Also utilizing Lidoderm as needed. Patient encouraged to return to clinic, present to UCC or ER for persistent worsening or development of other concerning symptoms. Patient cites understanding and agrees with plan of care. 4. M eralgia paresthetica Notes months of bilateral lateral thigh numbness. Denies any progression, changes to symptoms or acute concerns. Notes onset after most recent Lumbar steroid injection. Etiology may be 2/2 injection complication vs belt tightness. Discussed recommended PT and wearing looser fitting belt. Cites understanding and agrees. 5. E ssential (primary) hypertension Patient s blood pressure has been w ell-controlled w ith current medications and within patient s goal of: < 130/80mmHg. Patient d oes c heck blood pressures at home. Previous measures with good control, cites control at home. M ost recent renal panel demonstrates intact/stable renal function. Will CCM. 6. L brenna term (current) use of oral hypoglycemic drugs 7. T ype 2 diabetes mellitus with unspecified complications Last A1c of 6.1, A t goal. Well controlled on current medications; patient is up-to-date on preventative medicine services (foot exam performed today, with minimal s igns of neuropathy). Appropriately on RAAS Inhibition. G oal A1c is: < 7.0% . To assist with glycemic control and cardiovascular risk, patient should exercise at least 150 min/week. P atient counseled extensively on reducing processed sugar and carbohydrates, to include information regarding healthy choices, opting for complex carbohydrates over simple carbohydrates. Patient will be due for A1c i n 6-12 M onths. Due to increased ASCVD risk, t o continue A SA 81 mg. Will CCM at this time. Patient encouraged to return to clinic, present to C or ER for d evelopment of other concerning symptoms. Patient cites understanding and agrees with plan of care. 8. H yperlipidemia, unspecified ASCVD as above, Patient to continue statin. Orders: baclofen(baclofen 10 mg oral tablet), 1 tab(s), Oral, TID, PRN muscle spasm, # 30 tab(s), 0 total refill(s), Maintenance, 1 tab(s) Oral TID,PRN:muscle spasm, Pharmacy: [facility] [Not filled] ferrous sulfate (iron sulfate)(ferrous sulfate 325 mg (65 mg elemental iron) oral tablet), 1 tab(s), Oral, every other day, # 30 tab(s), 0 total refill(s), Maintenance, 1 tab(s) Oral every other day, Pharmacy: [facility] [Not filled] RSV vaccine preF3, recombinant(RSV vaccine preF3, recombinant (Arexvy) preservative-free intramuscular injection), 0.5 mL, IntraMuscular, Injection, Vaccine, First Dose: 06/07/2023 08:43:00 [employer], 06/07/2023 08:43:00 [employer] traMADol(traMADol 50 mg oral tablet), 1 tab(s), Oral, Daily, PRN pain (severe), # 30 tab(s), 0 total refill(s), Acute, 06/07/2024, 1 tab(s) Oral Daily,PRN:pain (severe), Pharmacy: [facility] [Not filled] Alphonse Blount DO, MEd , , [facility] Internal Medicine, [place] Extracted from:Title: [id number] F2F 6 MONTH DM F/U Author: REHAN WELDON, PharmD Date: 05/13/23 1. E ncounter for therapeutic drug level monitoring Saw patient in clinic on 05/11/2023. A1c at goal of less than 7% at 6.1%. Previous A1c in October 2022 was 5.8%, N ov 2021 was 5.8%, and Jan 2022 was 5.7%. Monitoring fasting BG every morning. No log/meter brought in today - instructed to bring to all appts. States running around 120s, did have one high at 176. Denies any sugars below 70. Average BG for A1c of 6.1% = 128. SCr stable at 0.8, no extensive proteinuria, and liver enzymes WNL at this time. Educated about complications from uncontrolled DM/HTN/HLD. Educated about BG goals and when to monitor. Fasting and post prandial. Discussed diet/lifestyle modifications. Instructed to change snack prior to bedtime to protein only - not sugars/carbs. Due for a nnual diabetic eye exam (Apr 2022) - will place referral. D ue soon for a nnual diabetic foot exam with PCM team (May 2022) - scheduled. Suffers from neuropathy, worse at night especially with burning. F/b main mgt. States compliant with medications. Referred to A&I/community f or influenza and COVID. Up to date on preventative health screenings. Denies sx of hyperglycemia or hypoglycemia at this time. Tolerating medication. Discussed therapy options. Continue metformin 500 mg twice daily with meals. Follow-up in 6 months or sooner with any sugars below 70 or consistently above 150. Due for annual - scheduled for him. Advised to contact with any questions or concerns. Pt v/u. Total time with patient - 40 min Rehan Weldon, PharmD Clinical Pharmacist [employer] [place] Ordered: CBC w/ Diff Ferritin Hemoglobin A1c Iron and TIBC [id number] Lipid Panel Magnesium Level Prostate Specific Antigen Retic Count Vitamin B12 [id number] 2. T ype 2 diabetes mellitus with unspecified complications Ordered: Referral Request 2.0 3. E ssential (primary) hypertension BP at goal at 1 in clinic today. Educated about BP goal of less than 130/80. Monitoring 1x/week. No log/meter brought in today - instructed to bring to all appts. States SBP never above 130. DBP running 72-76 usually, rare up to 82. F/b cardiology Dr Sims every year. He had a treadmill stress test in Jan 2022 and it was normal. He had a carotid doppler in Jan 2022 that showed a little plaque build up. Denies CP/SOB/MAYEN/PENDLETON/BV/dizziness at this time. Sometimes experiences orthostatic hypotension if he gets up too quickly. Educated to rise/bend slowly. Tolerating medication. Renal function intact. On appropriate NIKOLE-I in setting of DM. Continue lisinopril 2.5 mg daily. Monitor BP at least weekly, more often if running too low/too high. Educated how to properly monitor. Keep a log. Bring BP meter to clinic for comparison. Contact PharmD if BP is consistently above goal or running too low (<100/50s). 4. H yperlipidemia, unspecified Repeat fasting lipid panel in October 2022 showed all values WNL, but HDL below 40. Estimated 10-year ASCVD risk is 17.4%. On appropriate high intensity statin. On aspirin for primary prevention therapy. Cardiology wants him to continue it. He is low risk for bleeding. Denies any sx of bleeding or excessive bruising at this time. Tolerating medications. Denies myalgias. Continue aspirin 81 mg daily and Lipitor 40 mg daily. 5. V itamin D deficiency, unspecified Vitamin D level WNL at 48 at this time. Continue vitamin D3 1,000 units daily. 6. I leroy deficiency anemia, unspecified Previously in October 2022, repeat CBC showed no anemia, but ferritin level was low and iron level was high. Discussed with PCM at that time. PCM changed ferrous sulfate from 325 mg daily to 325 mg every other day. Patient was suppose to repeat blood work, but it wasn't completed. Instructed to complete fasting labs prior to annual appt with PCM. Of note, is on PPI. May need to add OTC vitamin C 500 mg with iron supplement to aid in absorption. 7. E eduardo, unspecified Sometimes having bilateral edema from shins down. PCM assessed at last annual appt and pulses were good. Discussed reaching out to PCM and/or cardiology if this worsens to ensure no cardiac/pulmonary issues. Discussed may be referred to vascular surgeon/specialist to ensure no PVD etc. Suggested wearing compression socks. Instructed to discuss at upcoming annual appt. 8. L brenna term (current) use of oral hypoglycemic drugs Raymond Blount DO Scheduled Date/Time JUN 07, 2023 at 08:00 Appointment Type IM FTR Location 0055C--CL Reason for visit F2F ANNUAL APPT + DIABETIC FOOT EXAM [phone] Future Scheduled TestsLaboratoryCreatinine Level 06/13/24 11/01/2024 [id number] Assessment and Plan Extracted from:Title : 0055 IMCL dizziness and blurred vision Author: RAYMOND BLOUNT, Date: 09/06/24 Dizziness Patient presenting with only 2 episodes of dizziness and blurred vision. One episode associated with PENDLETON. Denies any other focal neurological deficits. No chest pains, SOB, MAYEN, or other acute concerns. Exam today is unremarkable and patient is asymptomatic. EKG obtained demonstrating NSR without interval change or ST changes concerning for arrhythmia or ischemia. Etiology of symptoms not especially clear. At this time, will assess CT Head w/wo contrast to further investigate as well as basic lab work. Patient encouraged to return to clinic, present to [facility] or ER for persistent worsening or development of other concerning symptoms. Patient cites understanding and agrees with plan of care. A total of 40 minutes was spent on this visit reviewing previous notes, counseling the patient on the listed diagnoses, reviewing/ordering tests, adjusting medications, and documenting the findings in this note. UPDATE 09/13: Called patient to discuss results. Name and verified. Patient continues to be asymptomatic. No further episodes. Results unrevealing for any acute pathology. Advised patient to reach out to established epic analyst for any evaluation they may pursue for blurry vision, patient cites he has appointment. Also reiterated that with recurrence of any symptoms, would advise prompt presentation to the emergency room. Patient cites understanding and agrees. Orders: ferrous sulfate (iron sulfate)(ferrous sulfate 325 mg (65 mg elemental iron) oral delayed release tablet), 1 tab(s), Oral, every other day, # 45 tab(s), 3 total refill(s), Maintenance, Pharmacy: [facility] #[id number] [External Rx] pregabalin(Lyrica 150 mg oral capsule), 1 cap(s), Oral, TID, # 270 cap(s), 3 total refill(s), Maintenance, Pharmacy: [email or web address] #[id number] [External Rx] Alphonse Blount DO, MEd Capt, [facility] Internal Medicine, [place] Extracted from:Title: [facility] [place]- sinusitis Author: RADHA FRANCO MD Date: 06/09/24 1. A cute bacterial sinusitis [age]y/o M with bacterial sinusitis. TTP sinuses, longer than 10 days. Plan: - Augmentin BID x 7 days - call Wednesday morning, if not improved - advise nettypot rinse - f/u prn Orders: amoxicillin-clavulanate(Augmentin 875 mg-125 mg oral tablet), amoxicillin 1 tab(s), Oral, every 12 hr, X 7 days, # 14 tab(s), 0 total refill(s), Acute, 06/16/2024, 1 tab(s) Oral every 12 hr,x7 days, Pharmacy: [email or web address] #[id number], Respiratory, sinusitis [External Rx] Capt Rayne (), [facility] Technical Adjuster PGY-2 [id number] [place], [place] Addendum by HEIDI SHANKAR DO on June 13, 2024 11:57:53 [employer] I certify that I was present for case discussion in the Family Medicine preceptor room at the time of this encounter. I have reviewed the note and agree with the findings, assessment, and plan except as I have documented below. Follow up as listed. All labs/imaging/consults to be followed by the ordering provider. DO Bowen Menjivar [facility] Family Medicine-Obstetrics Physician Charlie Pedroza [id number] [place], [place] Extracted from:Title: 0055C IM Clinic - Annual/elevated LFTs/chronic back pain Author: EDU LEIGH MD Date: 05/04/24 1. A nnual wellness exam Reviewed most recent labs, imaging, history, and prev med. ROS and physical exam unremarkable. Discussed diet and exercise recommendations (Low carb diet, Mediterranean diet, whole food plant based as options). 150 min/wk vigorous exercise per ACC/AHA. Preventative Medicine: # General Wellness. -Colon CA Screenin 06/2020, repeat in 5 years -Lung CA: M eets criteria. Last CT chest: d one in october -Prostate Cancer: 0.62 -Osteoporosis Screening: N ot indicated -AAA Screening: D UE AT 65 Y/O -Diabetes Screening: Patient is K nown diabetic (discussed in assessment/plan) -Lipid Screening: O n statin -ASCVD: Recheck labs in 6 months when back on statin -Hepatitis C (lifetime): 28 Jul 2011 1133 # Vaccinations: Tetanus (Td/Tdap) - 01/29/2021 Influenza Vaccine - 06/08/2023, advised to obtain new vaccine Zoster Vaccine - 1st dose 01/29/2021, 2nd dose 05/13/2021 Pneumococcal Vaccine - PPSV23: 01/29/2021 PCV20: DUE AT 65 Y/O COVID-19 Vaccine - Moderna 1st dose 08/26/2020, 2nd dose 09/23/2020; Moderna booster 05/13/2021; 08/07/2023, advised to obtain updated vaccine RSV Vaccine - 06/08/2023 2. T ype 2 diabetes mellitus with unspecified complications Last hgba1c H gb A1c Last 6 Months Event Name Event Result Date/Time Hemoglobin A1c 6.1 % H igh 04/26/24 09:05:00 eAvg Glucose 128 mg/dL 04/26/24 09:05:00 G oal A1c < 7.0%. At goal. - Continue metformin 500 mg twice daily with meals. - Repeat hgba1c q6 months - Repeat microalbumin annually; A CR < 30 (Apr 2024) - Encourage dietary and exercise compliance - Annual eye evaluation: Advised to schedule annually - Annual foot exam: Venous stasis changes present venous changes. Normal cap refill and pulses. Left big toe with black lesion. - Statin therapy: Yes Ordered: metFORMIN(metFORMIN 500 mg oral tablet), 1 tab(s), Oral, BID w/Meals, # 180 tab(s), 3 total refill(s), Maintenance, 1 tab(s) Oral BID w/Meals, Pharmacy: [facility] [Not filled] CBC w/ Diff Comprehensive Metabolic Panel Hemoglobin A1c Lipid Panel Referral Request 2.0 - [facility] 3. E ssential (primary) hypertension F/b cardiology Dr Sims every year. He had a treadmill stress test in Jan 2022 and it was normal. He had a carotid Doppler in Jan 2022 that showed a little plaque build up. - Continue Lipitor 40 mg daily. - On aspirin 81 mg daily f or primary cardiac p revention. Cardiology wants him to continue it. He is low risk for bleeding. Denies any sx of bleeding (except for noted below) o r excessive bruising at this time. Ordered: lisinopril(lisinopril 2.5 mg oral tablet), 1 tab(s), Oral, Daily, # 90 tab(s), 3 total refill(s), Maintenance, 1 tab(s) Oral Daily, Pharmacy: [facility] [Not filled] 4. H yperlipidemia, unspecified LDL 168. Primary prevention. Elevated level due to being off of the medication and poor diet. - Restart statin - Work on diet/exercise - Recheck lipid panel in 6 months Ordered: atorvastatin(atorvastatin 40 mg oral tablet), 1 tab(s), Oral, Daily, # 90 tab(s), 3 total refill(s), Maintenance, 1 tab(s) Oral Daily, Pharmacy: [facility] [Not filled] 5. E levated liver enzymes level ALT 72. ALT 21. Fatty infiltrate of the liver and pancreas seen on CT in October. Ferritin WNL. Hepatitis panel normal in 2011. Likely underlying MASLD. FIB4 0.67; advanced fibrosis excluded. - Check RUQUS for further eval - Repeat LFTs/CBC with next lab draw to calculate FIB4 Ordered: CBC w/ Diff Comprehensive Metabolic Panel Hemoglobin A1c Lipid Panel US Abdomen Right Upper Quadrant 6. T oenail abnormality He reports that the lateral side of his left big toe started to turn black about 3-4 months ago. There was no trauma and it seems to be getting bigger. On exam, it has the appearance of a bruise, but the lack of resolution and increase in size is unexpected. - Refer to podiatry for further eval - May need derm evaluation Ordered: Referral Request 2.0 - DoD 7. I leroy deficiency Resolved. He was taking the iron supplement every 3rd day. - Requests to continue so that he can continue to give blood. 8. L ow back pain, unspecified Chronic low back pain. Follows with pain management and PT. Last L4-L5 epidural steroid injection was in March. Due to worsening pain and development of new bilateral thigh numbness, they obtained an updated MRI, which showed no significant change since 2019. His back pain is complicated by bilateral neuropathic foot pain. At the last appt, we discussed several different treatment options including trying a higher dose of tramadol, increasing amitriptyline for treatment of neuropathic pain, increasing Lyrica at night, and switching to duloxetine for chronic pain/neuropathic pain control. Duloxetine was started and amitriptyline was stopped. A higher dose of tramadol was also tried. He reports that the duloxetine has worked very well and he no longer needs the tramadol. - C ontinue d uloxetine 60mg daily - Continue Lyrica 150mg TID; can consider increasing PM dose in the future though he is close to the max dose - Continue intermittent baclofen 10mg daily - Continue with PT and pain management - Follow-up in April for diabetes and pain f/u Orders: baclofen(baclofen 10 mg oral tablet), 1 tab(s), Oral, TID, PRN pain (moderate), Do not take with alcohol or other sedating medications., # 30 tab(s), 0 total refill(s), Maintenance, 1 tab(s) Oral TID,PRN:pain (moderate),Instr:Do not take with alcohol or other sedating medications., Pharma... DULoxetine(DULoxetine 60 mg oral delayed release capsule), 1 cap(s), Oral, Daily, do not crush or chew, # 90 cap(s), 3 total refill(s), Maintenance, 1 cap(s) Oral Daily,Instr:do not crush or chew, Pharmacy: [facility] [Not filled] omeprazole(omeprazole 40 mg oral delayed release capsule), 1 cap(s), Oral, Daily, # 90 cap(s), 3 total refill(s), Maintenance, 1 cap(s) Oral Daily, Pharmacy: [facility] [Not filled] Patient encouraged to return to clinic, present to UCC or ER for persistent worsening or development of other concerning symptoms. Patient cites understanding and agrees with plan of care. A total of 50 minutes was spent on this visit reviewing previous notes, counseling the patient on the listed diagnoses, reviewing/ordering tests, adjusting medications, and documenting the findings in this note. Edu Leigh MD Capt, [address], [facility] Internal Medicine Staff Physician Extracted from:Title: 0055C Clinic - Acute on chronic low back pain/neuropathy Author: EDU LEIGH MD Date: 03/22/24 1. L ow back pain Acute on chronic low back pain. Follows with pain management and PT. He has a L 4-L5 epidural steroid injection scheduled for March. Due to worsening pain and development of new bilateral thigh numbness, they obtained an updated MRI, which showed no significant change since 2019. Current pain medications do not seem to be effective. His back pain is complicated by bilateral neuropathic foot pain. We discussed several different treatment options including trying a higher dose of tramadol, increasing amitriptyline for treatment of neuropathic pain, increasing Lyrica at night, and switching to duloxetine for chronic pain/neuropathic pain control. - Trial higher dose of tramadol, 100mg BID PRN, two week supply given; if he needs continued opioid therapy, will need to consider a pain contract - Given lack of benefit with amitriptyline, will switch to duloxetine -- Start taking amitriptyline 10mg every other day for 1 week then stop -- Start duloxetine 30mg daily for 1 week, then increase to two capsules (60mg) daily - Continue Lyrica 150mg TID; can consider increasing PM dose in the future though he is close to the max dose - Continue intermittent baclofen 10mg daily - Continue with PT and pain management - Follow-up in April for diabetes and pain f/u 2. D egenerative disc disease 3. N europathy Patient encouraged to return to clinic, present to UC or ER for persistent worsening or development of other concerning symptoms. Patient cites understanding and agrees with plan of care. A total of 45 minutes was spent on this visit reviewing previous notes, counseling the patient on the listed diagnoses, reviewing/ordering tests, adjusting medications, and documenting the findings in this note. Edu Leigh MD Capt, [address], [facility] Internal Medicine Staff Physician Extracted from:Title: 0055 IMCL f/u Imaging results Author: RAYMOND BLOUNT DO Date: 11/15/23 1. A bnormal imaging Patient is a 63 year old male presenting today to discuss imaging findings on CT, which demonstrated micronodules (12 mo f/u recommended), fatty infiltration of pancreas a nd emphysema findings (Patient with history of smoking). No complaints or symptoms. Exam largely unremarkable. Answered all questions. No further action at this time. Plan for 12 mo follow up. 2. A nxiety Patient notes anxiety on ROS, no SI/HI. Denies any desire to pursue BHOP or Rx for treatment at this time. Patient encouraged to return to clinic, present to UCC or ER for persistent worsening or development of other concerning symptoms. Patient cites understanding and agrees with plan of care. A total of 40 minutes was spent on this visit reviewing previous notes, counseling the patient on the listed diagnoses, reviewing/ordering tests, adjusting medications, and documenting the findings in this note. 3. N ight sweats Patient does note 3-4 weeks of intermittent/occasional night sweats and inquires about etiology. Discussed range of possibilities to include weather, infection, malignancy, etc. Patient without any other localizing symptoms. Screenings UTD Advised to monitor and if symptoms persist over next 2-3 months, will plan for further evaluation. Patient cites understanding and would like to pursue that plan. 4. E ssential (primary) hypertension Patient s blood pressure has been w ell-controlled w ith current medications and within patient s goal of: < 130/80mmHg. Patient d oes c heck blood pressures at home. Previous measures with good control, cites control at home. M ost recent renal panel demonstrates intact/stable renal function. Will CCM. Alphonse Blount DO, MEd [facility], , [facility] Internal Medicine, [place] Extracted from:Title: [id number] F2F 6 MONTH DM F/U Author: REHAN WELDON, Cinthia Date: 11/03/23 1. E ncounter for therapeutic drug level monitoring Patient presenting to [facility] for medication therapy management and disease state management. Advised to contact with any questions or concerns. Pt v/u. Total time with patient - 40 min Rehan Weldon, Cinthia Clinical Pharmacist [facility] [place] [place] Ordered: CBC w/ Diff Comprehensive Metabolic Panel Ferritin Hemoglobin A1c Iron Studies Lipid Panel Magnesium Level Microalbumin Panel, Urine Prostate Specific Antigen Retic Count Urinalysis with Microscopic and Culture if Indicated Vitamin B12 [id number] Vitamin D 25 Hydroxy Level 2. T ype 2 diabetes mellitus with unspecified complications A1c at goal of less than 7% at 6.8%. Previous A1c in Mar 2023 was 6.1%, M ay 2022 was 5.8%,?and Apr 2022 was 5.8%. Monitoring fasting BG every morning and rarely after dinner. No log/meter brought in today - instructed to bring to all appts. States AM running 120-140, highest recently was 167. PM running 110-118.?Denies any sugars below 70. Average BG for A1c of 6.8% = 148. SCr stable at 0.8, no extensive proteinuria, and liver enzymes WNL in Mar 2023. Educated about complications from uncontrolled DM/HTN/HLD. Educated about BG goals and when to monitor. Fasting and post prandial. Discussed diet/lifestyle modifications. Denies any n egative changes. Sometimes he is taking metformin after dinner, so he takes it with a snack like crackers. I nstructed to change snack prior to bedtime to protein only - not sugars/carbs. Has had a nnual diabetic eye exam. H as had a nnual diabetic foot exam with PCM team. Suffers from neuropathy - should check feet daily. States compliant with medications. Up to date on all other p reventative health screenings. Denies sx of hyperglycemia or hypoglycemia at this time. Tolerating medication. Discussed therapy options. Continue metformin 500 mg twice daily with meals. Follow-up in 6 months or sooner with any sugars below 70 or consistently above 150. Ordered: isopropyl alcohol topical(isopropyl alcohol 70% topical pad), See Instructions, Use as directed to check blood sugar daily, # 100 EA, 3 total refill(s), Maintenance, Supply, Use as directed to check blood sugar daily, Pharmacy: [facility] [Not filled] metFORMIN(metFORMIN 500 mg oral tablet), 1 tab(s), Oral, BID w/Meals, # 180 tab(s), 1 total refill(s), Maintenance, 1 tab(s) Oral BID w/Meals, Pharmacy: [facility] [Not filled] 3. E ssential (primary) hypertension BP at goal at 1 in clinic today. Educated about BP goal of less than 130/80. Monitoring 1-2x/week. No log/meter brought in today - instructed to bring to all appts. States running 120s/70s to low 80s. F/b cardiology Dr Sims every year. He had a treadmill stress test in Jan 2022 and it was normal. He had a carotid doppler in Jan 2022 that showed a little plaque build up. Denies CP/SOB/MAYEN/PENDLETON/BV/dizziness at this time. Sometimes u nsteady upon standing and gets tripped up on his feet. Educated to rise/bend slowly. Educated about possible orthostatic hypotension. C hecked in clinic today. Upon standing was 135/77. Suggested monitoring at home. Tolerating medication. Renal function intact. On appropriate NIKOLE-I in setting of DM. Continue lisinopril 2.5 mg daily. Monitor BP at least weekly, more often if running too low/too high. Educated how to properly monitor. Keep a log. Bring BP meter to clinic for comparison. Contact PharmD if BP is consistently above goal or running too low (<100/50s). Ordered: lisinopril(lisinopril 2.5 mg oral tablet), 1 tab(s), Oral, Daily, # 90 tab(s), 1 total refill(s), Maintenance, 1 tab(s) Oral Daily, Pharmacy: [facility] [Not filled] 4. H yperlipidemia, unspecified Repeat lipid panel in 2022 showed HDL below 40 and LDL at 109. All other values WNL. Estimated 10-year ASCVD risk is 23.1%. On appropriate high intensity statin. Tolerating medication. Denies myalgias. For now, continue Lipitor 40 mg daily. Will repeat fasting lipid panel in 6 months. If LDL still above 100, will discuss increasing to max dose. On aspirin 81 mg daily f or primary cardiac p revention. Cardiology wants him to continue it. He is low risk for bleeding. Denies any sx of bleeding (except for noted below) o r excessive bruising at this time. Ordered: atorvastatin(atorvastatin 40 mg oral tablet), 1 tab(s), Oral, Daily, # 90 tab(s), 1 total refill(s), Maintenance, 1 tab(s) Oral Daily, Pharmacy: [facility] [Not filled] 5. D ysuria This past Wednesday he had slight pink tinge to urine. In the mornings, sometimes having some burning upon urination. Drinking lots of water throughout the day, so increase in urination but this has been stable. Denies feeling the need to urinate despite having an empty bladder. H as had a UTI and kidney pain in the past. Denies any severe pain when he had the pink tinge. Denies flank pain, fever/chills, nausea, or vomiting. Instructed to go to lab for urinalysis. Will contact with results. 6. N icotine dependence in remission Quit smoking in 2013. [place] Or[place]. Instructed to schedule with radiology. Ordered: CT Low Dose Lung Screening 7. G ERD - Gastro-esophageal reflux disease Sx controlled on medication. Medication refilled. Ordered: omeprazole(omeprazole 40 mg oral delayed release capsule), 1 cap(s), Oral, Daily, # 90 cap(s), 1 total refill(s), Maintenance, 1 cap(s) Oral Daily, Pharmacy: [facility] [Not filled] 8. P ain in right hip joint Using medication as needed - refilled. Instructed to contact PCM if pain worsens. Ordered: diclofenac topical(Voltaren 1% topical gel), See instructions, PRN pain, Apply 2 grams (upper extremities) or 4 grams (lower extremities) to affected area topically four times daily as needed for pain. Max total body dose of 32 grams per day, # 100 g, 3 total refill(s), Maintenance, Apply 2 gram... 9. L brenna term (current) use of oral hypoglycemic drugs Scheduled Date/Time MAY 03, 2024 at 08:00 Appointment Type PHARM FTR Location [id number] Reason for visit F2F 6 MONTH DM F/U [phone] Extracted from:Title: 0055 [facility] Annual/Low Back Pain Author: RAYMOND BLOUNT, DO Date: 06/07/23 1. E ncounter for general adult medical examination without abnormal findings Patient is a [age] YearsMale w ith history of D MII, HTN and Low back pain p resenting today for annual exam. Discussed most recent labwork, medications and prev med as documented. Patient currently feels well, denies any acute complaints. Does note o ccasional flares of low back pain and lateral thigh numbness. (Discussed below). Otherwise, ROS unremarkable. Physical exam is unremarkable. Patient is due for the following Preventative Medicine services, for which, patient has been ordered or referred as noted: - Immunizations (Flu, COVID, RSV) - Diabetes-Specific Services (Ophthalmology) Otherwise, patient's screenings and vaccinations are UTD as documented. Patient with elevated ASCVD Risk 2/2 DMII. Based on ACC/AHA guidelines, would recommend that patient C ontinue [id number] intensity statin. P karin may follow up in 6-12 months for continued PCM care. A total of 40 minutes was spent on this visit reviewing previous notes, counseling the patient on the listed diagnoses, reviewing/ordering tests, adjusting medications, and documenting the findings in this note. 2. D egenerative disc disease 3. L ow back pain, unspecified History of DJD and occasional flares of LBP. Currently without pain or complaints. Exam unremarkable today. Requests refill of PRN baclofen and tramadol. Discussed risks and benefits of medications and refilled. Offered PT in addition, patient cites that he does not need it, has exercises and stretches at home. Also utilizing Lidoderm as needed. Patient encouraged to return to clinic, present to UCC or ER for persistent worsening or development of other concerning symptoms. Patient cites understanding and agrees with plan of care. 4. M eralgia paresthetica Notes months of bilateral lateral thigh numbness. Denies any progression, changes to symptoms or acute concerns. Notes onset after most recent Lumbar steroid injection. Etiology may be 2/2 injection complication vs belt tightness. Discussed recommended PT and wearing looser fitting belt. Cites understanding and agrees. 5. E ssential (primary) hypertension Patient s blood pressure has been w ell-controlled w ith current medications and within patient s goal of: < 130/80mmHg. Patient d oes c heck blood pressures at home. Previous measures with good control, cites control at home. M ost recent renal panel demonstrates intact/stable renal function. Will CCM. 6. L brenna term (current) use of oral hypoglycemic drugs 7. T ype 2 diabetes mellitus with unspecified complications Last A1c of 6.1, A t goal. Well controlled on current medications; patient is up-to-date on preventative medicine services (foot exam performed today, with minimal s igns of neuropathy). Appropriately on RAAS Inhibition. G oal A1c is: < 7.0% . To assist with glycemic control and cardiovascular risk, patient should exercise at least 150 min/week. P atient counseled extensively on reducing processed sugar and carbohydrates, to include information regarding healthy choices, opting for complex carbohydrates over simple carbohydrates. Patient will be due for A1c i n 6-12 M onths. Due to increased ASCVD risk, t o continue A SA 81 mg. Will CCM at this time. Patient encouraged to return to clinic, present to UCC or ER for d evelopment of other concerning symptoms. Patient cites understanding and agrees with plan of care. 8. H yperlipidemia, unspecified ASCVD as above, Patient to continue statin. Orders: baclofen(baclofen 10 mg oral tablet), 1 tab(s), Oral, TID, PRN muscle spasm, # 30 tab(s), 0 total refill(s), Maintenance, 1 tab(s) Oral TID,PRN:muscle spasm, Pharmacy: [facility] [Not filled] ferrous sulfate (iron sulfate)(ferrous sulfate 325 mg (65 mg elemental iron) oral tablet), 1 tab(s), Oral, every other day, # 30 tab(s), 0 total refill(s), Maintenance, 1 tab(s) Oral every other day, Pharmacy: [facility] [Not filled] RSV vaccine preF3, recombinant(RSV vaccine preF3, recombinant (Arexvy) preservative-free intramuscular injection), 0.5 mL, IntraMuscular, Injection, Vaccine, First Dose: 06/07/2023 08:43:00 [employer], 06/07/2023 08:43:00 [employer] traMADol(traMADol 50 mg oral tablet), 1 tab(s), Oral, Daily, PRN pain (severe), # 30 tab(s), 0 total refill(s), Acute, 06/07/2024, 1 tab(s) Oral Daily,PRN:pain (severe), Pharmacy: [facility] [Not filled] Alphonse Blount DO, MEd [facility], , [facility] Internal Medicine, [place] Extracted from:Title: [id number] F2F 6 MONTH DM F/U Author: REHAN WELDON, PharmD Date: 05/13/23 Mikayla geiger for therapeutic drug level monitoring Saw patient in clinic on 05/11/2023. A1c at goal of less than 7% at 6.1%. Previous A1c in October 2022 was 5.8%, N ov 2021 was 5.8%, and Jan 2022 was 5.7%. Monitoring fasting BG every morning. No log/meter brought in today - instructed to bring to all appts. States running around 120s, did have one high at 176. Denies any sugars below 70. Average BG for A1c of 6.1% = 128. SCr stable at 0.8, no extensive proteinuria, and liver enzymes WNL at this time. Educated about complications from uncontrolled DM/HTN/HLD. Educated about BG goals and when to monitor. Fasting and post prandial. Discussed diet/lifestyle modifications. Instructed to change snack prior to bedtime to protein only - not sugars/carbs. Due for a nnual diabetic eye exam (Apr 2022) - will place referral. D ue soon for a nnual diabetic foot exam with PCM team (May 2022) - scheduled. Suffers from neuropathy, worse at night especially with burning. F/b main mgt. States compliant with medications. Referred to A&I/community f or influenza and COVID. Up to date on preventative health screenings. Denies sx of hyperglycemia or hypoglycemia at this time. Tolerating medication. Discussed therapy options. Continue metformin 500 mg twice daily with meals. Follow-up in 6 months or sooner with any sugars below 70 or consistently above 150. Due for annual - scheduled for him. Advised to contact with any questions or concerns. Pt v/u. Total time with patient - 40 min Rehan Weldon, PharmD Clinical Pharmacist [facility] [place] Ordered: CBC w/ Diff Ferritin Hemoglobin A1c Iron and TIBC [id number] Lipid Panel Magnesium Level Prostate Specific Antigen Retic Count Vitamin B12 [id number] 2. T ype 2 diabetes mellitus with unspecified complications Ordered: Referral Request 2.0 3. E ssential (primary) hypertension BP at goal at 1 in clinic today. Educated about BP goal of less than 130/80. Monitoring 1x/week. No log/meter brought in today - instructed to bring to all appts. States SBP never above 130. DBP running 72-76 usually, rare up to 82. F/b cardiology Dr Sims every year. He had a treadmill stress test in Jan 2022 and it was normal. He had a carotid doppler in Jan 2022 that showed a little plaque build up. Denies CP/SOB/MAYEN/PENDLETON/BV/dizziness at this time. Sometimes experiences orthostatic hypotension if he gets up too quickly. Educated to rise/bend slowly. Tolerating medication. Renal function intact. On appropriate NIKOLE-I in setting of DM. Continue lisinopril 2.5 mg daily. Monitor BP at least weekly, more often if running too low/too high. Educated how to properly monitor. Keep a log. Bring BP meter to clinic for comparison. Contact PharmD if BP is consistently above goal or running too low (<100/50s). 4. H yperlipidemia, unspecified Repeat fasting lipid panel in October 2022 showed all values WNL, but HDL below 40. Estimated 10-year ASCVD risk is 17.4%. On appropriate high intensity statin. On aspirin for primary prevention therapy. Cardiology wants him to continue it. He is low risk for bleeding. Denies any sx of bleeding or excessive bruising at this time. Tolerating medications. Denies myalgias. Continue aspirin 81 mg daily and Lipitor 40 mg daily. 5. V itamin D deficiency, unspecified Vitamin D level WNL at 48 at this time. Continue vitamin D3 1,000 units daily. 6. I leroy deficiency anemia, unspecified Previously in October 2022, repeat CBC showed no anemia, but ferritin level was low and iron level was high. Discussed with PCM at that time. PCM changed ferrous sulfate from 325 mg daily to 325 mg every other day. Patient was suppose to repeat blood work, but it wasn't completed. Instructed to complete fasting labs prior to annual appt with PCM. Of note, is on PPI. May need to add OTC vitamin C 500 mg with iron supplement to aid in absorption. 7. E eduardo, unspecified Sometimes having bilateral edema from shins down. PCM assessed at last annual appt and pulses were good. Discussed reaching out to PCM and/or cardiology if this worsens to ensure no cardiac/pulmonary issues. Discussed may be referred to vascular surgeon/specialist to ensure no PVD etc. Suggested wearing compression socks. Instructed to discuss at upcoming annual appt. 8. L brenna term (current) use of oral hypoglycemic drugs Raymond Blount DO Scheduled Date/Time JUN 07, 2023 at 08:00 Appointment Type FTR Location 0055C-- Reason for visit F2F ANNUAL APPT + DIABETIC FOOT EXAM [phone] Future Scheduled TestsLaboratoryCreatinine Level 06/13/24 11/01/2024 Unknown Organization Functional Status Combined list of recent functional and cognitive assessments recorded at [facility] [employer] [facility] Functional [place] Measurement (FIM) Scale: 1 = Total Assistance (Subject = 0% +), 2 = Maximal Assistance (Subject = 25% +), 3 = Moderate Assistance (Subject = 50% +), 4 = Minimal Assistance (Subject = 75% +), 5 = Supervision, 6 = Modified [place] (Device), 7 = Complete [place] (Timely, Safely). Assessment Date/Time Source Assessment Type Assessment Skill Assessment Score Assessment Details No data available for this section
--- OUTSIDE RECORDS SUMMARY | 2024-11-01 15:24 | XMS_ITS | Encounter Summary ---
Author Organization [facility] Address [facility] [place] [address] Care Team Providers Care Risk And Insurance Manager Name Role Phone Tamara Delacruz MD Unavailable [phone] Alejandrina Rabago DO Primary Care Provider [phone] Dell Zhang DO Primary Care Provid er Lei Blount DO Primary Care Provider [phone] Encounter Details Date Type Department Care Team (Late st Contact Info) Description 07/15/2020 Prep for Procedure [facility] [place] [address] Halley Orr MD [facility] [address] [place] [address] Social History Tobacco Use Types Packs/Day [...] often do you attend chur ch or episcopal services? More than 4 times per year 02/11/2020 Do you belong to any clubs o r organizations such as restorationist groups, unions, fraternal or athletic groups, or [...] and heating? 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 No / Unsure 06/19/2020 6:48 AM SR. MEDIA MANAGER documented as of this encounter Functional Status * RETIRED Are you deaf or do you have serious difficulty hearing Answer Date of Assessment Author Status No 05/16/2020 8:55 PM SR. MEDIA MANAGER Activ e * RETIRED Are you blind or do you have serious difficulty seeing, even when wearing glasses? Answer Date of Assessment Author Status No 05/16/2020 8:55 PM SR. MEDIA MANAGER Activ e * Do you have serious difficulty walking or climbing stairs? Answer Date of Assessment Author Status No 05/16/2020 8:55 PM SR. MEDIA MANAGER Earnest Allen se, RN Active * Do [...] No 05/16/2020 8:55 PM Earnest Gill se RN Active documented in this encounter Plan of Treatment Upcoming Encounters Date Type Department Care Team (Late st Contact Info) Description 01/18/2025 10:00 AM CDT Office Visit [facility] THREE [facility], [address] [place] [address] Marjorie Bird APRN Three [facility] [address] [place] [address] documented as of this encounter Visit Diagnoses Not on filedocumented in this encounter Additional Health Concerns Infection Onset Date Last Indicated Resolved Time COVID-19 Confirmed 05/16/2020 05/16/2020 12:34 AM SR. MEDIA MANAGER COVID-19 Rule Out 08/30/2020 08/30/2020 08/30/2020 10:15 AM SR. MEDIA MANAGER COVID-19 Rule Out 11/26/2020 11/26/2020 11/27/2020 7:35 AM CDT COVID-19 Rule Out 08/23/2022 08/23/2022 08/23/2022 3:07 PM SR. MEDIA MANAGER documented as of this encounter Care Teams Risk And Insurance Manager Relationship Specialty Start Date End Date Alejandrina Rabago DO [address] [place] [address] PCP - General INTERNAL MEDICINE 10/18/19 06/27/22 Dell Zhang DO 3 [facility] [address] [place] [address] PCP - General INTERNAL MEDICINE 06/28/22 12/25/22 Lei Blount DO 3 [facility] [address] [place] [id number] PCP - General INTERNAL MEDICINE 12/26/22 Tamara Delacruz MD Three [facility]. [facility] [address] [place] [address] Blake Manager Managed Backup Services CARDIOVASCULAR DISEASE 11/27/15 documented as of this encounter
[2024-11-01 15:31] VITALS: BP 149/73; PULSE 74; RESP 16; TEMP 36.5; O2SAT 97
--- NOTE | 2024-11-01 16:16 | ED_ITS ---
HPI - Wound/Laceration General Chief Complaint: Wound/Laceration <Yeni Aviles PA-C - Last Filed: 11/03/24 09:35> Stated Complaint: Laceration left middle finger <Yeni Aviles PA-C - Last Filed: 11/03/24 09:35> Time Seen by Provider: 11/01/24 16:16 <Yeni Aviles PA-C - Last Filed: 11/03/24 09:35> Focused HPI: This is a 64 year old male that presents to the ER for a laceration to the left hand. Reports he cut is while using a powerhouse attendant trying to clean out his pool filter. Reports bleeding and pain to the area. He is not up to date on tetanus vaccination. GENERAL: Well-appearing, well-nourished, and in no acute distress. HEAD: Normocephalic, atraumatic. CHEST: No respiratory distress. HEART: Regular rate EXTREMITIES: Left third finger palmar surface with 1.5cm flap laceration into subcutaneous tissue NEURO: ?Alert and oriented x3. Patient screened in triage and initial orders placed.? ?Additional care and disposition to be based upon?diagnostic testing and treatment. 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 Normal sensation but has pain to finger. <Luma Mina MD - Last Filed: 11/01/24 20:50> Related Data Home Medications: Home Medications ?Medication ?Instructions ?Recorded ?Confirmed ?Last Taken ?Type amitriptyline 25 mg tablet 25 mg DAILY 02/11/20 02/11/20 Unknown History atorvastatin 40 mg tablet 40 mg DAILY 02/11/20 02/11/20 Unknown History metformin 500 mg tablet 500 mg BID 02/11/20 02/11/20 Unknown History omeprazole 40 mg capsule,delayed 40 mg DAILY 02/11/20 02/11/20 Unknown History release pregabalin 150 mg capsule 150 mg DAILY 02/11/20 02/11/20 Unknown History <CORNELL Paez Last Filed: 11/03/24 09:35> Allergies/Adverse Reactions: Allergies Allergy/AdvReac Type Severity Reaction Status Date / Time atropine AdvReac Unknown UNKNOWN- Verified 11/01/24 15:17 A TEENAGER belladonna alkaloids AdvReac Unknown UNKNOWN- Verified 11/01/24 15:17 A TEENAGER <Yeni Aviles PA-C - Last Filed: 11/03/24 09:35> Review of Systems Review of Systems: All systems reviewed & are unremarkable except as noted in HPI and below <Luma Mina MD - Last Filed: 11/01/24 20:50> PMFSH Family History Family History: Family History Mother Family history of lung cancer Father Family history of primary malignant neoplasm of liver Other Hypertension <Yeni Aviles PA-C - Last Filed: 11/03/24 09:35> Social History Social History: Social History Smoking status: Former smoker Smoking end date: 06/28/12 Alcohol intake: current Gender identity (if verbalized by the patient): Male <Yeni Aviles PA-C - Last Filed: 11/03/24 09:35> Exam Narrative: EXAMINATION OF ORGAN SYSTEMS/BODY AREAS: Constitutional: Vital signs per nursing GENERAL:[No acute distress, non-toxic appearing.] HEAD: Normal with no signs of head trauma. EYES: EOMI, conjunctiva normal ENT: Hearing grossly intact LUNGS: Nonlabored breathing. HEART: [Regular rate and rhythm], good cap refill to fingertips ABD: [Soft], [nontender to palpation] EXT: Normal range of motion SKIN: Superficial linear lac 0.5 cm side of L 3rd digit; slightly deeper 1cm linear lac across NEURO: [Alert and oriented x 3. No gross focal sensory or strength deficits.] PSYCH: Normal affect <Luma Mina MD - Last Filed: 11/01/24 20:50> Course Vital Signs Vital signs: Vital Signs Temperature 97.7 F 11/01/24 15:31 Pulse Rate 74 11/01/24 15:31 Respiratory Rate 16 11/01/24 15:31 Blood Pressure 149/73 H 11/01/24 15:31 Pulse Oximetry 97 11/01/24 15:31 Oxygen Delivery Room Air 11/01/24 15:31 Temperature 97.7 F 11/01/24 15:31 Pulse Rate 71 11/01/24 18:00 Respiratory Rate 18 11/01/24 18:00 Blood Pressure 146/72 H 11/01/24 18:00 Pulse Oximetry 97 11/01/24 18:00 Oxygen Delivery Room Air 11/01/24 15:31 <Yeni Aviles PA-C - Last Filed: 11/03/24 09:35> Vital Signs Temperature 97.7 F 11/01/24 15:31 Pulse Rate 74 11/01/24 15:31 Respiratory Rate 16 11/01/24 15:31 Blood Pressure 149/73 H 11/01/24 15:31 Pulse Oximetry 97 11/01/24 15:31 Oxygen Delivery Room Air 11/01/24 15:31 Temperature 97.7 F 11/01/24 15:31 Pulse Rate 71 11/01/24 18:00 Respiratory Rate 18 11/01/24 18:00 Blood Pressure 146/72 H 11/01/24 18:00 Pulse Oximetry 97 11/01/24 18:00 Oxygen Delivery Room Air 11/01/24 15:31 <Luma Mina MD - Last Filed: 11/01/24 20:50> MDM - Wound/Laceration MDM Narrative Medical decision making narrative: 64M p/w 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 Thankfully glanced off digit leaving linear lacs rather than directly into digit. Normal cap refill, pulse Ox 96% (same or higher than other digits). Normal movement; no crepitus. No significant swelling of finger. X-ray obtained without signs of air deep in the digit. I did also call hand surgery at Dr. Nemo Forrester, to discuss dishwasher preparer injury, he agrees that if this does not seem like an injection injury (no significant pain or swelling or anything foreign in the wound), can treat like laceration with close follow-up. Given the likely contamination of the wound, despite thorough irrigation here, I did not feel it would be safe to close the small flap laceration; Steri-Strips applied to approximate the wound and dressing placed. He is provided follow-up information and prescription for antibiotics with 1 dose here. Return precautions discussed. Patient agreeable to this plan <Luma Mina MD - Last Filed: 11/01/24 20:50> Imaging Data Radiologist's impression: ITS Impressions Finger X-Ray 11/01/24 19:56 IMPRESSION: Air within the soft tissues, without acute fracture. <Yeni Aviles PA-C - Last Filed: 11/03/24 09:35> Critical Care Time Critical Care Time Critical Care Time: No <Yeni Aviles PA-C - Last Filed: 11/03/24 09:35> Discharge Plan Discharge Clinical Impression: Finger injury Qualifiers: Encounter type: initial encounter Laterality: left Qualified Code(s): S69.92XA - Unspecified injury of left wrist, hand and finger(s), initial encounter <Yeni Aviles PA-C - Last Filed: 11/03/24 09:35> Patient Disposition: Home <CORNELL Paez Last Filed: 11/03/24 09:35> Condition: Stable <Yeni Aviles PA-C - Last Filed: 11/03/24 09:35> Instructions: Laceration (ED) <Yeni Aviles PA-C - Last Filed: 11/03/24 09:35> Additional Instructions: Please keep the wound clean and follow up with your doctor in the next 2-3 days to make sure it is healing well. You can always return to the ER for any further issues. <Yeni Aviles PA-C - Last Filed: 11/03/24 09:35> Patient Language: Hebrew <Yeni Aviles PA-C - Last Filed: 11/03/24 09:35> Prescriptions: New cephalexin 500 mg capsule 500 mg PO Q6H 7 Days Qty: 28 0RF No Action amitriptyline 25 mg tablet 25 mg DAILY atorvastatin 40 mg tablet 40 mg DAILY metformin 500 mg tablet 500 mg BID omeprazole 40 mg capsule,delayed release(DR/EC) 40 mg DAILY pregabalin 150 mg capsule 150 mg DAILY <Yeni Aviles PA-C - Last Filed: 11/03/24 09:35> Follow-up/Referrals: UNKNOWN,DOCTOR [Primary Care Provider] - <CORNELL Paez Last Filed: 11/03/24 09:35>
[2024-11-01 18:00] VITALS: BP 146/72; PULSE 71; RESP 18; O2SAT 97
[2024-11-01] MEDS: TETANUS,DIPHTHERIA,AC PERTUSSIS ADULT (0.5 ML) BOOSTRIX IM (19:20)
--- OUTSIDE RECORDS SUMMARY | 2024-11-01 20:03 | XMS_ITS | Clinical Summary ---
Author Organization [facility] Address [address], [facility] [address] [place] [address] Phone Care Team Providers Care Boiler Out Name Role Phone Provider, Unknown Primary Care [...] (CENTRUM SILVER PO) Take by mouth. Active [place]-3 Fatty Acids (FISH OIL PO) Take by [...] on file Legal Sex Male 9:55 AM WOOD ENGRAVER Gender Identity Not on file Sexual Orientation Not on file Last Filed Vital Signs Vital Sign Reading Time Taken Comments Blood Pressure 110/70 08/25/2018 1:31 PM WOOD ENGRAVER Pulse 92 08/25/2018 1:31 PM WOOD ENGRAVER Temperature - - Respiratory Rate - - Oxygen Saturation 97% 08/25/2018 1:31 PM WOOD ENGRAVER Inhaled Oxygen Concentration - - Weight 84.5 kg (186 lb 3.2 oz) 08/25/2018 1:31 P M WOOD ENGRAVER Height 172.7 cm (5' 8 ) 08/25/2018 1:31 PM WOOD ENGRAVER Body Mass Index 28.31 08/25/2018 1:31 PM WOOD ENGRAVER Plan of Treatment Health Maintenance Due Date [...] Most Recently Relevant to Health Maintenance Insurance [facility] Care Teams Boiler Out Relationship Specialty Start Date End Date Provider, Unknown UNKNOWN PCP - General 07/05/18
--- OUTSIDE RECORDS SUMMARY | 2024-11-01 20:03 | XMS_ITS | Clinical Summary ---
Author Organization [facility] Address [address] [place] [address] Care Team Providers Care Drop Press Hand Name Role Phone Unknown, Notinfile Primary Care [...] problems Surgical History Surgery Date Site/Laterality Comments [place] VASECTOMY UNI/BI SPX W/PO STOP SEMEN EXAMS [...] on file Legal Sex Male 7:45 AM DIAMOND SETTER Gender Identity Not on file Sexual Orientation [...] Final Result from Last 3 Months Insurance [facility] CLAIM[facility] Advance Directives For more information, please contact: [phone] * Full Code (Latest Code Status on File) Date Activated Date Inactivated Comments 10/07/2018 9:22 AM 10/07/2018 4:01 PM Care Teams Drop Press Hand Relationship Specialty Start Date End Date Unknown, Benfcynthia PCP - General 04/15/21
--- OUTSIDE RECORDS SUMMARY | 2024-11-01 20:03 | XMS_ITS | Encounter Summary ---
Author Organization [facility] Address [address] [place] [address] Care Team Providers Care Mine Motor Operator Name Role Phone Tamara Delacruz MD Unavailable [phone] Alejandrina Rabago DO Primary Care Provider [phone] Dell Zhang DO Primary Care Provid er Lei Blount DO Primary Care Provider [phone] Encounter Details Date Type Department Care Team (Late st Contact Info) Description 12/30/2021 [facility] [address] [address] Jefferson Preston [place] Social History [...] often do you attend chur ch or scientology services? 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 Answer Date of Assessment Author Status No 09/02/2020 5:09 PM MERCHANDISING INTERN Activ e * Do you have serious [...] Date Author Status No 09/02/2020 5:09 PM MERCHANDISING INTERN Pacheco, Jen K , RN Active documented in this encounter Plan of Treatment Upcoming Encounters Date Type Department Care Team (Late st Contact Info) Description 01/18/2025 10:00 AM CDT Office Visit [facility] THREE [facility] [address], [address] [place] [address] MalenafideMarkoMarjorie Del, WELDER GAS [address] [place] [address] documented as of this encounter Goals Goal [...] LABORATORY Final Result * MAGNESIUM (06/01/2023) Pathologist [facility] MAGNESIUM 1.9 Default History Genericprovider LABORATORY Final Result * CBC, MANUAL DIFF (06/01/2023) Pathologist [facility] WBC 3.8 HGB 16.2 HCT 48 PLT 180 Default History Genericprovider LABORATORY Final Result * COMPREHENSIVE METABOLIC PANEL (04/21/2023) Pathologist [facility] SODIUM S/P/B 142 GLUCOSE 109 mg/dL AST 24 BUN 8 CREATININE S/P/B 0.80 0.7 - 1.3 CALCIUM S/P/B 9.2 POTASSIUM S/P/B 4.1 CHLORIDE S/P/B 107 ALT 55 GFR ESTIMATE 99 Default History Genericprovider LABORATORY Final Result * LIPID PANEL (04/23/2021) Pathologist [facility] CHOLESTEROL 159 HDL 36 TRIGLYCERIDES 140 LDL (CALCULATED) 109 04/23/2021 Doc [facility] Abstract LABORATORY Final Result * COMPREHENSIVE METABOLIC PANEL (12/22/2020) Pathologist [facility] SODIUM S/P/B Comment:error,deleted Default History Genericprovider LABORATORY Edited Result - Final * CBC, MANUAL DIFF (12/22/2020) Pathologist [facility] WBC Comment:error,deleted us Default History Genericprovider LABORATORY Edited Result - Final documented in this encounter Visit Diagnoses Not on filedocumented in this encounter Additional Health Concerns Infection Onset Date Last Indicated Resolved Time COVID-19 Rule Out 08/23/2022 08/23/2022 08/23/2022 3:07 PM MERCHANDISING INTERN Assessment Noted Time PHQ-9 Depression Total Score: 0 01/08/20 21 8:51 AM CDT documented as of this encounter Care Teams Mine Motor Operator Relationship Specialty Start Date End Date GemAlejandrina Narciso DO [address] [address] PCP - General INTERNAL MEDICINE 10/18/19 06/27/22 Dell Zhang, DO 3 [facility] [address] [place], [place] [id number] PCP - General INTERNAL MEDICINE 06/28/22 12/25/22 Lei Blount DO 3 [facility] [address] [place] [id number] PCP - General INTERNAL MEDICINE 12/26/22 Tamara Delacruz MD Three [facility]. [address] [place], [place] [address] [place] Intellectual Property Legal Assistant CARDIOVASCULAR DISEASE 11/27/15 documented as of this encounter
--- OUTSIDE RECORDS SUMMARY | 2024-11-01 20:03 | XMS_ITS | Encounter Summary ---
Author Organization [facility] Address [address] [place] [address] Care Team Providers Care Field Marketing Manager Name Role Phone Tamara Delacruz MD Unavailable [phone] Louisa Allison MD Primary Care Provider [phone] Heaven Slaughter MD Primary Care Provider [phone] Alejandrina Rabago DO Primary Care Provider Dell Zhang DO Primary Care Provid er Lei Blount DO Primary Care Provider [phone] Encounter Details Date Type Department Care Team (Late st Contact Info) Description 03/09/2017 Abstract [facility] [address] [address] Jefferson Preston [place] Social History Tobacco Use [...] 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 [place], [place] [id number] documented as of this encounter Procedures Procedure [...] Final Result * HEMOGLOBIN, GLYCOSYLATED (12/09/2016) Pathologist [facility] HGB A1C 6.1 12/09/2016 us Doc [facility] [...] Rule Out 05/16/2020 05/16/2020 05/17/2020 11:59 AM SENIOR MERCHANDISER COVID-19 Confirmed 05/16/2020 05/16/2020 12:34 AM SENIOR MERCHANDISER COVID-19 Rule Out 08/30/2020 08/30/2020 08/30/2020 10:15 AM SENIOR MERCHANDISER COVID-19 Rule Out 11/26/2020 11/26/2020 11/27/2020 7:35 AM CDT COVID-19 Rule Out 08/23/2022 08/23/2022 08/23/2022 3:07 PM SENIOR MERCHANDISER documented as of this encounter Care Teams Field Marketing Manager Relationship Specialty Start Date End Date Louisa Allison MD [facility] [address] [place] [address] PCP - General 02/09/17 07/20/18 Heaven Slaughter MD [facility] [address] [place] [address] PCP - General INTERNAL MEDICINE 07/21/18 10/17/19 Alejandrina Rabago DO [address] [address] PCP - General INTERNAL MEDICINE 10/18/19 06/27/22 Dell Zhang DO [address] [place] [address] [address] [address] [place], [place] [address] PCP - General INTERNAL MEDICINE 06/28/22 12/25/22 Lei Blount DO 3 [facility] [address] [place] [id number] PCP - General INTERNAL MEDICINE 12/26/22 Tamara Delacruz MD Three [facility]. [address] [place] [address] Ovid Plant Breeder CARDIOVASCULAR DISEASE 11/27/15 documented as of this encounter
--- OUTSIDE RECORDS SUMMARY | 2024-11-01 20:03 | XMS_ITS | Encounter Summary ---
Author Organization [facility] Address [address] [place] [address] Care Team Providers Care Tracer Powder Blender Name Role Phone Tamara Delacruz MD Unavailable [phone] Ute Donaldson ANP- Unavailable [phone] Goldie Hartley MD Primary Care Provider Unavailable Louisa Allison MD Primary Care Provider [phone] Heaven Slaughter MD Primary Care Provider [phone] Alejandrina Rabago DO Primary Care Provider [phone] Dell Zhang DO Primary Care Provid er Lei Blount DO Primary Care Provider [phone] Encounter Details Date Type Department Care Team (Late st Contact Info) Description 03/04/2016 Abstract [facility] [address] [place] [phone] Scanned, Documents Social History Tobacco Use [...] 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 [place], [place] [phone] documented as of this encounter Visit Diagnoses Not on filedocumented in this encounter Additional Health Concerns Infection Onset Date Last Indicated Resolved Time COVID-19 Rule Out 05/16/2020 05/16/2020 05/17/2020 11:59 AM KEY PERSON COVID-19 Confirmed 05/16/2020 05/16/2020 12:34 AM KEY PERSON COVID-19 Rule Out 08/30/2020 08/30/2020 08/30/2020 10:15 AM KEY PERSON COVID-19 Rule Out 11/26/2020 11/26/2020 11/27/2020 7:35 AM CDT COVID-19 Rule Out 08/23/2022 08/23/2022 08/23/2022 3:07 PM KEY PERSON documented as of this encounter Care Teams Tracer Powder Blender Relationship Specialty Start Date End Date Goldie Hartley MD PCP - General 12/12/15 02/08/17 Louisa Allison MD PCP - General 02/09/17 07/20/18 Heaven Slaughter MD PCP - General INTERNAL MEDICINE 07/21/18 10/17/19 Alejandrina Rabago DO [address] [address] PCP - General INTERNAL MEDICINE 10/18/19 06/27/22 Dell Zhang, DO 3 [facility] [address] [place] [address] PCP - General INTERNAL MEDICINE 06/28/22 12/25/22 Lei Blount DO 3 [facility] [address] [place] [id number] PCP - General INTERNAL MEDICINE 12/26/22 Tamara Delacruz MD Three [facility]. [facility] [address] [place] [address] [place] Costume Technician CARDIOVASCULAR DISEASE 11/27/15 Ute Donaldson [facility]- 3 [facility], [facility] [address] [place], [place] [id number] Nurse Practitioner NURSE PRACTITIONER 02/27/16 02/21/17 documented as of this encounter
--- OUTSIDE RECORDS SUMMARY | 2024-11-01 20:03 | XMS_ITS | Clinical Summary ---
Author Organization [facility] Address [address] [place] [address] Care Team Providers Care Manager Of Broadcast Content Name Role Phone Tamara Delacruz MD Unavailable [phone] Lei Blount DO Primary Care Provider [phone] Allergies Active Allergy Reactions Criticality Noted Date [...] 01/01/2022 S/P colostomy takedown 09/07/2020 Pancreatitis, acute ([facility]) 05/17/2020 Pancreatitis ([facility]) 05/16/2020 Fever 03/12/2020 Sepsis ([facility]) 02/11/2020 Acute diverticulitis 01/03/2020 Diverticulitis 01/03/2020 Knee pain, right 03/21/2015 Swelling of lower extremity 03/21/2015 GERD (gastroesophageal reflux disease) 0 Nonrheumatic mitral (valve) insufficiency Essential hypertension Hyperlipidemia, mixed Resolved Problems Problem Noted Date Diagnosed Date Resolved Date History of diverticulitis 09/02/[address] ([facility]) 09/02/2020 09/07/2020 Encounter for preventive health examination [...] CABG Maternal Grandfather Heart Attack Maternal Grandfather [place] Maternal Grandmother Cause of de ath Cancer [...] often do you attend chur ch or worship services? 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 [address] [place], [place] [address] Health Maintenance Due Date Last Done Comments [...] West RN Medical Devices Implanted Type Area Composite Bond Worker Device Identifier Shelf Expiration Date Model / Serial / Lot Mesh Ventralight St Echo Sadler 4.5 - [id number] Implanted:Qty: 1 on 03/28/2021 by Andrew Johnson MD at [facility] Mesh Left: Abdomen [employer] - [employer] [id number] 09/22/2022 [id number] / / [id number] Hardware=Cervi zita Description:Titanium plate a nd screws Urolift - [id number] Implanted:Qty: 4 on 11/28/2020 by Alex Cartwright MD at [facility] N/A: Prostate [employer] [id number] 09/16/2022 [id number] / / [id number] Procedures Procedure Name Priority Date/Time Associated Diagnosis [...] Most Recently Relevant to Health Maintenance Insurance [facility] Address: [id number] [place] [address] Advance Directives Documents on File Type Date Recorded Patient Test Preparer Expl anation Advance Directives and Living Will 09/03/2020 2:35 PM 09/02/2020 POA FOR [facility] * Full Code (Latest Code [...] 7:49 PM 03/14/2020 7:06 PM Care Teams Manager Of Broadcast Content Relationship Specialty Start Date End Date Lei Blount DO [address] [facility] [address] [place] [id number] PCP - General INTERNAL MEDICINE 12/26/22 Tamara Delacruz MD [facility]. [address] [place] [address] [place] Property Coordinator CARDIOVASCULAR DISEASE 11/27/15
--- OUTSIDE RECORDS SUMMARY | 2024-11-01 20:03 | XMS_ITS | Referral Summary ---
Author Organization [facility] Address [address] [place] [address] Care Team Providers Care Form Grader Operator Name Role Phone Unknown, Notinfile Primary [...] on file Legal Sex Male 7:45 AM SYSTEMS DEVELOPMENT CONSULTANT Gender Identity Not on file Sexual Orientation [...] Final Result from Last 3 Months Insurance [facility] CLAIMS MERGED WITH [facility] Advance Directives For more information, please contact: [phone] * Full Code (Latest Code Status on File) Date Activated Date Inactivated Comments 10/07/2018 9:22 AM 10/07/2018 4:01 PM Care Teams Form Grader Operator Relationship Specialty Start Date End Date Unknown, Notinfile PCP - General 04/15/21
--- OUTSIDE RECORDS SUMMARY | 2024-11-01 20:04 | XMS_ITS | Continuity of Care Document ---
Author Name [facility] Organization [facility] Care Team Providers Care Team Cdl Driver Name Role Phone [facility] Unavailable Unavailable Problems Combined list of problems from Department of Defense and Veterans Affairs facilities. It does not include entries that were removed or entered in error. Problem Status Onset Date Problem Type Date of Resolution Comments Source Headache Active 09/09/19 25 Diagnosis 0055A-37 [facility] Blurred vision Active 09/09/19 25 Diagnosis 5A-37 [facility] Dizziness Active 09/07/19 25 Diagnosis 5C-37 [facility] ACUTE PANCREATITIS DUE TO GALLSTONES Inactive 08/07/19 12 Condition DoD PANCREATITIS Inactive 04/24/20 11 Condition DoD Type 2 diabetes mellitus with unspecified complications Active Condition DoD PREDIABETES (IMPAIRED GLUCOSE TOLERANCE) Active Condition DoD FIBROMYALGIA Active Condition DoD RHINOSINUSITIS Inactive Condition DoD cough Active Condition DoD FATIGUE Active Condition DoD VIRAL SYNDROME Inactive Condition DoD DERMATOPHYTOSIS TINEA CORPORIS Active Condition DoD Overweight Active Condition - [facility]th [facility] SPINAL STENOSIS CERVICAL Active Condition DoD Preventive [...] back pain. Follow-up appt on Mar 04. 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 PFTs and chest xray ordered. DoD SUPERFICIAL INJURY - ABRASION OF CORNEA Inactive Condition meds as below, rtc if eye pain, visual changes or discharge occurs. DoD Allergic rhinitis Active Condition 0055 C-37 [facility] Astigmatism Active Condition [facility] Cervical radiculopathy Active Condition [facility] Type 2 diabetes mellitus with unspecified complications Active Condition 5th [facility] Cyst of kidney Active Condition -3 7 [facility] Degenerative disc disease Active Condition 5th [facility] Degenerative disorder of macula Active Condition 5[facility] Diplopia Active Condition 5th [facility] Diverticulitis Active Condition 3 7 [facility]th [facility] Encounter for therapeutic drug level monitoring Active Condition 5th [facility] Edema, unspecified Active Condition 5th [facility] Emphysema of lung Active Condition 54 5th [facility] Enlarged prostate Active Condition 54 5th [facility] Essential (primary) hypertension Active Condition [facility] GERD - Gastro-esophageal reflux disease Active Condition [facility] H/O: colostomy Active Condition 3 7 [facility] Heart murmur Active Condition [facility] History of asbestos exposure Active Condition [facility] History of kidney stone Active Condition [facility] Personal history of COVID-19 Active Condition [facility] Hyperlipidemia, unspecified Active Condition [facility] Hypermetropia Active Condition [facility] Insomnia Active Condition [facility] Iron deficiency anemia, unspecified Active Condition [facility] 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 [facility] Low back pain, unspecified Active Condition [facility] Lumbar radiculopathy Active Condition 0 [facility]th [facility] Mitral valve regurgitation Active Condition [facility] Nerve root disorder Active Condition 00 [facility]th [facility] Neuropathy Active Condition 5[facility] Nicotine dependence in remission Active Condition [facility] Nodule of lung Active Condition 7 [facility] Onychomycosis Active Condition [facility] Pain in right hip joint Active Condition [facility] Presbyopia Active Condition [facility] Prolapsed cervical intervertebral disc1 Active Condition Outside Source Comment: s/p ACDF for cervical HNP [facility] Right shoulder pain Active Condition [facility] Sleep apnea Active Condition [facility] Spinal stenosis in cervical region Active Condition [facility] Steatosis of liver [facility] Tinea corporis Active Condition [facility] Vitamin D deficiency, unspecified Active Condition [facility] Medications Combined list of outpatient medications from Department of Defense and Veterans Affairs facilities.Medications provided include 1) outpatient medications from the last 15 months, and 2) patient-reported medications. Medication Details Route Status Patient Instructions Prescription Expires Prescription Number Last Dispense Date Ordering Provider Order Date Order Qty Source Alcohol Antiseptic (Alcohol Swabs Eq.) Pads 70% Topical For external use. Active 11/02/2024 [id number] 4 [address] [place] [address] Shaka [facility] ASPIRIN EC (U/D) 81 MG ORAL TBEC Take with food/mil k.Swallo w whole. 05/10/2024 [id number] 3 [address] [place] [address] Shaka [facility]) Diclofenac Sodium 0.01mg/mg, Gel/Jelly, Topical Avoid exposure to sun.For external use.Do not take if . Active 11/02/2024 [id number] 4 [address] [place] [address] Sahka [facility]) ferrous sulf (U/D) 65MG (325MG) ORAL TAB May discolor urine/fe kathrin.Chec k with your doctor before becoming .Do not chew or crush. 09/27/2024 [id number] 4 [address] [place] [address]) FLONASE-OTC (BRAND) 50 MCG ANNITA SPSN [9.9] Take or use exactly as directed .For the nose. 05/10/2024 [id number] 3 [address] [place] [address]) GLUCOPHAGE (BRAND) 500 MG ORAL TAB Do not drink alcohol. Take with food/mil k.Take or use exactly as directed .Obtain advice for OTCs.Bertha ck with your doctor before becoming . Active 11/02/2024 [id number] 4 [address] [place] [address]) GLUCOPHAGE (BRAND) 500 MG ORAL TAB Do not drink alcohol. Take with food/mil k.Take or use exactly as directed .Obtain advice for OTCs.Bertha ck with your doctor before becoming . 05/10/2024 [id number] 3 [address] [place] [address]) Omeprazole (Prilosec Eq.) Capsule Conventiona l 40 mg Oral Take or use exactly as directed .Obtain advice for OTCs.Swa llow whole. 05/10/2024 [id number] 3 [address] [place] [address]) PREGABALIN (U/D) 150 MG ORAL CAP Do not drink alcohol. May cause drowsine ss/dizzi ness.May impair driving. Check with your doctor before becoming . 05/01/2024 [id number] 4 [address] [place] [address]) PREGABALIN (U/D) 150 MG ORAL CAP Do not drink alcohol. May cause drowsine ss/dizzi ness.May impair driving. Check with your doctor before becoming . 11/07/2023 [id number] 3 [address] [place] [address]) Allergies, Adverse Reactions, Alerts Combined list of allergies from Department of Defense and Veterans Affairs facilities. It does not include entries that were removed or entered in error. Substance Category Reaction Severity Reaction type Status Date Reported Comments Source ATROPINE Drug allergy (disorder) Unknown active 9 [place] [facility] [place] [address] atropine Drug allergy Unknown Unknown Active Reaction( s): Unknown<b r/>was 16 y/o at time of reaction - cannot remember reaction 0055C-375t [facility] BELLADONNA Drug allergy (disorder) Unknown active 9 [place] [address] BELLADONNA ALKALOIDS Drug allergy (disorder) active 3 [facility] Shaka [facility]) belladonna alkaloids Drug allergy Unknown Mild Active was 16 y/o at time of reaction - cannot remember reaction 0055C-375t h [facility] Immunizations Combined list of available immunizations from the Department of Defense and Veterans Affairs facilities. Immunization Series Date Given Administered By Site Reaction Lot Number CVX Code Drug Proofer Status Comments Source RSV vaccine, preF A-preF B, recombinant 2022 ETHANJPOCKLIN GTON Shoul ajdiel, right (delt oid) [id number] [employer] complet ed RSV vaccine, preF A-preF B, recombina nt 06/08/23 Given 0055C-3 [facility] [place] influenza virus vaccine, inactivated 2022 ETHANJPOCKLIN GTON Shoul jadiel, right (delt oid) [id number] [employer], [employer] complet ed influenza virus vaccine, inactivat ed 06/08/23 Given 0055C-3 [facility] [place] COVID Vaccine Moderna 2020 zzLef t Arm [id number] complet ed COVID Vaccine Moderna 05/13/21 [...] free 10 2020 Unknown, Provider [id number] [employer] (SKKirstin) complet ed Influenza , injectabl e, quadrival ent, preservat sara free DoD zoster vaccine recombinant 1 2020 Unknown, Provider [id number] [employer] (MARCUS) complet ed zoster vaccine recombina nt DoD SARS-COV-2 (COVID-19) vaccine, mRNA, spike protein, LNP, preservative free, 100 mcg or 50 mcg dose 3 2020 Unknown, Provider [id number] 207 Moderna BioMax[employer] Inc. (MOD) complet ed SARS-COV- 2 (COVID-19 ) vaccine, mRNA, spike protein, LNP, preservat sara free, 100 mcg or 50 mcg dose DoD zoster vaccine, inactivated 2020 zzLef t Arm [id number] [facility] zoster vaccine, inactivat ed 01/29/21 Given Ambulat ory Pharmac y pneumococcal polysaccharid e, 23 valent 2020 zzLef t Arm [id number] [employer] complet ed pneumococ zita polysacch aride, 23 valent 01/29/21 Given Ambulat ory Pharmac y tetanus-dipht h toxoids (Td) adult/adol 2020 zzPaola ht Arm [id number] sanofi pasteur complet ed tetanus-d iphth toxoids (Td) adult/ado l 01/29/21 Given Ambulat ory Pharmac y tetanus and diphtheria toxoids, adsorbed, preservative free, for adult use (2 Lf of tetanus toxoid and 2 Lf of diphtheria toxoid) 4 2020 Unknown, Provider [id number] Sanofi Pasteur ([facility]) complet ed tetanus and diphtheri a toxoids, adsorbed, preservat sara free, for adult use (2 Lf of tetanus toxoid and 2 Lf of diphtheri a toxoid) DoD pneumococcal polysaccharid e vaccine, 23 valent 1 2020 Unknown, Provider [id number] Merck (MSD) complet ed pneumococ zita polysacch aride vaccine, 23 valent DoD zoster vaccine recombinant 1 2020 Unknown, Provider [id number] [place] ([place] complet ed zoster vaccine recombina nt DoD COVID Vaccine Moderna 2020 zzLef t Arm [id number] complet ed COVID Vaccine Moderna 09/23/20 Given Ambulat ory Pharmac y SARS-COV-2 (COVID-19) vaccine, mRNA, spike protein, LNP, preservative free, 100 mcg or 50 mcg dose 2 2020 Unknown, Provider [id number] 207 Moderna BioMax, Inc. (MOD) complet ed SARS-COV- 2 (COVID-19 ) vaccine, mRNA, spike protein, LNP, preservat sara free, 100 mcg or 50 mcg dose DoD COVID Vaccine Moderna 2020 zzLef t Arm [id number] complet ed COVID Vaccine Moderna 08/26/20 Given Ambulat ory Pharmac y SARS-COV-2 (COVID-19) vaccine, mRNA, spike protein, LNP, preservative free, 100 mcg or 50 mcg dose 1 2020 Unknown, Provider [id number] 207 Moderna BioMax, Inc. (MOD) complet ed SARS-COV- 2 (COVID-19 [...] sara free DoD influenza, seasonal, injectable [facility] [id number] sanofi pasteur complet ed influenza , seasonal, injectabl e 1/28/14 Given Ambulat ory Pharmac y Influenza, seasonal, injectable 10 2013 Unknown, Provider [id number] 141 Sanofi Pasteur ([facility]) complet ed Influenza , seasonal, injectabl e DoD influenza, seasonal, injectable 2011 [facility] Arm [id number] 141 sanofi pasteur complet ed influenza , seasonal, injectabl e 03/28/12 Given Ambulat ory Pharmac y Influenza, seasonal, injectable 9 2011 Unknown, Provider [id number] 141 Sanofi Pasteur ([facility]) complet ed Influenza , seasonal, injectabl e DoD influenza virus vaccine,split 2009 [facility] Arm [id number] 15 CSL Behring complet ed influenza virus vaccine,s plit 05/15/10 Given Ambulat ory Pharmac y influenza virus vaccine, split virus (incl. purified surface antigen)-reti red CODE 1 2009 Unknown, Provider [id number] 15 CS [employer]Rx [employer] (CSL) complet ed influenza virus vaccine, split virus (incl. purified surface antigen)- retired CODE DoD influenza virus vaccine,split 2006 [facility] Arm [id number] 15 GlaxoSmithKli ne complet ed influenza virus vaccine,s plit 05/27/07 Given Ambulat ory Pharmac y tuberculin purified protein derivative 2006 [facility] Arm [id number] sanofi pasteur complet ed Patient Tolerance : Negative Ambulat ory Pharmac y influenza virus vaccine, split virus (incl. purified surface antigen)-reti red CODE 1 2006 Unknown, Provider [id number] 15 [employer] (SKB) complet ed influenza virus vaccine, split virus (incl. purified surface antigen)- retired CODE [facility] tuberculin skin test; purified protein derivative solution, intradermal 1 2006 Unknown, Provider [id number] 96 Sanofi Pasteur ([facility]) complet ed tuberculi n skin test; purified protein derivativ e solution, intraderm al [facility] tetanus, diphtheria, acellular pertu is 2005 [facility] Arm [id number] sanofi pasteur complet ed tetanus, diphtheri a, acellular pertussis 11/26/05 Given Ambulat ory Pharmac y tetanus toxoid, reduced diphtheria toxoid, and acellular pertu is vaccine, adsorbed 1 2005 Unknown, Provider [id number] 115 Sanofi Pasteur ([facility]) complet ed tetanus toxoid, reduced diphtheri a toxoid, and acellular pertussis vaccine, adsorbed DoD tuberculin purified protein derivative 2004 [id number] sanofi pasteur complet ed tuberculi n purified protein derivativ e 07/02/04 Given Ambulat ory Pharmac y influenza virus vaccine, whole virus 2002 zzLef t Arm [id number] 16 Novartis Pharmaceutica ls complet ed influenza virus vaccine, whole virus 04/20/03 Given Ambulat ory Pharmac y influenza virus vaccine, whole virus 1 2002 Unknown, Provider [id number] 16 [employer] (PWJ) complet ed influenza virus vaccine, whole virus DoD hepatitis B adult vaccine 2001 zzLef t Arm [id number] Merck & Turbo-Trac USA Inc complet ed hepatitis B adult vaccine 08/16/01 Given Ambulat ory Pharmac y hepatitis B vaccine, adult dosage 3 2001 Unknown, Provider [id number] Merck (MSD) complet ed hepatitis B vaccine, adult dosage DoD influenza virus vaccine, whole virus 2000 zzLef t Arm [id number] 16 sanofi pasteur complet ed influenza virus vaccine, whole virus 04/18/01 Given Ambulat ory Pharmac y influenza virus vaccine, whole virus 5 2000 Unknown, Provider [id number] 16 Sanofi Pasteur ([facility]) complet ed influenza virus vaccine, whole virus DoD typhoid vaccine, inactivated [facility] [id number] sanofi pasteur complet ed typhoid vaccine, inactivat ed 09/06/00 Given Ambulat ory Pharmac y typhoid vaccine, parenteral, other than acetone-kille d, dried 2 2000 Unknown, Provider [id number] Sanofi Pasteur ([facility]) complet ed typhoid vaccine, parentera l, other than acetone-k illed, dried DoD influenza virus vaccine, whole virus [facility] [id number] 16 sanofi pasteur complet ed influenza virus vaccine, whole virus 06/29/00 Given Ambulat ory Pharmac y anthrax vaccine 2000 zShirleyef t Arm [id number] 24 [employer] complet ed anthrax vaccine 06/29/00 Given Ambulat ory Pharmac y tuberculin purified protein derivative 2000 zzLef t Arm [id number] 96 Unknown complet ed Patient Tolerance : Negative Ambulat ory Pharmac y influenza virus vaccine, whole virus 4 2000 Unknown, Provider [id number] Sanofi Pasteur ([facility]) complet ed influenza virus vaccine, whole virus DoD anthrax vaccine 3 2000 Unknown, Provider [id number] 24 [employer] ([facility]) complet ed anthrax vaccine DoD tuberculin skin test; purified protein derivative solution, intradermal 5 2000 Unknown, Provider [id number] Other (OT) complet ed tuberculi n skin test; purified protein derivativ e solution, intraderm al DoD anthrax vaccine 1999 zzLef t Arm 24 [employer] complet ed anthrax vaccine 02/17/00 Given Ambulat ory Pharmac y anthrax vaccine 2 1999 Unknown, Provider 24 [employer] [place] ([facility]) complet ed anthrax vaccine DoD anthrax vaccine 1999 zzLef t Arm [id number] [employer] complet ed anthrax vaccine 01/13/00 Given Ambulat ory Pharmac y anthrax vaccine 1 1999 Unknown, Provider [id number] [employer] [place] ([facility]) complet ed anthrax vaccine DoD tuberculin purified protein derivative 1999 [id number] 96 [employer] complet ed Patient Tolerance : Negative Ambulat ory Pharmac y tuberculin skin test; purified protein derivative solution, intradermal 4 1999 Unknown, Provider [id number] 96 [facility] tuberculi n skin test; purified protein derivativ e solution, intraderm al DoD influenza virus vaccine, whole virus 1998 [id number] 16 [employer] complet ed influenza virus vaccine, whole virus 05/02/99 Given Ambulat ory Pharmac y influenza virus vaccine, whole virus 3 1998 Unknown, Provider [id number] 16 [place] (CON) complet ed influenza virus vaccine, whole virus DoD tuberculin purified protein derivative 1998 [id number] 96 [facility] Patient Tolerance : Negative Ambulat ory Pharmac y tuberculin skin test; purified protein derivative solution, intradermal 3 1998 Unknown, Provider [id number] [place] (CON) complet ed tuberculi n skin test; purified protein derivativ e solution, intraderm al DoD typhoid vaccine, inactivated 1998 [id number] [facility] typhoid vaccine, inactivat ed 10/21/98 Given Ambulat ory Pharmac y tuberculin purified protein derivative 1998 [id number] 96 [facility] complet ed tuberculi n purified protein derivativ e 10/21/98 Given Ambulat ory Pharmac y hepatitis B adult vaccine 1998 [id number] 43 GlaxoSmithKli ne complet ed hepatitis B adult vaccine 10/21/98 Given Ambulat ory Pharmac y typhoid vaccine, parenteral, other than acetone-kille d, dried 1 1998 Unknown, Provider [id number] 41 [facility] ed typhoid vaccine, parentera l, other than acetone-k illed, dried DoD hepatitis B vaccine, adult dosage 2 1998 Unknown, Provider [id number] 43 [employer] ([facility]) complet ed hepatitis B vaccine, adult dosage DoD hepatitis B adult vaccine 1997 [id number] 43 GlaxoSmithKli ne complet ed hepatitis B adult vaccine 04/22/98 Given Ambulat ory Pharmac y influenza virus vaccine, whole virus 1997 16 complet ed influenza virus vaccine, whole virus 04/22/98 Given Ambulat ory Pharmac y meningococcal polysaccharid e (MPSV4) [id number] [facility] complet ed meningoco ccal polysacch aride (MPSV4) 04/22/98 Given Ambulat ory Pharmac y influenza virus vaccine, whole virus 2 1997 Unknown, Provider 16 () complet ed influenza virus vaccine, whole virus DoD meningococcal polysaccharid e vaccine (MPSV4) 1 1997 Unknown, Provider [id number] [facility] complet ed meningoco ccal polysacch aride vaccine (MPSV4) DoD hepatitis B vaccine, adult dosage 1 1997 Unknown, Provider [id number] 43 [employer] (SKKirstin) complet ed hepatitis B vaccine, adult dosage [...] DoD typhoid, parenteral, AKD 1995 [id number] GlaxoSmUIEvolutionKli ne complet ed typhoid, parentera l, AKD [...] ) 1 1995 Unknown, Provider [id number] [facility] ed typhoid vaccine, parentera l, acetone-k illed, dried ([place] ) [facility] tetanus-dipht h toxoids (Td) adult/adol 1994 [...] and 2 Lf of diphtheri a toxoid) [facility] tetanus-dipht h toxoids (Td) adult/adol 1994 [...] diphtheri a toxoid) DoD yellow fever vaccine [id number] [facility] yellow fever vaccine 06/26/94 Given Ambulat ory Pharmac y yellow fever vaccine 2 1993 Unknown, Provider [id number] complet ed yellow fever vaccine DoD [...] High Blood Cholesterol : >/= 240 mg/dL 0055A-3 [facility] Chemistry Chol/HDL 4 mg/dL 09/06 0055A-3 [facility] Chemistry LDL 99 mg/dL 100 - 130 09/06 L Interpretiv e Data: AGES 0-19: Desirable: < 110 mg/dL Borderline High: 110-129 mg/dL High: >/= 130 mg/dL ADULTS: Desirable: <100 mg/dL Near/above optimal: 100-130 mg/dL Borderline High: 131-159 mg/dL High: 160-189 mg/dL Very High: 190 mg/dL [address] [place] [address] Chemistry HDL Cholesterol 36 mg/dL 40 - 59 09/06 L Interpretiv e Data: HDL (HIGH DENSITY LIPOPROTEIN ): ADULTS: Low: < 40 mg/dL High: >/= 60 mg/dL AGES 0 -19: Low: < 40 mg/dL Borderline Low: 40 - 45 mg/dL Acceptable: > 45 mg/dL [address] [place] [address] Chemistry LDL/HDL 3 09/[address] [place] [address] Chemistry Triglycerid es 137 mg/dL 7 - 149 09/06 N Interpretiv e Data: AGES 0-9: Desirable: < 75 mg/dL Borderline High: 75-99 mg/dL High: >/= 100 mg/dL AGES 10-19: Desirable: < 90 mg/dL Borderline High: 90-129 mg/dL High: >/= 130 mg/dL ADULTS: Desirable: < 150 mg/dL Borderline High: 150-199 mg/dL High: >/= 240 mg/dL Very High: >/= 500 mg/dL [address] [place] [address] Chemistry AGAP 9.00 0.00 - 15.00 09/06 N -[address] [place] [address] Chemistry Alk Phos 82 U/L 40 - 150 09/06 N -[address] [place] [address] Chemistry Albumin 3.80 g/dL 3.50 - 5.20 09/06 N -[address] [place] [address] Chemistry ALT 105 U/L 5 - 55 09/06 H -[address] [place] [address] Chemistry AST 48 U/L 5 - 34 09/06 H -[address] [place] [address] Chemistry Bilirubin Total 0.5 mg/dL 0.2 - 1.2 09/06 N -[address] [place] [address] Chemistry BUN 9 mg/dL 8 - 26 09/06 N -[address] [place] [address] Chemistry BUN/Creat Ratio 13 mg/dL 12 - 20 09/06 N -[address] [place] [address] Chemistry Chloride 109 mmol/L 98 - 107 09/[address] [place] [address] Chemistry Calcium 9.3 mg/dL 8.4 - 10.2 09/06 N 0055A-[address] [place] [address] Chemistry Creatinine Level 0.70 mg/dL 0.72 - 1.25 09/06 L 5A-[address] [place] [address] Chemistry CO2 23 mmol/L 22 - 29 09/06 N 0055A-[address] [place] [address] Chemistry Glucose Lvl 148 mg/dL 74 - 99 09/06 H 5A-[address] [place] [address] Chemistry Sodium 141 mmol/L 136 - 145 09/06 N 0055A-[address] [place] [address] Chemistry Potassium Lvl 3.9 mmol/L 3.5 - 5.1 09/06 N 0055A-[address] [place] [address] Chemistry Protein Total 6.9 g/dL 6.4 - 8.3 09/06 N 0055A-[address] [place] [address] Hematolog y Platelets 207.0 x10^3/mc L 150.0 - 450.0103 09/06 N 0055A-[address] [place] [address] Hematolog y MPV 10.3 fL 7.4 - 10.4 09/06 N 0055A-[address] [place] [address] Hematolog y RBC 5.2 x10^6/mc L 4.0 - 5.6106 09/06 N 0055A-[address] [place] [address] Hematolog y Hematocrit 47 % 40 - 49 09/06 N 0055A-[address] [place] [place] [address] Hematolog y WBC 4.4 x10^3/mc L 4.0 - 11.0103 09/06 N 0055A-[address] [place] [address] Hematolog y Hemoglobin 16.1 g/dL 13.0 - 16.3 09/06 N 0055A-[address] [place] [address] Hematolog y RDW 12.4 % 11.0 - 14.9 09/06 N 0055A-[address] [place] [address] Hematolog y MCV 90 fL 80 - 97 09/06 N 0055A-[address] [place] [address] Hematolog y MCH 31 pg 28 - 33 09/06 N 0055A-[address] [place] [address] Hematolog y MCHC 34.1 g/dL 33.0 - 36.5 09/06 N 0055A-[address] [place] [address] Chemistry Hemoglobin A1c 6.4 % 4.0 - [...] patient and ordering Hemoglobin Electrophor esis. -[address] [place] [address] Chemistry eAvg Glucose 137 mg/dL 09/06-[address] [place] [address] Chemistry eGFR CKD EPI 103 mL/min/1 .73_m2 [...] 15-29 Severe decrease <15 Kidney failure 0055A-[address] [place] [address]- [facility] Hemat[facility] y Eosinophil % Auto 1 % 0 - 5 09/06 N 0055A-[address] [place] [address]- [place] Hematolog y Lymph Absolute 1.6 x10^3/mc L 1.2 - 4.0103 09/06 N 0055A-[address] [place] [address] Hematolog y Lymphocyte % Auto 35.7 % 20.0 - 40.0 09/06 N 0055A-[address] [place] [address] Hematolog y Monocyte % Auto 10 % 1 - 12 09/06 N 0055A-[address] [place] [address] Hematolog y Labette Absolute 0.5 x10^3/mc L 0.2 - 0.8103 09/06 N 0055A-[address] [place] [address]- [place] Hematolog y Neutrophil % Auto 52.7 % 46.0 - 77.0 09/06 N 0055A-[address] [place] [address]- [place] Hematolog y Neutro Absolute 2.3 x10^3/mc L 2.0 - 7.0103 09/06 N 0055A-[address] [place] [address]- [place] Hematolog y Baso Absolute 0.0 x10^3/mc L 0.0 - 0.1103 09/06 N 0055A-3 [facility] [place] Hematolog y Eos Absolute 0.0 x10^3/mc L 0.0 - 0.7103 09/06 N 0055A-[address] [place] [address]- [place] Hematolog y Basophil % Auto 0.4 % 0.0 - 2.5 09/06 N 0055A-[address] [place] [address] Chemistry eGFR CKD EPI 99 mL/min/1 .73_m2 [...] Automated differentia l verified by slide screen. 0055A-[address] [place] [address]- [place] Hematolog y Neutro Absolute 6.0 x10^3/mc L 2.0 - 7.0103 04/26 N 0055A-[address] [place] [address]- [place] Hematolog y Monocyte % Auto 5 % 1 - 12 04/26 N 0055A-[address] [place] [address]- [place] Hematolog y Labette Absolute 0.4 x10^3/mc L 0.2 - 0.8103 04/26 N 0055A-[address] [place] [address]- [place] Hematolog y Lymph Absolute 0.7 x10^3/mc L 1.2 - 4.0103 04/26 L 5A-[address] [place] [address]- [place] Hematolog y Lymphocyte % Auto 9.8 % 20.0 - 40.0 04/26 L 0055A-[address] [place] [address]- [place] Hematolog y Eosinophil % Auto 0 % 0 - 5 04/26 N 0055A-[address] [place] [address]- [place] Hematolog y Eos Absolute 0.0 x10^3/mc L 0.0 - 0.7103 04/26 N 0055A-[address] [place] [address]- [place] Hematolog y Basophil % Auto 0.1 % 0.0 - 2.5 04/26 N 0055A-[address] [place] [address]- [place] Hematolog y Baso Absolute 0.0 x10^3/mc L 0.0 - 0.1103 04/26 N 0055A-[address] [place] [address] Chemistry Transferrin Sat 25 % 14 - [...] fL 80 - 97 04/26 N 0055A-[address] [place] [address] Hematolog y MCHC 34.5 g/dL 33.0 - 36.5 04/26 N 0055A-[address] [place] [address] Hematolog y MCH 30 pg 28 - 33 04/26 N 0055A-[address] [place] [address] Hematolog y WBC 7.2 x10^3/mc L 4.0 - 11.0103 04/26 N 0055A-[address] [place] [address] Hematolog y RDW 12.3 % 11.0 - 14.9 04/26 N 0055A-[address] [place] [address] Hematolog y RBC 5.3 x10^6/mc L 4.0 - 5.6106 04/26 N 0055A-[address] [place] [address] Hematolog y Platelets 237.0 x10^3/mc L 150.0 - 450.0103 04/26 N 0055A-[address] [place] [address] Hematolog y MPV 10.0 fL 7.4 - 10.4 04/26 N 0055A-[address] [place] [address] Hematolog y Hemoglobin 16.2 g/dL 13.0 - 16.3 04/26 N 0055A-[address] [place] [address] Hematolog y Hematocrit 47 % 40 - 49 04/26 N 0055A-[address] [place] [address] Hematolog y Differentia l? Auto+Mor ph *ABN* ( 4 9:05 AM) 04/26 A 5A-[address] [place] [address] Chemistry eAvg Glucose 128 mg/dL 04/26 0055A-[address] [place] [address] Chemistry Hemoglobin A1c 6.1 % 4.0 - [...] the patient and ordering Hemoglobin Electrophor esis. [facility] Chemistry Chol/HDL 5 mg/dL 04/[address] [place] [address] [place] Chemistry Cholesterol Total 200 mg/dL 04/26 N Interpretiv e Data: According to the [place] [employer] : AGES 0-19: Desirable: < 170 mg/dL Borderline High: 170-199 mg/dL High Blood Cholesterol : >/= 200 mg/dL ADULTS: Desirable < 200 mg/dL Borderline High: 200-239 mg/dL High Blood Cholesterol : >/= 240 mg/dL [address] [place] [address] [facility] Chemistry LDL 168 mg/dL 100 - 130 04/26 H Interpretiv e Data: AGES 0-19: Desirable: < 110 mg/dL Borderline High: 110-129 mg/dL High: >/= 130 mg/dL ADULTS: Desirable: <100 mg/dL Near/above optimal: 100-130 mg/dL Borderline High: 131-159 mg/dL High: 160-189 mg/dL Very High: 190 mg/dL [address] [place] [address] [facility] Chemistry HDL Cholesterol 39 mg/dL 40 - 59 04/26 L Interpretiv e Data: HDL (HIGH DENSITY LIPOPROTEIN ): ADULTS: Low: < 40 mg/dL High: >/= 60 mg/dL AGES 0 -19: Low: < 40 mg/dL Borderline Low: 40 - 45 mg/dL Acceptable: > 45 mg/dL [address] [place] [address] [facility] Chemistry LDL/HDL 4 04/[address] [place] [address] [facility] Chemistry Triglycerid es 110 mg/dL 7 - 149 04/26 N Interpretiv e Data: AGES 0-9: Desirable: < 75 mg/dL Borderline High: 75-99 mg/dL High: >/= 100 mg/dL AGES 10-19: Desirable: < 90 mg/dL Borderline High: 90-129 mg/dL High: >/= 130 mg/dL ADULTS: Desirable: < 150 mg/dL Borderline High: 150-199 mg/dL High: >/= 240 mg/dL Very High: >/= 500 mg/dL -[address] [place] [address] Chemistry Magnesium Lvl 2.0 mg/dL 1.6 - 2.6 04/26 N -[address] [place] [address] Hematolog y Reticulocyt e % 1.54 % 0.50 - 1.81 04/26 N - [address] [place] [address] Hematolog y Retic, Abs 0.082 x10^6/mc L 0.026 - 0.391871 04/26 N - [address] [place] [address] Hematolog y Retic Hemoglobin Equivalent 31.3 pg 28.2 - 36.6 04/26 N - [address] [place] [address] Chemistry Vit B12 Lvl.LC 706 pg/mL 232 - 1245 04/26 Result Comment: Performed At: [address] [id number] Mei Leigh PhD Ph:[phone] 00 - [address] [place] [address] Chemistry Ur Creat 122 mg/dL 04/26-[address] [place] [address] Chemistry Ur Microalb/Ur Creat Ratio 5 mg/gCr 04/26 N - [address] [place] [address] Chemistry Ur Microalbumi n 6 mg/L 04/26 N Interpretiv e Data: To minimize intra-indiv idual variation, analysis of three random urine samples collected over the course of a week has also been recommended . [address] [place] [address] Chemistry Ferritin Lvl 33.50 ng/mL 30.00 - 400.00 04/26 N Interpretiv e Data: METHODOLOGY : Testing performed by electrochem iluminescen t immunoassay (ECLIA). 5600A-U [facility] EPILAB Chemistry PSA Total 0.62 ng/mL 0.05 - 5.40 04/26 N Interpretiv e Data: This assay shows no biotin interferenc e in samples with biotin concentrati ons up to 1200 ng/mL. [id number]-A [id number]-ASU-5 9th [facility] Chemistry Potassium Lvl 4.0 mmol/L 3.5 - 5.1 04/26 N -[address] [place] [address] Chemistry Glucose Lvl 115 mg/dL 74 - 99 04/26 H -[address] [place] [address] Chemistry Sodium 140 mmol/L 136 - 145 04/26 N 5A-[address] [place] [address] Chemistry Protein Total 6.7 g/dL 6.4 - 8.3 04/26 N 5A-[address] [place] [address] Chemistry BUN 11 mg/dL 8 - 26 04/26 N -[address] [place] [address] Chemistry Bilirubin Total 0.6 mg/dL 0.2 - 1.2 04/26 N -[address] [place] [address] Chemistry BUN/Creat Ratio 14 mg/dL 12 - 20 04/26 N -[address] [place] [address] Chemistry Chloride 110 mmol/L 98 - 107 04/[address] [place] [address] Chemistry Calcium 9.4 mg/dL 8.4 - 10.2 04/26 N -[address] [place] [address] Chemistry CO2 19 mmol/L 22 - 29 04/26 L -[address] [place] [address] Chemistry Creatinine Level 0.80 mg/dL 0.72 - 1.25 04/26 N -[address] [place] [address] Chemistry AGAP 11.00 0.00 - 15.00 04/26 N -[address] [place] [address] Chemistry Albumin 3.60 g/dL 3.50 - 5.20 04/26 N -[address] [place] [address] Chemistry ALT 72 U/L 5 - 55 04/26 H -[address] [place] [address] Chemistry Alk Phos 89 U/L 40 - 150 04/26 N 5A-[address] [place] [address] Chemistry AST 21 U/L 5 - 34 04/26 N -[address] [place] [address] Chemistry Vitamin D 25 OH 28.1 ng/mL [...] n, and other findings. Testing performed by [facility]. [id number]-U [facility] EPILAB Urinalysi s UA WBC TNP 11/02 [facility] [place] Urinalysi s UA Spec Emery 1.015 1.001 - 1.035 11/02 N - [facility] [place] Urinalysi s UA Urobilinoge n 1.0 E.U./dL 0.2 - 1.0.. 11/02 N - [facility] [place] Urinalysi s UA Clarity Clear *NA* (11/03/23 8:47 AM) 11/02- [address] [place] [address]- [place] Urinalysi s UA Glucose 500 mg/dL 11/02 A -[address] [place] [address]- [place] Urinalysi s UA Leuk Esterase Negative (11/03/23 8:47 AM) 11/02 N -[address] [place] [address]- [place] Urinalysi s UA Color Yellow *NA* (11/03/23 8:47 AM) 11/02-[address] [place] [address]- [place] Urinalysi s UA Ketones Negative mg/dL 11/02 N 5A-[address] [place] [address]- [place] Urinalysi s UA pH 6.0 *NA* (11/03/23 8:47 AM) 5 - 8 11/02-3 [facility] [place] Urinalysi s UA Nitrite Negative (11/03/23 8:47 AM) 11/02 N 5A-3 [facility] [place] Urinalysi s UA RBC TNP 11/02-3 [facility] [place] Urinalysi s UA Blood Negative (11/03/23 8:47 AM) 11/02 N 5A-3 [facility] [place] Urinalysi s UA Protein Negative mg/dL 11/02 N -[address] [place] [address] Urinalysi s UA Bili Negative (11/03/23 8:47 AM) 11/02 N - [address] [place] [address] Chemistry eAvg Glucose 148 mg/dL 10/27- [address] [place] [address] Chemistry Hemoglobin A1c 6.8 % 4.0 - [...] the patient and ordering Hemoglobin Electrophor esis. [address] [place] [address] Chemistry UIBC LC 178 ug/dL 06/[address] [place] [address] Chemistry TIBC LC 337 ug/dL 06/[address] [place] [address] Chemistry Iron Sat LC 47 % 06/01 Result Comment: Performed At: [address] [id number] Mei Leigh PhD Ph:[phone] [address] [place] [address] Iron Lvl.LC 159 ug/dL 06/01- [address] [place] [address] Chemistry PSA Total 0.30 ng/mL 0.05 - 5.40 06/01 N Interpretiv e Data: This assay shows no biotin interferenc e in samples with biotin concentrati ons up to 1200 ng/mL. [id number]-A F-ASU-5 9th [facility] land Hematolog y RBC 5.3 x10^6/mc L 4.0 - 5.6106 06/01 N 0055A-3 [facility] [place] Hematolog y Retic Hemoglobin Equivalent 33.0 pg 28.2 - 36.6 06/01 N 0055A-3 [facility] [place] Hematolog y Reticulocyt e % 1.88 % 0.50 - 1.81 06/01 H 0055A-3 [facility] [place] Hematolog y Retic, Abs 0.099 x10^6/mc L 0.026 - 0.232773 06/01 H 0055A-3 [facility] [place] Hematolog y Hematocrit 48 % 40 - 49 06/01 N 0055A-3 [facility] [place] Hematolog y Differentia l? Auto (06/01/23 8:52 AM) 06/01 N 0055A-3 [facility] [place] Hematolog y MCH 31 pg 28 - 33 06/01 N 0055A-3 [facility] [place] Hematolog y Hemoglobin 16.2 g/dL 13.0 - 16.3 06/01 N 0055A-3 [facility] [place] Hematolog y MCHC 33.8 g/dL 33.0 - 36.5 06/01 N 0055A-3 [facility] [place] Hematolog y MPV 10.4 fL 7.4 - 10.4 06/01 N 0055A-3 [facility] [place] Hematolog y MCV 90 fL 80 - 97 06/01 N 0055A-3 [facility] [place] Hematolog y Platelets 180.0 x10^3/mc L 150.0 - 450.0103 06/01 N 0055A-3 [facility] [place] Hematolog y RBC 5.3 x10^6/mc L 4.0 - 5.6106 06/01 N 0055A-3 [facility] [place] Hematolog y WBC 3.8 x10^3/mc L 4.0 - 11.0103 06/01 L 0055A-3 [facility] [place] Hematolog y RDW 12.3 % 11.0 - 14.9 06/01 N 0055A-3 [facility] [place] Chemistry Ferritin Lvl 49.90 ng/mL 30.00 - 400.00 06/01 N Interpretiv e Data: METHODOLOGY : Testing performed by electrochem iluminescen t immunoassay (ECLIA). [id number]-U [facility] [employer] Chemistry Magnesium Lvl 1.9 mg/dL 1.6 - 2.6 06/01 N - [address] [place] [address] Chemistry Triglycerid es 152 mg/dL 7 - 149 06/01 H Interpretiv e Data: AGES 0-9: Desirable: < 75 mg/dL Borderline High: 75-99 mg/dL High: >/= 100 mg/dL AGES 10-19: Desirable: < 90 mg/dL Borderline High: 90-129 mg/dL High: >/= 130 mg/dL ADULTS: Desirable: < 150 mg/dL Borderline High: 150-199 mg/dL High: >/= 240 mg/dL Very High: >/= 500 mg/dL [address] [place] [address] Chemistry LDL/HDL 3 06/01- [address] [place] [address] Chemistry Chol/HDL 5 mg/dL 06/[address] [place] [address] Chemistry Cholesterol Total 155 mg/dL 06/01 N Interpretiv e Data: According to the [place] [employer] : AGES 0-19: Desirable: < 170 mg/dL Borderline High: 170-199 mg/dL High Blood Cholesterol : >/= 200 mg/dL ADULTS: Desirable < 200 mg/dL Borderline High: 200-239 mg/dL High Blood Cholesterol : >/= 240 mg/dL [address] [place] [address] Chemistry HDL Cholesterol 32 mg/dL 40 - 59 06/01 L Interpretiv e Data: HDL (HIGH DENSITY LIPOPROTEIN ): ADULTS: Low: < 40 mg/dL High: >/= 60 mg/dL AGES 0 -19: Low: < 40 mg/dL Borderline Low: 40 - 45 mg/dL Acceptable: > 45 mg/dL [address] [place] [address] Chemistry LDL 109 mg/dL 100 - 130 06/01 N Interpretiv e Data: AGES 0-19: Desirable: < 110 mg/dL Borderline High: 110-129 mg/dL High: >/= 130 mg/dL ADULTS: Desirable: <100 mg/dL Near/above optimal: 100-130 mg/dL Borderline High: 131-159 mg/dL High: 160-189 mg/dL Very High: 190 mg/dL -[address] [place] [address] Chemistry Vit B12 Lvl.LC 573 pg/mL 06/01 Result Comment: Performed At: [address] [id number] Mei Leigh PhD Ph:[phone] 00 -3 [facility] [place] Hematolog y Lymphocyte % Auto 37.3 % 20.0 - 40.0 06/01 N 005-3 [facility] [place] Hematolog y Eosinophil % Auto 1 % 0 - 5 06/01 N 005-3 [facility] [place] Hematolog y Eos Absolute 0.0 x10^3/mc L 0.0 - 0.7103 06/01 N 005-3 [facility] [place] Hematolog y Basophil % Auto 0.8 % 0.0 - 2.5 06/01 N -[address] [place], [place] [address]GRP- [place] Hematolog y Baso Absolute 0.0 x10^3/mc L 0.0 - 0.1103 06/01 N -3 [facility] [place] Hematolog y Neutrophil % Auto 49.2 % 46.0 - 77.0 06/01 N -3 [facility] [place] Hematolog y Neutro Absolute 1.9 x10^3/mc L 2.0 - 7.0103 06/01 L 5A-[address] [place] [address] [place] Hematolog y Monocyte % Auto 11 % 1 - 12 06/01 N 005-3 [facility] Labette Absolute 0.4 x10^3/mc L 0.2 - 0.8103 06/01 N 0055A-3 [facility] [place] Hematolog y Lymph Absolute 1.4 x10^3/mc L 1.2 - 4.0103 06/01 N 0055A-[address] [place] [address] Chemistry Hemoglobin A1c 6.1 % 4.0 - [...] patient and ordering Hemoglobin Electrophor esis. -[address] [place] [address]- [place] Chemistry eAvg Glucose 128 mg/dL 04/[address] [place] [address]- [place] Chemistry Albumin 3.90 g/dL 3.50 - 5.20 04/21 N 0055A-[address] [place] [address] Chemistry Alk Phos 75 U/L 40 - 150 04/21 N 0055A-[address] [place] [address] Chemistry ALT 55 U/L 5 - 55 04/21 N 0055A-[address] [place] [address] Chemistry Sodium 142 mmol/L 136 - 145 04/21 N 0055A-[address] [place] [address]- [place] Chemistry Protein Total 6.8 g/dL 6.4 - 8.3 04/21 N 0055A-[address] [place] [address] Chemistry AST 24 U/L 5 - 34 04/21 N 0055A-[address] [place] [address]- [place] Chemistry Bilirubin Total 0.5 mg/dL 0.2 - 1.2 04/21 N 0055A-[address] [place] [address]- [place] Chemistry BUN 8 mg/dL 8 - 26 04/21 N 0055A-[address] [place] [address]- [place] Chemistry Chloride 107 mmol/L 98 - 107 04/21 N 0055A-[address] [place] [address] Chemistry BUN/Creat Ratio 10 mg/dL 12 - 20 04/21 L 0055A-[address] [place] [address]- [place] Chemistry Calcium 9.2 mg/dL 8.4 - 10.2 04/21 N 0055A-[address] [place] [address]- [place] Chemistry Potassium Lvl 4.1 mmol/L 3.5 - 5.1 04/21 N 0055A-[address] [place] [address] Chemistry CO2 27 mmol/L 22 - 29 04/[address] [place] [address] Chemistry AGAP 8.00 0.00 - 15.00 04/[address] [place] [address] Chemistry Creatinine Level 0.80 mg/dL 0.72 - 1.25 04/[address] [place] [address] Chemistry Glucose Lvl 109 mg/dL 74 - 99 04/[address] [place] [address] Chemistry Ur Microalb/Ur Creat Ratio 5 mg/gCr 04/[address] [place] [address] Chemistry Ur Creat 105 mg/dL 04/[address] [place] [address] Chemistry Ur Microalbumi n 5 mg/L 04/21 N Interpretiv e Data: To minimize intra-indiv idual variation, analysis of three random urine samples collected over the course of a week has also been recommended . [address] [place] [address] Chemistry Vitamin D 25 OH 48.0 ng/mL [...] n, and other findings. Testing performed by [employer]. 5600A-U [facility] EPILAB Chemistry eGFR CKD EPI 99 mL/min/1 .73_m2 [...] Severe decrease <15 Kidney failure 0055A-3 75th [facility] [place] Vital Signs Combined list of inpatient [...] Blood Pressure Manual Automatic 09/06/2024 16:36:00 [id number]-375th [facility] Peripheral Pulse Rate 71 bpm 09/06/2024 16:36:00 [...] [facility] Temperature Oral 37.3 Ariana 06/09/2024 20:39:00 [id number]-375Th [facility] Peripheral Pulse Rate 84 bpm 06/09/2024 20:39:00 [id number]-[id number]-G-375Th [facility] Mean Arterial Pressure, Calc 94 mm[Hg] 06/09/2024 20:39:00 [id number]-Ql-O-[id number] 75Th [facility] Systolic Blood Pressure 133 mm[Hg] 06/09/2024 20:39:00 0758P-Iz-S-375Th [facility] Diastolic Blood Pressure 75 mm[Hg] 06/09/2024 20:39:00 [id number]-Kn-[id number] [facility] Respiratory Rate 18 br/min 06/09/2024 20:39:00 6448K-Kv-[id number]-375Th [facility] Mean Arterial Pressure, Calc 89 mm[Hg] [...] to the last 18 months, not all ME inpatient encounters are included; 2) Encounters from the [employer] facilities going backup to 280 months. Location Location Details Encounter Type Encounter Number Reason For Visit Attending Provider ADM Date DC Date Status Disposition Source [address] [place] [address] [facility]) DIRECT TO [facility] FROM OTHER THAN ER OR APU [id number] 01/12 DISCHARGED HOME [address] [place] [address] Sh[facility] [address] [place] [address] Sh[facility])([facility] Non-GME FHI1) TELE CONSULT [id number] MED REFILL JENNIE HALL 11/[address] [place] [address] Sh[facility])(F amily Practic e Non-GME FHI1) [address] [place] [address] Shaka Kirstin [facility])(Pul monary Functions ) OUTPATIENT [id number] ASSESSM ENT OF PATIENT CONDITI ON WORK STATUS AMEE STOREY 01/26 Released w/o Limitations [address] [place] [address] [facility])(P ulmonar y Functio ns) [address] [place] [address] Sh[place] Kirstin [facility] Practice Non-GME FHI1) TELE CONSULT [id number] med refill JENNIE HALL Rosita 01/[address] [place] [address])(F amily Practic e Non-GME FHI1) [address] [place] [address])([facility] Non-GME FHI1) TELE CONSULT [id number] off tcon line/pt states he needs lipid panel ordered MARISELA MANUEL 03/[address] [place] [address])(F amily Practic e Non-GME FHI1) [address] [place] [address])([facility] Non-GME FHI1) OUTPATIENT [id number] left ring finger infecte d;swting en,ladan ened,pu s ADIA PETERS 06/18 Released w/o Limitations [address] [place] [address])(F amily Practic e Non-GME FHI1) [address] [place] [address])([facility] Non-GME FHI1) OUTPATIENT [id number] FINGER DRAINAG E--PER ADIA ROMO 06/19 Released w/o Limitations [address] [place] [address])(F amily Practic e Non-GME FHI1) [address] [place] [address])([facility] Non-GME FHI1) OUTPATIENT [id number] wants to quit smoking ADIA PETERS 07/16 Released w/o Limitations [address] [place] [address])(F amily Practic e Non-GME FHI1) [address] [place] [address])([facility] Non-GME FHI1) OUTPATIENT [id number] Civ 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 LUPE Serrano 11/26 Released w/o Limitations [address] [place] [address])(F amily Practic e Non-GME FHI1) [address] [place] [address])([facility] Non-GME FHI1) TELE CONSULT [id number] Med refill PCM DELVIS Islas 01/[address] [place] [address])(F amily Practic e Non-GME FHI1) [address] [place] [address])([facility] Non-GME FHI2) TELE CONSULT [id number] Provide r: THIAGO Mahajan 02/[address] [place] [address])(F amily Practic e Non-GME FHI2) [address] [place] [address])([facility] Non-GME FHI2) OUTPATIENT [id number] f/u on lab and HLP SUBHASH DOMINGO 02/18 Released w/o Limitations [address] [place] [address] Sh[place] [facility])(F amily Practic e Non-GME FHI2) [address] [place], [place] [address])([facility] Non-GME FHI1) OUTPATIENT [id number] pain both shoulde rs ARNOLDO MCKEON 04/06 Released w/o Limitations [address] [place] [address])(F amily Practic e Non-GME FHI1) [address] [place] [address])([facility] Non-GME FHI1) OUTPATIENT [id number] C/O Pain, Numbnes s Neck, Shoulde r and Arm lt side ADIA PETERS 07/22 Released w/o Limitations [address] [place] [address])(F amily Practic e Non-GME FHI1) [address] [place] [address])([facility] Non-GME FHI1) TELE CONSULT [id number] Med questio ns - PATRICK Dalton 07/[address] [place] [address] [employer]aka [facility])(F amily Practic e Non-GME FHI1) [address] [place] [address])([facility] Practice Non-GME FHI1) TELE CONSULT [id number] med refill PATRICK PAVON 07/[address] [place] [address] [employer]aka B [facility])(F amily Practic e Non-GME FHI1) [address] [place], [place] [address]B [facility])([facility] Practice Non-GME FHI1) OUTPATIENT [id number] neck pain, herniat ed disc in neck ADIA PETERS 08/13 Released w/o Limitations [address] [place], [place] [address] [facility])(F amily Practic e Non-GME FHI1) [address] [place], [place] [address] [facility])([facility] Non-GME FHI1) TELE CONSULT [id number] req rx refill #[id number] 0 and mri results - ADELINA Hull 08/[address] [place] [address] [employer] B [facility])(F amily Practic e Non-GME FHI1) [address] [place], [place] [address] [facility])([facility] Non-GME FHI1) TELE CONSULT [id number] meds refill- ADELINA Hull 09/[address] [place], [place] [address] [facility])(F amily Practic e Non-GME FHI1) [address] [place], [place] [address] [facility])([facility] Practice Non-GME FHI1) OUTPATIENT [id number] neck pain ROSAURA MATTHEWS 09/10 Released w/o Limitations [address] [place], [place] [address] [facility])(F amily Practic e Non-GME FHI1) [address] [place] [address])([facility] Practice Non-GME FHI1) OUTPATIENT [id number] Strep test - SUBHASH DOMINGO 09/17 Released w/o Limitations [address] [place], [place] [address] [facility])(F amily Practic e Non-GME FHI1) [address] [place], [place] [address] [facility] Non-GME FHI1) TELE CONSULT [id number] meds refill- DELVIS Islas 09/[address] [place] [address])(F amily Practic e Non-GME FHI1) [address] [place], [place] [address] [facility] Non-GME FHI1) OUTPATIENT [id number] vicodin refROSAURA Jj 09/29 Released w/o Limitations [address] [place] [address] [employer] B [facility])(F amily Practic e Non-GME FHI1) [address] [place], [place] [address] [facility] Non-GME FHI1) TELE CONSULT [id number] referra PATRICK Gomez 11/[address] [place], [place] [address] [facility])(F amily Practic e Non-GME FHI1) [address] [place], [place] [address] [facility])([facility] Non-GME FHI1) 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 ROSAURA MATTHEWS 12/07 Released w/o Limitations [address] [place] [address] [facility]aka [facility])(F amily Practic e Non-GME FHI1) [address] [place] [address])([facility] Non-GME FHI1) TELE CONSULT [id number] med refill- pcm CHANELL Lozano 03/[address] [place] [address] [facility]aka [facility])(F amily Practic e Non-GME FHI1) [address] [place] [address] [facility]aka [facility])([facility] Non-GME FHI1) OUTPATIENT [id number] F.U ON CHOLEST JEFF AND MEDS. PH:[phone]*W ROSAURA MATTHEWS 03/18 Released w/o Limitations [address] [place] [address] [employer] SUN [facility])(F amily Practic e Non-GME FHI1) [address] [place] [address] [facility]aka [facility])([facility] Non-GME FHI1) OUTPATIENT [id number] ; back pain ROSAURA MATTHEWS 06/13 Released w/o Limitations [address] [place] [address] [facility])(F amily Practic e Non-GME FHI1) [address] [place] [address])([facility] Non-GME FHI1) OUTPATIENT [id number] wk; physica l for On license of [facility] A 08/01 Released w/o Limitations [address] [place] [address] [facility])(F amily Practic e Non-GME FHI1) [address] [place] [address])([facility] Non-GME FHI1) OUTPATIENT [id number] lower back in nots/lo sts of pain RICHARDSON SALVADOR 11/03 Released w/o Limitations [address] [place] [address] [employer])(F amily Practic e Non-GME FHI1) [address] [place] [address])([facility] Non-GME FHI1) OUTPATIENT [id number] physica l [phone] GUILLE SANTIAGO 12/15 Released w/o Limitations [address] [place] [address])(F amily Practic e Non-GME FHI1) [address] [place] [address] [employer] ([facility])([facility] criss Practice Non-GME FHI2) TELE CONSULT [id number] req labs/no ble SHARON VY M 02/[address] [place] [address] [employer] [facility])(F amily Practic e Non-GME FHI2) [address] [place] [address] [employer]aka [employer] ([facility])([facility] criss Practice Non-GME FHI1) OUTPATIENT [id number] med refills , f/u chol [facility] A 03/16 Released w/o Limitations [address] [place] [address] Group [employer] ([facility])(F amily Practic e Non-GME FHI1) [address] [place] [address] [employer] ([facility])([facility] criss Practice Non-GME FHI1) OUTPATIENT [id number] head cold [id number] [facility] A 05/01 Released w/o Limitations [address] [place] [address] [employer]aka [employer]SE[employer] ([facility])(F amily Practic e Non-GME FHI1) [address] [place] [address] [employer] [employer] [facility])([facility] criss Practice Non-GME FHI1) OUTPATIENT [id number] irritat ed eye SALVADORRICHARDSON DOBSON E 05/29 Released w/o Limitations [address] [place] [address] Group [employer] JOSE[facility])(F amily Practic e Non-GME FHI1) [address] [place] [address] [employer] [facility])(Opt ometry) OUTPATIENT [id number] RT. eye possibl e FB sensati on ALEX EDGE 05/29 Released w/o Limitations [address] [place] [address] [employer]aka JO[facility])(O ptometr y) [address] [place] [address] [employer]aka JO[facility])(Ido tt [facility] Team 3) TELE CONSULT [id number] Salvador-B igham/n eeds rx PATRICK PAVON 09/[address] [place] [address] Shaka JOSE[facility])(S shweta [facility] Team [address]) [address] [place] [address] [employer]aka JO[facility])([facility] tt [facility] Team 3) OUTPATIENT [id number] Muscle pain/sp asms [phone] [facility] A 11/09 Released w/o Limitations [address] [place] [address] [employer]aka JOSEB [facility])(S shweta [facility] Team 3) [address] [place] [address] [employer]aka JOSE[employer] ([facility])([facility] Team 3) OUTPATIENT [id number] 853h# niviaa l BIJAN Shabazz 12/10 Released w/o Limitations [facility] Group [employer] ([facility])([facility] Team 3) [address] [place] [address] Group [employer] [facility])([facility] Team 3) TELE CONSULT [id number] refill med, req labs/no ble LASVY GUZMAN M 03/[address] [place] [address] [employer] [facility])([facility] Team 3) [address] [place] [address] [employer] [facility])([facility] Team 3) OUTPATIENT [id number] f/u meds - SALVADOR, RICHARDSON E 04/12 Released w/o Limitations [address] [place] [address] [employer] ([facility])([facility] Team 3) [address] [place] [address] [employer] [facility])([facility] Team 3) OUTPATIENT [id number] back spasms [id number] CLAUDIA SANTOS 06/10 Released w/o Limitations [address] [place] [address] [employer] [facility])([facility] Team 3) [facility] [employer] [facility])([facility] Team 3) OUTPATIENT [id number] Negativ e to meds and mass on upper left chest area above nipple [phone] SALVADOR, RICHARDSON E 07/26 Released w/o Limitations [address] [place] [address] [employer] [facility])([facility] Team 3) [facility] [employer] [facility])([facility] Team 3) TELE CONSULT [id number] Lab results SLAVADOR, RICHARDSON E 08/[address] [place] [address] [employer] ([facility])([facility] Team 3) [address] [place] [address] [employer] [facility])([facility]) OUTPATIENT [id number] IMPAIRE D FASTING GLUCOSE JANNETH MADRIGAL 08/21 Released w/o Limitations [address] [place] [address] [employer] ([facility])(N utritio nal Medicin e) [facility] [employer] [facility])([facility] Team 3) OUTPATIENT [id number] muscle pain(po ss. side effect from meds.) [phone] SALVADOR, RICHARDSON E 09/06 Released w/o Limitations [address] [place] [address] [facility])([facility] Team [address]) [address] [place] [address] [facility])([facility] Team 3) TELE CONSULT [id number] Audiono sharon - Laborat ory Studies . SALVADOR, RICHARDSON E 09/[address] [place] [address])([facility] Team 3) [address] [place] [address])([facility] Team 3) TELE CONSULT [id number] Audiono sharon - Laborat ory review SALVADOR, RICHARDSON E 09/[address] [place] [address])([facility] Team 3) [address] [place] [address])([facility] Team 3) TELE CONSULT [id number] Discuss schedul ing MRI - PABLO Sow 10/[address] [place] [address])([facility] Team 3) [address] [place] [address])([facility] Team 3) OUTPATIENT [id number] lower back pain, neck pain SALVADOR, RICHARDSON E 10/21 Released w/o Limitations [address] [place] [address])([facility] Team 3) [address] [place] [address])([facility] Team 3) TELE CONSULT [id number] MRI results SUSANNA BLUM 11/[address] [place] [address])([facility] Team 3) [address] [place] [address])([facility] Team 3) TELE CONSULT [id number] Change in Referra l - JAVIER Jonhson 11/[address] [place] [address] [facility])([facility] Team 3) [address] [place] [address] [facility])([facility] Team 3) OUTPATIENT [id number] physica l [phone] SALVADOR, RICHARDSON E 12/13 Released w/o Limitations [address] [place] [address])([facility] Team 3) [address] [place] [address])(Opt ometry) OUTPATIENT [id number] Eye exam [phone] JACQUES EDGE 01/07 Released w/o Limitations [address] [place] [address] Group [employer] SUN [facility])(O ptometr y) [address] [place] [address] [facility])([facility] Team 3) TELE CONSULT [id number] Lab request - VY Maya 03/13 [facility]aka [facility])([facility] Team 3) [address] [place] [address] [facility])([facility] Team 3) OUTPATIENT [id number] complet e physica l - [id number] KATELIN EDGE 03/27 Released w/o Limitations [address] [place] [address] Group [place] B [facility])([facility] Team 3) [address] [place] [address] [facility] Team 3) OUTPATIENT [id number] Leg and back pain KATELIN EDGE 03/31 Released w/o Limitations [address] [place] [address] [facility] Team 3) [facility] Team 3) TELE CONSULT [id number] Referra l needed. PCM AMAURI Montiel 04/14 Referred for Appointment [facility] Medical Group [employer] JOSE[facility])([facility] Team 3) [address] [place] [address] [facility] JO[facility])([facility] Team 3) TELE CONSULT [id number] Jeyson /256-48 53/need s referra l placed in system AMAURI BOATENG 04/24 Referred for Appointment [facility] Medical [facility] Team 3) [facility])([facility] Team 3) TELE CONSULT [id number] Jeyson [id number] 3/refil l AMAURI BRISCOE 06/30 Referred for Appointment [facility] Medical Group [facility] JOSE[facility])([facility] Team 3) [address] [place] [address] [employer] [facility])([facility] Team 3) OUTPATIENT [id number] cold congest ion fever [phone] CHER MARTIN 09/03 Released w/o Limitations [employer] ([facility])([facility] Team 3) [employer] ([facility])([facility] Team 3) OUTPATIENT [id number] F/U BP and HLP, test results CHER MARTIN Rosita 09/17 Released w/o Limitations [employer] ([facility])([facility] Team 3) [employer] ([facility])([facility] Team 3) TELE CONSULT [id number] Med refill/ med not in pharmac y Tito cad tlt [phone] JAVIER ESPINOZA A 09/25 [employer] ([facility])([facility] Team 3) [employer] ([facility])([facility] Team 3) TELE CONSULT [id number] needs new script [phone] NOE KEARNS 12/09 [employer] ([facility])([facility] Team 3) [employer] ([facility])([facility] Team 3) OUTPATIENT [id number] f/u coleste rol [phone] KATELIN EDGE 12/23 Released w/o Limitations [employer] ([facility])([facility] Team 3) [employer] ([facility])([facility] Team 3) TELE CONSULT [id number] Naproxe n refill Jeyson cad tlt NOE KEARNS 12/30 [employer] ([facility])([facility] Team 3) [facility] [employer] ([facility])([facility] Team 3) TELE CONSULT [id number] after hours call CLAUDIA SANTOS 01/12 [employer] ([facility])([facility] Team 3) [facility] [employer] ([facility])([facility] Team 3) OUTPATIENT [id number] Swellin g in feet area [phone] CLAUDIA SANTOS 01/13 Released w/o Limitations [employer] ([facility])([facility] Team 3) [facility] [employer] ([facility])(War rior Op Med Cln Tm A Ad) TELE CONSULT [id number] T con for referra l for optomet ry Dr Edge ph [phone] CHRISTIAN FROST 02/02 Referred for Appointment [facility] [employer] [facility])(W arrior Op Med Cln Tm A Ad) [address] [place] [address] [employer] B [facility])([facility] Team 3) TELE CONSULT [id number] referra l samara Edge cad NOE Lyon 02/[address] [place] [address] [employer] B [facility])([facility] Team 3) [facility] Medical Group [employer] [facility])(War rior Op Med Cln Tm A Ad) TELE CONSULT [id number] Optomet ry referNOE Lu 02/[address] [place] [address] Group [facility])(W arrior Op Med Cln Tm A Ad) [address] [place] [address] [employer])([facility] Team 3) TELE CONSULT [id number] refill on all medicat ions CAD C NOE Garcia 03/[address] [place] [address] [employer] B [facility])([facility] Team 3) [address] [place] [address] [employer] B [facility])([facility] Team 3) OUTPATIENT [id number] Fever [phone] MASHA PROCTOR 04/24 Released w/o Limitations [address] [place] [address] [employer] [facility])([facility] Team 3) [address] [place] [address] [employer] B [facility])([facility] Team 3) OUTPATIENT [id number] f/u pancrea MASHA Leroy 04/29 Released w/o Limitations [address] [place] [address] [employer] [facility])([facility] Team 3) [address] [place] [address] [employer] [facility])(Fam criss Med Tm B Non-AD BCC) TELE CONSULT [id number] After hours service RENETTA BANEGAS 04/[address] [place] [address] [employer] [facility])(F amily Med Tm B Non-AD BCC) [address] [place] [address] [employer] [facility])([facility] Team 3) TELE CONSULT [id number] Medicat ion Refill- Jeyson /667- 45/anai KEARNS NOE R 05/[address] [place] [address] [facility])([facility] Team 3) [address] [place] [address] [facility])(Ido tt [facility] Team 3) TELE CONSULT [id number] med renewal only 3 pills left McCarth y cad tlt NOE KEARNS R 07/[address] [place] [address] [facility])([facility] Team 3) [address] [place] [address] [facility])([facility] Team 3) TELE CONSULT [id number] Tcon for to conties seeing referre d doctor Tobias thy ph [phone] cad dmj NOE KEARNS R 08/[address] [place] [address] [facility])([facility] Team 3) [address] [place] [address] [facility])(Andreas e Managemen t) OUTPATIENT [id number] Notes Entered by: ALEX BERRIOS 04 Aug 2011 0827 ------- ------- ------- ------- -- CC-Hosp notific ation ALEX BERRIOS 08/[address] [place] [address] [facility])(C ase Managem ent) [address] [place] [address] [facility])(War rior Op Med Cln Tm A Ad) OUTPATIENT [id number] Sinus congest ion cough and ear ache [phone] LUC JOLLEY 08/30 Released w/o Limitations [address] [place] [address] [facility])(W arrior Op Med Cln Tm A Ad) [address] [place] [address] [facility])(Fam criss Med Tm B Non-AD BCC) OUTPATIENT [id number] F/U med refill [phone] RAISA KHAN 09/07 Released w/o Limitations [address] [place] [address] [facility])(F amily Med Tm B Non-AD BCC) [address] [place] [address] [facility])(War rior Op Med Cln Tm A Ad) OUTPATIENT [id number] lower back pain [id number] LUC JOLLEY 09/27 Released w/o Limitations [address] [place] [address])(W arrior Op Med Cln Tm A Ad) [address] [place] [address])(Phy sical Therapy) OUTPATIENT [id number] issue-i nstruct in use of MASHA Moreno 09/27 Released w/o Limitations [address] [place] [address])(P hysical Therapy ) [address] [place] [address])(Ido tt [facility] Team 3) OUTPATIENT [id number] Engrown Toenail rt,lt big toes W#[phone] JAYCE ORELLANA 10/27 Released w/o Limitations [address] [place] [address])([facility] Team 3) [address] [place] [address])([facility] Team 3) TELE CONSULT [id number] Notes Entered by: MASHA BARRIOS 07 Dec 2011 1032 ------- ------- ------- ------- -- Tcon for med refill Dr Migdalia duvall ph [phone] cad CHRISTIAN Bonilla 12/06 Referred for Appointment [address] [place] [address])([facility] Team 3) [address] [place] [address])([facility] Team 3) OUTPATIENT [id number] physica l [phone] JAYCE ORELLANA 12/14 Released w/o Limitations [address] [place] [address])([facility] Team 3) [address] [place] [address])([facility] Team 3) TELE CONSULT [id number] Notes Entered by: John GRIMM 29 Dec 2011 0659 ------- ------- ------- ------- -- Charlotte duvall/cad /NOE Angel 12/[address] [place] [address])([facility] Team 3) [address] [place] [address])([facility]) OUTPATIENT [id number] Notes Entered by: MATILDE HOLLIS 19 Jan 2012 1603 ------- ------- ------- ------- -- Tobacco Cessati on MATILDE TAVERAS Milena 01/18 Released w/o Limitations [address] [place] [address] [employer] ([facility] Pharm [facility] Clinic) [address] [place] [address] [employer])([facility] Team 3) TELE CONSULT [id number] Notes Entered by: WARD BARONE 25 Jan 2012 1121 ------- ------- ------- ------- -- Med refarturo Negron jadiel NOE Caicedo 01/[address] [place] [address] [employer] ([facility])([facility] Team 3) [address] [place] [address] [employer] ([facility])([facility]) OUTPATIENT [id number] Notes Entered by: MATILDE HOLLIS 10 Feb 2012 1520 ------- ------- ------- ------- -- Tobacco Cessati on SUPRIYAMATILDE DENNISON 02/09 Released w/o Limitations [address] [place] [address] [employer] ([facility]) [address] [place] [address] [facility])([facility] Pharm D [facility]) OUTPATIENT [id number] Notes Entered by: MATILDE HOLLIS 11 Mar 2012 1353 ------- ------- ------- ------- -- Tobacco Cessati on SUPRIYAMATILDE DENNISON 03/11 Released w/o Limitations [address] [place] [address] [facility]SE[facility] ([facility] Pharm D Clinic) [address] [place] [address] Shaka [facility]SEB [facility])([facility] Team 3) OUTPATIENT [id number] Possibl e reactio n to med [phone] JAYCE ORELLANA 03/15 Released w/o Limitations [address] [place] [address] Shaka JOSEB ([facility])([facility] Team 3) [address] [place] [address] [employer] [facility])([facility] Team 3) OUTPATIENT [id number] Pain in lower back 8- 10 when walking [phone] CLAUDIA SANTOS 06/17 Released w/o Limitations [facility])([facility] Team 3) [address] [place] [address])(War rior Op Med Cln Tm A Ad) TELE CONSULT [id number] Notes Entered by: RUMA HEARN 08 Aug 2012 1248 ------- ------- ------- ------- -- Network results - Niviaa l Therapy 3 CLAUDIA SANTOS 08/[address] [place] [address])([facility] Tm A Ad) [address] [place] [address])([facility] Med Cln Tm A Ad) OUTPATIENT [id number] left shoulde r pain [id number] SUSANNA BLUM 08/29 Released w/o Limitations [address] [place] [address])([facility] Med Cl[facility] Tm A Ad) [address] [place] [address])(War ri[facility] Op Med Cln Tm A Ad) TELE CONSULT [id number] Notes Entered by: BRUNO WYATT CIA 02 Sep 2012 1419 ------- ------- ------- ------- -- Dull ache/sh mamta pain rt and left arm about 12 times this week/PATRICIA Cartwright 09/[address] [place] [address])([facility] ar[facility] Op Med Cln Tm A Ad) [address] [place] [address])([facility] Op Med Cln Tm A Ad) OUTPATIENT [id number] cardiac issues [id number] SUSANNA BLUM 09/05 Released w/o Limitations [address] [place] [address])(W arrior Op Med Cln Tm A Ad) [address] [place] [address])(War rior Op Med Cln Tm A Ad) TELE CONSULT [id number] Notes Entered by: RENEE KABA 12 Sep 2012 0728 ------- ------- ------- ------- -- Med Refill- Jcarlos/ PATRICIA ANGELES 09/[address] [place] [address])(W arrior Op Med Cln Tm A Ad) [address] [place] [address])(War rior Op Med Cln Tm A Ad) TELE CONSULT [id number] Notes Entered by: LANDY CR 20 Sep 2012 0929 ------- ------- ------- ------- -- Lab request - Jcarlos - [id number] PATRICIA ANGELES 09/[address] [place] [address])(W arrior Op Med Cln Tm A Ad) [address] [place] [address])(War rior Op Med Cln Tm A Ad) OUTPATIENT [id number] f/u medicat ion renewal ; blood pressur e, [facility] jeff SUSANNA BLUM 09/21 Released w/o Limitations [address] [place] [address])(W arrior Op Med Cln Tm A Ad) [address] [place] [address])(War rior Op Med Cln Tm A Ad) TELE CONSULT [id number] Notes Entered by: RADHA DAVE 22 Sep 2012 1008 ------- ------- ------- ------- -- Network Results - CARDIOL OGY - 09/19/12 SUSANNA BLUM 09/[address] [place] [address])(W arrior Op Med Cln Tm A Ad) [address] [place] [address])(War rior Op Med Cln Tm A Ad) TELE CONSULT [id number] Notes Entered by: DIANE BLUM 05 Oct 2012 1514 ------- ------- ------- ------- -- MRI of neck PATRICIA ANGELES 10/[address] [place] [address])(W arrior Op Med Cln Tm A Ad) [address] [place] [address])(War rior Op Med Cln Tm A Ad) TELE CONSULT [id number] Notes Entered by: RADHA DAVE 11 Oct 2012 0840 ------- ------- ------- ------- -- Network Results - CARDIOL OGY 10/06/12 SUSANNA BLUM 10/[address] [place] [address] Group [facility])(W arrior Op Med Cln Tm A Ad) [address] [place] [address])(War rior Op Med Cln Tm A Ad) OUTPATIENT [id number] F/u MRI neck SUSANNA BLUM 10/11 Released w/o Limitations [address] [place] [address] Group [facility])(W arrior Op Med Cln Tm A Ad) [address] [place] [address])(War rior Op Med Cln Tm A Ad) TELE CONSULT [id number] Notes Entered by: Fito GRIMM 07 Dec 2012 1418 ------- ------- ------- ------- -- Med refill/ /Dr. Blum/ // PATRICIA ANGELES 12/[address] [place] [address] Group [facility])(W arrior Op Med Cln Tm A Ad) [address] [place] [address])(War rior Op Med Cln Tm A Ad) TELE CONSULT [id number] Notes Entered by: CHRISTIAN ESCALERA 12 Jan 2013 1458 ------- ------- ------- ------- -- Med refill/ Dr. Blum/ KIRBY WARD 01/12 Referred for Appointment [address] [place] [address] Group [facility])(W arrior Op Med Cln Tm A Ad) [address] [place] [address])(Fam criss Med Tm B Non-AD BCC) TELE CONSULT [id number] Notes Entered by: CHRISTIN BURROUGHS 13 Jan 2013 0825 ------- ------- ------- ------- -- Med refill KIRBY WARD 01/13 Referred for Appointment [facility] Medical Group [facility])(F amily Med Tm B Non-AD BCC) [address] [place] [address])(War rior Op Med Cln Tm A Ad) TELE CONSULT [id number] Notes Entered by: WARD BARONE 22 Feb 2013 1414 ------- ------- ------- ------- -- Rash on face Blum NOE KEARNS 02/22 Referred for Appointment [address] [place] [address])(W arrior Op Med Cln Tm A Ad) [address] [place] [address])(War rior Op Med Cln Tm A Ad) OUTPATIENT [id number] Rash to underne ath chin for 36 hours SUSANNA BLUM 02/23 Released w/o Limitations [address] [place] [address])(W arrior Op Med Cln Tm A Ad) [address] [place] [address])(War rior Op Med Cln Tm A Ad) TELE CONSULT [id number] Notes Entered by: RENEE KABA 04 Apr 2013 1424 ------- ------- ------- ------- -- Med Refill- Jcarlos/ SUSANNA BLUM 04/[address] [place] [address])(W arrior Op Med Cln Tm A Ad) [address] [place] [address])(War rior Op Med Cln Tm A Ad) OUTPATIENT [id number] cough, nasal congest ion, headach e [phone] SUSANNA BLUM 04/21 Released w/o Limitations [address] [place] [address])(W arrior Op Med Cln Tm A Ad) [address] [place] [address])(War rior Op Med Cln Tm A Ad) OUTPATIENT [id number] sinus congest ion ear pain cough SUSANNA BLUM 05/22 Released w/o Limitations [address] [place] [address] [facility])(W arrior Op Med Cln Tm A Ad) [address] [place] [address] [facility]aka [facility])(Opt ometry) OUTPATIENT [id number] annual eye exam - [id number] KRYS LUNA 05/23 Released w/o Limitations [address] [place] [address] [facility])(O ptometr y) [address] [place] [address])(War rior Op Med Cln Tm A Ad) TELE CONSULT [id number] Notes Entered by: CHRISTIAN ESCALERA 31 May 2013 0715 ------- ------- ------- ------- -- Med refill/ blum/ AMY WORKMAN 05/[address] [place] [address] [facility]aka [facility])(W arrior Op Med Cln Tm A Ad) [address] [place] [address] [facility])(War rior Op Med Cln Tm A Ad) TELE CONSULT [id number] Notes Entered by: CHRISTIAN ESCALERA 09 Jun 201303 ------- ------- ------- ------- -- Med refill/ blum/ LEVON HARGROVE 06/[address] [place] [address] Shaka [facility])(W arrior Op Med Cln Tm A Ad) [address] [place] [address])(War rior Op Med Cln Tm A Ad) TELE CONSULT [id number] Notes Entered by: DIANE BLUM 13 Jun 2013 1204 ------- ------- ------- ------- -- Medicat ions request SUSANNA BLUM 06/[address] [place] [address] [facility])(W arrior Op Med Cln Tm A Ad) [address] [place] [address] [facility]aka [facility])(War rior Op Med Cln Tm A Ad) TELE CONSULT [id number] Notes Entered by: ESTER DAIGLE 09 Oct 2013 1029 ------- ------- ------- ------- -- Order labs - Jcarlos - SANDHYA PALMER 10/[address] [place] [address] Group Shaka [facility])(W arrior Op Med Cln Tm A Ad) [address] [place] [address])(War rior Op Med Cln Tm A Ad) OUTPATIENT [id number] HTN/Hyp erlipid emia annual f/u SUSANNA BLUM 10/25 Released w/o Limitations [address] [place] [address] Group [facility] ([facility])(W arrior Op Med Cln Tm A Ad) [address] [place] [address] [facility]aka [facility])(War rior Op Med Cln Tm A Ad) TELE CONSULT [id number] Notes Entered by: DIANE BLUM 26 Oct 2013 1148 ------- ------- ------- ------- -- Prediab BERT Degroot 10/26 Referred for Appointment [address] [place] [address])(W arrior Op Med Cln Tm A Ad) [address] [place] [address] Shaka [facility])([facility] Pharm D Clinic) OUTPATIENT [id number] NAYANA GARNER 11/07 Released w/o Limitations [address] [place] [address] Shaka [facility])([facility] Pharm D Clinic) [address] [place] [address] Shaka [facility])([facility] Pharm D Clinic) OUTPATIENT [id number] NAYANA GARNER 12/06 Released w/o Limitations [address] [place] [address] [facility]aka [facility])([facility] Pharm D Clinic) [address] [place] [address])(War rior Op Med Cln Tm A Ad) TELE CONSULT [id number] Notes Entered by: JOSÉ MANUEL SADLER 12 Dec 2013 1132 ------- ------- ------- ------- -- Med refill/ questio tanisha/ Jcarlos/ [id number] [phone] BERT JOAQUIN 12/[address] [place] [address] Shaka [facility])(W arrior Op Med Cln Tm A Ad) [address] [place] [address] [facility])(War rior Op Med Cln Tm A Ad) OUTPATIENT [id number] lower left quadren t pain [id number] SUSANNA BLUM 12/18 Released w/o Limitations [address] [place] [address] [facility] ([facility])(W arrior Op Med Cln Tm A Ad) [address] [place] [address] [facility]aka [facility])(War rior Op Med Cln Tm A Ad) OUTPATIENT [id number] follow up [id number] SUSANNA BLUM 01/18 Released w/o Limitations [address] [place] [address])(W arrior Op Med Cln Tm A Ad) [address] [place] [address] [facility]aka [facility])(War rior Op Med Cln Tm A Ad) TELE CONSULT [id number] Notes Entered by: ESTER DAIGLE 31 Jan 2014 0729 ------- ------- ------- ------- -- Sx: Rash on face - [facility] - [phone]* AIME AKHTAR 01/[address] [place] [address] [facility])(W arrior Op Med Cln Tm A Ad) [address] [place] [address])(Fam criss Med Tm B Non-AD BCC) OUTPATIENT [id number] itchy rash on face ENOC ESPINOZA 02/08 Released w/o Limitations [address] [place] [address])(F amily Med Tm B Non-AD BCC) [address] [place] [address])([facility] Pharm D Clinic) OUTPATIENT [id number] Notes Entered by: MATILDE HOLLIS 08 Feb 2014 0900 ------- ------- ------- ------- -- Tobacco Cessati on MATILDE TAVERAS 02/08 Released w/o Limitations [address] [place] [address] [facility])([facility] Pharm D Clinic) [address] [place] [address] [facility]aka [facility])(War rior Op Med Cln Tm A Ad) OUTPATIENT [id number] protrus ion near navel; painful when pressin g on the area [id number] SUSANNA BLUM 03/16 Released w/o Limitations [address] [place] [address] Group [facility])(W arrior Op Med Cln Tm A Ad) [address] [place] [address] [facility]aka [facility])(War rior Op Med Cln Tm A Ad) OUTPATIENT [id number] lump in lower right quadran t of abdomen [id number] SUSANNA BLUM 03/22 Released w/o Limitations [address] [place] [address] Group [facility])(W arrior Op Med Cln Tm A Ad) [address] [place] [address])(War rior Op Med Cln Tm A Ad) OUTPATIENT [id number] Notes Entered by: LESLIE CULVER 10 Apr 2014 0737 ------- ------- ------- ------- -- [facility] SUSANNA BLUM 04/10 Released w/o Limitations [address] [place] [address] Group [facility])(W arrior Op Med Cln Tm A Ad) [address] [place] [address])(War rior Op Med Cln Tm A Ad) OUTPATIENT [id number] low rt side stomach pain x6 weeks/6 [phone] SUSANNA BLUM 05/28 Released w/o Limitations [address] [place] [address] Group [facility])(W arrior Op Med Cln Tm A Ad) [address] [place] [address] [facility])(War rior Op Med Cln Tm A Ad) TELE CONSULT [id number] Notes Entered by: DIANE BLUM 30 May 2014 1532 ------- ------- ------- ------- -- Laborat orSUSANNA Quispe 05/[address] [place] [address] [facility])(W arrior Op Med Cln Tm A Ad) [address] [place] [address])(Med ication Refill Clinic) TELE CONSULT [id number] Notes Entered by: WARD BARONE 25 Jun 2014 1051 ------- ------- ------- ------- -- Med refill Jcarlos CLAUDIA STEPHENS 06/[address] [place] [address])([facility]) [address] [place] [address])(War rior Op Med Cln Tm A Ad) OUTPATIENT [id number] medicat ion/lab renewal SUSANNA BLUM 07/03 Released w/o Limitations [address] [place] [address])(W arrior Op Med Cln Tm A Ad) [address] [place] [address])(War rior Op Med Cln Tm A Ad) TELE CONSULT [id number] Notes Entered by: DIANE BLUM 03 Jul 2014 1650 ------- ------- ------- ------- -- Neutrop SUSANNA Garzon 07/[address] [place] [address])(W arrior Op Med Cln Tm A Ad) [address] [place] [address])(War rior Op Med Cln Tm A Ad) TELE CONSULT [id number] Notes Entered by: KAMARI LIZ 06 Sep 2014 1120 ------- ------- ------- ------- -- Network Results -SURGER Y 4 JAMIE BERRIOS 09/[address] [place] [address])(W arrior Op Med Cln Tm A Ad) [address] [place] [address])(War rior Op Med Cln Tm A Ad) TELE CONSULT [id number] Notes Entered by: EUSEBIO CUADRA 26 Oct 2014 1515 ------- ------- ------- ------- -- Network Results -GASTRO ENTEROL OGY 4 JAMIE BERRIOS 10/[address] [place] [address])(W arrior Op Med Cln Tm A Ad) [address] [place] [address])(War rior Op Med Cln Tm A Ad) TELE CONSULT [id number] Notes Entered by: CHRISTIAN ESCALERA 07 Nov 2014 1216 ------- ------- ------- ------- -- NAL [facility]/joelle ybarra/6 [phone]. [phone] CHRISTIAN FROST LEANDRO 11/07 Referred for Appointment [address] [place] [address])(W arrior Op Med Cln Tm A Ad) [address] [place] [address])(War rior Op Med Cln Tm A Ad) OUTPATIENT [id number] rash in groin/ burning /[id number] 56 JAIME BERRIOS 11/09 Released w/o Limitations [address] [place] [address])(W arrior Op Med Cln Tm A Ad) [address] [place] [address])(War rior Op Med Cln Tm A Ad) TELE CONSULT [id number] Notes Entered by: MASHA BARRIOS 13 Nov 2014 1219 ------- ------- ------- ------- -- Network results - Urgent Care 015 JAMIE BERRIOS 11/[address] [place] [address])(W arrior Op Med Cln Tm A Ad) [address] [place] [address])(War rior Op Med Cln Tm A Ad) OUTPATIENT [id number] lab results and med renewal JAMIE BERRIOS 12/12 Released w/o Limitations [address] [place] [address])(W arrior Op Med Cln Tm A Ad) [address] [place] [address])(Med ication Refill Clinic) TELE CONSULT [id number] Notes Entered by: John GRIMM 18 Dec 2014 1149 ------- ------- ------- ------- -- Med refill/ [place] [id number]/[phone] LETITIA FERRARO 12/[address] [place] [address])([facility]) [address] [place] [address])(War rior Op Med Cln Tm A Ad) OUTPATIENT [id number] rash on face [id number] [phone] JAMIE BERRIOS 01/07 Released w/o Limitations [address] [place] [address] Group [facility])(W arrior Op Med Cln Tm A Ad) [address] [place] [address])(War rior Op Med Cln Tm A Ad) TELE CONSULT [id number] Notes Entered by: TIMOTHY RENE 08 Jan 2015 1704 ------- ------- ------- ------- -- Laborat orHOLLIS Mancera 01/08 Referred for Appointment [address] [place] [address] Group [facility])(W arrior Op Med Cln Tm A Ad) [address] [place] [address])(War rior Op Med Cln Tm A Ad) TELE CONSULT [id number] Notes Entered by: Rick PALOMO 14 Mar 2015 0847 ------- ------- ------- ------- -- YELITZA/JOELLE YBARRA/6 [phone] MARIAN HOLM 03/14 Referred for Appointment [address] [place] [address] Group [facility])(W arrior Op Med Cln Tm A Ad) [address] [place] [address])(War rior Op Med Cln Tm A Ad) TELE CONSULT [id number] Notes Entered by: ANAID CROOK 14 Mar 2015 1126 ------- ------- ------- ------- -- F/U after ER Visit / Jaime mckeon / HOLLIS MCMILLAN 03/14 Referred for Appointment [address] [place] [address] Group [facility])(W arrior Op Med Cln Tm A Ad) [address] [place] [address])(War rior Op Med Cln Tm A Ad) TELE CONSULT [id number] Notes Entered by: Rick PALOMO 18 Mar 2015 1001 ------- ------- ------- ------- -- NAL/JOELLE JAKEON/6 [phone] MARIAN HOLM Magaly 03/18 Referred for Appointment [address] [place] [address] [facility])(W arrior Op Med Cln Tm A Ad) [address] [place] [address] [facility])(War rior Op Med Cln Tm A Ad) OUTPATIENT [id number] follow up ER visit for at knee pain JAMIE BERRIOS 03/19 Released with Work/Duty Limitations [address] [place] [address] [facility]W arrior Op Med Cln Tm A Ad) [address] [place] [address] [facility])(War rior Op Med Cln Tm A Ad) TELE CONSULT [id number] Notes Entered by: MARLIN WHEELER 20 Mar 2015 1553 ------- ------- ------- ------- -- Orthope dic ReferMARLIN Bello 03/20 Referred for Appointment [address] [place] [address] [facility])(W arrior Op Med Cln Tm A Ad) [address] [place] [address] [facility])(War rior Op Med Cln Tm A Ad) TELE CONSULT [id number] Notes Entered by: TIMOTHY RENE 22 Mar 2015 1202 ------- ------- ------- ------- -- Colonos copy consult JAMIE BERRIOS 03/[address] [place] [address] [facility]W arrior Op Med Cln Tm A Ad) [address] [place] [address] [facility])(Min or Procedure Clinic) OUTPATIENT [id number] 3RD FLOOR SAFB PRER OP SCREENI NG PRIOR TPO COLONOS COPY MICAH POLO 04/22 Released w/o Limitations [address] [place] [address] [facility])(M inor Procedu re Clinic) [address] [place] [address] [facility])(Fam criss Med Tm B Non-AD BCC) TELE CONSULT [id number] Notes Entered by: ESTER DAIGLE 27 May 2015 1237 ------- ------- ------- ------- -- Order labs - Colanes e - [phone] after [phone] HOLLIS MCMILLAN 05/27 Referred for Appointment [address] [place] [address] Group [facility])(F amily Med Tm B Non-AD BCC) [address] [place] [address] [facility])(Fam criss Med Tm B Non-AD BCC) TELE CONSULT [id number] Notes Entered by: DEREK IBARRA 03 Jun 2015 0948 ------- ------- ------- ------- -- NAL ER F/U/Col oanese/ MARIAN HOLM 06/03 Referred for Appointment [address] [place] [address] Group [facility])(F amily Med Tm B Non-AD BCC) [address] [place] [address] [facility])([facility] criss Med Tm B Non-AD BCC) TELE CONSULT [id number] Notes Entered by: John GRIMM 05 Jun 2015 0631 ------- ------- ------- ------- -- Sx ER FU symptom s persist /Colane se/[phone] HOLLIS MCMILLAN 06/05 Referred for Appointment [address] [place] [address] [facility])(F amily Med Tm B Non-AD BCC) [address] [place] [address] [facility])(Fam criss Med Tm B Non-AD BCC) OUTPATIENT [id number] back pain/sp asms KAREN WELLINGTON 06/05 Released w/o Limitations [address] [place] [address] Group [facility])(F amily Med Tm B Non-AD BCC) [address] [place] [address] [facility])(Fam criss Med Tm B Non-AD BCC) OUTPATIENT [id number] semi-an nual check up KAREN WELLINGTON 06/11 Released w/o Limitations [address] [place] [address] [facility])(F amily Med Tm B Non-AD BCC) [address] [place] [address] [facility])(Med ication Refill Clinic) TELE CONSULT [id number] Notes Entered by: ESTER DAIGLE 27 Jun 2015 0633 ------- ------- ------- ------- -- Rx renewal - Sondra Negrete HOLLIS MCMILLAN 06/27 Referred for Appointment [address] [place] [address])([facility]) [address] [place] [address])([facility] criss Med Tm B Non-AD BCC) OUTPATIENT [id number] Notes Entered by: RENEE DÍAZ 26 Aug 2015 0936 ------- ------- ------- ------- -- walk in throat culture KAREN WELLINGTON Released w/o Limitations [address] [place] [address])(F amily Med Tm B Non-AD BCC) [address] [place] [address])(Fam criss Med Tm B Non-AD BCC) OUTPATIENT [id number] physica l [id number] KAREN WELLINGTON Released w/o Limitations [address] [place] [address])(F amily Med Tm B Non-AD BCC) [address] [place] [address])(Fam criss Med Tm B Non-AD BCC) TELE CONSULT [id number] Notes Entered by: FISH CARY 28 Aug 2015 0801 ------- ------- ------- ------- -- Results HOLLIS MCMILLAN 08/27 Referred for Appointment [address] [place] [address])(F amily Med Tm B Non-AD BCC) [address] [place] [address])(Fam criss Med Tm B Non-AD BCC) TELE CONSULT [id number] Notes Entered by: Rosita VILLEDA 12 Nov 2015 1356 ------- ------- ------- ------- -- Cardiol man Wyman l Request Inquiry / Colanes e / GIOVANAAIME Idalia 11/[address] [place] [address])(F amily Med Tm B Non-AD BCC) [address] [place] [address])(Min or Procedure Clinic) TELE CONSULT [id number] Notes Entered by: PATRICK ROWELL 03 Dec 2015 0934 ------- ------- ------- ------- -- Colonos copy Results /Colane se/[phone] MICAH POLO 12/[address] [place] [address] [facility])(M inor Procedu re Clinic) [address] [place] [address])(Fam criss Med Tm B Non-AD BCC) TELE CONSULT [id number] Notes Entered by: ESTER DAIGLE 06 Dec 2015 0935 ------- ------- ------- ------- -- Order labs - [place] e - [place] [facility] HOLLIS MCMILLAN 12/05 Referred for Appointment [address] [place] [address] [facility])(F amily Med Tm B Non-AD BCC) [address] [place] [address])(War rior Op Med Cln Tm A Ad) TELE CONSULT [id number] Notes Entered by: KAMARI LIZ 20 Dec 2015 1407 ------- ------- ------- ------- -- Network Results CARDIOL OGY 12/04/15 [facility] KAREN WELL[facility] 12/[address] [place] [address] Group [facility])(W arrior Op Med Cln Tm A Ad) [address] [place] [address] [facility])(Fam criss Med Tm B Non-AD BCC) OUTPATIENT [id number] medicat ion review/ renewal KAREN WELLINGTON 12/25 Released w/o Limitations [address] [place] [address])(F amily Med Tm B Non-AD BCC) [address] [place] [address])(Fam criss Med Tm B Non-AD BCC) TELE CONSULT [id number] Notes Entered by: MASHA BARRIOS 07 Jan 2016 0931 ------- ------- ------- ------- -- Network results Cardiol ogy 016 DMMADISON ELIZONDOSSNAZ Gutierrez 01/[address] [place] [address])(F amily Med Tm B Non-AD BCC) [address] [place] [address])(Fam criss Med Tm B Non-AD BCC) TELE CONSULT [id number] Notes Entered by: SARBJIT ALEJANDRO 28 Jan 2016 1438 ------- ------- ------- ------- -- Lisa [facility] Team 2: Office Message SARBJIT ALEJANDRO 01/27 Referred for Appointment [address] [place] [address])(F amily Med Tm B Non-AD BCC) [address] [place] [address])(Fam criss Med Tm B Non-AD BCC) TELE CONSULT [id number] Notes Entered by: SHIREEN NARVAEZ 14 Feb 2016 0955 ------- ------- ------- ------- -- NEW PATIENT RESULTS FOR VERONICAO MADISON TINOCOSSNAZ Gutierrez 02/[address] [place] [address])(F amily Med Tm B Non-AD BCC) [address] [place] [address])(Med ication Refill Clinic) TELE CONSULT [id number] Notes Entered by: GALI MUÑIZ 26 Mar 2016 0643 ------- ------- ------- ------- -- Med refill/ Colanes e/ /[facility] JOE CORTES 03/[address] [place] [address])([facility]) [address] [place] [address])(Fam criss Med Tm B Non-AD BCC) TELE CONSULT [id number] Notes Entered by: TYLER NUÑEZ 31 Mar 2016 1114 ------- ------- ------- ------- -- sondra fernández/refer FAUSTO Lucia 03/31 Referred for Appointment [address] [place] [address] Shaka [facility])(F amily Med Tm B Non-AD BCC) [address] [place], [place] [address]B [facility])(Fam criss Med Tm B Non-AD BCC) OUTPATIENT [id number] Lower Back Pain x 3 days 660.675 6 KAREN WELLINGTON 04/15 Released w/o Limitations [address] [place], [place] [address] [facility])(F amily Med Tm B Non-AD BCC) [address] [place], [place] [address] [facility])(Fam criss Med Tm B Non-AD BCC) OUTPATIENT [id number] Lower Back Pain x 4 days JYOTHI ONTIVEROS 05/25 Released w/o Limitations [address] [place] [address] Shaka [facility])(F amily Med Tm B Non-AD BCC) [address] [place] [address] Shaka [facility])(Fam criss Med Tm B Non-AD BCC) TELE CONSULT [id number] Notes Entered by: MASHA BARRIOS 27 May 2016 1013 ------- ------- ------- ------- -- Network results Optomet ry 016 KAREN GIL 05/[address] [place] [address] Shaka [facility])(F amily Med Tm B Non-AD BCC) [address] [place] [address] Shaka B [facility])(Fam criss Med Tm B Non-AD BCC) TELE CONSULT [id number] Notes Entered by: MASHA BARRIOS 03 Jun 2016 1235 ------- ------- ------- ------- -- Network results Physica l Therapy 016 KRISTIN ROOT 06/[address] [place] [address] Shaka [facility])(F amily Med Tm B Non-AD BCC) [address] [place] [address])([facility] criss Med Tm B Non-AD BCC) TELE CONSULT [id number] Notes Entered by: Rosita ONTIVEROS 08 Jun 2016 1306 ------- ------- ------- ------- -- MRI result HOLLIS MCMILLAN Magaly 06/08 Referred for Appointment [address] [place] [address])(F amily Med Tm B Non-AD BCC) [address] [place] [address])([facility] criss Med Tm B Non-AD BCC) OUTPATIENT [id number] f/u after MRI low back / JYOTHI ONTIVEROS 06/15 Released w/o Limitations [address] [place] [address])( amily Med Tm B Non-AD BCC) [address] [place] [address])([facility] criss Med Tm B Non-AD BCC) TELE CONSULT [id number] Notes Entered by: BEV WILLSON 31 Jul 2016 1608 ------- ------- ------- ------- -- Network results Cardiol ogy 7 LORETA GALINDO 07/[address] [place] [address])(F amily Med Tm B Non-AD BCC) [address] [place] [address])([facility] criss Med Tm B Non-AD BCC) OUTPATIENT [id number] sinus congest ion, sore throat, product sara cough x3 days/66 0.6756 MICAH CAMEJO 08/03 Released w/o Limitations [address] [place] [address])(F amily Med Tm B Non-AD BCC) [address] [place] [address])([facility] criss Med Tm B Non-AD BCC) TELE CONSULT [id number] Notes Entered by: RUMA HEARN 10 Aug 2016 1314 ------- ------- ------- ------- -- Network results Physica l Therapy 7 JYOTHI GARCIA 08/[address] [place] [address] Shaka [facility])(F amily Med Tm B Non-AD BCC) [address] [place] [address] Shaka [facility])(Fam criss Med Tm B Non-AD BCC) TELE CONSULT [id number] Notes Entered by: MORGAN CAT 02 Sep 2016 0631 ------- ------- ------- ------- -- Sx - R side pain/Co lanese/ 660.675 6 CIELOPOP FELDER 09/02 Referred- Emergency Department [address] [place] [address])(F amily Med Tm B Non-AD BCC) [address] [place] [address])(Med ication Refill Clinic) TELE CONSULT [id number] Notes Entered by: ANAID CROOK 20 Oct 2016 1254 ------- ------- ------- ------- -- Med Renewal / Colanes e / [phone] 6 - sgj POP BUCK 10/20 Medication Refill Forwarded [address] [place] [address] Shaka [facility])([facility]) [address] [place] [address] Shaka [facility])(Fam criss Med Tm B Non-AD BCC) TELE CONSULT [id number] Notes Entered by: MORGAN CAT 26 Oct 2016 1302 ------- ------- ------- ------- -- Med Not in Pharmac y (reques ting call back today)/ Colanes e/660.6 756 POP BUCK 10/26 Other Not Elsewhere Classified [address] [place] [address] Shaka [facility])(F amily Med Tm B Non-AD BCC) [address] [place] [address])(Fam criss Med Tm B Non-AD BCC) OUTPATIENT [id number] left thigh occassi onal numbnes s on and off x 2 wks JYOTHI ONTIVEROS 11/17 Released w/o Limitations [address] [place] [address] Shaka SUN [facility])(F amily Med Tm B Non-AD BCC) [facility] Shaka [facility] criss Med Tm B Non-AD BCC) TELE CONSULT [id number] Notes Entered by: ANAID CROOK 27 Nov 2016 1024 ------- ------- ------- ------- -- Request for Lab Order - Appt 15 December / Sondra fernández / [phone] 6 - POP George 11/27 Other Not Elsewhere Classified [facility])(F amily Med Tm B Non-AD BCC) [address] [place] [address] Group Shaka [facility])([facility] criss Med Tm B Non-AD BCC) OUTPATIENT [id number] Annual liver functio n katerina mascorro and perscri ption renewal s MICAH CAMEJO 12/14 Released w/o Limitations [facility]aka [facility])(F amily Med Tm B Non-AD BCC) [address] [place] [address] Group Shaka [facility])([facility] criss Med Tm B Non-AD BCC) TELE CONSULT [id number] Notes Entered by: TYLER NUÑEZ 23 Feb 2017 1152 ------- ------- ------- ------- -- Referra l renewal /Appt Mar 14/DEREK Bridges 02/23 Other Not Elsewhere Classified [facility] Shaka JOSEB [facility])(F amily Med Tm B Non-AD BCC) [address] [place] [address] Group [facility]aka [facility])([facility] criss Med Tm B Non-AD BCC) TELE CONSULT [id number] Notes Entered by: Jose Angel REID 03 Mar 2017 1426 ------- ------- ------- ------- -- [facility]/ Referra magaly/ DEREK Colbert 03/03 Other Not Elsewhere Classified [facility] Shaka JOSEB [facility])(F amily Med Tm B Non-AD BCC) [address] [place] [address] Group Shaka JOSEB [facility])(Fam criss Med Tm B Non-AD BCC) TELE CONSULT [id number] Notes Entered by: INÉS ARIZA 19 Mar 2017 0823 ------- ------- ------- ------- -- Network results Cardiol ogy 7 BG KAREN WELLINGTON 03/[address] [place] [address])(F amily Med Tm B Non-AD BCC) [address] [place] [address])(Fam criss Med Tm B Non-AD BCC) TELE CONSULT [id number] Notes Entered by: Jose Angel SCHNEIDER 02 Apr 2017 0839 ------- ------- ------- ------- -- Network Results - Optomet ry 03/22/17 TSB MICAH CAMEJO 04/[address] [place] [address])(F amily Med Tm B Non-AD BCC) [address] [place] [address] Shaka [facility])(Fam criss Med Tm B Non-AD BCC) TELE CONSULT [id number] Notes Entered by: JAMES SHEPARD 14 Apr 2017 1424 ------- ------- ------- ------- -- Network Results - Optomet ry 7 TDC KAREN WELLINGTON 04/[address] [place] [address] Shaka [facility])(F amily Med Tm B Non-AD BCC) [address] [place] [address] Shaka [facility])(Fam criss Med Tm B Non-AD BCC) OUTPATIENT [id number] F/U Low Iron count per [place] fingers tick 12.7 - 11.7 [id number] KAREN WELLINGTON 05/04 Released w/o Limitations [address] [place] [address] Shaka [facility])(F amily Med Tm B Non-AD BCC) [address] [place] [address] Shaka [facility])(Fam criss Med Tm B Non-AD BCC) TELE CONSULT [id number] Notes Entered by: FISH CARY 05 May 2017 1527 ------- ------- ------- ------- -- Lab results RAÚL MANE 05/[address] [place] [address] Shaka [facility])(F amily Med Tm B Non-AD BCC) [address] [place] [address])(War rior Op Med Cln Tm A Ad) OUTPATIENT [id number] cough, sinus congest ion, headach e, body aches, sore throat ZAHIDA ROD 06/03 Released w/o Limitations [address] [place] [address] Shaka [facility])(W arrior Op Med Cln Tm A Ad) [address] [place] [address])(Fam criss Med Tm B Non-AD BCC) OUTPATIENT [id number] lower back pain on and off - progres sively getting worse KAREN WELLINGTON 07/07 Released w/o Limitations [address] [place] [address])(F amily Med Tm B Non-AD BCC) [address] [place] [address])(Fam criss Med Tm B Non-AD BCC) OUTPATIENT [id number] Notes Entered by: FISH CARY 30 Jul 2017 1510 ------- ------- ------- ------- -- KAREN Burris 07/30 Released w/o Limitations [address] [place] [address])(F amily Med Tm B Non-AD BCC) [address] [place] [address])(Med ication Refill Clinic) TELE CONSULT [id number] Notes Entered by: GALI MUÑIZ 18 Aug 2017 1000 ------- ------- ------- ------- -- Med Renewal /Remigio ordonez/660. 6756/cl RAÚL Rivera 08/[address] [place] [address] Shaka [facility])([facility]) [address] [place] [address])(Fam criss Med Tm B Non-AD BCC) TELE CONSULT [id number] Notes Entered by: Jose Angel SCHNEIDER 02 Sep 2017 0807 ------- ------- ------- ------- -- Network Results General Surgery 07/29/17 KAREN EMERY 09/[address] [place] [address] Shaka Kirstin [facility])(F amily Med Tm B Non-AD BCC) [address] [place] [address] Shaka [facility])(Fam criss Med Tm B Non-AD BCC) TELE CONSULT [id number] Notes Entered by: Jose Angel SCHNEIDER 03 Sep 2017 1520 ------- ------- ------- ------- -- Network Results Optomet ry 08/09/17 KAREN EMERY 09/[address] [place] [address] Shaka Kirstin [facility])(F amily Med Tm B Non-AD BCC) [address] [place] [address] Shaka [facility])(Fam criss Med Tm B Non-AD BCC) TELE CONSULT [id number] Notes Entered by: JULIETTE العراقي 29 Nov 2017 1013 ------- ------- ------- ------- -- Lab Test Request / Sondra fernández/ [phone] [place] [address] RAÚL MANE 11/[address] [place] [address] Shaka [facility])(F amily Med Tm B Non-AD BCC) [address] [place] [address] Shaka [facility])(Fam criss Med Tm B Non-AD BCC) OUTPATIENT [id number] Annual Check Up, Med Renewal s and F/U Lab results [id number] KAREN WELLINGTON 11/29 Released w/o Limitations [address] [place] [address] Shaka [facility])(F amily Med Tm B Non-AD BCC) [address] [place] [address] Shaka [facility])(Sco tt [facility]) TELE CONSULT [id number] Notes Entered by: GRUPO JUNE RET 30 Nov 2017 1351 ------- ------- ------- ------- -- RX Bridge Appt lanese/ the medical center RAÚL MANE 11/[address] [place] [address] Shaka [facility])(S cott MTF [facility]) [address] [place] [address] Shaka [facility])(War rior Op Med Cln Tm A Ad) TELE CONSULT [id number] Notes Entered by: Jose Angel LUNA 03 Mar 2018 1551 ------- ------- ------- ------- -- Referra l Request RAÚL MANE 03/03 Referred for Appointment [address] [place] [address] Shaka [facility])(W arrior Op Med Cln Tm A Ad) [address] [place] [address])([facility] tt Internal Medicine ) OUTPATIENT [id number] lower back pain x 2 CLAUDE LONGORIA 04/26 Released w/o Limitations [address] [place] [address] Shaka [facility])(S cott Interna l Medicin e Tm) [address] [place] [address])([facility] tt Internal Medicine ) OUTPATIENT [id number] low back pain/di scuss MRI for Pain Managem ent Referra l/256.4 853 LEISA ABDULLAHI 05/02 Released w/o Limitations [address] [place] [address])(S cott Interna l Medicin e Tm) [address] [place] [address])([facility] tt Internal Medicine ) TELE CONSULT [id number] Notes Entered by: CLAUDIA STEPHENS 30 May 2018 1010 ------- ------- ------- ------- -- MRI report request from Ms. Nina Scott at [facility] [place] F: CLAUDIA STEPHENS 05/30 Referred for Appointment [address] [place] [address] Shaka [facility])(S cott Interna l Medicin e Tm) [address] [place] [address])([facility] tt Internal Medicine Tm) TELE CONSULT [id number] Notes Entered by: MORGAN CAT 31 May 2018 1454 ------- ------- ------- ------- -- [facility]/ Sukhjinder/ RACHEL SCHWARZ 05/31 Other Not Elsewhere Classified [facility] Group [facility])(S cott Interna l Medicin e Tm) [address] [place] [address])([facility] Internal Medicine ) TELE CONSULT [id number] Notes Entered by: ANAID CROOK 10 Jun 2018 1330 ------- ------- ------- ------- -- [facility] / Sukhjinder / [phone] 3 / - sgj RACHEL SCHWARZ 06/10 Medication Refill Forwarded [address] [place] [address])(S cott Interna l Medicin e Tm) [address] [place] [address])([facility] Internal Medicine ) TELE CONSULT [id number] Notes Entered by: JULIETTE العراقي 30 Jun 2018 1244 ------- ------- ------- ------- -- STAT Jun-Sugey e Infusio n Referra l Req-Hos F/U/ Sukhjinder/ ALONDRA-Joselin a -aj RACHEL SCHWARZ 06/30 Other Not Elsewhere Classified [address] [place] [address])(S cott Interna l Medicin e Tm) [address] [place] [address])([facility] Internal Medicine ) TELE CONSULT [id number] Notes Entered by: GALI MUÑIZ 01 Jul 2018 1155 ------- ------- ------- ------- -- Appt Req/F/U Hospita lizatio n/Eric t/ CLAUDIA STEPHENS 07/01 Referred for Appointment [address] [place] [address])(S cott Interna l Medicin e Tm) [address] [place] [address])([facility] Internal Medicine ) TELE CONSULT [id number] Notes Entered by: MORGAN CAT 21 Jul 2018 1411 ------- ------- ------- ------- -- Sx - R side abdomin al Pain (appt refusal )/Eric peres/ RACHEL SCHWARZ 07/21 Released w/o Limitations [address] [place] [address] Group [facility])(S cott Interna l Medicin e Tm) [address] [place] [address])([facility] Internal Medicine ) TELE CONSULT [id number] Notes Entered by: GALI MUÑIZ 22 Jul 2018 1159 ------- ------- ------- ------- -- ER F/U/Peter sanabria/618 -[phone] 56/clm ROGERIO ESCALERA 07/22 Released to [facility] [address] [place] [address])(S cott Interna l Medicin e Tm) [address] [place] [address])([facility] Internal Medicine ) OUTPATIENT [id number] f/u hospita lizLEISA Padgett 08/23 Released w/o Limitations [address] [place] [address])(S cott Interna l Medicin e Tm) [address] [place] [address])([facility] Internal Medicine ) TELE CONSULT [id number] Notes Entered by: CHRISTIAN DON 02 Sep 2018 0906 ------- ------- ------- ------- -- Garo hare /sukhjinder / RACHEL Jose 09/02 Other Not Elsewhere Classified [address] [place] [address])(S cott Interna l Medicin e Tm) [address] [place] [address])([facility] Internal Medicine ) TELE CONSULT [id number] Notes Entered by: CHRISTIAN DON 13 Sep 2018 1415 ------- ------- ------- ------- -- Referra l request /sukhjinder / RACHEL Jose 09/13 Other Not Elsewhere Classified [address] [place] [address])(S cott Interna l Medicin e Tm) [address] [place] [address])([facility] Internal Medicine ) OUTPATIENT [id number] Low back pain [id number] LEISA ABDULLAHI 10/25 Released w/o Limitations [address] [place] [address] Group [facility])(S cott Interna l Medicin e Tm) [address] [place] [address])([facility] Internal Medicine ) TELE CONSULT [id number] Notes Entered by: Jose Angel SCHNEIDER 23 Nov 2018 0943 ------- ------- ------- ------- -- Network results PT 11/15/19 19 TSB LEISA ABDULLAHI 11/[address] [place] [address])(S cott Interna l Medicin e Tm) [address] [place] [address])([facility] Internal Medicine ) TELE CONSULT [id number] Notes Entered by: ESTER DAIGLE 03 Jan 2019 0742 ------- ------- ------- ------- -- Rx renewal - Sukhjinder - - RACHEL Razo 01/03 Medication Refill Forwarded [address] [place] [address])(S cott Interna l Medicin e Tm) [address] [place] [address])([facility] Internal Medicine ) TELE CONSULT [id number] Notes Entered by: JULIETTE العراقي 23 Jan 2019 0714 ------- ------- ------- ------- -- Med Renewal Request / Sukhjinder/ - CLAUDIA Workman 01/23 Medication Refill Forwarded [address] [place] [address] ([facility])(S cott Interna l Medicin e Tm) [facility])([facility] tt Internal Medicine Tm) TELE CONSULT [id number] Notes Entered by: ANAID CROOK 08 Mar 2019 0742 ------- ------- ------- ------- -- STAT Referra l Request - Appt Feb / Sukhjinder / [phone] - sg YAMIL WINSTON 03/08 Referred for Appointment [address] [place] [address] Group [facility])(S cott Interna l Medicin e Tm) [address] [place] [address])([facility] Internal Medicine Tm) TELE CONSULT [id number] Notes Entered by: MARKUS TAVAREZ 17 Mar 2019 1157 ------- ------- ------- ------- -- Network results Optomet ry 019 CLAUDE GILLESPIE 03/[address] [place] [address] Group [facility])(S cott Interna l Medicin e Tm) [facility] Medical [facility])([facility] Internal Medicine Tm) TELE CONSULT [id number] Notes Entered by: Jose Angel SCHNEIDER 27 Mar 2019 1101 ------- ------- ------- ------- -- Network results Optomet ry 03/16/20 19 CLAUDE SIU 03/[address] [place] [address])(S cott Interna l Medicin e Tm) [address] [place] [address])([facility] Internal Medicine Tm) TELE CONSULT [id number] Notes Entered by: ANAID CROOK 12 Apr 2019 0957 ------- ------- ------- ------- -- Med [facility] / Malu gutierrez / [phone] - sgCHANELL Belcher 04/12 Other Not Elsewhere Classified [facility] Medical [facility])(S cott Interna l Medicin e Tm) [address] [place] [address])([facility] Internal Medicine ) TELE CONSULT [id number] Notes Entered by: MARKUS TAVAREZ 18 Apr 2019 1538 ------- ------- ------- ------- -- Network results Optomet ry 019 CLAUDE GILLESPIE 04/[address] [place] [address])(S cott Interna l Medicin e Tm) [address] [place] [address])([facility] Internal Medicine ) TELE CONSULT [id number] Notes Entered by: CHRISTIAN DON 15 May 2019 0947 ------- ------- ------- ------- -- labs request /juve /618- [phone] 6 RACHEL Jose 05/15 Referred for Appointment [address] [place] [address])(S cott Interna l Medicin e Tm) [address] [place] [address])([facility] Internal Medicine ) OUTPATIENT [id number] Bilat foot pain NOE KEARNS 05/16 Released w/o Limitations [address] [place] [address])(S cott Interna l Medicin e Tm) [address] [place] [address])([facility] Internal Medicine ) TELE CONSULT [id number] Notes Entered by: NOE KEARNS 26 Jun 2019 0739 ------- ------- ------- ------- -- Lab results CLAUDIA STEPHENS 06/26 Referred for Appointment [address] [place] [address])(S cott Interna l Medicin e Tm) [address] [place] [address])([facility] Internal Medicine ) OUTPATIENT [id number] feet pain , YANG BERG 07/04 Released w/o Limitations [address] [place] [address])(S cott Interna l Medicin e Tm) [address] [place] [address])([facility] Internal Medicine ) TELE CONSULT [id number] Notes Entered by: ANAID CROOK 10 Jul 2019 1028 ------- ------- ------- ------- -- Med [place] / Malu s / [phone] 3 - sgj RACHEL SCHWARZ 07/10 Medication Refill Forwarded [address] [place] [address])(S cott Interna l Medicin e Tm) [address] [place] [address])([facility] Internal Medicine ) OUTPATIENT [id number] cough,s orethro at, fever congest ion x one week YANG BERG 07/25 Released w/o Limitations [address] [place] [address] Group [facility])(S cott Interna l Medicin e Tm) [address] [place] [address])([facility] Internal Medicine ) TELE CONSULT [id number] Notes Entered by: Darion GODWIN 01 Aug 2019 0909 ------- ------- ------- ------- -- Network results Podiatr y 020 JEEVAND YANG BERG 08/[address] [place] [address])(S cott Interna l Medicin e Tm) [address] [place] [address])([facility] Internal Medicine ) TELE CONSULT [id number] Notes Entered by: ESTER DAIGLE 06 Oct 2019 0948 ------- ------- ------- ------- -- F/U Spec - Referra l request - Malu s - - tsg JUAN LUIS WARD 10/05 Other Not Elsewhere Classified [address] [place] [address] Group [facility])(S cott Interna l Medicin e Tm) [address] [place] [address])([facility] Internal Medicine ) TELE CONSULT [id number] Notes Entered by: ELIDA CURTIS 20 Oct 2019 1102 ------- ------- ------- ------- -- Rx Renewal /Juve rs/618. 667.224 5 JUAN LUIS WARD 10/19 Other Not Elsewhere Classified [address] [place] [address])(S cott Interna l Medicin e Tm) [address] [place] [address])([facility] [facility] ) TELE CONSULT [id number] Notes Entered by: ARANZA HINOJOSA 23 Oct 2019 1029 ------- ------- ------- ------- -- Network Results Gastroe nterolo gy 10/18/19 20 CLAUDE WALTER 10/[address] [place] [address])([facility] ) [address] [place] [address])([facility] Medicine ) TELE CONSULT [id number] Notes Entered by: CHRISTIAN DON 29 Nov 2019 0712 ------- ------- ------- ------- -- SX-lowe r back pain/ch ambers/ [phone] YANG Almanza 11/[address] [place] [address])([facility] Tm) [address] [place] [address])([facility] Internal Medicine ) TELE CONSULT [id number] 7 Notes Entered by: MORGAN CAT 12 Dec 2019 0926 ------- ------- ------- ------- -- Sx - sx persist - Back Pain/Ch ambers/ RACHEL SCHWARZ 12/11 Referred for Appointment [address] [place] [address])([facility]) [address] [place] [address])([facility] Internal Medicine ) OUTPATIENT [id number] F2F, low back pain TIMOTEO THEA ARANGO 12/11 Released w/o Limitations [address] [place] [address])([facility] Tm) [address] [place] [address] Shaka [facility])([facility] Medicine ) TELE CONSULT [id number] 7 Notes Entered by: THEA MAHMOOD ANT 19 Dec 2019 1557 ------- ------- ------- ------- -- F/U back conklin and MRI THEA MAHMOOD NBA 12/[address] [place] [address] Shaka [facility])([facility]) [address] [place] [address])([facility] Internal Medicine ) TELE CONSULT [id number] 6 Notes Entered by: John VALDOVINOS 03 Jan 2020 0906 ------- ------- ------- ------- -- ED to Inpatie nt Admissi on YANG BERG 01/[address] [place] [address] Shaka [facility])([facility] Tm) [address] [place] [address] Shaka [facility])([facility] Internal Medicine ) TELE CONSULT [id number] 1 Notes Entered by: Jose Angel SCHNEIDER 11 Jan 2020 1434 ------- ------- ------- ------- -- Network results Gastro 07/26/19 20 TSB THEA MAHMOOD NBA 01/[address] [place] [address] Shaka [facility])([facility]m) [address] [place] [address] Shaka [facility])([facility] ) OUTPATIENT [id number] Virtual p/o leprosy , ending with colosto my d/c 01.12.20 St e YANG BERG 01/11 Released w/o Limitations [address] [place] [address] Shaka [facility] ([facility] Intern[facility] Medic[facility] Tm) [address] [place] [address] Shaka [facility])([facility] Medicine ) TELE CONSULT [id number] 8 Notes Entered by: ELIDA CURTIS 15 Jan 2020 0844 ------- ------- ------- ------- -- Home Care Consult /Juve /618. [id number] 6 RACHEL SCHWARZ 01/14 Other Not Elsewhere Classified [facility] Medical Group [facility])([facility] Intern[facility] Tm) [address] [place] [address] Group [facility])([facility] Internal Medicine ) TELE CONSULT [id number] 6 Notes Entered by: John VALDOVINOS 15 Jan 2020 1041 ------- ------- ------- ------- -- Inpatie nt chetanar YANG Saldana 01/14 [facility])([facility] Intern[facility] Tm) [address] [place] [address] Group [facility])([facility] Medicine ) TELE CONSULT [id number] 2 Notes Entered by: RACHEL SCHWARZ 16 Jan 2020 1423 ------- ------- ------- ------- -- Request s pain meds RACHEL SCHWARZ 01/15 Medication Refill Forwarded [facility] Group [facility])([facility] Tm) [facility] Medical [facility])([facility] Internal Medicine ) TELE CONSULT [id number] 6 Notes Entered by: JULIETTE العراقي 23 Jan 2020 0942 ------- ------- ------- ------- -- Med Renewal Request / Malu s/ - [facility] RACHEL SCHWARZ 01/22 Medication Refill Forwarded [facility] Group [facility])([facility] Tm) [facility] Medical [facility])([facility] Internal Medicine ) TELE CONSULT [id number] 7 Notes Entered by: YAQUELIN NASH 31 Jan 2020 0849 ------- ------- ------- ------- -- Phone Call Request / Malu gutierrez/ RACHEL SCHWARZ 01/30 Other Not Elsewhere Classified [address] [place] [address])([facility]) [address] [place] [address])([facility] Medicine ) TELE CONSULT [id number] 6 Notes Entered by: Rick WINSTON 31 Jan 2020 1422 ------- ------- ------- ------- -- Referra l Request /YAMIL Stewart 01/30 Referred for Appointment [address] [place] [address])([facility]) [address] [place] [address])([facility] Medicine ) TELE CONSULT [id number] Notes Entered by: John VALDOVINOS 13 Feb 2020 1127 ------- ------- ------- ------- -- [facility]osp[facility] ation YANG BERG 02/[address] [place] [address])([facility]m) [address] [place] [address])([facility] Medicine ) OUTPATIENT [id number] F2F; Follow up sepsis/ UTI (record s request ed) YANG BERG 02/14 Released w/o Limitations [address] [place] [address])([facility]) [address] [place] [address])([facility] Medicine ) TELE CONSULT [id number] RACHEL SCHWARZ 03/11 Other Not Elsewhere Classified [address] [place] [address])([facility]m) [address] [place] [address])([facility] Medicine ) OUTPATIENT [id number] virtual , fevers/ chills, cold-li ke Sx's, please call YANG BERG 03/11 Released w/o Limitations [address] [place] [address])([facility]) [address] [place] [address])([facility] demic Virus) OUTPATIENT [id number] Covid test Sx's RENETTA RAMON 03/12 Released w/o Limitations [address] [place] [address])(P andemic Virus) [address] [place] [address])([facility] ) TELE CONSULT [id number] Notes Entered by: John VALDOVINOS 13 Mar 2020 1120 ------- ------- ------- ------- -- Inpatie nt [facility]arc[facility] 03/[address] [place] [address])([facility]) [address] [place] [address])([facility]) TELE CONSULT [id number] Notes Entered by: Fito DOMINGO 14 Mar 2020 1235 ------- ------- ------- ------- -- Current ly inpatie nt at [facility], contact w/pt PATRICK DOMINGO 03/14 Other Not Elsewhere Classified [address] [place] [address])([facility] [address] [place] [address])([facility] Internal Medicine ) TELE CONSULT [id number] Notes Entered by: John VALDOVINOS 19 Mar 2020 1220 ------- ------- ------- ------- -- Inpatie nt [facility] Narciso 03/[address] [place] [address])([facility]m) [address] [place] [address])([facility]) TELE CONSULT [id number] Notes Entered by: Fito DOMINGO 20 Mar 2020 1034 ------- ------- ------- ------- -- Pt contact PATRICK DOMINGO 03/20 Other Not Elsewhere Classified [address] [place] [address])(C are [facility]) [address] [place] [address])([facility] tt Internal Medicine Tm) OUTPATIENT [id number] [facility] d/c 03.18.2 020 admissi on abd YANG Brown Narciso 03/20 Released w/o Limitations [address] [place] [address])([facility]) [address] [place] [address])([facility] tt Disease Managemen t) TELE CONSULT [id number] 1 Notes Entered by: ADRIANO BREAUX 22 Mar 2020 1623 ------- ------- ------- ------- -- f/u metform in use ERAN ESQUIVEL 03/22 Released to [facility] [address] [place] [address])(S cott Disease Managem ent) [address] [place] [address])([facility] Medicine) OUTPATIENT [id number] Type II Diabete s SANKET MIRZA 04/01 Released w/o Limitations [address] [place] [address])(N utritio nal Medicin e) [address] [place] [address])([facility] tt Internal Medicine Tm) TELE CONSULT [id number] 2 Notes Entered by: ELIDA CURTIS 10 Apr 2020 1234 ------- ------- ------- ------- -- Garo Deras /Juve rs/618. [id number] 6 CHANELL OSEI 04/10 Other Not Elsewhere Classified [address] [place] [address])([facility]m) [address] [place] [address])([facility] tt Internal Medicine Tm) TELE CONSULT [id number] Notes Entered by: Milena NAVARRO 17 Apr 2020 1530 ------- ------- ------- ------- -- TITA- maru malik from home health / RACHEL Reyes 04/17 Other Not Elsewhere Classified [address] [place] [address])([facility] Tm) [address] [place] [address] Group [facility])([facility] Internal Medicine Tm) TELE CONSULT [id number] Notes Entered by: ANAID CROOK 06 May 2020 0857 ------- ------- ------- ------- -- Med Renewal / Lab Order Request / Malu / - sgj YANG BERG 05/[address] [place] [address] Group [facility])([facility] Tm) [address] [place] [address] Group [facility])([facility] Internal Medicine ) OUTPATIENT [id number] stomach issues [phone] YANG BERG 05/16 Released w/o Limitations [address] [place] [address] Group [facility])([facility] Tm) [address] [place] [address])([facility] Internal Medicine ) TELE CONSULT [id number] 6 Notes Entered by: ANAID CROOK 17 May 2020 1324 ------- ------- ------- ------- -- Info of Hosp Adm - Positiv e COVID Test / Malu / - sgj RACHEL SCHWARZ 05/17 Other Not Elsewhere Classified [facility] Group [facility])([facility] Intern[facility] Medicin [facility] Tm) [address] [place] [address])([facility] Internal Medicine ) TELE CONSULT [id number] 3 Notes Entered by: ELIDA CURTIS 10 Jun 202015 ------- ------- ------- ------- -- Referra magaly Request /Juve malcolm/618. [phone] 3 or RACHEL SCHWARZ 06/10 Other Not Elsewhere Classified [address] [place] [address] Group [facility])([facility] Intern[facility] Medicin [facility] Tm) [address] [place] [address])([facility] Internal Medicine Tm) TELE CONSULT [id number] 9 Notes Entered by: THEA MAHMOOD 19 Jul 2020 1019 ------- ------- ------- ------- -- RACHEL Mendoza 07/19 Medication Refill Forwarded [address] [place] [address])([facility] Tm) [address] [place] [address])([facility] Internal Medicine ) OUTPATIENT [id number] Annual, med refills , lab results , call THEA MAHMOODJONO 07/25 Released w/o Limitations [address] [place] [address])([facility] Tm) [address] [place] [address])([facility] Medicine ) TELE CONSULT [id number] 8 Notes Entered by: Rosita WETZEL 22 Aug 2020 0742 ------- ------- ------- ------- -- Network results Cardiol ogy 020 YANG BUENO 08/[address] [place] [address])([facility] Tm) [address] [place] [address])([facility] Medicine ) TELE CONSULT [id number] 3 Notes Entered by: SIMI DÍAZ 06 Sep 2020 1104 ------- ------- ------- ------- -- Inpatie nt admit authori bobbi rodas per [employer] portal/ YANG OG 09/[address] [place] [address])([facility] Tm) [address] [place] [address])([facility] ) TELE CONSULT [id number] 2 Notes Entered by: MP SHULTZ 09 Sep 2020 0704 ------- ------- ------- ------- -- [employer] Militar y Daily Inpatie nt Roster- Admissi on/Disc harge NotifYANG Bhatia 09/[address] [place] [address] Group [facility])([facility] Intern[facility] Medicin e Tm) [address] [place] [address])([facility] Medicine ) TELE CONSULT [id number] 1 Notes Entered by: CHRISTIAN DON 12 Sep 2020 0933 ------- ------- ------- ------- -- referra l request /juve rs/[id number] RACHEL Jose 09/12 Other Not Elsewhere Classified [address] [place] [address])([facility] Tm) [address] [place] [address])([facility] Medicine ) TELE CONSULT [id number] 3 Notes Entered by: MORGAN CAT 09 Oct 2020 1033 ------- ------- ------- ------- -- Med Request - Feet Pain (off/on ) - Appt Refusal /Juve rs/618. [phone] [id number] RACHEL SCHWARZ 10/09 Referred for Appointment [address] [place] [address])([facility] Tm) [address] [place] [address])([facility] Medicine ) OUTPATIENT [id number] Diabeti c bilat foot pain, discuss alterna te med, call THEA MAHMOOD 10/10 Released w/o Limitations [address] [place] [address])([facility] Tm) [address] [place] [address])([facility] Medicine ) TELE CONSULT [id number] 5 Notes Entered by: CHRISTIAN DON 11 Oct 2020 1033 ------- ------- ------- ------- -- phone number change/ chamber s/[phone] RACHEL Jose 10/11 Other Not Elsewhere Classified [address] [place] [address])([facility] Tm) [address] [place] [address])([facility] Medicine ) OUTPATIENT [id number] F2F - lower back pain [phone] YANG BERG 11/18 Released w/o Limitations [address] [place] [address])([facility] Tm) [address] [place] [address])([facility] Medicine ) TELE CONSULT [id number] Notes Entered by: MARYLU MITCHELL 19 Nov 2020 1103 ------- ------- ------- ------- -- Network results Surgery 020 - 021 YANG BRYANT 11/[address] [place] [address])([facility] Tm) [address] [place] [address])([facility] Medicine ) TELE CONSULT [id number] Notes Entered by: ESTER DAIGLE 18 Dec 2020 0953 ------- ------- ------- ------- -- Garo hare - Malu [facility] - RACHEL Razo 12/18 Other Not Elsewhere Classified [address] [place] [address])([facility]in [facility] Tm) [address] [place] [address])([facility] Medicine ) TELE CONSULT [id number] 5 Notes Entered by: CHRISTIAN DON 23 Dec 2020 1042 ------- ------- ------- ------- -- refills /juve /[phone] RACHEL Jose 12/23 Medication Refill Forwarded [address] [place] [address])([facility] Tm) [address] [place] [address])([facility] Internal Medicine ) TELE CONSULT [id number] 4 Notes Entered by: CHRISTIAN DON 07 Jan 2021 0746 ------- ------- ------- ------- -- med refill/ malu s/[id number] RACHEL Jose 01/07 Medication Refill Forwarded [address] [place] [address])([facility] Tm) [address] [place] [address])([facility] Internal Medicine ) TELE CONSULT [id number] Notes Entered by: ELIDA CURTIS 21 Jan 2021 09 ------- ------- ------- ------- -- Lab Order Request and Sleep Study Follow- Up/Alison wynnes/61 [id number] RACHEL SCHWARZ 01/21 Other Not Elsewhere Classified [address] [place] [address])([facility] Tm) [address] [place] [address])([facility] Internal Medicine ) TELE CONSULT [id number] Notes Entered by: Jose Angel SCHNEIDER 21 Jan 2021 0908 ------- ------- ------- ------- -- Network results Pulm 01/20/20 21 TSB THEA MAHMOOD 01/[address] [place] [address])([facility] Tm) [address] [place] [address])([facility] Internal Medicine ) TELE CONSULT [id number] Notes Entered by: Jose Angel SCHNEIDER 21 Jan 2021 1512 ------- ------- ------- ------- -- Network results Optomet ry 01/22/20 21 TSB YANG BERG 01/[address] [place] [address])([facility] Tm) [address] [place] [address])([facility] Internal Medicine ) OUTPATIENT [id number] FTF-lef t wrist pain x 2 weeks-6 [id number]. [phone] YANG BERG 01/24 Released w/o Limitations [address] [place] [address])(S cott Interna l Medicin e Tm) [facility] Medical Group Shaka [facility] ([facility])([facility] Internal Medicine ) OUTPATIENT [id number] side and back pain in person [phone] YANG BERG 01/29 Released w/o Limitations [address] [place] [address] Group [place]aka [facility])(S cott Interna l Medicin e Tm) [address] [place] [address] Group [facility])([facility] Internal Medicine ) OUTPATIENT [id number] [place] [phone] lower right side pain going down leg and in to groin YANG BERG 01/30 Released w/o Limitations [address] [place] [address] Group [place]aka [facility])(S cott Interna l Medicin e Tm) [address] [place] [address] Group [place]aka [facility])([facility] Internal Medicine ) TELE CONSULT [id number] Notes Entered by: CHRISTIAN DON 30 Jan 2021 1123 ------- ------- ------- ------- -- MRI order/ malu [phone] RACHEL Jose 01/30 Other Not Elsewhere Classified [facility] Medical Group Shaka [facility])(S cott Interna l Medicin e Tm) [address] [place] [address] Group [facility])([facility] Internal Medicine ) TELE CONSULT [id number] Notes Entered by: DORENE POLLOCK 07 Feb 2021 1524 ------- ------- ------- ------- -- Network results Radiolo gy 021 BF YANG BERG 02/07 [facility] Medical Group Shaka [facility])(S cott Interna l Medicin e Tm) [facility] Medical Group [facility])([facility] Internal Medicine ) TELE CONSULT [id number] Notes Entered by: JULIETTE العراقي 11 Feb 2021 0936 ------- ------- ------- ------- -- Med Renewal Request / Malu / - RACHEL Martinez 02/11 Other Not Elsewhere Classified [address] [place] [address])([facility] Intern[facility] Medicin e Tm) [address] [place] [address])([facility] Internal Medicine ) TELE CONSULT [id number] Notes Entered by: MORGAN CAT 18 Feb 2021 0758 ------- ------- ------- ------- -- Med [place] /Juve /618. [id number] [id number] RACHEL SCHWARZ 02/18 Medication Refill Forwarded [address] [place] [address])([facility] Intern[facility] Medicin e Tm) [address] [place] [address])([facility] Internal Medicine ) TELE CONSULT [id number] Notes Entered by: JULIETTE العراقي 18 Feb 2021 1332 ------- ------- ------- ------- -- Pain Managem ent Referra l Request / Chamber / - [facility] CHANELL OSEI 02/18 Other Not Elsewhere Classified [address] [place] [address])([facility] Intern[facility] Medicin [facility] Tm) [address] [place] [address])([facility] Internal Medicine ) TELE CONSULT [id number] 5 Notes Entered by: Rosita WETZEL 27 Feb 2021 1402 ------- ------- ------- ------- -- Network results Pulmona ry/Slee p Medicin e 021 THEA LAMB 02/[address] [place] [address])([facility] Intern[facility] Medicin e Tm) [address] [place] [address])([facility] Medicine ) TELE CONSULT [id number] 3 Notes Entered by: DORENE POLLOCK 04 Mar 2021 0908 ------- ------- ------- ------- -- Network results Anes/Pa in Managem ent 021 BF YANG BERG 03/[address] [place] [address])([facility] Intern[facility] Medicin [facility] Tm) [address] [place] [address])([facility] Medicine ) TELE CONSULT [id number] Notes Entered by: DANAE STILES 12 Mar 2021 1049 ------- ------- ------- ------- -- Rx Refill/ Malu s/ RACHEL SCHWARZ 03/12 Other Not Elsewhere Classified [address] [place] [address])([facility] Intern[facility] Medicin e Tm) [address] [place] [address])([facility] Internal Medicine ) TELE CONSULT [id number] Notes Entered by: Jose Angel SCHNEIDER 31 Mar 2021 1440 ------- ------- ------- ------- -- Network results Surgery 02/28/21- 09/02/20 TSB YANG BERG 03/[address] [place] [address])([facility] Interna l Medicin e Tm) [address] [place] [address])([facility] Internal Medicine ) TELE CONSULT [id number] 3 Notes Entered by: JULIETTE العراقي 09 Apr 2021 1557 ------- ------- ------- ------- -- SX- Diarrhe a-Heada bertha-Con gestion / Malu s/ - ajh RACHEL SCHWARZ 04/09 Referred for Appointment [address] [place] [address])([facility] Interna l Medicin e Tm) [address] [place] [address])([facility] demic Virus) OUTPATIENT [id number] symtoma PAOLO Tovar 04/10 Released w/o Limitations [address] [place] [address])(P andemic Virus) [address] [place] [address])([facility] Internal Medicine ) OUTPATIENT [id number] HC - Diarrhe a persist -Headac -Valerio estion [facility] ALLYSON WONG 04/14 Released w/o Limitations [address] [place] [address])(S cott Interna l Medicin e Tm) [address] [place] [address])([facility] Internal Medicine ) TELE CONSULT [id number] Notes Entered by: ESTER DAIGLE 16 Apr 2021 0807 ------- ------- ------- ------- -- Sx; Sx persist - Appt [facility] - - tsg* RACHEL SCHWARZ 04/16 Referred for Appointment [address] [place] [address])(S cott Interna l Medicin e Tm) [address] [place] [address])([facility] Internal Medicine ) TELE CONSULT [id number] Notes Entered by: AIDEN PARRA 17 Apr 2021 0811 ------- ------- ------- ------- -- Network results Physica l Therapy 021 YANG MOON 04/[address] [place] [address])([facility] cott Interna l Medicin e Tm) [address] [place] [address])([facility] Internal Medicine ) TELE CONSULT [id number] Notes Entered by: GRUPO JUNE RET 21 Apr 2021 1313 ------- ------- ------- ------- -- No Lab Order in Lab uriel/Jenise roberts/Kylie [id number]. 6756*CHANELL Conley 04/21 Other Not Elsewhere Classified [address] [place] [address])(S cott Interna l Medicin e Tm) [address] [place] [address])([facility] Internal Medicine ) OUTPATIENT [id number] Virtual [phone] annual and YANG Marcum 04/25 Released w/o Limitations [address] [place] [address])(S cott Interna l Medicin e Tm) [address] [place] [address])([facility] Internal Medicine ) TELE CONSULT [id number] Notes Entered by: DORENE POLLOCK 05 Jun 2021 1409 ------- ------- ------- ------- -- Network results Orthope dics 021 BF YANG BERG 06/[address] [place] [address])([facility] cott Interna l Medicin e Tm) [address] [place] [address])([facility] Internal Medicine ) OUTPATIENT [id number] VIRTUAL - Sinus Congest ion, Cough, Headach e, (COVID Neg), YANG BERG 08/26 Released w/o Limitations [address] [place] [address])(S cott Interna l Medicin e Tm) [address] [place] [address])([facility] Internal Medicine ) TELE CONSULT [id number] Notes Entered by: CHRISTIAN DON 16 Sep 2021 0856 ------- ------- ------- ------- -- med renewal s/chamb ers/[phone] RACHEL Jose 09/16 Advice Assessment [address] [place] [address])([facility] [address] [place] [address])([facility] Internal Medicine ) TELE CONSULT [id number] 9 Notes Entered by: MARLIN MILLER 14 Oct 2021 1438 ------- ------- ------- ------- -- Network results Optomet ry 022 LSJ YANG BERG 10/[address] [place] [address])([facility]) [address] [place] [address])([facility] OUTPATIENT [id number] 5 VIRTUAL 6 MONTH DM F/U REHAN WELDON Linda 10/27 Released w/o Limitations [address] [place] [address] Group [facility])([facility]) [address] [place] [address])([facility] Internal Medicine ) TELE CONSULT [id number] 9 Notes Entered by: MICHAEL NICHOLEANIT A 27 Oct 2021 1534 ------- ------- ------- ------- -- SX-Abdo austin Pain increas ing / Chamber s/ RACHEL SCHWARZ 10/27 Referred- Emergency Department [address] [place] [address] Group [facility])([facility]) [address] [place] [address])([facility] Internal Medicine ) TELE CONSULT [id number] 7 Notes Entered by: JULIETTE العراقي A 27 Oct 2021 1540 ------- ------- ------- ------- -- med Renewal Request / [facility] s/ [phone] RACHEL SCHWARZ 10/27 Medication Refill Forwarded [address] [place] [address])([facility] [address] [place] [address])([facility] Internal [facility] ) TELE CONSULT [id number] Notes Entered by: ELIDA CURTIS 28 Oct 2021 1101 ------- ------- ------- ------- -- Referra l Request -Surger y/CHAMB ERS/[phone] RACHEL SCHWARZ 10/28 Other Not Elsewhere Classified [address] [place] [address])([facility] [address] [place] [address])([facility] ) TELE CONSULT [id number] 0 Notes Entered by: FELECIA CHEEK 29 Oct 2021 1358 ------- ------- ------- ------- -- Please review provide r results /HAIMS- ER YANG BERG 10/[address] [place] [address])([facility]) [address] [place] [address])([facility] ) OUTPATIENT [id number] FTF-Er Follow up for Abdomin al pain-Re ferral Request -[phone] YANG BERG 10/30 Released w/o Limitations [address] [place] [address])([facility]) [address] [place] [address])([facility] ) TELE CONSULT [id number] 5 Notes Entered by: FELECIA CHEEK 06 Jan 2022 1256 ------- ------- ------- ------- -- Provide r results /HAIMS- referra l request appt Jan 16 ANDRIA WREN 01/06 Referred for Appointment [address] [place] [address])([facility]) [address] [place] [address])([facility]) OUTPATIENT [id number] 3 F2F 3 MONTH DM F/U REHAN WELDON 02/18 Released w/o Limitations [address] [place] [address])([facility]) [address] [place] [address])([facility] Internal [facility] ) TELE CONSULT [id number] 2 Notes Entered by: Milena NAVARRO 18 Feb 2022 1430 ------- ------- ------- ------- -- retro referra l una cardiol SARBJIT Horton 02/18 Released to [facility] [address] [place] [address])([facility]) [address] [place] [address])([facility] ) TELE CONSULT [id number] 5 Notes Entered by: ENOC JACKSON 21 Apr 2022 1500 ------- ------- ------- ------- -- Network results Surgery 022 ALLYSON SAUNDERS 04/[address] [place] [address])([facility]) [address] [place] [address])([facility] ) TELE CONSULT [id number] 5 Notes Entered by: ESTER DAIGLE 04 May 2022 0729 ------- ------- ------- ------- -- Rx renewal - Jose Alejandro - - tsg JOSEPH GONZALEZ 05/04 Medication Refill Forwarded [address] [place] [address])([facility]) [address] [place] [address])([facility] ) TELE CONSULT [id number] 3 Notes Entered by: Darion GODWIN 04 May 2022 1345 ------- ------- ------- ------- -- Network results Urology 022 ALLYSON FOSTER 05/[address] [place] [address])([facility] ) [address] [place] [address])([facility] ) TELE CONSULT [id number] 0 Notes Entered by: MORGAN CAT 13 May 2022 0838 ------- ------- ------- ------- -- Garo Hare (appt Apr)/Manuel martinez/[phone] SARBJIT ALEJANDRO 05/13 Released to [facility] [address] [place] [address])([facility]) [address] [place] [address])([facility] ) TELE CONSULT [id number] 4 Notes Entered by: JULIETTE العراقي 25 May 2022 1304 ------- ------- ------- ------- -- Med Bridge Request / Jose Alejandro/ RAYMOND BLOUNT 05/[address] [place] [address])([facility]) [address] [place] [address])([facility]) OUTPATIENT [id number] 1 F2F 3 MONTH DM F/U REHAN WELDON 05/27 Released w/o Limitations [address] [place] [address])([facility]) [address] [place] [address])([facility] Internal Medicine Tm) OUTPATIENT [id number] annual exam RAYMOND BLOUNT 05/27 Released w/o Limitations [address] [place] [address])([facility]) [address] [place] [address])([facility] Internal Medicine Tm) TELE CONSULT [id number] 6 Notes Entered by: Darion GODWIN 28 May 2022 1204 ------- ------- ------- ------- -- Network results OPTOMET RY 022 RAYMOND IBARRA 05/[address] [place] [address])([facility]) [address] [place] [address])([facility] Internal [facility] Tm) OUTPATIENT [id number] 3 back pain,[phone] f2f appt RAYMOND BLOUNT 07/28 Released w/o Limitations [address] [place] [address])([facility]) [address] [place] [address])([facility] Tm) TELE CONSULT [id number] 9 Notes Entered by: Rosita WETZEL 22 Sep 2022 1319 ------- ------- ------- ------- -- Network results Anes/Pa in Managem ent 023 RAYMOND KENNEDY 09/[address] [place], [place] [address]B ([facility])([facility] [address] [place] [address] [facility])([facility] Internal [facility] ) TELE CONSULT [id number] 2 Notes Entered by: KARMA ENG 09 Nov 2022 0925 ------- ------- ------- ------- -- Sx- Back Pain/ JOSE ALEJANDRO / HOLLIS MCMILLAN 11/09 Other Not Elsewhere Classified [address] [place] [address] [facility] [address] [place] [address] [facility])([facility]) OUTPATIENT [id number] F2F 6 MONTH DM F/U REHAN WELDON 11/10 Released w/o Limitations [address] [place] [address] [facility])([facility]) [address] [place] [address] [facility])([facility] Internal [facility] ) TELE CONSULT [id number] 6 Notes Entered by: RAIMUNDO WELDON 11 Nov 2022 0940 ------- ------- ------- ------- -- Elevate d iron, low ferriti CHANELL Tai 11/11 Other Not Elsewhere Classified [address] [place] [address] [facility])([facility]) [address] [place] [address] [facility])([facility] ) OUTPATIENT [id number] ACTION FOR IRON DEFICIE RAYMOND ORTIZ 11/19 Released w/o Limitations [address] [place] [address] [facility]) [id number] Between Visit [id number] 08/23 Discharge Disposition: Home or Self Care 0055C[address] [facility] [place] 5C-[facility] Clinic [id number] Dizzine ss and giddine ss RAYMOND ESQUIVEL 09/06 Discharge Disposition: Home or Self Care 5C-3 [address] [facility] 5A-375 th [facility] Outpatient [id number] RAYMOND CKRUSE 09/06 Discharge Disposition: Home or Self Care 5A-3 [facility] [facility] 5A-375 th [facility] Outpatient [id number] Headach e, unspeci fied,Ot her visual disturb ances RAYMOND CKRUSE 09/08 Discharge Disposition: Home or Self Care 5A-3 [facility] [facility] 5C-375 th [facility] Between Visit [id number] 09/15 Discharge Disposition: Home or Self Care -[address] [place] [address]- [place] Procedures Combined list of: 1) Procedures from Department of Veterans Affairs facilities going back up to thelast 18 months, not all VA non-surgical procedures are included; 2) All procedures 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 Procedure Procedure Type Code Date Perfomer Comments Sour e SELF-CARE EDUCATION PROVIDED TO PATIENT (HF) 023 DoD MEDICATION THERAPY MGT SERVICE(S) PROVIDED,A PHARMACIST,INDIV,FA CE-TO-FACE W PATIENT,WITH ASSESS & INTERVENE IF PROVIDED;EA ADDITION 15 MINUTES (LIST SEPARATELY IN ADDITION TO CODE FOR PRIM SERVICE) 023 DoD TELE ASSESS & MGT SRV PROV QUAL NONPHYS HLTH CARE PRO TO EST PAT,PARENT,GUARD NOT ORIG REL ASSESS & MGT SRV PROV W/IN PREV 7 DAYS NOR LEAD ASSESS & MGT SRV/PX W/IN NXT 24H/SOON APT; 11-20 MIN MED DIS 023 DoD SELF-CARE EDUCATION PROVIDED TO PATIENT (HF) 023 DoD MEDICATION THERAPY MGT SERVICE(S) PROVIDED,A PHARMACIST,INDIV,FA CE-TO-FACE W PATIENT,WITH ASSESS & INTERVENE IF PROVIDED;EA ADDITION 15 MINUTES (LIST SEPARATELY IN ADDITION TO CODE FOR PRIM SERVICE) 022 DoD TELE ASSESS & MGT SRV PROV [...] NXT 24 HR/SOON APT;5-10 MIN MED DIS [facility] MEDICATION THERAPY MGT SERVICE(S) PROVIDED,A PHARMACIST,INDIV,FA [...] NUTRITION THERAPY; INITIAL ASSESSMENT AND INTERVENTION, INDIVIDUAL, [id number] WITH THE PATIENT, EACH 15 MINUTES DoD WAIVER SERVICES; NOT OTHERWISE SPECIFIED (NOS) [facility] DISEASE MANAGEMENT PROGRAM; INITIAL ASSESSMENT AND INITIATION OF THE PROGRAM [facility] CASE MANAGEMENT, EACH 15 MINUTES [facility] CASE MANAGEMENT, EACH 15 MINUTES [facility] FUNDUS PHOTOGRAPHY WITH INTERPRETATION AND REPORT [...] 24 HR/SOON APT;5-10 MIN MED DIS 018 [facility] ONLINE ASSESS &MANAG SERV PROVIDE,A QUAL NONPHYS HCP TO AN ESTABLISHED PAT/GUARDIAN,NOT ORIGINAT FRM RELAT ASSESS &MANAG SERV PROVIDE W/IN THE PREV 7 DAYS,USE THE INTERNET/SIMILAR [employer]WORK 018 DoD TELE ASSESS & MGT [...] PROVIDE W/IN THE PREV 7 DAYS,USE THE [employer]/SIMILAR [employer] NETWORK 016 DoD TELE ASSESS & MGT [...] NXT 24 HR/SOON APT;5-10 MIN MED DIS [facility] INFECTIOUS AGENT ANTIGEN DETECTION BY IMMUNOASSAY WITH DIRECT OPTICAL (IE, VISUAL) OBSERVATION; STREPTOCOCCUS, GROUP A [facility] MEDICATION THERAPY MANAGEMENT SERVICE(S) PROVIDED BY A PHARMACIST, INDIVIDUAL, [id number] WITH PATIENT, WITH ASSESSMENT AND INTERVENTION IF PROVIDED; INITIAL 15 MINUTES, ESTABLISHED PATIENT DoD TELE ASSESS & MGT SRV PROV QUAL NONPHYS HLTH CARE PRO TO EST PAT,PARENT,GUARD NOT ORIG REL ASSESS & MGT SRV PROV W/IN PREV 7 DAYS NOR LEAD ASSESS & MGT SRV/PX W/IN NXT 24 HR/SOON APT;5-10 MIN MED DIS 014 DoD TELE ASSESS & MGT SRV PROV QUAL NONPHYS HLTH CARE PRO TO EST PAT,PARENT,GUARD NOT ORIG REL ASSESS & MGT SRV PROV W/IN PREV 7 DAYS NOR LEAD ASSESS & MGT SRV/PX W/IN NXT 24H/SOON APT; 11-20 MIN MED DIS [facility] MEDICATION THERAPY MANAGEMENT SERVICE(S) PROVIDED BY A PHARMACIST, INDIVIDUAL, [id number] WITH PATIENT, WITH ASSESSMENT AND INTERVENTION IF PROVIDED; INITIAL 15 MINUTES, ESTABLISHED PATIENT [facility] MEDICATION THERAPY MGT SERVICE(S) PROVIDED,A PHARMACIST,HUMA,FA [...] NXT 24 HR/SOON APT;5-10 MIN MED DIS [facility] OPHTHALMOLOGICAL SERVICES: MEDICAL EXAMINATION AND EVALUATION WITH INITIATION OF DIAGNOSTIC AND TREATMENT PROGRAM; COMPREHENSIVE, NEW PATIENT, 1 OR MORE VISITS [facility] VITAL CAPACITY, TOTAL (SEPARATE PROCEDURE) DoD [...] NXT 24 HR/SOON APT;5-10 MIN MED DIS [facility] ARTHROCENTESIS, ASPIRATION AND/OR INJECTION, MAJOR JOINT OR BURSA (EG, SHOULDER, HIP, KNEE, SUBACROMIAL BURSA); WITHOUT ULTRASOUND GUIDANCE [facility] MEDICATION THERAPY MANAGEMENT SERVICE(S) PROVIDED BY A PHARMACIST, INDIVIDUAL, [id number] WITH PATIENT, WITH ASSESSMENT AND INTERVENTION IF PROVIDED; INITIAL 15 MINUTES, ESTABLISHED PATIENT [facility] MEDICATION THERAPY MANAGEMENT SERVICE(S) PROVIDED BY A PHARMACIST, INDIVIDUAL, [id number] WITH PATIENT, WITH ASSESSMENT AND INTERVENTION IF PROVIDED; INITIAL 15 MINUTES, ESTABLISHED PATIENT DoD TELE ASSESS & MGT SRV PROV QUAL NONPHYS HLTH CARE PRO TO EST PAT,PARENT,GUARD NOT ORIG REL ASSESS & MGT SRV PROV W/IN PREV 7 DAYS NOR LEAD ASSESS & MGT SRV/PX W/IN NXT 24 HR/SOON APT;5-10 MIN MED DIS [facility] SMOKING CESSATION CLASSES, NON-PHYSICIAN PROVIDER, PER SESSION [facility] TELE ASSESS & MGT SRV PROV QUAL NONPHYS HLTH CARE PRO TO EST PAT,PARENT,GUARD NOT ORIG REL ASSESS & MGT SRV PROV W/IN PREV 7 DAYS NOR LEAD ASSESS & MGT SRV/PX W/IN NXT 24 HR/SOON APT;5-10 MIN MED DIS [facility] CANE, INCLUDES CANES OF ALL MATERIALS, ADJUSTABLE OR FIXED, WITH TIP [facility] CASE MANAGEMENT, EACH 15 MINUTES [facility] TELE ASSESS & MGT SRV PROV [...] 24 HR/SOON APT;5-10 MIN MED DIS 011 [facility] SCANNING COMPUTERIZED OPHTHALMIC DIAGNOSTIC IMAGING, POSTERIOR SEGMENT, (EG, SCANNING LASER) WITH INTERPRETATION AND REPORT, UNILATERAL 010 [facility] MEDICAL NUTRITION THERAPY; INITIAL ASSESSMENT AND INTERVENTION, INDIVIDUAL, [id number] WITH THE PATIENT, EACH 15 MINUTES 010 [facility] OPHTHALMOLOGICAL SERVICES: MEDICAL EXAMINATION AND EVALUATION WITH INITIATION OF DIAGNOSTIC AND TREATMENT PROGRAM; INTERMEDIATE, NEW PATIENT 008 [facility] UNLISTED THERAPEUTIC, PROPHYLACTIC OR DIAGNOSTIC INTRAVENOUS OR INTRA-ARTERIAL INJECTION OR INFUSION 008 [facility] INFECTIOUS AGENT ANTIGEN DETECTION BY IMMUNOASSAY WITH DIRECT OPTICAL (IE, VISUAL) OBSERVATION; STREPTOCOCCUS, GROUP A 007 [facility] THERAPEUTIC, PROPHYLACTIC OR DIAGNOSTIC INJECTION (SPECIFY SUBSTANCE OR DRUG); SUBCUTANEOUS OR INTRAMUSCULAR 005 [facility] BRONCHODILATION RESPONSIVENESS, [place] [address], PRE- AND POST-BRONCHODILATOR ADMINISTRATION 005 [facility] CARDIOVASCULAR STRESS TEST USING TREADMILL 004 [facility] INFECTIOUS AGENT ANTIGEN DETECTION BY IMMUNOASSAY WITH DIRECT OPTICAL (IE, VISUAL) OBSERVATION; STREPTOCOCCUS, GROUP A 004 [facility] BRONCHODILATION RESPONSIVENESS, [place] [address], PRE- AND POST-BRONCHODILATOR ADMINISTRATION 003 [facility] BRONCHODILATION RESPONSIVENESS, [place] [address], PRE- AND POST-BRONCHODILATOR ADMINISTRATION 002 [facility] CARDIOVASCULAR STRESS TEST USING TREADMILL 001 [facility] Injection, ketorolac tromethamine, per 15 mg 008 RICHARDSON SALVADOR [facility] Rapid Antigen Identification Streptococcus Group A Beta Hemolytic Rapid Antigen Identification Streptococcus Group A Beta Hemolytic [address] Supervised Injection Intramuscular Supervised Injection Intramuscular 18986 006 ADIA PETERS [facility] Injection, ceftriaxone sodium, per 250 mg 006 ADIA PETERS [facility] Spirometry Spirometry 90557 005 AMEE STOREY Pulmonary Function Tests Flow Volume Loop Pulmonary Function Tests Flow Volume Loop 685[address] 005 AMEE STOREY Spirometry Post-bronchodilator Spirometry Post-bronchodilator 09356 005 AMEE STOREY Fundus Photography Fundus Photography 19234 05/29 019 CLAUDIA STEPHENS [facility] Non-Physician Phone Call To Patient/Provider Brief (5-10min) Non-Physician Phone Call To Patient/Provider Brief (5-10min) [id number] [phone] CLAUDIA STEPHENS [facility] Non-Physician Phone Call To Patient/Provider Brief (5-10min) Non-Physician Phone Call To Patient/Provider Brief (5-10min) [phone] RAÚL MANE Non-Physician Phone Call To Patient/Provider Brief (5-10min) Non-Physician Phone Call To Patient/Provider Brief (5-10min) [id number] RAÚL MANE Non-Physician Phone Call To Patient/Provider Brief (5-10min) Non-Physician Phone Call To Patient/Provider Brief (5-10min) [id number] [phone] RAÚL MANE Non-Physician Phone Call To Patient/Provider Brief (5-10min) Non-Physician Phone Call To Patient/Provider Brief (5-10min) [phone] RAÚL MANE Internet Med Svc Qual Nonphys Healthcare Prof Estab Patient Internet Med Svc Qual Nonphys Healthcare Prof Estab Patient [phone] KAREN WELLINGTON [facility] Non-Physician Phone Call To Patient/Provider Brief (5-10min) Non-Physician Phone Call To Patient/Provider Brief (5-10min) [phone] RAÚL MANE Non-Physician Phone Call To Patient/Provider Brief (5-10min) Non-Physician Phone Call To Patient/Provider Brief (5-10min) [phone] DEREK OCONNELL [facility] Non-Physician Phone Call To Patient/Provider Brief (5-10min) Non-Physician Phone Call To Patient/Provider Brief (5-10min) [phone] POP BUCK [facility] Non-Physician Phone Call To Patient/Provider Brief (5-10min) Non-Physician Phone Call To Patient/Provider Brief (5-10min) [phone] POP BUCK [facility] Non-Physician Phone Call To Patient/Provider Brief (5-10min) Non-Physician Phone Call To Patient/Provider Brief (5-10min) [phone] POP BUCK [facility] Non-Physician Phone Call To Patient/Provider Brief (5-10min) Non-Physician Phone Call To Patient/Provider Brief (5-10min) [phone] POP BUCK [facility] Non-Physician Phone Call To Patient/Provider Brief (5-10min) Non-Physician Phone Call To Patient/Provider Brief (5-10min) [id number] HOLLIS MCMILLAN [facility] Injection, ketorolac tromethamine, per 15 mg 016 KAREN WELLINGTON [facility] Non-Physician Phone Call To Patient/Provider Brief (5-10min) Non-Physician Phone Call To Patient/Provider Brief (5-10min) [id number] FAUSTO JORDAN [facility] Non-Physician Phone Call To Patient/Provider Brief (5-10min) Non-Physician Phone Call To Patient/Provider Brief (5-10min) [phone] JOE CORTES [facility] Internet Med Svc Qual Nonphys Healthcare Prof Estab Patient Internet Med Svc Qual Nonphys Healthcare Prof Estab Patient [phone] SARBJIT ALEJANDRO [facility] Non-Physician Phone Call To Patient/Provider Brief (5-10min) Non-Physician Phone Call To Patient/Provider Brief (5-10min) [id number] HOLLIS MCMILLAN [facility] Non-Physician Phone Call To Patient/Provider Brief (5-10min) Non-Physician Phone Call To Patient/Provider Brief (5-10min) [id number] HOLLIS MCMILLAN [facility] Non-Physician Phone Call To Patient/Provider Brief (5-10min) Non-Physician Phone Call To Patient/Provider Brief (5-10min) [phone] KAREN WELLINGTON [facility] Non-Physician Phone Call To Patient/Provider Brief (5-10min) Non-Physician Phone Call To Patient/Provider Brief (5-10min) [phone] HOLLIS MCMILLAN [facility] Non-Physician Phone Call To Patient/Provider Brief (5-10min) Non-Physician Phone Call To Patient/Provider Brief (5-10min) [phone] MARIAN HOLM [facility] Non-Physician Phone Call To Patient/Provider Brief (5-10min) Non-Physician Phone Call To Patient/Provider Brief (5-10min) [phone] HOLLIS MCMILLAN [facility] Non-Physician Phone Call To Patient/Provider Brief (5-10min) Non-Physician Phone Call To Patient/Provider Brief (5-10min) [phone] MARIAN HOLM [facility] Non-Physician Phone Call To Patient/Provider Brief (5-10min) Non-Physician Phone Call To Patient/Provider Brief (5-10min) [phone] HOLLIS MCMILLAN [facility] Non-Physician Phone Call To Patient/Provider Brief (5-10min) Non-Physician Phone Call To Patient/Provider Brief (5-10min) [id number] MARIAN HOLM [facility] Non-Physician Phone Call To Patient/Provider Brief (5-10min) Non-Physician Phone Call To Patient/Provider Brief (5-10min) [phone] HOLLIS MCMILLAN [facility] Non-Physician Phone Call To Patient/Provider Brief (5-10min) Non-Physician Phone Call To Patient/Provider Brief (5-10min) [phone] CLAUDIA STEPHENS [facility] Streptococcus Direct Screen Streptococcus Direct Screen [phone] SUSANNA BLUM [facility] Med Management By Pharmacist Initial 15 Min Estab Patient Med Management By Pharmacist Initial 15 Min Estab Patient [phone] MATILDE TAVERAS [facility] Non-Physician Phone Call To Patient/Provider Brief (5-10min) Non-Physician Phone Call To Patient/Provider Brief (5-10min) [phone] AIME AKHTAR [facility] Non-Physician Phone Call To Pt/Provider Intermed (11-20 min) Non-Physician Phone Call To Pt/Provider Intermed (11-20 min) [phone] BERT JOAQUIN [facility] Med Management By Pharmacist Initial 15 Min Estab Patient Med Management By Pharmacist Initial 15 Min Estab Patient [id number] NAYANA GARNER [facility] Medication Management By Pharmacist Each Additional 15 Min Medication Management By Pharmacist Each Additional 15 Min [phone] NAYANA GARNER Med Management By Pharmacist Initial 15 Min New Patient Med Management By Pharmacist Initial 15 Min New Patient [id number] NAYANA GARNER [facility] Non-Physician Phone Call To Pt/Provider Lengthy (21-30 min) Non-Physician Phone Call To Pt/Provider Lengthy (21-30 min) [phone] LEVON HARGROVE [facility] Non-Physician Phone Call To Patient/Provider Brief (5-10min) Non-Physician Phone Call To Patient/Provider Brief (5-10min) [phone] AMY WORKMAN [facility] Ophthalmological New Patient Start Comprehensive Care Ophthalmological New Patient Start Comprehensive Care [phone] KRYS LUNA [facility] Determination Of Refractive State Determination Of Refractive State [phone] KRYS LUNA [facility] Pulmonary Function VC (% Predicted Normal) Pulmonary Function VC (% Predicted Normal) [phone] SUSANNA BLUM [facility] Non-Physician Phone Call To Patient/Provider Brief (5-10min) Non-Physician Phone Call To Patient/Provider Brief (5-10min) [phone] NOE KEARNS [facility] Non-Physician Phone Call To Patient/Provider Brief (5-10min) Non-Physician Phone Call To Patient/Provider Brief (5-10min) [phone] KIRBY WARD [facility] Non-Physician Phone Call To Patient/Provider Brief (5-10min) Non-Physician Phone Call To Patient/Provider Brief (5-10min) [phone] KIRBY WARD [facility] Arthrocentesis Injection Of Shoulder Joint Arthrocentesis Injection Of Shoulder Joint [phone] SUSANNA BLUM Med Management By Pharmacist Initial 15 Min Estab Patient Med Management By Pharmacist Initial 15 Min Estab Patient [id number] MATILDE TAVERAS Med Management By Pharmacist Initial 15 Min Estab Patient Med Management By Pharmacist Initial 15 Min Estab Patient [id number] MATILDE TAVERAS Non-Physician Phone Call To Patient/Provider Brief (5-10min) Non-Physician Phone Call To Patient/Provider Brief (5-10min) [id number] NOE KEARNS Smoking ce ation cla es, non-physician provider, per se ion MATILDE TAVERAS Medication Management By Pharmacist Each Additional 15 Min Medication Management By Pharmacist Each Additional 15 Min [id number] [phone] MATILDE TAVERAS Med Management By Pharmacist Initial 15 Min New Patient Med Management By Pharmacist Initial 15 Min New Patient [phone] MATILDE TAVERAS Non-Physician Phone Call To Patient/Provider Brief (5-10min) Non-Physician Phone Call To Patient/Provider Brief (5-10min) [phone] NOE KEARNS Cane, includes canes of all materials, adjustable or fixed, with tip 012 MASHA WHALEN Physical Therapy Gait Training Physical Therapy Gait Training [phone] MASHA WHALEN Non-Physician Phone Call To Patient/Provider Brief (5-10min) Non-Physician Phone Call To Patient/Provider Brief (5-10min) [phone] NOE KEARNS Non-Physician Phone Call To Patient/Provider Brief (5-10min) Non-Physician Phone Call To Patient/Provider Brief (5-10min) [phone] NOE KEARNS Case Management, each 15 minutes 012 ALEX BERRIOS [facility] Non-Physician Phone Call To Patient/Provider Brief (5-10min) Non-Physician Phone Call To Patient/Provider Brief (5-10min) [id number] NOE KEARNS Non-Physician Phone Call To Patient/Provider Brief (5-10min) Non-Physician Phone Call To Patient/Provider Brief (5-10min) [phone] NOE KEARNS Non-Physician Phone Call To Patient/Provider Brief (5-10min) Non-Physician Phone Call To Patient/Provider Brief (5-10min) [phone] NOE KEARNS Non-Physician Phone Call To Patient/Provider Brief (5-10min) Non-Physician Phone Call To Patient/Provider Brief (5-10min) [phone] NOE KEARNS [facility] Non-Physician Phone Call To Patient/Provider Brief (5-10min) Non-Physician Phone Call To Patient/Provider Brief (5-10min) [phone] NOE KEARNS [facility] Non-Physician Phone Call To Patient/Provider Brief (5-10min) Non-Physician Phone Call To Patient/Provider Brief (5-10min) [phone] CHRISTIAN FROST [facility] Pulmonary Function Tests Peak Expiratory Flow Pulmonary Function Tests Peak Expiratory Flow [id number] PATRICIA CHESTER Created by entry in Vitals Module [facility] Non-Physician Phone Call To Patient/Provider Brief (5-10min) Non-Physician Phone Call To Patient/Provider Brief (5-10min) [id number] NOE KEARNS [facility] Determination Of Refractive State Determination Of Refractive State [id number] JACQUES EDGE [facility] Scanning Computerized Ophthalmic Diagnostic Imaging 010 JACQUES EDGE [facility] Ophthalmological Prior Patient Start Comprehensive Care Ophthalmological Prior Patient Start Comprehensive Care [phone] JACQUES EDGE [facility] Medical Nutrition Therapy Initial A e ment, Intervention Medical Nutrition Therapy Initial Assessment, Intervention [id number] JANNETH HOWARD [facility] Ophthalmological New Patient Start Intermediate Level Care Ophthalmological New Patient Start Intermediate Level Care [id number] Supervised Injection Supervised Injection [id number] RICHARDSON SALVADOR [facility] Case Management, each 15 minutes PATRICK DOMINGO [facility] Fingerstick Blood Glucose Random Fingerstick Blood Glucose Random [id number] ERAN ESQUIVEL Patient presented to the DME [...] care. 60 mins spent face to face. [facility] Disease management program; initial a e ment and initiation of the program ERAN ESQUIVEL [facility] Medical Nutrition Therapy Initial A e ment, Intervention Medical Nutrition Therapy Initial Assessment, Intervention [id number] SANKET MIRZA [facility] Waiver services; not otherwise specified (NOS) YANG BERG [facility] Med Management By Pharmacist Initial 15 Min New Patient Med Management By Pharmacist Initial 15 Min New Patient [id number] REHAN WELDON [facility] Medication Management By Pharmacist Each Additional 15 Min Medication Management By Pharmacist Each Additional 15 Min [id number] REHAN WELDON [facility] Non-Physician Phone Call To Pt/Provider Intermed (11-20 min) Non-Physician Phone Call To Pt/Provider Intermed (11-20 min) [id number] ANDRIA WREN [facility] Med Management By Pharmacist Initial 15 Min Estab Patient Med Management By Pharmacist Initial 15 Min Estab Patient [id number] REHAN WELDON [facility] Non-Physician Phone Call To Patient/Provider Brief (5-10min) Non-Physician Phone Call To Patient/Provider Brief (5-10min) [id number] SABRJIT ALEJANDRO [facility] UroLift 021 [id number] 5th [facility] Colostomy reversal 021 [id number] 5th [facility] Hernia repair 021 [id number] 5th [facility] Surgery of perforated colon/placed colostomy 020 [id number] 5th [facility] ERCP with stone extraction 020 [id number] 5th [facility] Hernia repair 017 [id number] 5th [facility] Hernia repair 013 [id number] 5th [facility] Cholecystectomy; Cholecystectomy; [id number] 011 [id number] 5th [facility] Anterior cervical discectomy 007 5C-[id number] 5th [facility] Vasectomy 996 5C-37 5th [facility] Social History Combined list of available smoking, tobacco, and other social history from Department of Defense and Veterans Affairs facilities. Social History Type Response Date Comment [facility] e This section is an empty social history section. [facility] Tobacco Former-cigarette user Cigarette use:. 0.5 Average PACKS per day: (10 cigarettes = 0.5 packs). Never-other tobacco user (not cigarettes) Other Tobacco use:. Quit 10/2013 (started smoking in 1994, mostly / ppd, there were times in between those years where he stopped
smoking for years) Ambulatory Pharmacy Sexual Orientation Ambula tory Pharmacy Gender identity Ambulator y Pharmacy Sex Representation Male (finding) Un known Organization Assessment and Plan Combined list of future care activities from Department of Defense and Veterans Affairs facilities (e.g., assessment and plan notes, appointments, orders, and referrals). Additional future care activities may be listed in the Plan of Care section. Result Assessment and Plan Date Source Assessment and Plan Extracted from:Title : 0055 [facility] dizziness and blurred vision Author: RAYMOND BLOUNT, DO Date: 09/06/24 Dizziness Patient presenting with [...] encouraged to return to clinic, present to [facility] or ER for persistent worsening or development [...] Advised patient to reach out to established grain and yeast plants supervisor for any evaluation they may pursue for [...] 45 tab(s), 3 total refill(s), Maintenance, Pharmacy: [facility] #[id number] [External Rx] pregabalin(Lyrica 150 mg oral capsule), 1 cap(s), Oral, TID, # 270 cap(s), 3 total refill(s), Maintenance, Pharmacy: [facility] #[id number] [External Rx] Alphonse Blount DO, Raciel Moss, , [facility] Internal Medicine, [place] Extracted from:Title: [facility]- sinusitis Author: RADHA FRANCO MD Date: 06/09/24 [...] tab(s) Oral every 12 hr,x7 days, Pharmacy: [facility] #[id number], Respiratory, sinusitis [External Rx] Capt Tori Mclain), [facility], Personnel Manager PGY-[address] [place] [address] Operations [facility] [place], [place] Addendum by HEIDI SHANKAR DO on June 13, 2024 11:57:53 BUILDING SERVICES TECHNICIAN I certify that I was present for case discussion in the Family Medicine preceptor room at the time of this encounter. I have reviewed the note and agree with the findings, assessment, and plan except as I have documented below. Follow up as listed. All labs/imaging/consults to be followed by the ordering provider. DO Bowen Menjivar [employer], Family Medicine-Obstetrics Physician [facility] [place] Extracted from:Title: 0055C IM Clinic - Annual/elevated [...] Maintenance, 1 tab(s) Oral BID w/Meals, Pharmacy: [facility] [Not filled] CBC w/ Diff Comprehensive Metabolic Panel Hemoglobin A1c Lipid Panel Referral Request 2.0 - [facility] 3. E ssential (primary) hypertension F/b [...] refill(s), Maintenance, 1 tab(s) Oral Daily, Pharmacy: [facility] [Not filled] 4. H yperlipidemia, unspecified LDL 168. Primary prevention. Elevated level due to being off of the medication and poor diet. - Restart statin - Work on diet/exercise - Recheck lipid panel in 6 months Ordered: atorvastatin(atorvastatin 40 mg oral tablet), 1 tab(s), Oral, Daily, # 90 tab(s), 3 total refill(s), Maintenance, 1 tab(s) Oral Daily, Pharmacy: [facility] [Not filled] 5. E levated liver [...] Referral Request 2.0 - [facility] 7. I elroy deficiency Resolved. He was taking the iron [...] note. Edu Leigh MD Capt, [address], [facility] Internal Medicine Staff Physician Extracted from:Title: [...] note. Edu Leigh MD Capt, [address], [facility] Internal Medicine Staff Physician Extracted from:Title: [...] Will CCM. Alphonse Blount DO, Raciel Moss, [facility] Internal Medicine, [place] Extracted from:Title: [id number] F2F 6 MONTH DM F/U Author: REHAN WELDON, PharmD Date: 11/03/23 1. E ncounter for therapeutic drug level monitoring Patient presenting to PharmD Clinic for medication therapy management and disease state management. Advised to contact with any questions or concerns. Pt v/u. Total time with patient - 40 min Rehan Weldon, MaggieD Clinical Pharmacist [facility] [place] Ordered: CBC w/ Diff Comprehensive Metabolic Panel Ferritin Hemoglobin A1c Iron Studies Lipid Panel Magnesium Level Microalbumin Panel, Urine Prostate Specific Antigen Retic Count Urinalysis with Microscopic and Culture if Indicated Vitamin B12 [id number] Vitamin D 25 Hydroxy Level 2. T [...] Maintenance, 1 tab(s) Oral BID w/Meals, Pharmacy: [email or web address] [Not filled] 3. E ssential (primary) hypertension BP at goal at 1 / in clinic today. Educated about BP goal [...] refill(s), Maintenance, 1 tab(s) Oral Daily, Pharmacy: [facility] [Not filled] 4. H yperlipidemia, unspecified [...] refill(s), Maintenance, 1 tab(s) Oral Daily, Pharmacy: [facility] [Not filled] 5. D ysuria This [...] refill(s), Maintenance, 1 cap(s) Oral Daily, Pharmacy: [facility] [Not filled] 8. P ain [...] at 08:00 Appointment Type PHARM FTR Location [id number] Reason for visit F2F 6 MONTH DM F/U [phone] Extracted from:Title: 0055 [facility] Annual/Low Back Pain Author: RAYMOND BLOUNT, DO [...] guidelines, would recommend that patient C ontinue fqzqydvl-ro-rhfo intensity statin. P atient may follow up [...] IntraMuscular, Injection, Vaccine, First Dose: 06/07/2023 08:43:00 BUILDING SERVICES TECHNICIAN, 06/07/2023 08:43:00 BUILDING SERVICES TECHNICIAN traMADol(traMADol 50 mg oral tablet), 1 tab(s), Oral, Daily, PRN pain (severe), # 30 tab(s), 0 total refill(s), Acute, 06/07/2024, 1 tab(s) Oral Daily,PRN:pain (severe), Pharmacy: [facility] [Not filled] Alphonse Blount DO, MEd , , [facility] Internal Medicine, [place] Extracted from:Title: [id number] F2F 6 MONTH DM F/U Author: REHAN WELDON, PharmD Date: 05/13/23 1Aleja cruzunter for therapeutic drug level monitoring Saw patient in clinic on 05/11/2023. A1c at goal of less than 7% at 6.1%. Previous A1c in October 2022 was 5.8%, N 2021 was 5.8%, and Jan 2022 was [...] 40 min Rehan Weldon, PharmD Clinical Pharmacist [facility] [place] Ordered: CBC w/ Diff Ferritin Hemoglobin A1c Iron and TIBC [id number] Lipid Panel Magnesium Level Prostate Specific Antigen Retic Count Vitamin B12 [id number] 2. T ype 2 diabetes mellitus with [...] at 08:00 Appointment Type IM FTR Location 0055C-- Reason for visit F2F ANNUAL APPT + DIABETIC FOOT EXAM [phone] Future Scheduled TestsLaboratoryCreatinine Level 06/13/24 [facility] Extracted from:Title : 0055 [facility] dizziness and blurred vision Author: RAYMOND BLOUNT, [...] encouraged to return to clinic, present to [facility] or ER for persistent worsening or development [...] Advised patient to reach out to established grain and yeast plants supervisor for any evaluation they may pursue for [...] 45 tab(s), 3 total refill(s), Maintenance, Pharmacy: [facility] #[id number] [External Rx] pregabalin(Lyrica 150 mg oral capsule), 1 cap(s), Oral, TID, # 270 cap(s), 3 total refill(s), Maintenance, Pharmacy: [facility] #[id number] [External Rx] Alphonse Blount DO, MEd Capt, [facility] Internal Medicine, [place] Extracted from:Title: [facility]- sinusitis Author: RADHA FRANCO MD Date: 06/09/24 [...] tab(s) Oral every 12 hr,x7 days, Pharmacy: [facility] #[id number], Respiratory, sinusitis [External Rx] Capt Tori Mclain), [facility] Personnel Manager PGY-[address] [place] [address] Operations [facility] [place] Addendum by HEIDI SHANKAR DO on June 13, 2024 11:57:53 BUILDING SERVICES TECHNICIAN I certify that I was present for case discussion in the Family Medicine preceptor room at the time of this encounter. I have reviewed the note and agree with the findings, assessment, and plan except as I have documented below. Follow up as listed. All labs/imaging/consults to be followed by the ordering provider. DO Bowen Menjivar [facility] Family Medicine-Obstetrics Physician [facility] [place] Extracted from:Title: 0055C Clinic - Annual/elevated [...] Maintenance, 1 tab(s) Oral BID w/Meals, Pharmacy: [facility] [Not filled] CBC w/ Diff Comprehensive Metabolic Panel Hemoglobin A1c Lipid Panel Referral Request 2.0 - [facility] 3. E ssential (primary) hypertension F/b [...] refill(s), Maintenance, 1 tab(s) Oral Daily, Pharmacy: [facility] [Not filled] 4. H yperlipidemia, unspecified LDL 168. Primary prevention. Elevated level due to being off of the medication and poor diet. - Restart statin - Work on diet/exercise - Recheck lipid panel in 6 months Ordered: atorvastatin(atorvastatin 40 mg oral tablet), 1 tab(s), Oral, Daily, # 90 tab(s), 3 total refill(s), Maintenance, 1 tab(s) Oral Daily, Pharmacy: [facility] [Not filled] 5. E levated liver [...] derm evaluation Ordered: Referral Request 2.0 - [facility] 7. I leroy deficiency Resolved. He was [...] encouraged to return to clinic, present to [facility] or ER for persistent worsening or development of other concerning symptoms. Patient cites understanding and agrees with plan of care. A total of 50 minutes was spent on this visit reviewing previous notes, counseling the patient on the listed diagnoses, reviewing/ordering tests, adjusting medications, and documenting the findings in this note. Edu Leigh MD Capt, [address], [facility] Internal Medicine Staff Physician Extracted from:Title: [...] in this note. Edu Leigh MD Capt, [address] [place] [address] Internal Medicine Staff Physician Extracted from:Title: 0055 [...] Will CCM. Alphonse Blount DO, Raciel Moss, [facility] Internal Medicine, [place] Extracted from:Title: [id number] F2F 6 MONTH DM F/U Author: REHAN WELDON, Cinthia Date: 11/03/23 1. E ncounter for therapeutic drug level monitoring Patient presenting to PharmD Clinic for medication therapy management and disease state management. Advised to contact with any questions or concerns. Pt v/u. Total time with patient - 40 min Rehan Weldon, Cinthia Clinical Pharmacist [address] [place] [address] [place] Ordered: CBC w/ Diff Comprehensive Metabolic Panel Ferritin Hemoglobin A1c Iron Studies Lipid Panel Magnesium Level Microalbumin Panel, Urine Prostate Specific Antigen Retic Count Urinalysis with Microscopic and Culture if Indicated Vitamin B12 [id number] Vitamin D 25 Hydroxy Level 2. T [...] refill(s), Maintenance, 1 tab(s) Oral Daily, Pharmacy: [facility] [Not filled] 5. D ysuria This [...] refill(s), Maintenance, 1 cap(s) Oral Daily, Pharmacy: [facility] [Not filled] 8. P ain in [...] at 08:00 Appointment Type PHARM FTR Location [id number] Reason for visit F2F 6 MONTH DM F/U [phone] Extracted from:Title: 0055 [facility] Annual/Low Back Pain Author: RAYMOND BLOUNT DO [...] guidelines, would recommend that patient C ontinue ncrkrono-rv-rhnx intensity statin. P atient may follow up [...] encouraged to return to clinic, present to [facility] or ER for d evelopment of other [...] IntraMuscular, Injection, Vaccine, First Dose: 06/07/2023 08:43:00 BUILDING SERVICES TECHNICIAN, 06/07/2023 08:43:00 BUILDING SERVICES TECHNICIAN traMADol(traMADol 50 mg oral tablet), 1 tab(s), Oral, Daily, PRN pain (severe), # 30 tab(s), 0 total refill(s), Acute, 06/07/2024, 1 tab(s) Oral Daily,PRN:pain (severe), Pharmacy: [facility] [Not filled] Alphonse Blount DO, MEd [facility], , [facility] Internal Medicine, [employer] [place] Extracted from:Title: [id number] F2F 6 MONTH DM F/U Author: REHAN WELDON, PharmD Date: 05/13/23 1. E fely for therapeutic drug level monitoring Saw patient [...] 40 min Rehan Weldon, PharmD Clinical Pharmacist [facility] [place] Ordered: CBC w/ Diff Ferritin Hemoglobin A1c Iron and TIBC [id number] Lipid Panel Magnesium Level Prostate Specific Antigen Retic Count Vitamin B12 [id number] 2. T ype 2 diabetes mellitus with [...] at 08:00 Appointment Type IM FTR Location [facility]- Reason for visit F2F ANNUAL APPT + DIABETIC FOOT EXAM [phone] Future Scheduled TestsLaboratoryCreatinine Level 06/13/24 11/02/2024 [id number] Assessment and Plan Extracted from:Title : 0055 [facility] dizziness and blurred vision Author: RAYMOND BLOUNT, [...] clinic, present to C or ER for persistent worsening or development [...] Advised patient to reach out to established grain and yeast plants supervisor for any evaluation they may pursue for [...] 45 tab(s), 3 total refill(s), Maintenance, Pharmacy: [facility] #[id number] [External Rx] pregabalin(Lyrica 150 mg oral capsule), 1 cap(s), Oral, TID, # 270 cap(s), 3 total refill(s), Maintenance, Pharmacy: [facility] #[id number] [External Rx] Alphonse Blount DO, MEd Capt, [facility] Internal Medicine, [place] Extracted from:Title: [facility]- sinusitis Author: RADHA FRANCO MD Date: 06/09/24 [...] tab(s) Oral every 12 hr,x7 days, Pharmacy: [facility] #[id number], Respiratory, sinusitis [External Rx] Capt Rayne (), [facility] Personnel Manager PGY-2 [facility] Operations [facility] [place] Addendum by HEIDI SHANKAR DO on June 13, 2024 11:57:53 BUILDING SERVICES TECHNICIAN I certify that I was present for case discussion in the Family Medicine preceptor room at the time of this encounter. I have reviewed the note and agree with the findings, assessment, and plan except as I have documented below. Follow up as listed. All labs/imaging/consults to be followed by the ordering provider. DO Bowen Menjivar [facility] Family Medicine-Obstetrics Physician [facility] [place] Extracted from:Title: 0055C Clinic - Annual/elevated LFTs/chronic [...] A1c Lipid Panel Referral Request 2.0 - [facility] 3. E ssential (primary) hypertension F/b [...] Maintenance, 1 tab(s) Oral Daily, Pharmacy: [facility] [Not filled] 5. E levated liver [...] Oral Daily,Instr:do not crush or chew, Pharmacy: [facility] [Not filled] omeprazole(omeprazole 40 mg oral delayed release capsule), 1 cap(s), Oral, Daily, # 90 cap(s), 3 total refill(s), Maintenance, 1 cap(s) Oral Daily, Pharmacy: [facility] [Not filled] Patient encouraged to return [...] in this note. MD Isa Powell, [address] [facility] Internal Medicine Staff Physician Extracted from:Title: [...] this note. MD Isa Powell, [address], [facility] Internal Medicine Staff Physician Extracted from:Title: [...] renal panel demonstrates intact/stable renal function. Will SILVERIO. B. Dewey Blount DO, [facility], [facility] Internal Medicine, [place] Extracted from:Title: [id number] F2F 6 MONTH DM F/U Author: REHAN WELDON, Cinthia Date: 11/03/23 1. E ncounter for therapeutic drug level monitoring Patient presenting to PharmD Clinic for medication therapy management and disease state management. Advised to contact with any questions or concerns. Pt v/u. Total time with patient - 40 min Rehan Weldon, Cinthia Clinical Pharmacist [facility] [place] Ordered: CBC w/ Diff Comprehensive Metabolic Panel Ferritin Hemoglobin A1c Iron Studies Lipid Panel Magnesium Level Microalbumin Panel, Urine Prostate Specific Antigen Retic Count Urinalysis with Microscopic and Culture if Indicated Vitamin B12 [id number] Vitamin D 25 Hydroxy Level 2. T [...] refill(s), Maintenance, 1 tab(s) Oral Daily, Pharmacy: [facility] [Not filled] 4. H yperlipidemia, unspecified [...] refill(s), Maintenance, 1 tab(s) Oral Daily, Pharmacy: [facility] [Not filled] 5. D ysuria This [...] at 08:00 Appointment Type PHARM FTR Location [id number] Reason for visit F2F 6 MONTH DM F/U [phone] Extracted from:Title: 0055 [facility] Annual/Low Back Pain Author: RAYMOND BLOUNT, DO [...] guidelines, would recommend that patient C ontinue fnvzhvzt-sv-goww intensity statin. P atient may follow up [...] 1 tab(s) Oral every other day, Pharmacy: [facility] [Not filled] RSV vaccine preF3, recombinant(RSV vaccine preF3, recombinant (Arexvy) preservative-free intramuscular injection), 0.5 mL, IntraMuscular, Injection, Vaccine, First Dose: 06/07/2023 08:43:00 BUILDING SERVICES TECHNICIAN, 06/07/2023 08:43:00 BUILDING SERVICES TECHNICIAN traMADol(traMADol 50 mg oral tablet), 1 tab(s), Oral, Daily, PRN pain (severe), # 30 tab(s), 0 total refill(s), Acute, 06/07/2024, 1 tab(s) Oral Daily,PRN:pain (severe), Pharmacy: [facility] [Not filled] Alphonse Blount DO, [facility], , [facility] Internal Medicine, [place] Extracted from:Title: [id number] F2F 6 MONTH DM F/U Author: REHAN [...] 40 min Rehan Weldon, PharmD Clinical Pharmacist [facility] [place] Ordered: CBC w/ Diff Ferritin Hemoglobin A1c Iron and TIBC [id number] Lipid Panel Magnesium Level Prostate Specific Antigen Retic Count Vitamin B12 [id number] 2. T ype 2 diabetes mellitus with [...] at 08:00 Appointment Type IM FTR Location 005-- Reason for visit F2F ANNUAL APPT + DIABETIC FOOT EXAM [phone] Future Scheduled TestsLaboratoryCreatinine Level 06/13/24 11/02/2024 Unknown Organization Functional Status Combined list of recent functional and cognitive assessments recorded at [facility] of Defense and [facility] (VA).[facility] Functional Dunn Measurement (FIM) Scale: 1 = Total Assistance (Subject = 0% +), 2 = Maximal Assistance (Subject = 25% +), 3 = Moderate Assistance (Subject = 50% +), 4 = Minimal Assistance (Subject = 75% +), 5 = Supervision, 6 = Modified Dunn (Device), 7 = Complete Dunn (Timely, Safely). Assessment Date/Time Source Assessment Type Assessment Skill Assessment Score Assessment Details No data available for this section
--- OUTSIDE RECORDS SUMMARY | 2024-11-01 20:04 | XMS_ITS | Encounter Summary ---
Author Organization [facility] Address [facility] [place] [address] Care Team Providers Care Milk Receiver Name Role Phone Tamara Delacruz MD Unavailable [phone] Alejandrina Rabago DO Primary Care Provider [phone] Dell Zhang DO Primary Care Provid er Lei Blount DO Primary Care Provider [phone] Encounter Details Date Type Department Care Team (Late st Contact Info) Description 11/19/[address] [facility] Pre-Admission Testing [address] [place] [address] Alex Cartwright MD Social History [...] often do you attend chur ch or samaritan services? 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 Answer Date of Assessment Author Status No 09/02/2020 5:09 PM UTILITIES SERVICE INVESTIGATOR Activ e * Do you have serious [...] Date Author Status No 09/02/2020 5:09 PM UTILITIES SERVICE INVESTIGATOR Pacheco, Jen K , RN Active documented in this encounter Plan of Treatment Upcoming Encounters Date Type Department Care Team (Late st Contact Info) Description 01/18/2025 10:00 AM CDT Office Visit [facility] [place] [address] [place] [address] Marjorie Bird, PHYSICAL THERAPY ASSISTANT INSTRUCTOR Three [facility] [address] [place], [place] [id number] documented as of this encounter Goals Goal [...] Rule Out 08/23/2022 08/23/2022 08/23/2022 3:07 PM UTILITIES SERVICE INVESTIGATOR documented as of this encounter Care Teams Milk Receiver Relationship Specialty Start Date End Date Alejandrina Rabago DO [address] Medical [place], [place] [address] PCP - General INTERNAL MEDICINE 10/18/19 06/27/22 Dell Zhang, 3 [facility] [address] [place] [address] PCP - General INTERNAL MEDICINE 06/28/22 12/25/22 Lei Blount, DO 3 [facility] [place] [address] [place] [id number] PCP - General INTERNAL MEDICINE 12/26/22 Tamara Delacruz MD [facility]. [facility] [address] [place] [address] Blake Cotton Ginner Helper CARDIOVASCULAR DISEASE 11/27/15 documented as of this encounter
--- OUTSIDE RECORDS SUMMARY | 2024-11-01 20:04 | XMS_ITS | Encounter Summary ---
Author Organization [facility] Address [address] [place] [address] Care Team Providers Care Cutter Operator Brick Name Role Phone Tamara Delacruz MD Unavailable [phone] Alejandrina Rabago DO Primary Care Provider [phone] Dell Zhang DO Primary Care Provid er Lei Blount DO Primary Care Provider [phone] Encounter Details Date Type Department Care Team (Late st Contact Info) Description 08/29/2020 Prep for Procedure [facility] Pre-Admission Testing [facility] [place] [address] Halley Orr MD [facility] [address] [place] [address] Social History Tobacco Use Types Packs/Day [...] often do you attend chur ch or zoroastrianism services? More than 4 times per year 02/11/2020 Do you belong to any clubs o r organizations such as zoroastrianism groups, unions, fraternal or athletic groups, or [...] and heating? 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 No / Unsure 08/30/2020 8:43 AM ASSISTANT DIRECTOR OF SECURITY documented as of this encounter Functional Status * RETIRED Are you deaf or do you have serious difficulty hearing Answer Date of Assessment Author Status No 05/16/2020 8:55 PM ASSISTANT DIRECTOR OF SECURITY Activ e * RETIRED Are you blind or do you have serious difficulty seeing, even when wearing glasses? Answer Date of Assessment Author Status No 05/16/2020 8:55 PM ASSISTANT DIRECTOR OF SECURITY Activ e * Do you have serious difficulty walking or climbing stairs? Answer Date of Assessment Author Status No 05/16/2020 8:55 PM ASSISTANT DIRECTOR OF SECURITY Earnest Allen se, RN Active * Do [...] CDT Office Visit [facility] THREE [facility] [place] [address] [place] [address] Marjorie Bird APRN Three [facility] [address] [place] [address] documented as of this encounter Visit Diagnoses Diagnosis Pre-op exam- Primary Preoperative examination, unspecified documented in this encounter Additional Health Concerns Infection Onset Date Last Indicated Resolved Time COVID-19 Rule Out 08/30/2020 08/30/2020 08/30/2020 10:15 AM ASSISTANT DIRECTOR OF SECURITY COVID-19 Rule Out 11/26/2020 11/26/2020 11/27/2020 7:35 AM CDT COVID-19 Rule Out 08/23/2022 08/23/2022 08/23/2022 3:07 PM ASSISTANT DIRECTOR OF SECURITY documented as of this encounter Care Teams Cutter Operator Brick Relationship Specialty Start Date End Date Alejandrina Rabago DO [address] Medical [place], [place] [address] PCP - General INTERNAL MEDICINE 10/18/19 06/27/22 Dell Zhang, 3 [facility] [address] [place] [address] PCP - General INTERNAL MEDICINE 06/28/22 12/25/22 Lei Blount, DO 3 [facility] [address] [place] [id number] PCP - General INTERNAL MEDICINE 12/26/22 Tamara Delacruz MD Three [facility]. [facility] [address] [place] [address] [employer] Host CARDIOVASCULAR DISEASE 11/27/15 documented as of this encounter
--- OUTSIDE RECORDS SUMMARY | 2024-11-01 20:04 | XMS_ITS | Encounter Summary ---
Author Organization [facility] Address [facility] [place] [address] Care Team Providers Care Book Store Associate Name Role Phone Tamara Delacruz MD Unavailable [phone] Alejandrina Rabago DO Primary Care Provider [phone] Dell Zhang DO Primary Care Provid er Lei Blount DO Primary Care Provider [phone] Encounter Details Date Type Department Care Team (Late st Contact Info) Description 07/15/2020 Prep for Procedure [facility] [place] [address] Halley Orr MD [facility] [address] [place] [address] Social History Tobacco Use Types Packs/Day [...] often do you attend chur ch or jehovah's witness services? More than 4 times per year 02/11/2020 Do you belong to any clubs o r organizations such as jainism groups, unions, fraternal or athletic groups, or [...] and heating? Not hard at all 02/11/2020 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 No / Unsure 06/19/2020 6:48 AM BUCKLE WIRE INSERTER documented as of this encounter Functional Status * RETIRED Are you deaf or do you have serious difficulty hearing Answer Date of Assessment Author Status No 05/16/2020 8:55 PM BUCKLE WIRE INSERTER Activ e * RETIRED Are you blind or do you have serious difficulty seeing, even when wearing glasses? Answer Date of Assessment Author Status No 05/16/2020 8:55 PM BUCKLE WIRE INSERTER Activ e * Do you have serious difficulty walking or climbing stairs? Answer Date of Assessment Author Status No 05/16/2020 8:55 PM BUCKLE WIRE INSERTER Earnest Allen se, RN Active * Do [...] CDT Office Visit [facility] THREE [facility] [place] [address] [place] [address] Marjorie Bird APRN Three [facility] [address] [place] [address] documented as of this encounter Visit Diagnoses Not on filedocumented in this encounter Additional Health Concerns Infection Onset Date Last Indicated Resolved Time COVID-19 Confirmed 05/16/2020 05/16/2020 12:34 AM BUCKLE WIRE INSERTER COVID-19 Rule Out 08/30/2020 08/30/2020 08/30/2020 10:15 AM BUCKLE WIRE INSERTER COVID-19 Rule Out 11/26/2020 11/26/2020 11/27/2020 7:35 AM CDT COVID-19 Rule Out 08/23/2022 08/23/2022 08/23/2022 3:07 PM BUCKLE WIRE INSERTER documented as of this encounter Care Teams Book Store Associate Relationship Specialty Start Date End Date Alejandrina Rabago DO [address] [place] [address] PCP - General INTERNAL MEDICINE 10/18/19 06/27/22 Dell Zhang DO 3 [facility] [address] [place] [address] PCP - General INTERNAL MEDICINE 06/28/22 12/25/22 Lei Blount DO 3 [facility] [address] [place] [phone] PCP - General INTERNAL MEDICINE 12/26/22 Tamara Delacruz MD Three [facility]. [facility] [address] [place] [address] [employer] Developer CARDIOVASCULAR DISEASE 11/27/15 documented as of this encounter
== END 2024-11-01 20:24 | disposition home or self-care (01) ==
PROVIDERS: Emergency Provider Emergency Medicine
DX: S61.412A Laceration without foreign body of left hand, initial encounter (principal); Z23 Encounter for immunization; Z87.891 Personal history of nicotine dependence; W31.89XA Contact with other specified machinery, initial encounter
CPT/HCPCS: 73140; 90471; 90715; 99283